=== PATIENT | male | born 1955 | race Caucasian/White ===

== ENCOUNTER 2016-03-24 04:33 | Inpatient (IN) | payer OTHER ==
[~2016-03-24] VITALS: Ht 154.9 cm; Wt 104.5 kg
[2016-03-24] VITALS (18 sets, daily range): BP systolic 94–131; BP diastolic 60–94
[~2016-03-24 04:33] MED LIST: AMLO5TAB2 PO; ASP81CT PO; ASPI-587 PO; ASPI-983 PO; CHLO25TA22 PO; CIPR-226 PO; DXZS4T PO; GLUC1000 PO; GLUC100016 PO; GLUC500T10 PO; HYDR12.56 PO; LISI-552 PO; LISI20TA PO; LSNP20T PO; LVF500T PO; MULT-963 PO; OXYC-109 PO; PHEN200T27 PO; PROSTATE MED; SULF1TAB35 PO; SULF1TAB38 PO; TAMS0.4C9 PO; TRAM50TA2 PO
[2016-03-24] MEDS ORDERED: LACTATED RINGERS 1,000 ML IV ONE (04:50)
[2016-03-24] MEDS ORDERED: ONDANSETRON 4 MG/2 ML (SDV) Z0FRAN IVP ONE (05:00)
[2016-03-24 05:03] LABS: BILIRUBIN,URINE NEGATIVE (NEGATIVE); KETONES,URINE NEGATIVE (NEGATIVE); LEUKOCYTE ESTERASE ,URINE NEGATIVE (NEGATIVE); NITRITE,URINE NEGATIVE (NEGATIVE); PH,URINE 6 (5-9); PROTEIN,URINE NEGATIVE (NEGATIVE); UROBILINOGEN,URINE NORMAL (NORMAL)
[2016-03-24 05:03] LABS: BASOPHILS # (AUTO) 0.1 10^3/uL (0.0-0.1); BASOPHILS % (AUTO) 1 % (0-10); EOSINOPHILS # (AUTO) 0.1 10^3/uL (0.0-0.3); EOSINOPHILS % (AUTO) 1 % (0-10); LYMPHOCYTES # (AUTO) 1.9 X 10^3 (1.0-4.0); LYMPHOCYTES % (AUTO) 18 % (12-44); MEAN CORPUSCULAR HEMOGLOBIN 31 PG (25-34); MEAN CORPUSCULAR HGB CONC 34 G/DL (32-36); MEAN CORPUSCULAR VOLUME 91 FL (80-99); MEAN PLATELET VOLUME 10.8 FL (7.4-10.4); MONOCYTES # (AUTO) 1.2 X 10^3 (0.0-1.0); MONOCYTES % (AUTO) 11 % (0-12); NEUTROPHILS # (AUTO) 7.4 X 10^3 (1.8-7.8); NEUTROPHILS % (AUTO) 69 % (42-75); PLATELET COUNT 289 10^3/uL (130-400); RED BLOOD COUNT 5.08 10^6/uL (4.35-5.85); RED CELL DISTRIBUTION WIDTH 13.9 % (10.0-14.5); WHITE BLOOD COUNT 10.7 10^3/uL (4.3-11.0)
--- NOTE | 2016-03-24 05:04 | ED Abdominal Pain ---
General Chief Complaint: Abdominal/GI Problems Stated Complaint: AB PAIN VOMITING FEVER Nursing Triage Note: abdominal pain, nausea/vomitting. recently dx with abdominal hernia/diverticulitis. Sepsis Screen: No Definite Risk Source of Information: Patient, Old Records History of Present Illness Time Seen By Provider: 04:41 Initial Comments C/O MID ABDOMINAL PAIN FOR COUPLE OF WEEKS STATES PAIN IS WORSE TONIGHT AND HE HAS HAD NAUSEA AND VOMITING ALL NIGHT AND IT KEPT HIM UP ALL NIGHT. HAS VOMITED X 4, NOW DRY HEAVES PT WAS SEEN IN ER 03/20/16 FOR THIS PROBLEM, CT WAS DONE SHOWING RAMIRO-UMBILICAL HERNIAS AND DIVERTICULAR DISEASE WITHOUT ANY ACUTE PROCESS PT HAS BEEN SEEN BY DR. KIMBALL WELL PT HAS AN APPOINTMENT WITH DR. PHAM TODAY FOR THIS PROBLEM AND IS TO HAVE SURGERY THIS Thursday03/27/16 NO FEVER NO DIARRHEA OR CONSTIPATION--HAD NORMAL BM YESTERDAY NO URINARY SYMPTOMS STATES IT IS CAUSING HIM TO HAVE TROUBLE BREATHING AND HE KEEPS HAVING PANIC ATTACKS SINCE SYMPTOMS BEGAN NO CHEST PAIN LAST ATE AT 1800 LAST EVENING Allergies and Home Medications Allergies Coded Allergies: lidocaine (Unverified Allergy, Mild, BREAKS OUT IN WELTS, 03/20/16) orange juice (Verified Allergy, Unknown, 04/09/13) Home Medications Amlodipine Besylate 5 Mg Tablet 5 MG PO DAILY (Reported) Aspirin 81 Mg Tablet.dr 81 MG PO DAILY (Reported) Glucosamine Sulfate 2Kcl 1,000 Mg Tablet 1,000 MG PO DAILY (Reported) Lisinopril 20 Mg Tablet 20 MG PO DAILY (Reported) Tramadol HCl 50 Mg Tablet #20 50-100 MG PO Q6H PRN PRN abdominal pain Prescribed by: GUY RYAN on 03/20/16 1324 Review of Systems Constitutional: no symptoms reported Respiratory: See HPI Shortness of Air Cardiovascular: No Symptoms ReportedDenies Chest Pain, Denies Edema, Denies Irregular Heart Rate, Denies Lightheadedness, Denies Palpitations, Denies Syncope Gastrointestinal: See HPI Abdominal PainDenies Constipated, Denies Diarrhea, Nausea Poor Appetite Poor Fluid IntakeDenies Rectal Bleeding, Vomiting Genitourinary: No Symptoms Reported Musculoskeletal: no symptoms reported Skin: no symptoms reported Psychiatric/Neurological: See HPI Anxiety Endocrine: No Symptoms Reported Hematologic/Lymphatic: No Symptoms Reported Past Hoaohyx-Aotiun-Xpougk Hx Patient Social History Alcohol Use: Rarely Uses (HISTORY OF ABUSE) Recreational Drug Use: No Smoking Status: Former Smoker (1 PPD, QUIT 10/2015) Type Used: Smokeless Tobacco Recent Foreign Travel: No Contact w/Someone Who Travel: No Recent Infectious Disease Expo: No Recent Hopitalizations: No Physical Abuse Screen: No Sexual Abuse: No Immunizations Up To Date Tetanus Booster (TDap): Less than 5yrs PED Vaccines UTD: Yes Seasonal Allergies Seasonal Allergies: No Surgeries HX Surgeries: Yes (BACK SURGERY WITH BONE GRAFT FROM PELVIS; PERIUMBILICAL HERNIA REPAIR; RIGHT KNEE SCOPE; BILATERAL ROTATOR CUFF REPAIR; KIDNEY STONE BASKET REMOVAL) Surgeries: Abdominal, Appendectomy, Orthopedic, Renal Respiratory Hx Respiratory Disorders: No Cardiovascular Hx Cardiac Disorders: Yes Cardiac Disorders: High Cholesterol, Hypertension Neurological Hx Neurological Disorders: No Reproductive System Hx Reproductive Disorders: No Genitourinary Hx Genitourinary Disorders: Yes Genitourinary Disorders: Benign Prostatic Hyperpl, Kidney Stones Gastrointestinal Hx Gastrointestinal Disorders: Yes Gastrointestinal Disorders: Abdominal Hernia, Gastroesophageal Reflux, Diverticulosis Musculoskeletal Hx Musculoskeletal Disorders: Yes (CHRONIC NECK PAIN; BILATERAL ROTATOR CUFF REPAIR; RIGHT KNEE SCOPE; BACK SURGERY) Musculoskeletal Disorders: Degenerate Disk Disease, Arthritis, Back Injury, Chronic Back Pain Endocrine Hx Endocrine Disorders: No HEENT HX ENT Disorders: Yes (WEARS GLASSES) Loss of Vision: Denies Hearing Impairment: Denies Cancer Hx Cancer: No Psychosocial Hx Psychiatric Problems: No Integumentary HX Skin/Integumentary Disorder: No Blood Transfusions Hx Blood Disorders: No Adverse Reaction to a Blood Tr: No Family Medical History Family Medial History: Alzheimer's disease paternal grandmother Diabetes mellitus 19 MOTHER Gastroenteritis Hypertension G8 SISTER Neoplasm maternal grandmother (pancreatic cancer) Physical Exam Vital Signs VS - Last 72 Hours, by Label 03/24/16 03/24/16 03/24/16 03/24/16 04:46 05:00 05:15 05:23 Temp 98.0 98.0 Pulse 76 96 95 76 Resp 18 B/P 118/83 115/82 13/92 Pulse Ox 99 97 97 99 O2 Delivery Room Air Nasal Cannula Nasal Cannula O2 Flow Rate 2 2 03/24/16 03/24/16 03/24/16 03/24/16 05:23 05:45 06:15 06:30 Temp 98.0 Pulse 76 85 66 127 Resp 16 B/P 117/82 127/93 131/84 Pulse Ox 99 94 97 96 O2 Delivery Nasal Cannula Nasal Cannula Nasal Cannula O2 Flow Rate 2 2 2 Capillary Refill : Less Than 3 Seconds General Appearance: WD/WN no apparent distress other (ANXIOUS) Neck: non-tender full range of motion supple normal inspection Respiratory: normal breath sounds no respiratory distress no accessory muscle use Cardiovascular: no edema no murmur tachycardia (AT TIMES) irregularly irregular (AT TIMES) other (HEART RATE HIGHLY VARIABLE--FROM 70'S TO 140'S) Gastrointestinal: no organomegaly no pulsatile mass abnormal bowel sounds ( RARE) distended guarding rebound tenderness (DIFFUSE, SEVERE TENDERNESS) hernia (MILD REDUCIBLE UMBILICAL HERNIA)No mass Extremities: normal range of motion non-tender normal inspection no pedal edema no calf tenderness normal capillary refill Back: no CVA tenderness 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 as tested no motor/sensory deficits alert oriented x 3 other (ANXIOUS) Skin: normal color warm/dry Progress/Results/Core Measures Results/Orders Lab Results Laboratory Tests Test 03/24/16 04:50 03/24/16 04:54 Range/Units Activated Partial Thromboplast Time 37 H 24-35 SEC Alanine Aminotransferase (ALT/SGPT) 15 0-55 U/L Albumin 4.2 3.2-4.5 G/DL Alkaline Phosphatase 87 40-136 U/L Amylase Level 53 25-125 U/L Anion Gap 10 5-14 MMOL/L Aspartate Amino Transf (AST/SGOT) 15 5-34 U/L B-Type Natriuretic Peptide 116.9 H <100.0 PG/ML BUN/Creatinine Ratio 16 Basophils # (Auto) 0.1 0.0-0.1 10^3/uL Basophils (%) (Auto) 1 0-10 % Blood Urea Nitrogen 24 H 7-18 MG/DL Calcium Level 9.8 8.5-10.1 MG/DL Carbon Dioxide Level 21 21-32 MMOL/L Chloride Level 109 H 98-107 MMOL/L Creatinine 1.48 H 0.60-1.30 MG/DL Eosinophils # (Auto) 0.1 0.0-0.3 10^3/uL Eosinophils (%) (Auto) 1 0-10 % Estimat Glomerular Filtration Rate 49 Glucose Level 107 H 70-105 MG/DL Hematocrit 46 40-54 % Hemoglobin 15.6 13.3-17.7 G/DL INR Comment 1.0 0.8-1.4 Lipase 23 8-78 U/L Lymphocytes # (Auto) 1.9 1.0-4.0 X 10^3 Lymphocytes (%) (Auto) 18 12-44 % Magnesium Level 2.3 1.8-2.4 MG/DL Mean Corpuscular Hemoglobin 31 25-34 PG Mean Corpuscular Hemoglobin Concent 34 32-36 G/DL Mean Corpuscular Volume 91 80-99 FL Mean Platelet Volume 10.8 H 7.4-10.4 FL Monocytes # (Auto) 1.2 H 0.0-1.0 X 10^3 Monocytes (%) (Auto) 11 0-12 % Neutrophils # (Auto) 7.4 1.8-7.8 X 10^3 Neutrophils (%) (Auto) 69 42-75 % Platelet Count 289 130-400 10^3/uL Potassium Level 4.1 3.6-5.0 MMOL/L Prothrombin Time 12.4 12.2-14.7 SEC Red Blood Count 5.08 4.35-5.85 10^6/uL Red Cell Distribution Width 13.9 10.0-14.5 % Sodium Level 140 135-145 MMOL/L TSH [place] Testing 1.88 0.35-4.94 UIU/ML Total Bilirubin 0.5 0.1-1.0 MG/DL Total Protein 6.9 6.4-8.2 G/DL Troponin I < 0.30 <0.30 NG/ML White Blood Count 10.7 4.3-11.0 10^3/uL Urine Bacteria NEGATIVE /HPF Urine Bilirubin NEGATIVE NEGATIVE Urine Casts NONE /LPF Urine Clarity CLEAR Urine Color YELLOW Urine Crystals NONE /LPF Urine Culture Indicated NO Urine Glucose (UA) NEGATIVE NEGATIVE Urine Ketones NEGATIVE NEGATIVE Urine Leukocyte Esterase NEGATIVE NEGATIVE Urine Mucus SMALL H /LPF Urine Nitrite NEGATIVE NEGATIVE Urine Protein NEGATIVE NEGATIVE Urine RBC NONE /HPF Urine RBC (Auto) 1+ H NEGATIVE Urine Specific [place] 1.020 1.016-1.022 Urine Squamous Epithelial Cells RARE /HPF Urine Urobilinogen NORMAL NORMAL MG/DL Urine WBC NONE /HPF Urine pH 6 5-9 My Orders Orders-ADALBERTO BOSWELL DO Saline Lock/Iv-Start (03/24/16 04:50) Monitor-Rhythm Ecg Trace Only (03/24/16 04:50) Amylase (03/24/16 04:50) Cbc With Automated Diff (03/24/16 04:50) Comprehensive Metabolic Panel (03/24/16 04:50) Lipase (03/24/16 04:50) Protime With Inr (03/24/16 04:50) Partial Thromboplastin Time (03/24/16 04:50) Ua Culture If Indicated (03/24/16 04:50) Acute Abd Series (03/24/16 04:50) Saline Lock/Iv-Start (03/24/16 04:50) Lactated Ringers (Lr 1000 Ml Iv Solution (03/24/16 04:50) Ondansetron Injection (Zofran Injectio (03/24/16 05:00) Ekg Tracing (03/24/16 05:05) BNP (03/24/16 05:05) Magnesium (03/24/16 05:05) Thyroid Analyzer (03/24/16 05:05) Troponin I (03/24/16 05:05) Ct Lexy Chest/Noang Abd-Pelv W (03/24/16 05:15) Sodium Chloride (Ad... W/Diltiazem Drip (03/24/16 05:15) Sodium Chloride (Add-[place]) (Ns (Add-V (03/24/16 05:11) Diltiazem Drip (Cardizem Drip) (03/24/16 05:11) Ekg Tracing (03/24/16 06:24) Ekg Tracing (03/24/16 06:24) Morphine Injection (Morphine Injection (03/24/16 06:32) Enoxaparin Injection (Lovenox Injection) (03/24/16 07:30) Medications Given in ED Current Medications Medications Dose Ordered Sig/Elisha Route Start Time Stop Time Status Last Admin Dose Admin Diltiazem HCl 100 mg STK-MED ONCE IV 03/24/16 05:11 03/24/16 05:19 DC 03/24/16 05:23 100 MG Enoxaparin Sodium 100 mg ONCE ONCE SC 03/24/16 07:30 03/24/16 07:31 03/24/16 07:25 100 MG Lactated Ringer's 1,000 ml @ 0 mls/hr Q0M ONCE IV 03/24/16 04:50 03/24/16 04:52 DC 03/24/16 04:56 0 MLS/HR Ondansetron HCl 8 mg 8 mg ONCE ONCE IVP 03/24/16 05:00 03/24/16 05:01 DC 03/24/16 04:56 8 MG Sodium Chloride 100 ml STK-MED ONCE IV 03/24/16 05:11 03/24/16 05:19 DC 03/24/16 05:23 Vital Signs/I&O Vital Sign - Last 12Hours 03/24/16 03/24/16 03/24/16 03/24/16 04:46 05:00 05:15 05:23 Temp 98.0 98.0 Pulse 76 96 95 76 Resp 18 18 17 18 B/P 118/83 115/82 13/ Pulse Ox 99 97 97 99 O2 Delivery Room Air Nasal Cannula Nasal Cannula O2 Flow Rate 2 2 03/24/16 03/24/16 03/24/16 03/24/16 05:23 05:45 06:15 06:30 Temp 98.0 Pulse 76 85 66 127 Resp 18 16 16 22 B/P 117/82 127/93 131/84 Pulse Ox 99 94 97 96 O2 Delivery Nasal Cannula Nasal Cannula Nasal Cannula O2 Flow Rate 2 2 2 Blood Pressure Mean: 66 Progress Note : Progress Note HEART RATE HIGHLY VARIABLE AND PT GOING IN AND OUT OF A FIB WITH RVR, EVERY COUPLE OF MINUTES, WITH RATE FROM 70 - 140'S STARTED ON CARDIZEM DRIP, WITH SOME DECREASE IN FREQUENCY OF EPISODES OF A FIB, BUT STILL OCCURRING. ABDOMINAL PAIN EASED WITH MORPHINE NAUSEA RESOLVED WITH ZOFRAN ECG Initial ECG Impression Time: 05:09 Initial ECG Rate: 69 Initial ECG Rhythm: Normal Sinus (WITH PAC'S ) Initial ECG Comparisson: Unchanged EKG : EKG Time: 05:09 Rate: 94 Rhythm: Normal Sinus (WITH PAC'S/PVC'S AND CHANGE TO A FIB ) ECG Comparisson: Changed Comment EKG#3 AT 0510--RATE 152 WITH A FIB/FLUTTER Diagnostic Imaging Comments ACUTE ABDOMEN XRAYS--NO ACUTE PROCESS, PENDING RADIOLOGIST REVIEW CT ABDOMEN/PELVIS--NO ACUTE PROCESS, PER [facility] VIA FAX @ [id number] Reviewed: Reviewed [place] Study, Reviewed by Me Departure Communication Progress Notes 0715--SPOKE WITH DR. CORDERO, ACCEPTS PT FOR ADMIT. WILL GET CARDIOLOGY CONSULT THIS AM, WELL CONSULT DR. PHAM Impression Impression: Primary Impression: NEW ONSET OF INTERMITTENT A FIB WITH RVR Additional Impressions: Abdominal pain HTN (hypertension) Mild renal insufficiency Disposition: ADMITTED INPATIENT Condition: Improved Decision to Admit Reason: Admit from ER (General) Decision to Admit/Date: Mar 24, 2016 Time/Decision to Admit Time: 07:15 Departure-Patient Inst. Referrals: MOHAN KIMBALL MD (PCP/Family) Primary Care Physician ADALBERTO BOSWELL DO Mar 24, 2016 05:04
[2016-03-24] MEDS ORDERED: DILTIAZEM 100 MG/VIAL (CARDIZEM) ADD-VANTAGE IV ONE (05:11)
[2016-03-24] MEDS ORDERED: SODIUM CHLORIDE (ADD-VANTAGE) 100 ML IV ONE (05:11)
[2016-03-24 05:13] LABS: PROTHROMBIN TIME PATIENT 12.4 SEC (12.2-14.7)
[2016-03-24] MEDS ORDERED: DILTIAZEM DRIP 100 MG in SODIUM CHLORIDE (ADD-VANTAGE) 100 ML IV SCH (05:15)
[2016-03-24 05:21] LABS: ALBUMIN 4.2 G/DL (3.2-4.5); BILIRUBIN,TOTAL 0.5 MG/DL (0.1-1.0); CALCIUM 9.8 MG/DL (8.5-10.1); CREATININE SERUM 1.48 MG/DL (0.60-1.30); POTASSIUM 4.1 MMOL/L (3.6-5.0); TOTAL PROTEIN 6.9 G/DL (6.4-8.2)
[2016-03-24 05:26] LABS: SQUAMOUS EPITHELIAL CELL,UR RARE /HPF
[2016-03-24 05:30] LABS: MAGNESIUM 2.3 MG/DL (1.8-2.4)
[2016-03-24 05:57] LABS: TROPONIN I < 0.30 NG/ML (<0.30)
[2016-03-24] MEDS ORDERED: morphine INJ 10 MG/ML 1ML (SYR OR VIAL) IVP STA (06:32)
[2016-03-24] MEDS ORDERED: ENOXAPARIN 100 MG/1 ML (LOVENOX) SYR SC ONE (07:30)
--- NOTE | 2016-03-24 08:22 | Diagnostic Imaging Report ---
INDICATION: Severe abdominal pain with nausea, vomiting, and fever. Comparison study: Abdomen from September 26, 2014. FINDINGS: Upright view of the chest demonstrates lungs to be clear. The heart and vascularity are normal. Supine and upright views of the abdomen demonstrate residual contrast in the renal collecting system from the patient's recent CT scan. Postoperative changes are present in the spine. There is normal bowel gas pattern. No free air or air-fluid levels are present. There are no abnormal calcifications. IMPRESSION: There are no acute findings. Dictated by: Dictated on workstation # [id number]
[2016-03-24] MEDS ORDERED: D5 1/2 NS 1000 ML IV SOLUTION 1,000 ML IV ONE (08:26)
--- NOTE | 2016-03-24 08:55 | Diagnostic Imaging Report ---
EXAMINATION: CT angiogram of the chest and CT of the abdomen and pelvis with routine protocol using intravenous contrast. TECHNIQUE: Axial images were obtained in the chest, abdomen, and pelvis. Multiple reconstructions were performed including MIP technique reconstructions in the chest. CONTRAST: 125 mL of Omnipaque 350 was administered intravenously. INDICATION: Fever and severe abdominal pain. CTA CHEST: The pulmonary arteries demonstrate mild contrast opacification with no filling defects to suggest pulmonary embolism seen within the central branches. The segmental and subsegmental pulmonary arteries are not well evaluated. The thoracic aorta demonstrates no dissection or aneurysm. There is no mediastinal mass. There are no significantly enlarged lymph nodes in the mediastinum, lanre, or axilla seen. The heart size is normal. There is no pericardial effusion. No pleural effusion. The lungs demonstrate pulmonary nodules measuring up to 6 mm in the right upper lobe just above the minor fissure and in the left lung up to 5 mm in the left lung apex. No significant consolidation or mass. The osseous structures demonstrate degenerative changes and scoliosis. CT ABDOMEN AND PELVIS: There is a simple cyst in the left hepatic lobe with a thin septation measuring 4.2 cm. There is otherwise no significant abnormality in the liver. The spleen is not enlarged. The pancreas and adrenals appear unremarkable. A small duodenal diverticulum is seen adjacent to the pancreatic head. There are supraumbilical fat-containing small ventral hernias with multiple defects in the abdominal wall. An umbilical fat-containing hernia is also seen. In the pelvis, there is mild enlargement of the prostate noted measuring 5.2 cm in transverse dimension. There is mild diverticulosis. No diverticulitis. The kidneys have symmetric enhancement and contrast excretion. There is no hydronephrosis. In the left kidney, there is a 5.7 cm simple cyst. No solid mass. The abdominal aorta is normal in caliber. No periaortic significantly enlarged lymph node is seen. No significant free fluid or fluid collection in the abdomen or pelvis is seen. Posterior fusion hardware is noted at the L4-5 level with associated laminectomy. The osseous structures otherwise demonstrate mild degenerative changes in the upper lumbar spine and SI joints. IMPRESSION: CTA CHEST: 1. There is mild opacification of the pulmonary arteries with no central PE. The distal branches, particularly at the subsegmental level, are not well evaluated. 2. There are indeterminate pulmonary nodules up to 6 mm in the right upper lobe and up to 5 mm in the left lung apex. A followup study in 4-6 months with an unenhanced low dose CT chest would be recommended. CT ABDOMEN AND PELVIS: There are multiple fat-containing small umbilical and supraumbilical ventral hernias. Dictated by: Dictated on workstation # [id number]
--- NOTE | 2016-03-24 09:09 | Consultation-Cardiology ---
HPI-Cardiology Cardiology Consultation: Date of Consultation 03/24/16 Date of Admission 03-23-16 Attending Physician Dakotah Stewart MD Admitting Physician Dakotah Stewart MD Consulting Physician Declan Durham MD HPI: Chief Complaint: New onset a-fib with RVR Mr. Hopson is a 60 year old male admitted to ICU 11 from the ED. He reports Thursday night he had a sudden onset of abdominal pain with n/v. He reports he was seen in the ED on Thursday and discharged home. The abdominal discomfort continued to progress along with the n/v. He states he then came back to the ED and was told he was in a-fib. He does not report any chest pain, palpitations, dyspnea, syncope or near syncope. He is reporting heartburn, which is chronic, but worse this morning. He is reporting jaw discomfort which just started this morning. He describes it as an ache. He does not report any chest pain. He does c/o abdominal discomfort. He states he just quit smoking in December and alcohol use. He states he has abdominal hernias for which he is awaiting surgical consult with Dr. Diaz for possible repair. He reports intermittent LE edema for which he takes HCTZ daily. Spouse is at the bedside. Review of Systems-Cardiology Review of Systems Constitutional: As described under HPI Eyes: No blurred vision, No drainage, No pain, No vision change Ears/Nose/Throat: No ear discharge, No ear pain, No nasal drainage, No ulcerations Respiratory: As described under HPI Cardiovascular: As described under HPI Gastrointestinal: abdominal painNo constipation, No diarrhea, nausea vomitingNo stool coloration changes Genitourinary: No dysuria, No discharge, No frequency, No hematuria, No urgency Skin: No rash, No skin related problems, No ulcerations Psychiatric/Neurological: No anxiety, No depression, No focal weakness, No seizure, No syncope Hematologic: No bleeding abnormalities QIU-Ngyoey-Kstvhl Hx Patient Social History Alcohol Use: Rarely Uses (HISTORY OF ABUSE) Recreational Drug Use: No Smoking Status: Former Smoker (1 PPD, QUIT 10/2015) Type Used: Smokeless Tobacco Recent Foreign Travel: No Recent Infectious Disease Expo: No Hospitalization with Isolation: Denies Physical Abuse Screen: No Sexual Abuse: No Immunizations Up To Date Tetanus Booster (TDap): Less than 5yrs Past Medical History PMH As described under Assessment. Family Medical History Family Medical History: No known family h/o CAD. Family History: Alzheimer's disease paternal grandmother Diabetes mellitus 19 MOTHER Gastroenteritis Hypertension G8 SISTER Neoplasm maternal grandmother (pancreatic cancer) Allergies and Home Medications Allergies Coded Allergies: lidocaine (Unverified Allergy, Mild, BREAKS OUT IN WELTS, 03/20/16) orange juice (Verified Allergy, Unknown, 04/09/13) Home Medications Amlodipine Besylate 5 Mg Tablet 5 MG PO DAILY (Reported) LAST FILLED 03/03/16 #15 Aspirin 81 Mg Tablet.dr 81 MG PO DAILY (Reported) Chlorthalidone 25 Mg Tablet 12.5 MG PO DAILY (Reported) TAKES 1/2 OF A (25 MG) TABLET Gluc HCl/Csa/Terrence Hy/Hyalur AC 1 Each Capsule 1 CAP PO DAILY (Reported) Hydrocodone/Acetaminophen 1 Each Tablet 1 TAB PO Q8H PRN PRN SEVERE PAIN ( Reported) Lisinopril 20 Mg Tablet 20 MG PO DAILY (Reported) Sulfamethoxazole/Trimethoprim 1 Each Tablet 1 TAB PO BID (Reported) FILLED 03/20/16 #20 FOR A 10 DAY THERAPY Tramadol HCl 50 Mg Tablet 50-100 MG PO Q6H PRN PRN MODERATE PAIN (Reported) TAKES 1-2 OF A (50 MG) TABLET Physical Exam-Cardiology Physical Exam Vital Signs/I&O Vital Sign - Last 12Hours 03/24/16 03/24/16 03/24/16 03/24/16 06:30 08:10 08:15 08:25 Temp 97.0 Pulse 127 74 63 Resp 22 18 B/P 131/84 Pulse Ox 96 99 O2 Delivery Nasal Cannula O2 Flow Rate 2 03/24/16 03/24/16 03/24/16 03/24/16 09:00 09:30 10:00 11:00 Temp 96.7 Pulse 67 58 61 62 Resp 34 11 12 B/P 101/66 106/67 106/67 94/70 Pulse Ox 95 94 91 O2 Delivery Room Air Room Air Room Air 03/24/16 03/24/16 03/24/16 03/24/16 12:00 12:00 13:44 16:00 Temp 96.7 97.8 Pulse 68 67 Resp 19 B/P 101/72 98/60 Pulse Ox 90 93 O2 Delivery Room Air Capillary Refill : Less Than 3 Seconds Constitutional: appears stated ageNo apparent distress, well-developed well- nourished HEENT: PERRLNo discharge, hearing is well preserved oral hygience is goodNo ulceration, No xanthelasmas are seen Neck: No carotid bruit, carotid pulses are 2 + bilaterally Respiratory: No accessory muscle use, No respiratory distress, chest expansion is symmetric chest is bilaterally symmetric lungs clear to percussion lungs clear to auscultation Cardiovascular: irregularly irregular (Altermating between a-fib and SR)No JVD , S1 and S2 systolic murmur Gastrointestinal: distended tendernessNo spleenomegaly Extremities: No clubbing, No cyanosis, No significant edema 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: alert oriented x 3 power is 5/5 both on sides Skin: No rash, No ulcerations Data Review Labs Laboratory Tests 03/24/16 04:50: Activated Partial Thromboplast Time 37H, Alanine Aminotransferase (ALT/SGPT) 15 , Albumin 4.2, Alkaline Phosphatase 87, Amylase Level 53, Anion Gap 10, Aspartate Amino Transf (AST/SGOT) 15, B-Type Natriuretic Peptide 116.9H, BUN/ Creatinine Ratio 16, Basophils # (Auto) 0.1, Basophils (%) (Auto) 1, Blood Urea Nitrogen 24H, Calcium Level 9.8, Carbon Dioxide Level 21, Chloride Level 109H, Creatinine 1.48H, Eosinophils # (Auto) 0.1, Eosinophils (%) (Auto) 1, Estimat Glomerular Filtration Rate 49, Glucose Level 107H, Hematocrit 46, Hemoglobin 15.6, INR Comment 1.0, Lipase 23, Lymphocytes # (Auto) 1.9, Lymphocytes (%) ( Auto) 18, Magnesium Level 2.3, Mean Corpuscular Hemoglobin 31, Mean Corpuscular Hemoglobin Concent 34, Mean Corpuscular Volume 91, Mean Platelet Volume 10.8H, Monocytes # (Auto) 1.2H, Monocytes (%) (Auto) 11, Neutrophils # (Auto) 7.4, Neutrophils (%) (Auto) 69, Platelet Count 289, Potassium Level 4.1, Prothrombin Time 12.4, Red Blood Count 5.08, Red Cell Distribution Width 13.9, Sodium Level 140, TSH [facility] Testing 1.88, Total Bilirubin 0.5, Total Protein 6.9, Troponin I < 0.30, White Blood Count 10.7 03/24/16 04:54: Urine Bacteria NEGATIVE, Urine Bilirubin NEGATIVE, Urine Casts NONE, Urine Clarity CLEAR, Urine Color YELLOW, Urine Crystals NONE, Urine Culture Indicated NO, Urine Glucose (UA) NEGATIVE, Urine Ketones NEGATIVE, Urine Leukocyte Esterase NEGATIVE, Urine Mucus SMALLH, Urine Nitrite NEGATIVE, Urine Protein NEGATIVE, Urine RBC NONE, Urine RBC (Auto) 1+H, Urine Specific [place] 1.020, Urine Squamous Epithelial Cells RARE, Urine Urobilinogen NORMAL, Urine WBC NONE , Urine pH 6 Radiology NAME: GUY HOPSON [facility] REC#: [id number] PT STATUS: ADM IN : 1955 PHYSICIAN: ADALBERTO BOSWELL DO ADMIT DATE: 03/24/16/ICU Draft Date of Exam:03/24/16 ACUTE ABD SERIES INDICATION: Severe abdominal pain with nausea, vomiting, and fever. Comparison study: Abdomen from September 26, 2014. FINDINGS: Upright view of the chest demonstrates lungs to be clear. The heart and vascularity are normal. Supine and upright views of the abdomen demonstrate residual contrast in the renal collecting system from the patient's recent CT scan. Postoperative changes are present in the spine. There is normal bowel gas pattern. No free air or air-fluid levels are present. There are no abnormal calcifications. IMPRESSION: There are no acute findings. Dictated on workstation # [id number] Dict: 03/24/16817 Trans: 03/24/16821 [id number] Interpreted by: JOSE ANTONIO LEONARD MD Electronically signed by: ECG Impression ECG Initial ECG Impression: Atrial Fibrillation w/RVR A/P-Cardiology Assessment/Admission Diagnosis New onset a-fib with RVR - rate currently controlled Palpitations of undetermined etiology which have been present for several years Reported h/o TIA 3-4 years ago with reported transient loss of speech HTN Intermittent LE edema for which he is on chronic diuretics managed by his PCP N/V/D Severe lower abdominal wall pain d/t abdominal herniations - medical and surgical services managing H/O kidney stones Abdominal hernias for which he is awaiting surgical consult H/O diverticulitis H/O tobaccoism - stopped in December 2015 H/O ETOH use - stopped in December 2015 Acute on chronic renal insufficiency Discussion and Recomendations New onset a-fib with RVR. Rate controlled with IV Diltiazem. Will change to BB for rate and BP control. We will stop Lisinopril d/t renal insufficiency. We will stop diuretics as well. We will stop Norvasc in order to allow BP room for BB. Echocardiogram to evaluate LVEF and valvular status. D/t non-specific c/o chest and jaw discomfort, new onset of a-fib and other risk factors as listed above we advise further cardiac work up. We advise MPI. He does not feel he will be able to ambulate on a treadmill d/t abdominal pain. We will do pharmacological MPI. Further recommendations will be based on his hospital course. We would like to thank Dr. Stewart for this consult. This consult is being scribed by Cathy Gregg APRN after discussion with Dr. Durham Physician Assessment Physician Assessment Lungs: good bilat air entry, but diminished at the bases Cor: reg A&R * As documented in our note above * I had a detailed discussion with him and answered questions JANELLE GREGG PHOTO INTERN Mar 24, 2016 09:09 DECLAN DURHAM MD [facility] Mar 24, 2016 18:29
[2016-03-24] MEDS ORDERED: CATHETER FLUSH 10 ML SYR IV PRN (09:30)
[2016-03-24] MEDS: DILTIAZEM DRIP 100 MG/NS 100 ML IV SCH ×2 (09:30)
[2016-03-24] MEDS ORDERED: PANTOPRAZOLE 40 MG/10 ML (PROTONIX) VIAL IV NR (10:00)
[2016-03-24] MEDS ORDERED: ANTACID SUSP 30 ML UDC (MYLANTA) PO ONE (10:00)
[2016-03-24] MEDS: meTOproloL SUCCINATE 50 MG (TOPROL XL) TAB PO NR ×3 (10:00→15:49)
[2016-03-24] MEDS ORDERED: GLUC1CAP14 PO (10:37)
[2016-03-24] MEDS ORDERED: TRAM50TA2 PO (10:37)
[2016-03-24] MEDS ORDERED: HYDR-3820 PO (10:37)
[2016-03-24] MEDS ORDERED: SULF1TAB35 PO (10:37)
[2016-03-24] MEDS ORDERED: CHLO25TA22 PO (10:37)
[2016-03-24] MEDS: morphine INJ 10 MG/ML 1ML (SYR OR VIAL) IV PRN ×4 (10:47→20:52)
[2016-03-24] MEDS: D5 1/2 NS 1000 ML IV SOLUTION 1,000 ML IV SCH ×3 (10:48→20:53)
[2016-03-24] MEDS: ONDANSETRON 4 MG/2 ML (SDV) Z0FRAN IVP PRN ×4 (10:48→19:06)
--- NOTE | 2016-03-24 12:11 | History & Physical-Hospitalist ---
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 He was seen here in the emergency room on 03/20 with complaints of abdominal pain ultimate workup showed a by CT scan that there was a periumbilical hernia or hernias. He in fact was to have an appointment with Dr. Andrews today for planning of the hernia repair later this week. CT scan done early this morning showed no evidence of bowel obstruction. The other finding was that he had atrial fibrillation with a rapid ventricular response which was a new finding. He was admitted to the ICU for a Cardizem drip and the cardiac consultation. He has had many surgeries including a previous periumbilical hernia repair a stated (kidney stone procedure which she states was the cause of the horizontally aligned left lower quadrant sub-umbilical scar. Date Seen 03/24/16 Attending Physician Dakotah Stewart MD PCP Dakotah Stewart MD Referring Physician Date of Admission Mar 24, 2016 at 07:29 Home Medications & Allergies Home Medications Reviewed patient Home Medication Reconciliation Form Allergies Coded Allergies: lidocaine (Unverified Allergy, Mild, BREAKS OUT IN WELTS, 03/20/16) orange juice (Verified Allergy, Unknown, 04/09/13) Past Kkqfqzs-Xkbpoe-Xxejtt Hx Patient Social History Alcohol Use: Rarely Uses Recreational Drug Use: No Smoking Status: Former Smoker Type Used: Smokeless Tobacco Physical Abuse Screen: No Sexual Abuse: No Recent Foreign Travel: No Contact w/other who traveled: No Recent Hopitalizations: No Recent Infectious Disease Expo: No Immunizations Up To Date Tetanus Booster (TDap): Less than 5yrs Seasonal Allergies Seasonal Allergies: No Surgeries HX Surgeries: Yes Surgeries: Abdominal, Appendectomy, Orthopedic, Renal Respiratory Hx Respiratory Disorders: No Cardiovascular Hx Cardiovascular Disorders: Yes Cardiac Disorders: High Cholesterol, Hypertension Neurological Hx Neurological Disorders: No Reproductive System Hx Reproductive Disorders: No Sexually Transmitted Disease: No HIV/AIDS: No Genitourinary Hx Genitourinary Disorders: Yes Genitourinary Disorders: Benign Prostatic Hyperpl, Kidney Stones Gastrointestinal Hx Gastrointestinal Disorders: Yes Gastrointestinal Disorders: Abdominal Hernia, Gastroesophageal Reflux, Diverticulosis Musculoskeletal Hx Musculoskeletal Disorders: Yes Musculoskeletal Disorders: Degenerate Disk Disease, Arthritis, Back Injury, Chronic Back Pain Endocrine Hx Endocrine Disorders: No HEENT HX ENT Disorders: Yes (WEARS GLASSES) Loss of Vision: Denies Hearing Impairment: Denies Cancer Hx Cancer: No Psychosocial Hx Psychiatric Problems: No Integumentary HX Skin/Integumentary Disorder: No Blood Transfusions Hx Blood Disorders: No Adverse Reaction to a Blood Tr: No Family Medical History Family Hx: Alzheimer's disease paternal grandmother Diabetes mellitus 19 MOTHER Gastroenteritis Hypertension G8 SISTER Neoplasm maternal grandmother (pancreatic cancer) Review of Systems Constitutional: see HPI EENTM: no symptoms reported Respiratory: no symptoms reported Cardiovascular: see HPI palpitations Gastrointestinal: abdominal pain nausea vomiting Genitourinary: no symptoms reported Musculoskeletal: no symptoms reported Skin: no symptoms reported Psychiatric/Neurological: No Symptoms Reported Physical Exam Physical Exam Vital Signs Vital Sign - Last 12Hours 03/24/16 03/24/16 04:46 05:00 Temp 98.0 Pulse 76 Resp 18 B/P 13/92 Pulse Ox 99 O2 Delivery Room Air O2 Flow Rate 2 Capillary Refill : Less Than 3 Seconds General Appearance: No Apparent Distress WD/WN Eyes: Bilateral Eye Normal Inspection HEENT: Normal ENT Inspection Neck: Normal Inspection Respiratory: Chest Non Tender Lungs Clear Normal Breath Sounds No Accessory Muscle Use No Respiratory Distress Cardiovascular: Other (now in sinus rhythm albeit with frequent PACs) Gastrointestinal: Distended Guarding Rebound Tenderness Extremity: Normal Capillary Refill Normal Inspection Normal Range of Motion Non Tender No Calf Tenderness No Pedal Edema 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: Alert Oriented x3 No Motor/Sensory Deficits Normal Mood/Affect Skin: Normal Color Warm/Dry Lymphatic: No Adenopathy Results Results/Procedures Lab Laboratory Tests 03/24/16 04:50 Assessment/Plan Admission Diagnosis 1.new onset atrial fibrillation with rapid ventricular response. 2.abdominal pain probably multifactorial. 3.hypertension by history Assessment and Plan 1.cardiology consult and recommendations. 2.consult Dr. Diaz from general surgery. 3.ICU/telemetry monitoring for the present. Clinical Quality Measures DVT/VTE Risk/Contraindication: Risk Factor Score Per Nursin RFS Level Per Nursing on Admit: 1=Low/No VTE PPX JASPAL CORDERO MD Mar 24, 2016 12:11
[2016-03-24] MEDS ORDERED: FLU TRIvalent (5 YOA+) 2016-17 (AFLURIA) 0.5 ML IM ONE (13:00)
[2016-03-24] MEDS ORDERED: REGADENOSON 0.4 MG/5 ML SYR (LEXISCAN) IV ONE (13:34)
[2016-03-24] MEDS ORDERED: ONDANSETRON 4 MG/2 ML (SDV) Z0FRAN ONE (13:45)
[2016-03-24] MEDS: ANTACID SUSP 30 ML UDC (MYLANTA) PO SCH ×3 (15:15→20:20)
[2016-03-24] MEDS ORDERED: meTOproloL SUCCINATE 50 MG (TOPROL XL) TAB PO ONE (15:37)
[2016-03-24] MEDS: ENOXAPARIN 100 MG/1 ML (LOVENOX) SYR SC SCH (19:30)
[2016-03-24] MEDS ORDERED: METOCLOPRAMIDE INJ 10 MG/2 ML (REGLAN) ONE (20:39)
[2016-03-25] VITALS (16 sets, daily range): BP systolic 99–133; BP diastolic 69–89
[2016-03-25] MEDS: morphine INJ 10 MG/ML 1ML (SYR OR VIAL) IV PRN ×5 (02:07→23:37)
[2016-03-25] MEDS: METOCLOPRAMIDE INJ 10 MG/2 ML (REGLAN) IV PRN ×4 (02:08→20:56)
[2016-03-25] MEDS: D5 1/2 NS 1000 ML IV SOLUTION 1,000 ML IV SCH ×3 (03:32→17:59)
[2016-03-25 04:28] LABS: BASOPHILS % (AUTO) 0 % (0-10); EOSINOPHILS # (AUTO) 0.1 10^3/uL (0.0-0.3); EOSINOPHILS % (AUTO) 2 % (0-10); LYMPHOCYTES # (AUTO) 1.6 X 10^3 (1.0-4.0); LYMPHOCYTES % (AUTO) 18 % (12-44); MEAN CORPUSCULAR HEMOGLOBIN 31 PG (25-34); MEAN CORPUSCULAR HGB CONC 33 G/DL (32-36); MEAN CORPUSCULAR VOLUME 93 FL (80-99); MEAN PLATELET VOLUME 10.6 FL (7.4-10.4); MONOCYTES # (AUTO) 0.9 X 10^3 (0.0-1.0); MONOCYTES % (AUTO) 10 % (0-12); NEUTROPHILS # (AUTO) 6.2 X 10^3 (1.8-7.8); NEUTROPHILS % (AUTO) 70 % (42-75); PLATELET COUNT 260 10^3/uL (130-400); RED BLOOD COUNT 4.29 10^6/uL (4.35-5.85); RED CELL DISTRIBUTION WIDTH 13.8 % (10.0-14.5); WHITE BLOOD COUNT 8.8 10^3/uL (4.3-11.0)
[2016-03-25 04:59] LABS: CALCIUM 8.5 MG/DL (8.5-10.1); CREATININE SERUM 1.39 MG/DL (0.60-1.30); MAGNESIUM 2.2 MG/DL (1.8-2.4); PHOSPHORUS 3.5 MG/DL (2.3-4.7); POTASSIUM 4.2 MMOL/L (3.6-5.0)
[2016-03-25] MEDS: DILTIAZEM DRIP 100 MG/NS 100 ML IV SCH ×2 (05:30)
[2016-03-25] MEDS ORDERED: KCL 20 MEQ TAB (K-DUR) PO SCH (06:00)
[2016-03-25] MEDS ORDERED: MAGNESIUM 1 GM/100 ML IVPB 100 ML IV SCH (06:00)
[2016-03-25] MEDS ORDERED: POTASSIUM CL 10MEQ/50ML IVPB 50 ML IV SCH (06:00)
--- NOTE | 2016-03-25 07:30 | Diagnostic Imaging Report ---
INDICATION: Dyspnea. DISCUSSION: Single portable upright view of the chest was obtained, comparison 03/24/2016. Low lung volumes. Normal heart size. No focal consolidation, pleural fluid, pneumothorax. No acute osseous abnormality. IMPRESSION: 1. Low lung volumes. Dictated by: Dictated on workstation # [id number]
--- NOTE | 2016-03-25 07:45 | STRESS TEST ---
PROCEDURE PHYSICIAN: GWENDOLYN DURHAM DATE OF PROCEDURE: 03/24/2016 RESTING AND POST REGADENOSON TECHNETIUM 99M TETROFOSMIN SPECT CT IMAGING: ORDERING PHYSICIAN: Shawna Gregg APRN PRIMARY PHYSICIAN: Dr. Stewart OTHER PHYSICIAN: Dr. Durham. CLINICAL DIAGNOSIS: Chest pain. Baseline images were carried out after injection of 10.31 mCi of technetium 99m tetrofosmin. This was followed by 0.4 mg of regadenoson and 29.2 mCi of technetium 99m tetrofosmin for stress imaging. The electrocardiogram showed sinus rhythm with frequent premature atrial contractions. Paroxysmal atrial fibrillation with a rapid ventricular response was seen on this study. He noted shortness of breath and nausea following regadenoson infusion, which resolved in a few minutes. Review of images at rest and following stress is compromised with considerable location motion during image acquisition both at rest and following regadenoson infusion. There does not appear to be any distinct perfusion defects consistent with significant myocardial ischemia or infarction. Gated images show normal global left ventricular systolic function with normal regional wall motion. Left ventricular ejection fraction is calculated to be 77%. Left ventricular end-diastolic volume is 41 mL. CONCLUSIONS: 1. Technically difficult study due to considerable patient motion during image acquisition. 2. No evidence of any significant myocardial ischemia or infarction on this study. 3. Normal regional wall motion. 4. Normal global left ventricular systolic function with an ejection fraction of 77%. 5. Paroxysmal atrial fibrillation is seen on this study. Job ID: [id number] Dictated Date: 03/24/2016 18:55:00 Society Editor Date: 03/25/2016 07:40:25 / kael
--- NOTE | 2016-03-25 07:49 | ECHOCARDIOGRAPHY REPORT ---
PROCEDURE PHYSICIAN: GWENDOLYN DURHAM DATE OF PROCEDURE: 03/24/2016 TWO DIMENSIONAL ECHOCARDIOGRAM REPORT PRIMARY PHYSICIAN: Dr. Stewart OTHER PHYSICIAN: Dr. Durham REFERRING PHYSICIAN: ORDERING PHYSICIAN: Shawna Gregg APRN INDICATION FOR THE PROCEDURE: 1. Chest pain. 2. Abdominal pain. MEASUREMENTS DERIVED VALUES LV DIAMETER (LAX) NORMALS NORMALS Diastolic 3.4 (3.6-5.2) Eject. Fract. (60%+/-6%) Systolic (2.3-3.9) Diastolic Vol. % Shortening (0.22-0.42) Systolic Vol. Aortic Root 2.9 IVS THICKNESS Diastolic 0.9 (0.6-1.1) LVPW THICKNESS Diastolic 1.1 (0.6-1.1) LA DIAMETER Systolic 3.5 (2.1-3.7) DESCRIPTION: Two-dimensional echocardiography shows normal global left ventricular systolic function with normal regional wall motion. Aortic, mitral and tricuspid valve leaflets show good leaflet excursion. There is no significant pericardial effusion. Doppler imaging shows mild mitral and tricuspid regurgitation. There is no Doppler evidence of significant valvular stenosis. Pulmonary artery systolic pressure is estimated to be approximately 35 mmHg. Mitral inflow is consistent with grade 1 diastolic dysfunction of the left ventricle. CONCLUSION: 1. Normal global left ventricular systolic function with an ejection fraction of approximately 65%. 2. Mild mitral and tricuspid regurgitation. 3. Pulmonary artery systolic pressure is estimated to be approximately 35 mmHg. 4. Mild diastolic dysfunction of the left ventricle is suggested on this study. Job ID: [id number] Dictated Date: 03/24/2016 19:04:01 Web Application Developer Date: 03/25/2016 07:44:58 / kael
[2016-03-25] MEDS: PANTOPRAZOLE 40 MG/10 ML (PROTONIX) VIAL IV SCH (08:10)
[2016-03-25] MEDS: ENOXAPARIN 100 MG/1 ML (LOVENOX) SYR SC SCH ×2 (08:10→18:27)
[2016-03-25] MEDS: ASPIRIN E.C. 81 MG (ECOTRIN) TAB PO SCH (08:17)
[2016-03-25] MEDS: meTOproloL SUCCINATE 50 MG (TOPROL XL) TAB PO SCH (08:18)
[2016-03-25] MEDS: ANTACID SUSP 30 ML UDC (MYLANTA) PO SCH ×4 (08:18→20:55)
--- NOTE | 2016-03-25 08:47 | Progress Note-Cardiology ---
Cardiology SOAP Progress Note Subjective: Continues to c/o diffuse abdominal pain, but feels it is better today. No c/o CP, palpitations, syncope, near syncope or dyspnea. Objective: I&O/Vital Signs Vital Sign - Last 12Hours 03/25/16 03/25/16 03/25/16 03/25/16 01:00 01:00 02:00 03:00 Pulse 57 59 62 61 Resp 11 13 9 B/P 109/86 106/73 106/79 Pulse Ox 92 92 92 O2 Delivery Room Air Room Air Room Air 03/25/16 03/25/16 03/25/16 03/25/16 04:00 04:00 05:00 06:00 Temp 98.7 Pulse 54 80 66 Resp 17 24 12 B/P 108/69 119/88 103/72 Pulse Ox 94 95 94 91 O2 Delivery Room Air Room Air Room Air Room Air 03/25/16 03/25/16 03/25/16 03/25/16 07:00 07:00 08:00 08:10 Pulse 55 59 63 Resp 6 10 B/P 103/70 113/83 Pulse Ox 90 94 94 O2 Delivery Room Air Room Air Room Air 03/25/16 03/25/16 03/25/16 09:00 10:00 11:00 Pulse 53 56 52 Resp 13 18 13 B/P 115/76 115/86 106/78 Pulse Ox 94 93 96 O2 Delivery Room Air Room Air Room Air Intake and Output 03/25/16 00:00 Intake Total 1000 ml Output Total 375 ml Balance 625 ml Weight (Pounds): 211 Weight (Ounces): 2.0 Weight (Calculated Kilograms): 95.295409 Constitutional: appears stated ageNo apparent distress, well-developed well- nourished Respiratory: No accessory muscle use, No respiratory distress, chest expansion is symmetric chest is bilaterally symmetric lungs clear to percussion lungs clear to auscultation Cardiovascular: irregularly irregular (Altermating between a-fib and SR)No JVD , S1 and S2 systolic murmur Gastrointestional: soft tendernessNo spleenomegaly Extremities: No clubbing, No cyanosis, No significant edema 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: alert oriented x 3 power is 5/5 both on sides Skin: No rash, No ulcerations Results/Procedures: Labs Laboratory Tests 03/25/16 04:05: Anion Gap 6, BUN/Creatinine Ratio 15, Basophils # (Auto) 0.0, Basophils (%) ( Auto) 0, Blood Urea Nitrogen 21H, Calcium Level 8.5, Carbon Dioxide Level 24, Chloride Level 105, Creatinine 1.39H, Eosinophils # (Auto) 0.1, Eosinophils (%) (Auto) 2, Estimat Glomerular Filtration Rate 52, Glucose Level 109H, Hematocrit 40, Hemoglobin 13.2L, Lymphocytes # (Auto) 1.6, Lymphocytes (%) (Auto) 18, Magnesium Level 2.2, Mean Corpuscular Hemoglobin 31, Mean Corpuscular Hemoglobin Concent 33, Mean Corpuscular Volume 93, Mean Platelet Volume 10.6H, Monocytes # (Auto) 0.9, Monocytes (%) (Auto) 10, Neutrophils # (Auto) 6.2, Neutrophils (%) (Auto) 70, Phosphorus Level 3.5, Platelet Count 260, Potassium Level 4.2, Red Blood Count 4.29L, Red Cell Distribution Width 13.8, Sodium Level 135, White Blood Count 8.8 Laboratory Tests 03/24/16 04:50 03/25/16 04:05 A/P: Assessment: PAF Echo of 03-24-16: Normal global left ventricular systolic function with an ejection fraction of approximately 65%, mild mitral and tricuspid regurgitation , pulmonary artery systolic pressure is estimated to be approximately 35 mmHg, mild diastolic dysfunction of the left ventricle MPI of 03-24-16: Technically difficult study due to considerable patient motion during image acquisition, no evidence of any significant myocardial ischemia or infarction on this study, normal regional wall motion, normal global left ventricular systolic function with an ejection fraction of 77%, paroxysmal atrial fibrillation was seen Reported h/o TIA 3-4 years ago with reported transient loss of speech HTN - improved Intermittent LE edema for which he is on chronic diuretics managed by his PCP N/V/D Severe lower abdominal wall pain d/t abdominal herniations - medical and surgical services managing H/O kidney stones Abdominal hernias for which he is awaiting surgical consult H/o diverticulitis H/o tobaccoism - stopped in December 2015 H/o ETOH use - stopped in December 2015 Acute on chronic renal insufficiency Plan: Continue BB Continue enoxaparin while awaiting surgery. Recommend oral apixaban after surgery is done or if surgery is not being considered Cardiac risk for noncardiac surgery is estimated to be low to intermediate. He understands his risk and wishes to proceed with any necessary surgery Physician Assessment Physician Assessment Lungs: good bilat air entry Cor: reg A&R * As documented in our note above to which I made updates at the time of this writing * I discussed his cardiac w/u results and his CV risk for surgery with him and his in detail and answered questions. He understands and wishes to proceed * I discussed his case in detail with Dr Mancini * Change enoxaparin to oral anticoag post surgery * Outpatient f/u advise * Dr Prabhakar covering our service beginning 03/26/16 JANELLE ABRAHAM PUBLIC SPEAKING COACH Mar 25, 2016 08:47 GWENDOLYN BELL MD FACP [facility] CCDS Mar 25, 2016 12:23
[2016-03-25] MEDS ORDERED: amLODIPine 5 MG (NORVASC) TAB PO SCH (09:00)
[2016-03-25] MEDS ORDERED: PANTOPRAZOLE 40 MG/10 ML (PROTONIX) VIAL IV SCH (09:00)
[2016-03-25] MEDS ORDERED: lisINopril 20 MG (ZESTRIL) TAB PO SCH (09:00)
[2016-03-25] MEDS ORDERED: CHLORTHALIDONE 25 MG (HYGROTON) TABLET PO SCH (09:00)
--- NOTE | 2016-03-25 12:29 | Progress Note-Hospitalist ---
Standard Progress Note Progress Notes/Assess & Plan Date Seen 03/25/16 Diagnosis 1.new onset atrial fibrillation with rapid ventricular response. 2.abdominal pain probably multifactorial. 3.hypertension by history Assess & Plan/Chief Complaint The patient continues to complain rather bitterly of abdominal pain. He states that this is mostly continuous. He had an episode yesterday afternoon with increased abdominal pain and reported vomiting of rather considerable bilious liquid. He states that there is been no gas rectally or bowel movement since admission. He remains in sinus rhythm at this point. I discussed the case with Dr. Diaz and he will be up here in the early afternoon to complete his consult. Physical exam: The patient appears comfortable. There is an occasional hiccup. Lungs are clear to auscultation. CV is regular and the monitor reveals sinus with occasional PAC. The abdomen appears to be slightly distended. It is diffusely tender to palpation without guarding or rebound. The area of greatest tenderness is in the left and lateral at a level just below the umbilicus. Impression: Intermittent atrial fibrillation with rapid ventricular response now controlled. Hypertension. Abdominal pain etiology unclear. Plan: Add beta vicente for hypertension and rate control. After Dr. Diaz has completed consultation and depending on whether there is any surgery to be done , oral anticoagulants will be admitted. Labs Laboratory Tests 03/24/16 04:50 03/25/16 04:05 JASPAL CORDERO MD Mar 25, 2016 12:29
--- NOTE | 2016-03-25 14:24 | Consultation ---
History of Present Illness History of Present Illness Patient Consulted On(tavon/time) 03/25/16 14:16 Date of Admission History of Present Illness Pt is a 60 yo male, surgery asked to consult regarding abdominal pain. Pt states he has had persistent pain for the past 3 weeks, but it was severe on Thursday night; woke him from sleep and he went to ER immediately. Pain at that time was 10 out of 10. He does not associate the pain with any certain food; does admit to heartburn "with spicy foods". But this is not same pain. He also had pain back in December and was treated for a suspected Diverticulitis, but states he couldn't take ABX because he "threw them up". He has had increased burping and even nausea and vomiting before this most recent severe episode. He states he has had no problems going to the bathroom; "BM's have been normal". Denied hematochezia, melena or diarrhea. States he had colonscopy (can't remember when) and was told he had " a polyp". He has urinary problems; "lots of stones and sometimes it is hard for me to pee". He was actually scheduled to see me as an outpt for incarcerated ventral hernias seen on CT; fat only no bowel. He had abdominal xray which did not show any dilated loops of small bowel and neither did CT. He is hungry now. He was initially admitted for Afib with RVR. Allergies and Home Medications Allergies Coded Allergies: lidocaine (Unverified Allergy, Mild, BREAKS OUT IN WELTS, 03/20/16) orange juice (Verified Allergy, Unknown, 04/09/13) Home Medications Amlodipine Besylate 5 Mg Tablet 5 MG PO DAILY (Reported) LAST FILLED 03/03/16 #15 Aspirin 81 Mg Tablet.dr 81 MG PO DAILY (Reported) Chlorthalidone 25 Mg Tablet 12.5 MG PO DAILY (Reported) TAKES 1/2 OF A (25 MG) TABLET Gluc HCl/Csa/Terrence Hy/Hyalur AC 1 Each Capsule 1 CAP PO DAILY (Reported) Hydrocodone/Acetaminophen 1 Each Tablet 1 TAB PO Q8H PRN PRN SEVERE PAIN ( Reported) Lisinopril 20 Mg Tablet 20 MG PO DAILY (Reported) Sulfamethoxazole/Trimethoprim 1 Each Tablet 1 TAB PO BID (Reported) FILLED 03/20/16 #20 FOR A 10 DAY THERAPY Tramadol HCl 50 Mg Tablet 50-100 MG PO Q6H PRN PRN MODERATE PAIN (Reported) TAKES 1-2 OF A (50 MG) TABLET Past Aqifxpc-Jjnzzj-Palepr Hx Patient Social History Alcohol Use: Rarely Uses Recreational Drug Use: No Smoking Status: Former Smoker Type Used: Smokeless Tobacco Recent Foreign Travel: No Contact w/Someone Who Travel: No Recent Infectious Disease Expo: No Recent Hopitalizations: No Physical Abuse Screen: No Sexual Abuse: No Immunizations Up To Date Tetanus Booster (TDap): Less than 5yrs PED Vaccines UTD: No Seasonal Allergies Seasonal Allergies: No Surgeries HX Surgeries: Yes Surgeries: Abdominal, Appendectomy, Orthopedic, Renal Respiratory Hx Respiratory Disorders: No Cardiovascular Hx Cardiac Disorders: Yes Cardiac Disorders: High Cholesterol, Hypertension Neurological Hx Neurological Disorders: Yes Neurological Disorders: Dementia, TIA (went to ER and was told he had had a "minor" stroke) Reproductive System Hx Reproductive Disorders: No Sexually Transmitted Disease: No HIV/AIDS: No Genitourinary Hx Genitourinary Disorders: Yes Genitourinary Disorders: Benign Prostatic Hyperpl, Kidney Stones Gastrointestinal Hx Gastrointestinal Disorders: Yes Gastrointestinal Disorders: Abdominal Hernia, Gastroesophageal Reflux, Diverticulosis Musculoskeletal Hx Musculoskeletal Disorders: Yes Musculoskeletal Disorders: Degenerate Disk Disease, Arthritis, Back Injury, Chronic Back Pain Endocrine Hx Endocrine Disorders: No HEENT HX ENT Disorders: Yes (WEARS GLASSES) Loss of Vision: Denies Hearing Impairment: Denies Cancer Hx Cancer: No Psychosocial Hx Psychiatric Problems: No Integumentary HX Skin/Integumentary Disorder: No Blood Transfusions Hx Blood Disorders: No Adverse Reaction to a Blood Tr: No Family Medical History Significant Family History: Diabetes Family Medial History: Alzheimer's disease paternal grandmother Diabetes mellitus 19 MOTHER Gastroenteritis Hypertension G8 SISTER Neoplasm maternal grandmother (pancreatic cancer) Review of Systems-General Constitutional: chillsNo dizziness, malaise EENTM: No blurred vision, No ear discharge, No ear pain, No epistaxis, No throat swelling Respiratory: No cough, No dyspnea on exertion, No hemoptysis Cardiovascular: chest pain palpitations Gastrointestinal: see HPI Genitourinary: hesitancy nocturia Musculoskeletal: back pain joint pain joint swelling muscle stiffness Skin: No change in color, No change in hair/nails Psychiatric/Neurological: Denies Anxiety, Denies Depressed Other denies any chronic illnesses, no bleeding problems and no swollen lymph nodes. Physical Exam-General Problems Physical Exam Vital Signs Vital Sign - Last 12Hours 03/24/16 03/24/16 04:46 05:00 Temp 98.0 Pulse 76 Resp 18 B/P 13/92 Pulse Ox 99 O2 Delivery Room Air O2 Flow Rate 2 Capillary Refill : Less Than 3 Seconds General Appearance: WD/WN mild distress (secondary to pain) obese Eyes: Bilateral Eye EOMI, Bilateral Eye PERRL HEENT: pharynx normalNo scleral icterus (R), No scleral icterus (L), No pale conjunctivae (R), No pale conjunctivae (L) Neck: non-tender supple normal inspection Respiratory: lungs clear normal breath sounds no respiratory distress no accessory muscle use Cardiovascular: regular rate, rhythm no edema no JVD no murmur Gastrointestinal: soft no organomegaly no pulsatile mass tenderness (diffusely , but mostly midline at area of scar and hernias) hernia Rectal: deferred Back: no CVA tenderness no vertebral tenderness Extremities: normal range of motion no pedal edema no calf tenderness normal capillary refill 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: 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 nml as tested no motor/sensory deficits alert normal mood/affect oriented x 3 Skin: normal color warm/dry Lymphatic: no adenopathy (neck, axilla or groin) Data Review Labs Laboratory Tests 03/25/16 04:05: Anion Gap 6, BUN/Creatinine Ratio 15, Basophils # (Auto) 0.0, Basophils (%) ( Auto) 0, Blood Urea Nitrogen 21H, Calcium Level 8.5, Carbon Dioxide Level 24, Chloride Level 105, Creatinine 1.39H, Eosinophils # (Auto) 0.1, Eosinophils (%) (Auto) 2, Estimat Glomerular Filtration Rate 52, Glucose Level 109H, Hematocrit 40, Hemoglobin 13.2L, Lymphocytes # (Auto) 1.6, Lymphocytes (%) (Auto) 18, Magnesium Level 2.2, Mean Corpuscular Hemoglobin 31, Mean Corpuscular Hemoglobin Concent 33, Mean Corpuscular Volume 93, Mean Platelet Volume 10.6H, Monocytes # (Auto) 0.9, Monocytes (%) (Auto) 10, Neutrophils # (Auto) 6.2, Neutrophils (%) (Auto) 70, Phosphorus Level 3.5, Platelet Count 260, Potassium Level 4.2, Red Blood Count 4.29L, Red Cell Distribution Width 13.8, Sodium Level 135, White Blood Count 8.8 Assessment/Plan Assessment/Plan Assessment/Plan Diffuse abdominal Pain Incarcerated Ventral Hernia - most likely incisional/ventral Afib -resolved at this time Renal Insufficiency Gastritis Plan: Clear liquids now and then NPO after midnight for surgery tomorrow. Sat down for long discussion with pt and his girlfriend. I do not think the fat containing hernias are strangulated; no erythema on abdomen. However he is very tender. I cannot guarantee that his abdominal pain and symptoms will get better with hernia repair. It is possible it is a combination of factors; afib, poor kidney function and even meds. Radiology did not see any signs of bowel obstruction or diverticulitis; he does have diverticula. Planned surgery is EGD and Ventral herniarraphy open with Laparoscopic assistance and mesh placement. Discussed the risks and complications; not limited to pain, bleeding , infection, damage to bowel, possible need for mesh removal and need for further procedure. He will be at risk for failure of the surgery because of his comorbidities and previous attempts at hernia closure. He understood all of this and all questions answered to his satisfaction. He wants to at least try fixing hernias to stop the pain, vomiting, belching he is experiencing. He understands none of this may change. Clinical Quality Measures DVT/VTE Risk/Contraindication: Risk Factor Score Per Nursin RFS Level Per Nursing on Admit: 1=Low/No VTE PPX JULIANA PHAM DO Mar 25, 2016 14:24
[2016-03-25] MEDS: ONDANSETRON 4 MG/2 ML (SDV) Z0FRAN IVP PRN ×2 (15:38→20:56)
[2016-03-25] MEDS: fentaNYL INJECTION 100 MCG/2 ML AMP IVP PRN (20:59)
[2016-03-25] MEDS ORDERED: PROMETHAZINE INJ 25 MG/ML (PHENERGAN) AMP ONE (21:29)
[2016-03-25] MEDS ORDERED: PROMETHAZINE INJ 25 MG/ML (PHENERGAN) AMP IVP ONE (21:45)
[2016-03-26] VITALS: BP 129/83
[2016-03-26] MEDS: D5 1/2 NS 1000 ML IV SOLUTION 1,000 ML IV SCH ×4 (00:33→18:10)
[2016-03-26] MEDS: ONDANSETRON 4 MG/2 ML (SDV) Z0FRAN IVP PRN ×2 (00:34→20:21)
[2016-03-26] MEDS: fentaNYL INJECTION 100 MCG/2 ML AMP IVP PRN ×2 (00:34→03:56)
[2016-03-26] MEDS: morphine INJ 10 MG/ML 1ML (SYR OR VIAL) IV PRN ×5 (01:29→14:12)
[2016-03-26] MEDS: METOCLOPRAMIDE INJ 10 MG/2 ML (REGLAN) IV PRN (02:33)
[2016-03-26 04:00] VITALS: BP 136/91
[2016-03-26 06:39] LABS: BASOPHILS % (AUTO) 0 % (0-10); EOSINOPHILS # (AUTO) 0.2 10^3/uL (0.0-0.3); EOSINOPHILS % (AUTO) 2 % (0-10); LYMPHOCYTES # (AUTO) 2.6 X 10^3 (1.0-4.0); LYMPHOCYTES % (AUTO) 30 % (12-44); MEAN CORPUSCULAR HEMOGLOBIN 30 PG (25-34); MEAN CORPUSCULAR HGB CONC 32 G/DL (32-36); MEAN CORPUSCULAR VOLUME 93 FL (80-99); MEAN PLATELET VOLUME 10.6 FL (7.4-10.4); MONOCYTES # (AUTO) 0.9 X 10^3 (0.0-1.0); MONOCYTES % (AUTO) 11 % (0-12); NEUTROPHILS % (AUTO) 57 % (42-75); PLATELET COUNT 265 10^3/uL (130-400); RED BLOOD COUNT 4.54 10^6/uL (4.35-5.85); RED CELL DISTRIBUTION WIDTH 13.7 % (10.0-14.5); WHITE BLOOD COUNT 8.7 10^3/uL (4.3-11.0)
[2016-03-26 07:01] LABS: CALCIUM 8.9 MG/DL (8.5-10.1); CREATININE SERUM 1.38 MG/DL (0.60-1.30); MAGNESIUM 2.3 MG/DL (1.8-2.4); PHOSPHORUS 2.6 MG/DL (2.3-4.7); POTASSIUM 4.1 MMOL/L (3.6-5.0)
[2016-03-26] MEDS: ENOXAPARIN 100 MG/1 ML (LOVENOX) SYR SC SCH ×2 (07:30→18:59)
--- NOTE | 2016-03-26 07:56 | Diagnostic Imaging Report ---
INDICATION: Dyspnea. COMPARISON: 03/25/2016. FINDINGS: There is slight improvement in aeration on today's exam. There are no infiltrates present. Heart is not enlarged. No evidence of pulmonary edema. No pneumothorax or pleural effusion. IMPRESSION: Normal portable chest with significant improvement in aeration since previous exam. Dictated by: Dictated on workstation # [id number]
[2016-03-26 08:00] VITALS: BP 130/86
[2016-03-26] MEDS ORDERED: LACTATED RINGERS 1,000 ML IV PRN ×2 (08:13→11:52)
[2016-03-26] MEDS ORDERED: FAMOTIDINE 20MG/2ML IV (PEPCID) IV NR (08:23)
[2016-03-26] MEDS: ASPIRIN E.C. 81 MG (ECOTRIN) TAB PO SCH (08:29)
[2016-03-26] MEDS: ANTACID SUSP 30 ML UDC (MYLANTA) PO SCH ×4 (08:29→20:21)
[2016-03-26] MEDS: meTOproloL SUCCINATE 50 MG (TOPROL XL) TAB PO SCH (08:38)
[2016-03-26] MEDS: PANTOPRAZOLE 40 MG/10 ML (PROTONIX) VIAL IV SCH (08:39)
--- NOTE | 2016-03-26 11:05 | Progress Note-Hospitalist ---
Progress Note HPI/CC on Admission The patient is a 60-year-old white male who presented to the emergency room today in the food specialist hours with a chief complaint of abdominal pain nausea and vomiting. He was seen here in the emergency room on 03/20 with complaints of abdominal pain ultimate workup showed a by CT scan that there was a periumbilical hernia or hernias. He in fact was to have an appointment with Dr. Andrews today for planning of the hernia repair later this week. CT scan done early this morning showed no evidence of bowel obstruction. The other finding was that he had atrial fibrillation with a rapid ventricular response which was a new finding. He was admitted to the ICU for a Cardizem drip and the cardiac consultation. He has had many surgeries including a previous periumbilical hernia repair a stated (kidney stone procedure which she states was the cause of the horizontally aligned left lower quadrant sub-umbilical scar. Progress Notes/Assess & Plan Date Seen 03/26/16 Diagonsis/Assessment & Plan Patient Interview: Pt states that he goes by [place] Pt confirms that he will undergo hernia repair surgery with Dr. Diaz. Pt states that he has developed a kidney stone. Pt has previously seen Urology for similar issues. Pt sees Dr. West for Urology. Physical exam reveals wheezing. Pt denies using O2 at home. Pt confirms that Dr. Stewart is PCP. Pt denies having BM, but states that he has not eaten much since Thursday. Pt states that he saw Dr. Durham. AFVSS, Pleasant, O x 3, Improved RRR, coarse all prather + BS but decreased No edema Assessment: s/p new onset AF now converted Hernias in need of repair surgically per Dr Diaz due to severe pain and N/V Coarse breath sounds on exam today ordered Nebs Constipation Plan: Albuterol TID IS Lactulose Scribed by Colton Renee under the direct supervision of Dr. Roper. ROGER ROPER DO Mar 26, 2016 11:05
[2016-03-26] MEDS: RT-ALBUTEROL SULF 2.5 MG/3 ML PRE-MIX VIAL INH SCH ×3 (11:30→19:13)
[2016-03-26] MEDS ORDERED: ceFAZolin 2 GM IV (SDC ONLY) 50 ML IV PRN (11:30)
[2016-03-26] MEDS ORDERED: ROCURONIUM 50 MG/5 ML (ZEMURON) VIAL IV ONE (11:32)
[2016-03-26] MEDS ORDERED: MIDAZOLAM 2 MG/2 ML (VERSED) VIAL ONE (11:32)
[2016-03-26] MEDS ORDERED: fentaNYL INJECTION 250 MCG/5 ML AMP ONE (11:32)
[2016-03-26] MEDS ORDERED: proPOfol 200 MG/20 ML (DIPRIVAN) VIAL IV ONE (11:32)
--- NOTE | 2016-03-26 11:32 | Cardiology Progress Note ---
Cardiology SOAP Progress Note Subjective: no complaints Objective: I&O/Vital Signs Vital Sign - Last 12Hours 03/26/16 03/26/16 03/26/16 03/26/16 11:30 14:40 14:56 16:00 Temp 98.9 97.4 Pulse 56 56 Resp 18 16 B/P 126/84 118/79 Pulse Ox 96 92 93 95 O2 Delivery Room Air Nasal Cannula Nasal Cannula Nasal Cannula O2 Flow Rate 3.00 4.00 3.00 03/26/16 19:13 Pulse Ox 95 O2 Delivery Nasal Cannula O2 Flow Rate 2.00 Intake and Output 03/26/16 00:00 Intake Total 1560 ml Output Total 1050 ml Balance 510 ml Weight (Pounds): 217 Weight (Ounces): 2.0 Weight (Calculated Kilograms): 98.250016 Constitutional: appears stated ageNo apparent distress, well-developed well- nourished Respiratory: No accessory muscle use, No respiratory distress, chest expansion is symmetric chest is bilaterally symmetric lungs clear to percussion lungs clear to auscultation Cardiovascular: irregularly irregular (Altermating between a-fib and SR)No JVD , S1 and S2 systolic murmur Gastrointestional: soft tendernessNo spleenomegaly Extremities: No clubbing, No cyanosis, No significant edema 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: alert oriented x 3 power is 5/5 both on sides Skin: No rash, No ulcerations Results/Procedures: Labs Laboratory Tests 03/26/16 06:25: Anion Gap 6, BUN/Creatinine Ratio 11, Basophils # (Auto) 0.0, Basophils (%) ( Auto) 0, Blood Urea Nitrogen 15, Calcium Level 8.9, Carbon Dioxide Level 28, Chloride Level 106, Creatinine 1.38H, Eosinophils # (Auto) 0.2, Eosinophils (%) (Auto) 2, Estimat Glomerular Filtration Rate 53, Glucose Level 91, Hematocrit 42 , Hemoglobin 13.6, Lymphocytes # (Auto) 2.6, Lymphocytes (%) (Auto) 30, Magnesium Level 2.3, Mean Corpuscular Hemoglobin 30, Mean Corpuscular Hemoglobin Concent 32, Mean Corpuscular Volume 93, Mean Platelet Volume 10.6H, Monocytes # (Auto) 0.9, Monocytes (%) (Auto) 11, Neutrophils # (Auto) 5.0, Neutrophils (%) (Auto) 57, Phosphorus Level 2.6, Platelet Count 265, Potassium Level 4.1, Red Blood Count 4.54, Red Cell Distribution Width 13.7, Sodium Level 140, White Blood Count 8.7 A/P: Assessment: Abdominal surgery today, PAF, TIA Plan: Eliquis after surgery when ok with surgery. Elevated CHADSVASC score. PAF Echo of 03-24-16: Normal global left ventricular systolic function with an ejection fraction of approximately 65%, mild mitral and tricuspid regurgitation , pulmonary artery systolic pressure is estimated to be approximately 35 mmHg, mild diastolic dysfunction of the left ventricle MPI of 03-24-16: Technically difficult study due to considerable patient motion during image acquisition, no evidence of any significant myocardial ischemia or infarction on this study, normal regional wall motion, normal global left ventricular systolic function with an ejection fraction of 77%, paroxysmal atrial fibrillation was seen Reported h/o TIA 3-4 years ago with reported transient loss of speech HTN - improved Intermittent LE edema for which he is on chronic diuretics managed by his PCP N/V/D Severe lower abdominal wall pain d/t abdominal herniations - medical and surgical services managing H/O kidney stones H/o diverticulitis H/o tobaccoism - stopped in December 2015 H/o ETOH use - stopped in December 2015 Acute on chronic renal insufficiency Brigid VENTURA MD Mar 26, 2016 11:32
[2016-03-26] MEDS ORDERED: BUPIVACAINE 0.25% 30 ML (SENSORCAINE) VIAL INJ ONE (12:51)
[2016-03-26] MEDS ORDERED: GLYCOPYRROLATE 0.2 MG/ML (ROBINUL) 2 ML VIAL ONE (13:29)
[2016-03-26] MEDS ORDERED: NEOSTIGMINE (BLOXIVERZ ) 1 MG/1ML 10 ML VIAL ONE (13:29)
[2016-03-26] MEDS ORDERED: ONDANSETRON 4 MG/2 ML (SDV) Z0FRAN ONE (13:29)
[2016-03-26] MEDS ORDERED: LACTATED RINGERS 2,000 ML IV ONE (13:29)
[2016-03-26] MEDS ORDERED: KETOROLAC 30 MG/ML VIAL ONE (13:29)
[2016-03-26] MEDS ORDERED: SEVOFLURANE (ULTANE) 15 ML INHAL SOLN ONE (13:30)
--- NOTE | 2016-03-26 13:41 | Progress Note-Post Operative ---
Post-Operative Progess Note Assistant Cash Pre-Operative Diagnosis 1) Incarcerated Ventral Hernia 2) Gastritis Post-Operative Diagnosis 1) Recurrent Ventral/Incision incarcerated hernia 2)Esophagitis, pending path Post-Op Procedure Note Date of Procedure: Mar 26, 2016 Name of Procedure: 1) Open Ventral Herniarraphy with mesh placement, Lap assisted 2) EGD with bx Anesthesia Type GET Estimated blood loss (mL): less than 10cc Specimen(s) collected 1) Hernia sac and contents 2) Antral bx, Esophageal bx at GE jxn and proximal JULIANA PHAM DO Mar 26, 2016 13:41
[2016-03-26] MEDS ORDERED: ONDANSETRON 4 MG/2 ML (SDV) Z0FRAN IV PRN (14:00)
[2016-03-26] MEDS ORDERED: morphine INJ 10 MG/ML 1ML (SYR OR VIAL) IV ONE (14:05)
[2016-03-26 14:40] VITALS: BP 126/84
[2016-03-26 16:00] VITALS: BP 118/79
[2016-03-26] MEDS: morphine INJ 4 MG/ML 1 ML (VIAL/SYRINGE) IVP PRN ×4 (16:06→23:12)
[2016-03-26 20:03] VITALS: BP 100/64
[2016-03-26] MEDS: LACTULOSE SYRUP 10GM/15ML (ENULOSE) 30ML UDC PO SCH (20:23)
[2016-03-26] MEDS: HYDROcodone/APAP 10 MG/325 MG (LORTAB) TAB PO PRN (23:55)
[2016-03-27] VITALS (8 sets, daily range): BP systolic 113–142; BP diastolic 76–102
[2016-03-27] MEDS: D5 1/2 NS 1000 ML IV SOLUTION 1,000 ML IV SCH ×2 (00:56→07:48)
[2016-03-27] MEDS: morphine INJ 4 MG/ML 1 ML (VIAL/SYRINGE) IVP PRN ×4 (00:56→17:43)
[2016-03-27 05:18] LABS: BASOPHILS % (AUTO) 0 % (0-10); EOSINOPHILS # (AUTO) 0.1 10^3/uL (0.0-0.3); EOSINOPHILS % (AUTO) 1 % (0-10); LYMPHOCYTES # (AUTO) 1.5 X 10^3 (1.0-4.0); LYMPHOCYTES % (AUTO) 13 % (12-44); MEAN CORPUSCULAR HEMOGLOBIN 31 PG (25-34); MEAN CORPUSCULAR HGB CONC 33 G/DL (32-36); MEAN CORPUSCULAR VOLUME 94 FL (80-99); MEAN PLATELET VOLUME 10.4 FL (7.4-10.4); MONOCYTES # (AUTO) 1.2 X 10^3 (0.0-1.0); MONOCYTES % (AUTO) 10 % (0-12); NEUTROPHILS # (AUTO) 8.8 X 10^3 (1.8-7.8); NEUTROPHILS % (AUTO) 76 % (42-75); PLATELET COUNT 231 10^3/uL (130-400); RED BLOOD COUNT 4.05 10^6/uL (4.35-5.85); RED CELL DISTRIBUTION WIDTH 13.6 % (10.0-14.5); WHITE BLOOD COUNT 11.5 10^3/uL (4.3-11.0)
[2016-03-27 05:37] LABS: CALCIUM 8.5 MG/DL (8.5-10.1); CREATININE SERUM 1.49 MG/DL (0.60-1.30); MAGNESIUM 2.2 MG/DL (1.8-2.4); PHOSPHORUS 2.4 MG/DL (2.3-4.7); POTASSIUM 4.3 MMOL/L (3.6-5.0)
[2016-03-27] MEDS: HYDROcodone/APAP 10 MG/325 MG (LORTAB) TAB PO PRN ×3 (07:09→20:12)
[2016-03-27] MEDS: ENOXAPARIN 100 MG/1 ML (LOVENOX) SYR SC SCH ×2 (07:09→19:49)
[2016-03-27] MEDS: RT-ALBUTEROL SULF 2.5 MG/3 ML PRE-MIX VIAL INH SCH ×3 (07:31→18:48)
--- NOTE | 2016-03-27 07:34 | Diagnostic Imaging Report ---
INDICATION: Shortness of breath. EXAMINATION: Portable chest at 4:42 AM. Heart size and pulmonary vascularity are normal. Lungs are clear. There are no effusions or pneumothoraces. IMPRESSION: Negative chest. Dictated by: Dictated on workstation # [id number]
[2016-03-27] MEDS: ONDANSETRON 4 MG/2 ML (SDV) Z0FRAN IVP PRN (07:49)
[2016-03-27] MEDS: meTOproloL SUCCINATE 50 MG (TOPROL XL) TAB PO SCH (07:49)
[2016-03-27] MEDS: PANTOPRAZOLE 40 MG/10 ML (PROTONIX) VIAL IV SCH (07:49)
[2016-03-27] MEDS: LACTULOSE SYRUP 10GM/15ML (ENULOSE) 30ML UDC PO SCH ×2 (07:49→20:08)
[2016-03-27] MEDS: ASPIRIN E.C. 81 MG (ECOTRIN) TAB PO SCH (07:49)
[2016-03-27] MEDS: ANTACID SUSP 30 ML UDC (MYLANTA) PO SCH ×4 (07:49→20:08)
[2016-03-27] MEDS ORDERED: BETHANECHOL 25 MG (URECHOLINE) TAB PO NR (09:00)
[2016-03-27] MEDS ORDERED: PHENAZOPYRIDINE 100 MG (PYRIDIUM) TABLET PO NR (09:00)
[2016-03-27 09:04] LABS: BILIRUBIN,URINE NEGATIVE (NEGATIVE); KETONES,URINE NEGATIVE (NEGATIVE); LEUKOCYTE ESTERASE ,URINE 1+ (NEGATIVE); NITRITE,URINE NEGATIVE (NEGATIVE); PH,URINE 5 (5-9); PROTEIN,URINE 1+ (NEGATIVE); UROBILINOGEN,URINE NORMAL (NORMAL)
[2016-03-27 09:20] LABS: WBC,URINE 0-2 /HPF
[2016-03-27] MEDS: guaiFENesin (MUCINEX) 600 MG TAB PO SCH ×2 (09:21→20:12)
[2016-03-27] MEDS ORDERED: FUROSEMIDE 40 MG/4 ML INJ (LASIX) IVP NR (09:30)
--- NOTE | 2016-03-27 10:35 | Progress Note-Hospitalist ---
Progress Note HPI/CC on Admission The patient is a 60-year-old white male who presented to the emergency room today in the radiology physician assistant hours with a chief complaint of abdominal pain nausea and vomiting. He was seen here in the emergency room on 03/20 with complaints of abdominal pain ultimate workup showed a by CT scan that there was a periumbilical hernia or hernias. He in fact was to have an appointment with Dr. Andrews today for planning of the hernia repair later this week. CT scan done early this morning showed no evidence of bowel obstruction. The other finding was that he had atrial fibrillation with a rapid ventricular response which was a new finding. He was admitted to the ICU for a Cardizem drip and the cardiac consultation. He has had many surgeries including a previous periumbilical hernia repair a stated (kidney stone procedure which she states was the cause of the horizontally aligned left lower quadrant sub-umbilical scar. Progress Notes/Assess & Plan Date Seen 03/27/16 Diagonsis/Assessment & Plan Chart Review: WBC: 11.5 Hgb: 12.5 Creat: Remained 1.49 Had urinary retention last night requiring Eaton cath removing 400 ccs. DCd the cath just now, sent off Ua and initiated bladder meds in preparation for DC. 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 Dr. Roper discusses DC plans with RN, and possibility of nursing care facility. RN will DC fluids and Eaton Patient Interview: Pt states that he ambulated last night. Dr. Roper discusses possibility of pt DC with catheter, as pt was concerned about DC of catheter. Dr. Roper informs pt that he will be starting bladder meds. Pt would like to DC catheter, take bladder meds and wait for DC until he is sure that his bladder is manageable. In the case that it is not, pt has agreed to DC with self-catheter supplies. Physical exam was stable. Dr. Roper discusses CXR with pt. Pt states that stomach is very sore. Dr. Roper discusses possibility of home health with pt. Pt states that he plans to return to return to work next week. Dr. Roper encourages pt to have a follow-up appointment with Dr. Stewart. 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 Roper. ROGER ROPER DO Mar 27, 2016 10:35
[2016-03-27] MEDS ORDERED: BISACODYL 10 MG SUPP (DULCOLAX) PR NR (11:15)
--- NOTE | 2016-03-27 11:35 | Progress Note ---
Subjective Subjective/Events-last exam Pt seen and examined. Throughout the night he had trouble urinating and had to be straight cathed twice and finally placed alvarado (400 ml out each time). However, pt complained alvarado was bothering him so it was taken out. Pain is mostly controlled with Lortab and Tramadol. Pt is tolerating clears and had some flatus, no BM. He states it hurts his stomach when he walks; denies nausea or vomiting. He wants to go home today and wants to work on Thursday. Review of Systems General: No Chills, No Night Sweats HEENT: No Visual Changes, No Eye Pain Pulmonary: No Cough Cardiovascular: No: Chest Pain, Palpitations Gastrointestinal: : Abdominal PainNo: Nausea, Vomiting Genitourinary: Retention Objective Exam Vital Signs Date Time Temp Pulse Resp B/P Pulse Ox O2 Delivery O2 Flow Rate FiO2 03/27/16 11:19 131 18 142/102 91 Room Air 03/27/16 09:33 93 2.00 03/27/16 08:00 98.9 85 20 128/86 94 Nasal Cannula 2.00 03/27/16 08:00 Nasal Cannula 2.00 03/27/16 07:33 92 Nasal Cannula 1.00 03/27/16 07:00 85 03/27/16 04:00 98.0 75 19 118/76 91 Room Air 03/27/16 01:00 62 03/27/16 00:00 98.3 70 16 121/77 95 Room Air 03/26/16 20:03 97.1 69 16 100/64 94 Nasal Cannula 3.00 03/26/16 20:00 Room Air 03/26/16 19:13 95 Nasal Cannula 2.00 03/26/16 19:00 76 03/26/16 16:00 97.4 56 16 118/79 95 Nasal Cannula 3.00 03/26/16 14:56 93 Nasal Cannula 4.00 03/26/16 14:40 98.9 56 18 126/84 92 Nasal Cannula 3.00 03/26/16 11:30 96 Room Air I & O 03/27/16 07:00 Intake Total 2000 ml Output Total 1300 ml Balance 700 ml Capillary Refill : Less Than 3 Seconds General Appearance: WD/WN Mild Distress (secondary to pain) Respiratory: Lungs Clear Normal Breath Sounds No Accessory Muscle Use No Respiratory Distress Cardiovascular: Other (now in sinus rhythm albeit with frequent PACs) Gastrointestinal: soft distended tenderness (diffusely) hernia other (pt has large ecchymosis across abdomen from port sites and midline incision, probably because of blood thinners. There is no erythema.) Extremity: No Calf Tenderness No Pedal Edema 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: Alert Oriented x3 No Motor/Sensory Deficits Normal Mood/Affect Lymphatic: No Adenopathy (neck or supraclavicular) Results Lab Laboratory Tests 03/27/16 04:57: Anion Gap 6, B-Type Natriuretic Peptide 323.1H, BUN/Creatinine Ratio 12, Basophils # (Auto) 0.0, Basophils (%) (Auto) 0, Blood Urea Nitrogen 18, Calcium Level 8.5, Carbon Dioxide Level 26, Chloride Level 106, Creatinine 1.49H, Eosinophils # (Auto) 0.1, Eosinophils (%) (Auto) 1, Estimat Glomerular Filtration Rate 48, Glucose Level 89, Hematocrit 38L, Hemoglobin 12.5L, Lymphocytes # (Auto) 1.5, Lymphocytes (%) (Auto) 13, Magnesium Level 2.2, Mean Corpuscular Hemoglobin 31, Mean Corpuscular Hemoglobin Concent 33, Mean Corpuscular Volume 94, Mean Platelet Volume 10.4, Monocytes # (Auto) 1.2H, Monocytes (%) (Auto) 10, Neutrophils # (Auto) 8.8H, Neutrophils (%) (Auto) 76H, Phosphorus Level 2.4, Platelet Count 231, Potassium Level 4.3, Red Blood Count 4.05L, Red Cell Distribution Width 13.6, Sodium Level 138, White Blood Count 11.5H 03/27/16 08:55: Urine Bacteria NEGATIVE, Urine Bilirubin NEGATIVE, Urine Casts NONE, Urine Clarity CLEAR, Urine Color YELLOW, Urine Crystals NONE, Urine Culture Indicated NO, Urine Glucose (UA) NEGATIVE, Urine Ketones NEGATIVE, Urine Leukocyte Esterase 1+H, Urine Mucus NEGATIVE, Urine Nitrite NEGATIVE, Urine Protein 1+H, Urine RBC 2-5H, Urine RBC (Auto) 4+H, Urine Specific [place] 1.010L, Urine Squamous Epithelial Cells NONE, Urine Urobilinogen NORMAL, Urine WBC 0-2, Urine pH 5 Assessment/Plan Assessment/Plan Assessment/Plan S/P Open with Lap assist ventral herniarraphy with mesh placement. Pt can go home today if tolerating diet and pain controlled with oral meds. If he feels up to it, it is fine to go to work on Thursday with lifting restrictions and he can not drive while taking narcotics. He needs to call my office ([phone] ) for an appointment in 7-10 days. He can call anytime if he has questions or concerns. Bruising on abdomen should fade away, if it starts looking red or getting hot he should call or go to ER. He was told he has to start walking more and use IS 10 times every hour while awake. All questions answered to his satisfaction. Esophagitis seen on EGD - bx done, path pending Afib -resolved at this time Renal Insufficiency Gastritis Clinical Quality Measures DVT/VTE Risk/Contraindication: Risk Factor Score Per Nursin RFS Level Per Nursing on Admit: 1=Low/No VTE PPX JULIANA PHAM DO Mar 27, 2016 11:35
[2016-03-27] MEDS: POLYETHYLENE GLYCOL 17 GM (MIRALAX) PACK PO SCH ×2 (11:57→20:10)
--- NOTE | 2016-03-27 12:51 | Anesthesia-General Post-Op ---
General Patient Condition Mental Status/LOC: Same as Preop Cardiovascular: Satisfactory Nausea/Vomiting: Absent Respiratory: Satisfactory Pain: Controlled Complications: Absent Post Op Complications Complications None Follow Up Care/Instructions Patient Instructions None needed. Anesthesia/Patient Condition Patient Condition Patient is doing well, no complaints, stable vital signs, no apparent adverse anesthesia problems. No complications reported per nursing. MICHELLE DUMONT CRNA Mar 27, 2016 12:51
[2016-03-27] MEDS: PHENAZOPYRIDINE 100 MG (PYRIDIUM) TABLET PO SCH ×2 (14:07→17:27)
--- NOTE | 2016-03-27 16:57 | Cardiology Progress Note ---
Cardiology SOAP Progress Note Subjective: no cardiac complaints. c/o belly pain Objective: I&O/Vital Signs Vital Sign - Last 12Hours 03/27/16 03/27/16 03/27/16 03/27/16 09:33 11:19 12:00 13:00 Temp 96.6 Pulse 131 90 97 Resp 18 20 B/P 142/102 129/90 Pulse Ox 93 91 94 O2 Delivery Room Air Room Air O2 Flow Rate 2.00 03/27/16 03/27/16 03/27/16 03/27/16 14:41 16:00 18:48 19:00 Temp 97.0 Pulse 95 62 Resp 20 B/P 140/84 Pulse Ox 92 93 88 O2 Delivery Room Air Room Air Room Air 03/27/16 19:06 Temp 97.5 Pulse 94 Resp 16 B/P 119/86 Pulse Ox 91 O2 Delivery Room Air Intake and Output 03/27/16 00:00 Intake Total 800 ml Output Total 900 ml Balance -100 ml Weight (Pounds): 216 Weight (Ounces): 6.4 Weight (Calculated Kilograms): 98.997683 Constitutional: appears stated ageNo apparent distress, well-developed well- nourished Respiratory: No accessory muscle use, No respiratory distress, chest expansion is symmetric chest is bilaterally symmetric lungs clear to percussion lungs clear to auscultation Cardiovascular: irregularly irregular (Altermating between a-fib and SR)No JVD , S1 and S2 systolic murmur Gastrointestional: soft tendernessNo spleenomegaly Extremities: No clubbing, No cyanosis, No significant edema 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: alert oriented x 3 power is 5/5 both on sides Skin: No rash, No ulcerations Results/Procedures: Labs Laboratory Tests 03/27/16 04:57: Anion Gap 6, B-Type Natriuretic Peptide 323.1H, BUN/Creatinine Ratio 12, Basophils # (Auto) 0.0, Basophils (%) (Auto) 0, Blood Urea Nitrogen 18, Calcium Level 8.5, Carbon Dioxide Level 26, Chloride Level 106, Creatinine 1.49H, Eosinophils # (Auto) 0.1, Eosinophils (%) (Auto) 1, Estimat Glomerular Filtration Rate 48, Glucose Level 89, Hematocrit 38L, Hemoglobin 12.5L, Lymphocytes # (Auto) 1.5, Lymphocytes (%) (Auto) 13, Magnesium Level 2.2, Mean Corpuscular Hemoglobin 31, Mean Corpuscular Hemoglobin Concent 33, Mean Corpuscular Volume 94, Mean Platelet Volume 10.4, Monocytes # (Auto) 1.2H, Monocytes (%) (Auto) 10, Neutrophils # (Auto) 8.8H, Neutrophils (%) (Auto) 76H, Phosphorus Level 2.4, Platelet Count 231, Potassium Level 4.3, Red Blood Count 4.05L, Red Cell Distribution Width 13.6, Sodium Level 138, White Blood Count 11.5H 03/27/16 08:55: Urine Bacteria NEGATIVE, Urine Bilirubin NEGATIVE, Urine Casts NONE, Urine Clarity CLEAR, Urine Color YELLOW, Urine Crystals NONE, Urine Culture Indicated NO, Urine Glucose (UA) NEGATIVE, Urine Ketones NEGATIVE, Urine Leukocyte Esterase 1+H, Urine Mucus NEGATIVE, Urine Nitrite NEGATIVE, Urine Protein 1+H, Urine RBC 2-5H, Urine RBC (Auto) 4+H, Urine Specific [place] 1.010L, Urine Squamous Epithelial Cells NONE, Urine Urobilinogen NORMAL, Urine WBC 0-2, Urine pH 5 Microbiology 03/26/16 MRSA Screen - Final, Complete MRSA not isolated A/P: Assessment: PAF, Abdominal surgery Plan: Eliquis after surgery when ok with surgery. Elevated CHADSVASC score. PAF - beta blockers Echo of 03-24-16: Normal global left ventricular systolic function with an ejection fraction of approximately 65%, mild mitral and tricuspid regurgitation , pulmonary artery systolic pressure is estimated to be approximately 35 mmHg, mild diastolic dysfunction of the left ventricle MPI of 03-24-16: Technically difficult study due to considerable patient motion during image acquisition, no evidence of any significant myocardial ischemia or infarction on this study, normal regional wall motion, normal global left ventricular systolic function with an ejection fraction of 77%, paroxysmal atrial fibrillation was seen Reported h/o TIA 3-4 years ago with reported transient loss of speech HTN - improved Intermittent LE edema for which he is on chronic diuretics managed by his PCP N/V/D Severe lower abdominal wall pain d/t abdominal herniations - medical and surgical services managing H/O kidney stones H/o diverticulitis H/o tobaccoism - stopped in December 2015 H/o ETOH use - stopped in December 2015 Acute on chronic renal insufficiency Brigid VENTURA MD Mar 27, 2016 4:57 pm
[2016-03-27] MEDS: BETHANECHOL 25 MG (URECHOLINE) TAB PO SCH ×2 (17:24→20:11)
[2016-03-27] MEDS: ALFUZOSIN HCL 10 MG TAB (UROXATRAL) PO SCH (17:24)
[2016-03-27] MEDS ORDERED: MAGNESIUM CITRATE 300 ML BTL PO NR (17:30)
[2016-03-27] MEDS: METOCLOPRAMIDE INJ 10 MG/2 ML (REGLAN) IV PRN (17:32)
[2016-03-27] MEDS ORDERED: ALFUZOSIN HCL 10 MG TAB (UROXATRAL) PO SCH (18:00)
[2016-03-27] MEDS ORDERED: meTOprolol 5 MG/5 ML (LOPRESSOR) VIAL ONE (20:31)
[2016-03-27] MEDS ORDERED: meTOprolol 5 MG/5 ML (LOPRESSOR) VIAL IV ONE (21:00)
[2016-03-27] MEDS: meTOprolol 5 MG/5 ML (LOPRESSOR) VIAL IV SCH (23:01)
[2016-03-28] VITALS (22 sets, daily range): BP systolic 81–125; BP diastolic 58–84
[2016-03-28 00:58] LABS: BASOPHILS % (AUTO) 0 % (0-10); EOSINOPHILS % (AUTO) 0 % (0-10); LYMPHOCYTES # (AUTO) 1.1 X 10^3 (1.0-4.0); LYMPHOCYTES % (AUTO) 6 % (12-44); MEAN CORPUSCULAR HEMOGLOBIN 31 PG (25-34); MEAN CORPUSCULAR HGB CONC 34 G/DL (32-36); MEAN CORPUSCULAR VOLUME 91 FL (80-99); MEAN PLATELET VOLUME 10.5 FL (7.4-10.4); MONOCYTES # (AUTO) 1.7 X 10^3 (0.0-1.0); MONOCYTES % (AUTO) 9 % (0-12); NEUTROPHILS # (AUTO) 16.1 X 10^3 (1.8-7.8); NEUTROPHILS % (AUTO) 85 % (42-75); PLATELET COUNT 285 10^3/uL (130-400); RED BLOOD COUNT 4.33 10^6/uL (4.35-5.85); RED CELL DISTRIBUTION WIDTH 13.6 % (10.0-14.5); WHITE BLOOD COUNT 18.9 10^3/uL (4.3-11.0)
[2016-03-28] MEDS ORDERED: LACTATED RINGERS 1,000 ML IV ONE (00:59)
[2016-03-28] MEDS ORDERED: LIDOCAINE UROJET 2% GEL 10 ML PKG ONE (01:02)
[2016-03-28 01:18] LABS: ALBUMIN 4.1 G/DL (3.2-4.5); BILIRUBIN,TOTAL 1.2 MG/DL (0.1-1.0); CALCIUM 9.4 MG/DL (8.5-10.1); CREATININE SERUM 2.59 MG/DL (0.60-1.30); POTASSIUM 4.2 MMOL/L (3.6-5.0)
[2016-03-28 01:26] LABS: BAND NEUTROPHILS 1 %; EOSINOPHILS % (MANUAL) 0 %; LYMPHOCYTES % (MANUAL) 5 %; NEUTROPHILS % (MANUAL) 83 %
[2016-03-28 01:27] LABS: ANISOCYTOSIS SLIGHT; BASOPHILS % (MANUAL) 0 %; REACTIVE LYMPHOCYTES 3 %
[2016-03-28] MEDS: morphine INJ 4 MG/ML 1 ML (VIAL/SYRINGE) IVP PRN ×4 (01:30→18:37)
[2016-03-28] MEDS ORDERED: [UNRECOGNIZED DRUG - OTHER] ONE (01:44)
[2016-03-28] MEDS ORDERED: D5W IV ONE (01:45)
[2016-03-28] MEDS ORDERED: NS IV 1000 ML 1,000 ML ONE ×2 (01:46→04:42)
[2016-03-28] MEDS ORDERED: fentaNYL INJECTION 100 MCG/2 ML AMP ONE (01:46)
[2016-03-28] MEDS ORDERED: AMIODARONE IV ONE (01:47)
[2016-03-28] MEDS ORDERED: AMIODARONE 150 MG/3 ML (CORDARONE) AMP IV ONE (01:49)
[2016-03-28] MEDS ORDERED: NS (IVPB) 50 ML ONE (01:54)
[2016-03-28] MEDS: fentaNYL INJECTION 100 MCG/2 ML AMP IVP PRN ×7 (02:58→22:10)
[2016-03-28] MEDS: NS IV 1000 ML 1,000 ML IV SCH ×6 (05:30→22:51)
[2016-03-28] MEDS: PHENYLEPHRINE INJECTION 10 MG in D5W 250 ML (IVPB) 249 ML IV SCH ×6 (06:00→22:40)
[2016-03-28] MEDS: KCL 20 MEQ TAB (K-DUR) PO SCH (06:00)
[2016-03-28] MEDS ORDERED: POTASSIUM CL 10MEQ/50ML IVPB 50 ML IV SCH (06:00)
[2016-03-28] MEDS: POTASSIUM CL 10MEQ/50ML IVPB 50 ML IV SCH (06:00)
[2016-03-28] MEDS ORDERED: MAGNESIUM 1 GM/100 ML IVPB 100 ML IV SCH (06:00)
[2016-03-28] MEDS: MAGNESIUM 1 GM/100 ML IVPB 100 ML IV SCH (06:00)
[2016-03-28] MEDS ORDERED: KCL 20 MEQ TAB (K-DUR) PO SCH (06:00)
[2016-03-28] MEDS: meTOprolol 5 MG/5 ML (LOPRESSOR) VIAL IV SCH ×3 (06:00→18:38)
[2016-03-28] MEDS: BETHANECHOL 25 MG (URECHOLINE) TAB PO SCH ×4 (06:00→20:46)
--- NOTE | 2016-03-28 06:38 | Pulmonary Consultation ---
History of Present Illness History of Present Illness Date of Consultation 03/28/16 06:32 Date of Admission History of Present Illness 60yo WM who presented to ED secondary to abddominal pain and vomiting. CT scan show periumbilical hernia. Pt is now 2 days S/P surgery. He was transferred from 4th floor to ICU secondary to Afib RVR. Pt has had increasing abdominal distention. His renal function is worsening. He has been hypotensive however no pressors have been needed with IVF boluses. . Allergies and Home Medications Allergies Coded Allergies: lidocaine (Unverified Allergy, Mild, BREAKS OUT IN WELTS, 03/20/16) orange juice (Verified Allergy, Unknown, 04/09/13) Home Medications Amlodipine Besylate 5 Mg Tablet 5 MG PO DAILY (Reported) LAST FILLED 03/03/16 #15 Aspirin 81 Mg Tablet.dr 81 MG PO DAILY (Reported) Chlorthalidone 25 Mg Tablet 12.5 MG PO DAILY (Reported) TAKES 1/2 OF A (25 MG) TABLET Gluc HCl/Csa/Terrence Hy/Hyalur AC 1 Each Capsule 1 CAP PO DAILY (Reported) Hydrocodone/Acetaminophen 1 Each Tablet 1 TAB PO Q8H PRN PRN SEVERE PAIN ( Reported) Lisinopril 20 Mg Tablet 20 MG PO DAILY (Reported) Sulfamethoxazole/Trimethoprim 1 Each Tablet 1 TAB PO BID (Reported) FILLED 03/20/16 #20 FOR A 10 DAY THERAPY Tramadol HCl 50 Mg Tablet 50-100 MG PO Q6H PRN PRN MODERATE PAIN (Reported) TAKES 1-2 OF A (50 MG) TABLET Past Sfxbxqo-Tmmivq-Ajxwwp Hx Patient Social History Alcohol Use: Rarely Uses Recreational Drug Use: No Smoking Status: Former Smoker Type Used: Smokeless Tobacco Recent Foreign Travel: No Contact w/Someone Who Travel: No Recent Infectious Disease Expo: No Recent Hopitalizations: No Physical Abuse Screen: No Sexual Abuse: No Immunizations Up To Date Tetanus Booster (TDap): Less than 5yrs PED Vaccines UTD: No Seasonal Allergies Seasonal Allergies: No Surgeries HX Surgeries: Yes Surgeries: Abdominal, Appendectomy, Orthopedic, Renal Respiratory Hx Respiratory Disorders: No Cardiovascular Hx Cardiac Disorders: Yes Cardiac Disorders: High Cholesterol, Hypertension Neurological Hx Neurological Disorders: Yes Neurological Disorders: Dementia, TIA (went to ER and was told he had had a "minor" stroke) Reproductive System Hx Reproductive Disorders: No Sexually Transmitted Disease: No HIV/AIDS: No Genitourinary Hx Genitourinary Disorders: Yes Genitourinary Disorders: Benign Prostatic Hyperpl, Kidney Stones Gastrointestinal Hx Gastrointestinal Disorders: Yes Gastrointestinal Disorders: Abdominal Hernia, Gastroesophageal Reflux, Diverticulosis Musculoskeletal Hx Musculoskeletal Disorders: Yes Musculoskeletal Disorders: Degenerate Disk Disease, Arthritis, Back Injury, Chronic Back Pain Endocrine Hx Endocrine Disorders: No HEENT HX ENT Disorders: Yes (WEARS GLASSES) Loss of Vision: Denies Hearing Impairment: Denies Cancer Hx Cancer: No Psychosocial Hx Psychiatric Problems: No Integumentary HX Skin/Integumentary Disorder: No Blood Transfusions Hx Blood Disorders: No Adverse Reaction to a Blood Tr: No Family Medical History Significant Family History: Diabetes Family Medial History: Alzheimer's disease paternal grandmother Diabetes mellitus 19 MOTHER Gastroenteritis Hypertension G8 SISTER Neoplasm maternal grandmother (pancreatic cancer) Review of Systems Constitutional: : Malaise: Sweats: WeaknessNo: Chills, Fever, Other Eyes: No: Conjunctivae inflammation, Eyelid inflammation, Other, Pain, Redness , Vision change ENT: No: Ear discharge, Ear pain, Mouth pain, Mouth swelling, Nose congestion, Nose discharge, Nose pain, Other, Throat pain, Throat swelling Respiratory: : SOB with excertion: Shortness of breathNo: Cough Cardiovascular: : Paroxysmal Noc. DyspneaNo: Chest Pain, Edema, Lt Headedness, Orthopnea, Other, Palpitations Gastrointestinal: : Abdominal Pain: Constipation: NauseaNo: Diarrhea Genitourinary: No Dysuria, No Frequency, No Incontinence, No Hematuria, No Retention, No Other Musculoskeletal: No: arm pain, back pain, foot pain, hand pain, leg pain, neck pain, other, shoulder pain Skin: No: Bruising, Jaundice, Lesions, Other, Rash Neurological: : Weakness Exam Exam Vital Signs Date Time Temp Pulse Resp B/P Pulse Ox O2 Delivery O2 Flow Rate FiO2 03/28/16 06:00 73 21 84/64 95 Nasal Cannula 2.00 03/28/16 05:00 98 11 90/64 Nasal Cannula 2.00 03/28/16 04:00 Nasal Cannula 2.00 03/28/16 04:00 96.5 03/28/16 04:00 67 14 82/58 93 Nasal Cannula 2.00 03/28/16 03:00 73 10 95/72 95 Nasal Cannula 2.00 03/28/16 02:00 133 13 90/72 100 Nasal Cannula 2.00 03/28/16 01:15 96.0 158 22 81/64 94 Nasal Cannula 2.00 03/28/16 01:00 160 03/28/16 00:56 163 03/28/16 00:00 95.5 155 24 100/60 94 Nasal Cannula 1.00 03/27/16 21:00 97.8 185 24 113/76 96 Nasal Cannula 1.00 03/27/16 20:00 Nasal Cannula 1.00 03/27/16 19:06 97.5 94 16 119/86 91 Room Air 03/27/16 19:00 62 03/27/16 18:48 88 Room Air 03/27/16 16:00 97.0 95 20 140/84 93 Room Air 03/27/16 14:41 92 Room Air 03/27/16 13:00 97 03/27/16 12:00 96.6 90 20 129/90 94 Room Air 03/27/16 11:19 131 18 142/102 91 Room Air 03/27/16 09:33 93 2.00 03/27/16 08:00 98.9 85 20 128/86 94 Nasal Cannula 2.00 03/27/16 08:00 Nasal Cannula 2.00 03/27/16 07:33 92 Nasal Cannula 1.00 03/27/16 07:00 85 I & O 03/28/16 07:00 Intake Total 3305 ml Output Total 1550 ml Balance 1755 ml General Appearance: WD/WN Mild Distress HEENT: PERRL/EOMI Respiratory: Lungs Clear Normal Breath Sounds No Accessory Muscle Use No Respiratory Distress Decreased Breath Sounds Cardiovascular: Irregularly Irregular Tachycardia Capillary Refill: Less Than 3 Seconds Gastrointestinal: soft distended tenderness (no peritoneal sounds ) hernia other Extremity: No Calf Tenderness No Pedal Edema 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: Alert Oriented x3 No Motor/Sensory Deficits Normal Mood/Affect Lymphatic: No Adenopathy Results Lab Laboratory Tests 03/27/16 04:57 03/28/16 00:51 Assessment/Plan Assessment/Plan Abdominal distension r/o post op ileus vs obstruction -Place NG tube -make pt NPO SOB and atelectasis secondary to abdominal distension r/o PNA Sepsis Leukocytosis -KOCH culture -Continue aggressive IVF -start vanco zosyn -Check LA ARF secondary to intravascular depletion vs abdominal compartment syndrome -IVF -Continue to monitor Afib -cardiology is following After NG tube placed 1500 cc of dark fluid was suctioned out. Will do gastric occult. Clinical Quality Measures DVT/VTE Risk/Contraindication: Risk Factor Score Per Nursin RFS Level Per Nursing on Admit: 1=Low/No VTE PPX JANICE LUGO DO Mar 28, 2016 06:38
[2016-03-28] MEDS ORDERED: PIPERACILLIN SODIUM/TAZOBACTAM 4.5 GM in NS (BAXTER MINI) 100 ML IV NR (06:50)
[2016-03-28] MEDS ORDERED: NS IV 1000 ML 1,000 ML IV PRN (06:51)
[2016-03-28] MEDS: RT-ALBUTEROL SULF 2.5 MG/3 ML PRE-MIX VIAL INH SCH ×3 (06:58→20:58)
[2016-03-28] MEDS ORDERED: CHLORASEPTIC SPRAY 177 ML LIQUID MC PRN (07:00)
[2016-03-28] MEDS ORDERED: PHARMACY TO DOSE IV SCH ×2 (07:00→07:30)
[2016-03-28] MEDS ORDERED: NS IV 1000 ML 3,000 ML IV PRN (07:00)
[2016-03-28 07:21] LABS: OCCULT BLOOD NEGATIVE QC NEGATIVE (NEGATIVE); OCCULT BLOOD POSITIVE QC POSITIVE (POSITIVE); OCCULT BLOOD,GASTRIC FLUID POSITIVE (NEGATIVE)
[2016-03-28] MEDS ORDERED: PIPERACILLIN/TAZO 4.5 GM VIAL (ZOSYN) IV ONE ×3 (07:28→21:50)
[2016-03-28] MEDS ORDERED: NORMAL SALINE (BAXTER MINI) 100 ML IV ONE ×3 (07:28→21:50)
--- NOTE | 2016-03-28 07:52 | Diagnostic Imaging Report ---
INDICATION: Abdominal distention KUB obtained at 7:26 a.m. There is moderate distention of the colon with gas without significant small bowel distention. The findings may represent ileus. There are postsurgical changes in the lumbar spine. There is a catheter overlying the mid pelvis. There is heterotopic bone in the left upper thigh. IMPRESSION: Findings most likely secondary to ileus. No definite obstruction. Consider followup as clinically warranted. Dictated by: Dictated on workstation # [id number]
[2016-03-28] MEDS: PHENAZOPYRIDINE 100 MG (PYRIDIUM) TABLET PO SCH ×3 (08:00→18:00)
[2016-03-28] MEDS ORDERED: VANCOMYCIN 1,750 MG/NS 500 ML IVPB IV NR ×2 (08:00)
--- NOTE | 2016-03-28 08:27 | Diagnostic Imaging Report ---
INDICATION: Dyspnea. Frontal chest obtained at 6:38 a.m. FINDINGS: There is very poor inspiration with very low lung volumes bilaterally. There is some mild bibasilar atelectasis. There is no consolidation or pneumothorax or pleural fluid. IMPRESSION: Very poor inspiration with very low lung volumes bilaterally. No pneumothorax or pleural fluid. Dictated by: Dictated on workstation # [id number]
--- NOTE | 2016-03-28 08:47 | CONSULTATION REPORT ---
DATE OF CONSULTATION: REFERRING PHYSICIAN: SUMMARY: After reviewing the patient's record in the hospital and at the office, this is a 60-year-old year-old white man who back in September, I did a ureteroscopy and lithotripsy on a ureteral stone. At the time, the cystoscopy revealed no obstruction from the prostate. The patient did not have any voiding symptoms prior to this admission. He recently underwent a ventral hernia repair by Dr. Diaz, has had some postoperative retention. Catheter was inserted then removed and the patient started voiding on his own. He was started on urecholine and Flomax and he started voiding better with less dysuria. IMPRESSION: Postoperative urinary retention, most probably neurogenic related to surgery. PLAN: If he voids okay, no problem dismissing the patient today. No need for medications and no need for follow-up. We will see him on a p.r.n. basis. Job ID: [id number] Dictated Date: 03/27/2016 12:58:35 Groover And Striper Operator Date: 03/28/2016 08:43:26/kael
[2016-03-28] MEDS: guaiFENesin (MUCINEX) 600 MG TAB PO SCH ×2 (09:00→20:46)
[2016-03-28] MEDS: ASPIRIN E.C. 81 MG (ECOTRIN) TAB PO SCH (09:00)
[2016-03-28] MEDS: POLYETHYLENE GLYCOL 17 GM (MIRALAX) PACK PO SCH ×2 (09:00→20:45)
[2016-03-28] MEDS: meTOproloL SUCCINATE 50 MG (TOPROL XL) TAB PO SCH (09:00)
[2016-03-28] MEDS: ANTACID SUSP 30 ML UDC (MYLANTA) PO SCH ×4 (09:00→20:46)
[2016-03-28] MEDS: LACTULOSE SYRUP 10GM/15ML (ENULOSE) 30ML UDC PO SCH ×2 (09:00→20:45)
--- NOTE | 2016-03-28 09:05 | Progress Note ---
Subjective Subjective/Events-last exam Pt seen and examined, events of last night noted. Pt had tachycardia secondary to Atrial Fibrillation. His main complaint is 10 out of 10 abdominal pain and distention. Denies vomiting, had alvarado placed (slight red tinge). Pt denies flatus or BM. He also has not been walking and refusing to use IS. He appears comfortable right now. Review of Systems General: Chills Fatigue HEENT: No Eye Pain, No Sinus Congestion Pulmonary: Cough Pleuritic Chest Pain Cardiovascular: : Palpitations Gastrointestinal: : Abdominal PainNo: Vomiting Neurological: No: Change in speech, Numbness, Weakness Objective Exam Vital Signs Date Time Temp Pulse Resp B/P Pulse Ox O2 Delivery O2 Flow Rate FiO2 03/28/16 07:45 88 03/28/16 07:00 141 03/28/16 06:00 73 21 84/64 95 Nasal Cannula 2.00 03/28/16 05:00 98 11 90/64 Nasal Cannula 2.00 03/28/16 04:00 Nasal Cannula 2.00 03/28/16 04:00 96.5 03/28/16 04:00 67 14 82/58 93 Nasal Cannula 2.00 03/28/16 03:00 73 10 95/72 95 Nasal Cannula 2.00 03/28/16 02:00 133 13 90/72 100 Nasal Cannula 2.00 03/28/16 01:15 96.0 158 22 81/64 94 Nasal Cannula 2.00 03/28/16 01:00 160 03/28/16 00:56 163 03/28/16 00:00 95.5 155 24 100/60 94 Nasal Cannula 1.00 03/27/16 21:00 97.8 185 24 113/76 96 Nasal Cannula 1.00 03/27/16 20:00 Nasal Cannula 1.00 03/27/16 19:06 97.5 94 16 119/86 91 Room Air 03/27/16 19:00 62 03/27/16 18:48 88 Room Air 03/27/16 16:00 97.0 95 20 140/84 93 Room Air 03/27/16 14:41 92 Room Air 03/27/16 13:00 97 03/27/16 12:00 96.6 90 20 129/90 94 Room Air 03/27/16 11:19 131 18 142/102 91 Room Air 03/27/16 09:33 93 2.00 I & O 03/28/16 07:00 Intake Total 3305 ml Output Total 1550 ml Balance 1755 ml Capillary Refill : Less Than 3 Seconds General Appearance: WD/WN Moderate Distress HEENT: PERRL/EOMI Respiratory: No Accessory Muscle Use No Respiratory Distress Decreased Breath Sounds (with crackles at bases) Cardiovascular: Irregularly Irregular Tachycardia Gastrointestinal: soft distended tenderness (no peritoneal sounds ) other ( large ecchymosis over lower portion of abdomen, minimal blood coming from midline incision) Extremity: No Calf Tenderness No Pedal Edema 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: Alert Oriented x3 No Motor/Sensory Deficits Normal Mood/Affect Lymphatic: No Adenopathy Results Lab Laboratory Tests 03/28/16 00:51: Alanine Aminotransferase (ALT/SGPT) 13, Albumin 4.1, Alkaline Phosphatase 75, Anion Gap 13, Anisocytosis SLIGHT, Aspartate Amino Transf (AST/SGOT) 22, BUN/ Creatinine Ratio 9, Band Neutrophils 1, Basophils # (Auto) 0.0, Basophils % ( Manual) 0, Basophils (%) (Auto) 0, Blood Urea Nitrogen 24H, Calcium Level 9.4, Carbon Dioxide Level 24, Chloride Level 97L, Creatinine 2.59H, Eosinophils # ( Auto) 0.0, Eosinophils % (Manual) 0, Eosinophils (%) (Auto) 0, Estimat Glomerular Filtration Rate 26, Glucose Level 178H, Hematocrit 40, Hemoglobin 13.4, Lymphocytes # (Auto) 1.1, Lymphocytes % (Manual) 5, Lymphocytes (%) (Auto ) 6L, Mean Corpuscular Hemoglobin 31, Mean Corpuscular Hemoglobin Concent 34, Mean Corpuscular Volume 91, Mean Platelet Volume 10.5H, Monocytes # (Auto) 1.7H , Monocytes % (Manual) 8, Monocytes (%) (Auto) 9, Neutrophils # (Auto) 16.1H, Neutrophils % (Manual) 83, Neutrophils (%) (Auto) 85H, Platelet Count 285, Potassium Level 4.2, Reactive Lymphocytes 3, Red Blood Count 4.33L, Red Cell Distribution Width 13.6, Sodium Level 134L, Total Bilirubin 1.2H, Total Protein 7.0, Toxic Granulation 1+, White Blood Count 18.9H 03/28/16 07:00: Gastric Fluid Occult Blood POSITIVE 03/28/16 07:37: Lactic Acid Level 1.5 Microbiology 03/26/16 MRSA Screen - Final, Complete MRSA not isolated Assessment/Plan Assessment/Plan Assessment/Plan S/P Open with Lap assist ventral herniarraphy with mesh placement. - Now with ileus, does not look like [place]. Also had gastroparesis and 1500cc was taken out by NGT. He was told he has to start walking more and use IS 10 times every hour while awake. All questions answered to his satisfaction. Esophagitis seen on EGD - bx done, path pending Afib -reoccurred treatment per Cardiology. Would try and hold off on blood thinners. Renal Insufficiency Gastritis Dr. Cash will manage pt for me through 04/02, if pt still in hospital I can see 04/03. Clinical Quality Measures DVT/VTE Risk/Contraindication: Risk Factor Score Per Nursin RFS Level Per Nursing on Admit: 1=Low/No VTE PPX JULIANA PHAM DO Mar 28, 2016 09:05
--- NOTE | 2016-03-28 09:35 | Progress Note-Hospitalist ---
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 He was seen here in the emergency room on 03/20 with complaints of abdominal pain ultimate workup showed a by CT scan that there was a periumbilical hernia or hernias. He in fact was to have an appointment with Dr. Andrews today for planning of the hernia repair later this week. CT scan done early this morning showed no evidence of bowel obstruction. The other finding was that he had atrial fibrillation with a rapid ventricular response which was a new finding. He was admitted to the ICU for a Cardizem drip and the cardiac consultation. He has had many surgeries including a previous periumbilical hernia repair a stated (kidney stone procedure which she states was the cause of the horizontally aligned left lower quadrant sub-umbilical scar. Progress Notes/Assess & Plan Date Seen 03/28/16 Diagonsis/Assessment & Plan Dr. Cash Review: Pt has been complicated for a long time. Esophagus looked like pt had issues. Waiting for pathology to come back on esophagus biopsy. Appears to be thrush. Started on Diflucan empirically. Dr. Diaz Review: Pt issues was not caused by surgery. Surgery was performed with Dr. Cash and pt was uncomplicated. Pt wanted to go back to work on Thursday. Pt had ileus and surgery sent pt over the edge. Dr. Prabhakar Review: Pt A-Fib needs to be surgically fixed not by meds like Lopressor. Pharmacy Review: Pt was fully distended and got 1500cc out. channel lip stiffener insoles: Pt is doing okay. Touch base with Dr. West. Pt may have had ileus and surgery tipped pt over. Patient Interview: Pt states he feels better in his stomach region. Pt states he quit smoking 3 months ago. Pt states his pain is a 6-8 currently. Physical exam was stable. Pt states he has a cath in currently. RN showed cath which revealed blood in it. Pt would like to be DC by the morning of 03/30. Scribed by Eren Hall under the direct supervision of Dr. Helms. AFVSS, Pleasant, O x 3, NAD, chronically ill no changes RRR, distant breath sounds and coarseness noted Distended abdomen, no rigidity just distended NGT in place No edema Laboratory Tests 03/28/16 00:51 Assessment: s/p recurrent new onset AF with hypotension ow rate controlled on Amio per Dr Prabhakar Acute and severe ileus s/p NGT placement removing 1500cc gastric hemoccult + Acute volume overload received Lasix yesterday ARF on DOROTEO of baseline 1.5 creat 2.59 today will monitor closely Acute urinary retention requiring alvarado cath placement Hematuria due to cath trauma Hernias s/p repair surgically per Dr Diaz POD # 2 Coarse breath sounds on exam yesterday ordered Nebs now covered with abx in case infiltrates appear Constipation unresolved after multiple meds and SSE x 4 Previous smoker stopped 3 months ago h/o renal lithiasis Yeast Esophagitis likely started Diflucan empirically Plan: Abx empirically Monitor CXR and labs especially creatinine due to ARF Maintain Alvarado cath Maintain bladder meds once NPO DC emergency medical services coordinator consult Home O2 eval once stable and ready for DC Consult Cardiology is much appreciated along with Wired Music Operator ROGER Short DO Mar 28, 2016 09:35
[2016-03-28] MEDS ORDERED: AMIODARONE IV SOLUTION 200 ML IV ONE (09:36)
[2016-03-28] MEDS: AMIODARONE IV SOLUTION 200 ML IV SCH ×2 (09:51→15:54)
--- NOTE | 2016-03-28 10:42 | OPERATIVE REPORT ---
PROCEDURE PHYSICIAN: JULIANA DIAZ DATE OF PROCEDURE: 03/26/2016 PREOPERATIVE DIAGNOSIS: Abdominal pain, incarcerated ventral incisional hernia. POSTOPERATIVE DIAGNOSIS: 1. Incarcerated ventral incisional hernia. 2. Esophagitis. 3. History of atrial fibrillation. 4. Hypertension. PROCEDURE: 1. Laparoscopic ventral herniorrhaphy with mesh placement; with primary closure of fascial defect 2. EGD with biopsy. SURGEON: Dr. Diaz QUILLER TENDER: Dr. Cash. ANESTHESIA: General endotracheal tube. SPECIMEN: 1. Biopsies from esophagus and antrum, distal end proximal esophagus biopsies. 2. Hernia and hernia sac. BLOOD LOSS: Less than 10 mL. FLUIDS: Per anesthesia. POSTOPERATIVE: Stable. INDICATIONS FOR THE PROCEDURE: The patient is a 60-year-old male has been having chronic abdominal pain but getting progressively worse. Worried about a possibly strangulated ventral hernia. Did feel better about the fact that it is only fat in the hernia sac. Patient wanted to get this fixed. We did a discussion that his pain might not change after the repair. FINDINGS: The patient had erythema and whitish plaques in the esophagus. The stomach looked okay and the first portion of the duodenum looked fine. He did have an incarcerated ventral hernia with only fat stuck in there; this was repaired. PROCEDURE NOTE: After informed consent was obtained patient brought to the operating room. He was placed on table in supine position, intubated and then an EGD was performed. Had to use a pediatric colonoscope, went down through the oropharynx into the esophagus and down into the stomach. On the way down noted whitish plaques and erythema in the esophagus. The stomach looked okay maybe some very minimal gastritis. Pushed through the antrum through the pylorus into the first portion of the duodenum; took pictures, this looked fine. Elected to do an antral biopsy and then retroflexed. Did not see any hiatal hernia. No other obvious pathology in the stomach and then withdrew into the first portion just up above the GE junction. Again saw erythema and whitish plaques; did a biopsy here and then went a little more proximal and did another biopsy to be sent for candidal studies as well. The patient was then sterilely prepped and draped in the normal fashion. Local lidocaine used to infiltrate the skin in the left upper quadrant, made an incision with a number 11 blade, carried down through skin and subcutaneous tissue, deepened down to the subcutaneous tissue with Bovie electrocautery down to the fascia. The fascia was incised with Bovie electrocautery and bluntly the muscle in the posterior fascia and then bluntly entered the abdomen. Placed an 11 mm trocar port and then created a pneumoperitoneum; placed 2 more ports in the normal fashion using local lidocaine, an 11 blade for stab incision and the Versa step system all done under direct visualization. One placed in the left lower quadrant and one in the right mid abdomen just lateral almost to the midaxillary line but right even with the umbilicus. Could see some omentum and some preperitoneal fat stuck in this incarcerated hernia and could see the previous suture. Carefully started taking this fat out of the fascial defect. Once this was completely out, then elected to open the fascial defect, which was a little bit too big. He also had an umbilical hernia. I excise the old scar, went down and then freed up the fascia grasping to superior and inferior edge with Kochars and then closing the fascia with a 0 PDS double-stranded suture running from the inferior portion to the superior portion and tying to itself. Then dropped in a mesh with a balloon and able to place a needle grasper through the fascia and then pull this up through the fascia and then blow the balloon up to hold the mesh in place. There was no escape of a pneumoperitoneum from the midline that we had closed. Then started tacking this mesh in place which was approximately 15 x 20 cm mesh. Started at the 6- o'clock tacked to 6 o'clock and then at the 9 o'clock and then 12 o'clock and then started tacking between those areas about 1/2 to 1 cm spacing with a SecureStrap. Then removed the balloon that was holding the mesh out and then continued tracking along the left lateral portion at the 3 o'clock and then between 12 and 6 at 1/2 to 1 cm spacing and then tacked a couple SecureStraps in the middle; it laid out very nicely. No other obvious pathology seen but did not move any omentum. At this point then removed all ports under direct visualization allowed the pneumoperitoneum to escape and took another picture, it still was flat as almost all of the pneumoperitoneum had come out and then elected to close the posterior portion of the left upper quadrant incision closing with 3-0 Vicryl. Then closed the fascia with 0 Vicryl [id number] suture. Copiously irrigated all incisions with normal saline and then closed all the incisions with mary; the left upper quadrant. Incision got about 4 mary. The two small 5 mm incisions got two mary and then the middle incision also stapled closed. The area was clean and dried dressings placed. The patient then transferred to recover room in stable condition. Sponge, instruments, needle count correct at the end of the case. Job ID: [id number] Dictated Date: 03/27/2016 11:42:36 Cooker Pie Filling Date: 03/28/2016 10:16:08 / porsha TYLER
[2016-03-28] MEDS: FLUCONAZOLE 100 MG/50 ML 50 ML IV SCH (11:07)
[2016-03-28] MEDS: PANTOPRAZOLE 40 MG/10 ML (PROTONIX) VIAL IV SCH (11:07)
--- NOTE | 2016-03-28 13:20 | Progress Note-Urology ---
Progress Note-Urology Progress Notes/Assess & Plan Progress/Assessment & Plan Patient was transferred to ICU for atrial fibrillation. Has adynamic ileus, NG and Eaton in. We will see after episode over Final Diagnosis Urine retention JEF NULL MD Mar 28, 2016 1:20 pm
[2016-03-28] MEDS: PIPERACILLIN SODIUM/TAZOBACTAM 4.5 GM in NORMAL SALINE (BAXTER MINI) 100 ML IV SCH ×2 (15:56→22:10)
[2016-03-28] MEDS: ONDANSETRON 4 MG/2 ML (SDV) Z0FRAN IVP PRN (15:57)
--- NOTE | 2016-03-28 16:55 | Cardiology Progress Note ---
Cardiology SOAP Progress Note Subjective: Events of overnight noted. Abdominal pain and tachycardia Objective: I&O/Vital Signs Vital Sign - Last 12Hours 03/28/16 03/28/16 03/28/16 03/28/16 05:00 06:00 07:00 07:00 Pulse 98 73 141 137 Resp 11 21 25 B/P 90/64 84/64 84/64 Pulse Ox 95 91 O2 Delivery Nasal Cannula Nasal Cannula Nasal Cannula O2 Flow Rate 2.00 2.00 2.00 03/28/16 03/28/16 03/28/16 03/28/16 07:45 08:00 08:00 09:00 Temp 97.7 Pulse 88 146 141 Resp 16 18 B/P 93/79 90/72 Pulse Ox 91 94 O2 Delivery Nasal Cannula Nasal Cannula O2 Flow Rate 2.00 2.00 03/28/16 03/28/16 03/28/16 03/28/16 10:00 11:00 12:00 12:00 Temp 97.6 Pulse 92 131 77 Resp 16 16 16 B/P 93/63 101/71 91/71 Pulse Ox 93 94 94 O2 Delivery Nasal Cannula Nasal Cannula Nasal Cannula O2 Flow Rate 2.00 2.00 2.00 03/28/16 03/28/16 03/28/16 13:00 13:09 14:28 Pulse 126 76 Resp 16 B/P 90/66 Pulse Ox 95 95 O2 Delivery Nasal Cannula Nasal Cannula O2 Flow Rate 2.00 3.00 Intake and Output 03/27/16 23:59 Intake Total 2055 ml Output Total 1200 ml Balance 855 ml Weight (Pounds): 233 Weight (Ounces): 6.4 Weight (Calculated Kilograms): [id number] Constitutional: appears stated ageNo apparent distress, well-developed well- nourished Respiratory: No accessory muscle use, No respiratory distress, chest expansion is symmetric chest is bilaterally symmetric lungs clear to percussion lungs clear to auscultation Cardiovascular: irregularly irregular (Altermating between a-fib and SR)No JVD , S1 and S2 systolic murmur Gastrointestional: distended tendernessNo spleenomegaly Extremities: non-tender normal inspectionNo clubbing, No cyanosis, no lower extremity edema bilateralNo significant edema 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: alert oriented x 3 power is 5/5 both on sides Skin: normal color warm/dryNo rash, No ulcerations Results/Procedures: Labs Laboratory Tests 03/28/16 00:51: Alanine Aminotransferase (ALT/SGPT) 13, Albumin 4.1, Alkaline Phosphatase 75, Anion Gap 13, Anisocytosis SLIGHT, Aspartate Amino Transf (AST/SGOT) 22, BUN/ Creatinine Ratio 9, Band Neutrophils 1, Basophils # (Auto) 0.0, Basophils % ( Manual) 0, Basophils (%) (Auto) 0, Blood Urea Nitrogen 24H, Calcium Level 9.4, Carbon Dioxide Level 24, Chloride Level 97L, Creatinine 2.59H, Eosinophils # ( Auto) 0.0, Eosinophils % (Manual) 0, Eosinophils (%) (Auto) 0, Estimat Glomerular Filtration Rate 26, Glucose Level 178H, Hematocrit 40, Hemoglobin 13.4, Lymphocytes # (Auto) 1.1, Lymphocytes % (Manual) 5, Lymphocytes (%) (Auto ) 6L, Mean Corpuscular Hemoglobin 31, Mean Corpuscular Hemoglobin Concent 34, Mean Corpuscular Volume 91, Mean Platelet Volume 10.5H, Monocytes # (Auto) 1.7H , Monocytes % (Manual) 8, Monocytes (%) (Auto) 9, Neutrophils # (Auto) 16.1H, Neutrophils % (Manual) 83, Neutrophils (%) (Auto) 85H, Platelet Count 285, Potassium Level 4.2, Reactive Lymphocytes 3, Red Blood Count 4.33L, Red Cell Distribution Width 13.6, Sodium Level 134L, Total Bilirubin 1.2H, Total Protein 7.0, Toxic Granulation 1+, White Blood Count 18.9H 03/28/16 07:00: Gastric Fluid Occult Blood POSITIVE 03/28/16 07:37: Lactic Acid Level 1.5 Microbiology 03/26/16 MRSA Screen - Final, Complete MRSA not isolated A/P: Assessment: PAF, s/p abdominal surgery, significant abdominal pain Plan: Episodes of AF with RVR last night. Most likely secondary to abdominal pain. Lopressor iv given. Started amiodarone iv infusion. currently in sinus rhythm at [address] Diaz, there is increased of bleeding, therefore we will be holding eliquis till ok to start per Dr Diaz. Elevated CHADSVASC score. PAF - beta blockers Echo of 03-24-16: Normal global left ventricular systolic function with an ejection fraction of approximately 65%, mild mitral and tricuspid regurgitation , pulmonary artery systolic pressure is estimated to be approximately 35 mmHg, mild diastolic dysfunction of the left ventricle MPI of -19-16: Technically difficult study due to considerable patient motion during image acquisition, no evidence of any significant myocardial ischemia or infarction on this study, normal regional wall motion, normal global left ventricular systolic function with an ejection fraction of 77%, paroxysmal atrial fibrillation was seen Reported h/o TIA 3-4 years ago with reported transient loss of speech HTN - improved Intermittent LE edema for which he is on chronic diuretics managed by his PCP N/V/D H/O kidney stones H/o diverticulitis H/o tobaccoism - stopped in December 2015 H/o ETOH use - stopped in December 2015 Acute on chronic renal insufficiency Brigid VENTURA MD Mar 28, 2016 4:55 pm
[2016-03-28] MEDS: ALFUZOSIN HCL 10 MG TAB (UROXATRAL) PO SCH (18:00)
[2016-03-28] MEDS ORDERED: ENOXAPARIN 100 MG/1 ML (LOVENOX) SYR SC SCH (19:30)
[2016-03-28 20:19] LABS: KETONES,URINE 1+ (NEGATIVE); LEUKOCYTE ESTERASE ,URINE 2+ (NEGATIVE); NITRITE,URINE POSITIVE (NEGATIVE); PH,URINE 6.5 (5-9); PROTEIN,URINE 3+ (NEGATIVE); UROBILINOGEN,URINE 8 MG/DL (NORMAL)
[2016-03-28 21:04] LABS: BILIRUBIN,URINE 2+ (NEGATIVE)
[2016-03-29] VITALS (12 sets, daily range): BP systolic 93–126; BP diastolic 61–86
[2016-03-29] MEDS: fentaNYL INJECTION 100 MCG/2 ML AMP IVP PRN ×9 (00:36→21:05)
[2016-03-29] MEDS: morphine INJ 4 MG/ML 1 ML (VIAL/SYRINGE) IVP PRN ×3 (00:56→20:44)
[2016-03-29] MEDS: AMIODARONE IV SOLUTION 200 ML IV SCH (02:48)
[2016-03-29] MEDS ORDERED: PIPERACILLIN/TAZO 4.5 GM VIAL (ZOSYN) IV ONE ×3 (05:58→21:18)
[2016-03-29] MEDS ORDERED: NORMAL SALINE (BAXTER MINI) 100 ML IV ONE ×3 (05:58→21:18)
[2016-03-29] MEDS: meTOprolol 5 MG/5 ML (LOPRESSOR) VIAL IV SCH ×3 (06:00→11:08)
[2016-03-29] MEDS: MAGNESIUM 1 GM/100 ML IVPB 100 ML IV SCH (06:00)
[2016-03-29] MEDS: BETHANECHOL 25 MG (URECHOLINE) TAB PO SCH ×4 (06:00→20:41)
[2016-03-29] MEDS: KCL 20 MEQ TAB (K-DUR) PO SCH (06:00)
[2016-03-29] MEDS: POTASSIUM CL 10MEQ/50ML IVPB 50 ML IV SCH (06:00)
[2016-03-29] MEDS: PIPERACILLIN SODIUM/TAZOBACTAM 4.5 GM in NORMAL SALINE (BAXTER MINI) 100 ML IV SCH ×3 (06:18→21:34)
[2016-03-29] MEDS: NS IV 1000 ML 1,000 ML IV SCH ×9 (06:29→22:33)
[2016-03-29] MEDS: PHENYLEPHRINE INJECTION 10 MG in D5W 250 ML (IVPB) 249 ML IV SCH ×7 (06:29→21:16)
[2016-03-29] MEDS ORDERED: TROUGH ORDER-PHARMACY XX NR (07:00)
[2016-03-29 07:10] LABS: BASOPHILS % (AUTO) 0 % (0-10); EOSINOPHILS # (AUTO) 0.1 10^3/uL (0.0-0.3); EOSINOPHILS % (AUTO) 1 % (0-10); LYMPHOCYTES # (AUTO) 0.9 X 10^3 (1.0-4.0); LYMPHOCYTES % (AUTO) 7 % (12-44); MEAN CORPUSCULAR HEMOGLOBIN 31 PG (25-34); MEAN CORPUSCULAR HGB CONC 32 G/DL (32-36); MEAN CORPUSCULAR VOLUME 95 FL (80-99); MEAN PLATELET VOLUME 11.1 FL (7.4-10.4); MONOCYTES # (AUTO) 1.1 X 10^3 (0.0-1.0); MONOCYTES % (AUTO) 8 % (0-12); NEUTROPHILS # (AUTO) 11.1 X 10^3 (1.8-7.8); NEUTROPHILS % (AUTO) 84 % (42-75); PLATELET COUNT 203 10^3/uL (130-400); RED CELL DISTRIBUTION WIDTH 13.8 % (10.0-14.5); WHITE BLOOD COUNT 13.2 10^3/uL (4.3-11.0)
[2016-03-29 07:25] LABS: CREATININE SERUM 1.48 MG/DL (0.60-1.30); MAGNESIUM 2.8 MG/DL (1.8-2.4); PHOSPHORUS 2.3 MG/DL (2.3-4.7); POTASSIUM 3.8 MMOL/L (3.6-5.0)
[2016-03-29] MEDS: RT-ALBUTEROL SULF 2.5 MG/3 ML PRE-MIX VIAL INH SCH ×3 (07:38→19:01)
[2016-03-29] MEDS: PHENAZOPYRIDINE 100 MG (PYRIDIUM) TABLET PO SCH ×3 (08:00→18:42)
[2016-03-29] MEDS ORDERED: VANCOMYCIN 1500 MG/NS 500 ML IVPB IV SCH ×2 (08:00)
[2016-03-29] MEDS: FLUCONAZOLE 100 MG/50 ML 50 ML IV SCH (08:00)
[2016-03-29] MEDS: PANTOPRAZOLE 40 MG/10 ML (PROTONIX) VIAL IV SCH (08:00)
[2016-03-29] MEDS: POLYETHYLENE GLYCOL 17 GM (MIRALAX) PACK PO SCH ×2 (08:01→20:53)
[2016-03-29] MEDS: ANTACID SUSP 30 ML UDC (MYLANTA) PO SCH ×4 (08:01→20:53)
[2016-03-29] MEDS: LACTULOSE SYRUP 10GM/15ML (ENULOSE) 30ML UDC PO SCH ×2 (08:01→20:53)
[2016-03-29] MEDS: meTOproloL SUCCINATE 50 MG (TOPROL XL) TAB PO SCH (08:01)
[2016-03-29] MEDS: ASPIRIN E.C. 81 MG (ECOTRIN) TAB PO SCH (08:01)
[2016-03-29] MEDS: guaiFENesin (MUCINEX) 600 MG TAB PO SCH ×2 (08:01→20:53)
--- NOTE | 2016-03-29 08:03 | Progress Note-Hospitalist ---
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 He was seen here in the emergency room on 03/20 with complaints of abdominal pain ultimate workup showed a by CT scan that there was a periumbilical hernia or hernias. He in fact was to have an appointment with Dr. Andrews today for planning of the hernia repair later this week. CT scan done early this morning showed no evidence of bowel obstruction. The other finding was that he had atrial fibrillation with a rapid ventricular response which was a new finding. He was admitted to the ICU for a Cardizem drip and the cardiac consultation. He has had many surgeries including a previous periumbilical hernia repair a stated (kidney stone procedure which she states was the cause of the horizontally aligned left lower quadrant sub-umbilical scar. Date Seen 03/29/16 Subjective/Events-last exam Patient complaining of intermittent obstructive hematuria of Alvarado catheter causing increased pain. He is passing flatus now. chest pain or shortness of breath. Requesting ice chips. Review of Systems Gastrointestinal: : Abdominal Pain Genitourinary: Hematuria Objective Exam Vital Signs Vital Sign - Last 12Hours 03/24/16 03/24/16 04:46 05:00 Temp 98.0 Pulse 76 Resp 18 B/P 13/92 Pulse Ox 99 O2 Delivery Room Air O2 Flow Rate 2 Capillary Refill : Less Than 3 Seconds General Appearance: Mild Distress HEENT: Normal ENT Inspection (NG in place) Neck: Supple Respiratory: Lungs Clear Decreased Breath Sounds Cardiovascular: No Murmur Normal Peripheral Pulses Irregularly Irregular Gastrointestinal: Abnormal Bowel Sounds Distended Tenderness (Left lower quadrant) Extremity: Non Tender No Calf Tenderness 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: Alert Oriented x3 No Motor/Sensory Deficits Skin: Normal Color Warm/Dry Results/Procedures Lab Laboratory Tests 03/29/16 06:50 Assessment/Plan Assessment and Plan Assess & Plan/Chief Complaint Assessment: s/p recurrent new onset AF with hypotension ow rate controlled on Amio per Dr Prabhakar-blood pressure improved; is intermittently in sinus rhythm Acute and severe ileus s/p NGT -now passing flatus x-ray still shows distention Acute volume overload resolved ARF on DOROTEO of baseline 1.5 creat back down today today will monitor closely Acute urinary retention requiring alvarado cath placement-with intermittent obstruction secondary to hematuria Hematuria due to cath trauma Hernias s/p repair surgically per Dr Diaz POD # 3 Coarse breath sounds on exam yesterday ordered Nebs now covered with abx in case infiltrates appear Constipation unresolved after multiple meds and SSE x 4 Previous smoker stopped 3 months ago h/o renal lithiasis Yeast Esophagitis likely started Diflucan empirically Plan: Continue Abx empirically-white count is down Monitor CXR and labs Maintain Alvarado cath Maintain bladder meds once NPO DC office services specialist consult Home O2 eval once stable and ready for DC Consult Cardiology is much appreciated along with Import/Export Freight Forwarder Diflucan Changed to by mouth amiodarone when able to take by mouth-increase activity ANGELA MILLER MD Mar 29, 2016 08:03
--- NOTE | 2016-03-29 08:57 | Diagnostic Imaging Report ---
CLINICAL INDICATION: Followup dyspnea. EXAM: Portable chest x-ray upright view. COMPARISON: Portable chest x-ray upright view dated 03/28/2016. FINDINGS: There is slight improved aeration of the right lung base. There is continued elevation of the left hemidiaphragm and left lung base atelectasis or scarring. There is mild right basilar atelectasis. There is stable low lung volumes seen bilaterally. There is no definite pleural effusion or pneumothorax. Pulmonary vasculature and cardiac silhouettes unremarkable for portable projection. Feeding tube is seen with distal portion looped overlying the region of the fundus of the stomach. The remainder of this exam shows no significant interval change compared to the prior study of comparison. IMPRESSION: 1: Slight improved aeration of the right lung field. 2: Otherwise, stable low lung volumes with bibasilar atelectasis and elevation of the left hemidiaphragm. 3: The remainder of this exam shows no significant interval change compared to the prior study of comparison. Dictated by: Dictated on workstation # [id number]
[2016-03-29] MEDS ORDERED: VANCOMYCIN 500 MG/NS 100 ML IVPB IV ONE ×2 (09:30)
--- NOTE | 2016-03-29 09:41 | Progress Note ---
Subjective Subjective/Events-last exam Passing flatus. Feeling a little better. Pain controlled. Using incentive spirometer more. Not ambulating but sitting in chair. Ng tube. No nausea, vomiting fever sweats chills shortness of breath or chest pain. Objective Exam Vital Signs Date Time Temp Pulse Resp B/P Pulse Ox O2 Delivery O2 Flow Rate FiO2 03/29/16 08:00 Nasal Cannula 2.00 03/29/16 08:00 97.8 03/29/16 07:38 95 Nasal Cannula 3.00 03/29/16 07:00 124 03/29/16 06:00 83 11 115/77 93 Nasal Cannula 2.00 03/29/16 05:00 82 13 126/83 81 Nasal Cannula 2.00 03/29/16 04:00 Nasal Cannula 2.00 03/29/16 04:00 85 10 123/86 93 Nasal Cannula 2.00 03/29/16 04:00 97.6 03/29/16 03:00 84 10 114/80 94 Nasal Cannula 2.00 03/29/16 02:00 73 10 110/69 95 Nasal Cannula 2.00 03/29/16 01:00 80 03/29/16 01:00 77 9 100/76 92 Nasal Cannula 2.00 03/29/16 00:00 Nasal Cannula 2.00 03/29/16 00:00 85 12 115/83 95 Nasal Cannula 2.00 03/29/16 00:00 98.0 03/28/16 23:00 86 18 115/83 96 Nasal Cannula 2.00 03/28/16 22:00 80 11 115/83 95 Nasal Cannula 2.00 03/28/16 21:00 79 14 111/83 95 Nasal Cannula 2.00 03/28/16 20:00 Nasal Cannula 2.00 03/28/16 20:00 97.6 03/28/16 20:00 79 18 114/78 90 Nasal Cannula 2.00 03/28/16 19:00 75 14 115/76 85 Nasal Cannula 2.00 03/28/16 19:00 77 03/28/16 18:00 80 14 125/84 96 Nasal Cannula 2.00 03/28/16 17:00 86 16 93 Nasal Cannula 2.00 03/28/16 16:00 97.5 03/28/16 16:00 77 10 95 Nasal Cannula 2.00 03/28/16 15:00 99 10 90/66 95 Nasal Cannula 2.00 03/28/16 14:28 95 Nasal Cannula 3.00 03/28/16 14:00 102 12 90/66 95 Nasal Cannula 2.00 03/28/16 13:09 76 03/28/16 13:00 126 16 90/66 95 Nasal Cannula 2.00 03/28/16 12:00 77 16 91/71 94 Nasal Cannula 2.00 03/28/16 12:00 97.6 03/28/16 11:00 131 16 101/71 94 Nasal Cannula 2.00 03/28/16 10:00 92 16 93/63 93 Nasal Cannula 2.00 I & O 03/29/16 07:00 Intake Total 2300 ml Output Total 4425 ml Balance -2125 ml Capillary Refill : Less Than 3 Seconds General Appearance: No Apparent Distress (sitting in chair) Neck: Supple Respiratory: Decreased Breath Sounds Cardiovascular: Irregularly Irregular Gastrointestinal: soft distended tenderness (less) other (large ecchymosis over lower portion of abdomen, minimal blood coming from midline incision) Extremity: Non Tender No Calf Tenderness 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: Alert Oriented x3 No Motor/Sensory Deficits Skin: Normal Color Warm/Dry Lymphatic: No Adenopathy Results Lab Laboratory Tests 03/28/16 19:40: Urine Amorphous Sediment MOD WANDA URATESH, Urine Bacteria TRACE, Urine Bilirubin 2+H, Urine Casts NONE, Urine Clarity VERY CLOUDYH, Urine Color AMBERH , Urine Crystals PRESENTH, Urine Culture Indicated YES, Urine Glucose (UA) NEGATIVE, Urine Ketones 1+H, Urine Leukocyte Esterase 2+H, Urine Mucus NEGATIVE , Urine Nitrite POSITIVEH, Urine Protein 3+H, Urine RBC TNTCH, Urine RBC (Auto) 5+H, Urine Specific [place] 1.015L, Urine Urobilinogen 8H, Urine WBC 10-25H, Urine pH 6.5 03/29/16 06:50: Anion Gap 12, BUN/Creatinine Ratio 19, Basophils # (Auto) 0.0, Basophils (%) ( Auto) 0, Blood Urea Nitrogen 28H, Calcium Level 8.0L, Carbon Dioxide Level 24, Chloride Level 101, Creatinine 1.48H, Eosinophils # (Auto) 0.1, Eosinophils (%) (Auto) 1, Estimat Glomerular Filtration Rate 49, Glucose Level 106H, Hematocrit 33L, Hemoglobin 10.8L, Lymphocytes # (Auto) 0.9L, Lymphocytes (%) (Auto) 7L, Magnesium Level 2.8H, Mean Corpuscular Hemoglobin 31, Mean Corpuscular Hemoglobin Concent 32, Mean Corpuscular Volume 95, Mean Platelet Volume 11.1H, Monocytes # (Auto) 1.1H, Monocytes (%) (Auto) 8, Neutrophils # (Auto) 11.1H, Neutrophils (%) (Auto) 84H, Phosphorus Level 2.3, Platelet Count 203, Potassium Level 3.8, Red Blood Count 3.50L, Red Cell Distribution Width 13.8, Sodium Level 137, Vancomycin Level Trough 7.4L, White Blood Count 13.2H Microbiology 03/26/16 MRSA Screen - Final, Complete MRSA not isolated Assessment/Plan Assessment/Plan Assessment/Plan S/P Open with Lap assist ventral herniarraphy with mesh placement. - passing flatus and sitting in chair instructed to increase activity and continue to use IS Esophagitis seen on EGD - bx done, path pending Afib -reoccurred treatment per Cardiology. Would try and hold off on blood thinners. Renal Insufficiency Gastritis Hgb dropped continue to follow Clinical Quality Measures DVT/VTE Risk/Contraindication: Risk Factor Score Per Nursin RFS Level Per Nursing on Admit: 1=Low/No VTE PPX OTONIEL SHEPARD DO Mar 29, 2016 09:41
[2016-03-29] MEDS: ENOXAPARIN 100 MG/1 ML (LOVENOX) SYR SC SCH ×2 (10:00→21:17)
--- NOTE | 2016-03-29 10:23 | Progress Note-Urology ---
Progress Note-Urology Progress Notes/Assess & Plan Progress/Assessment & Plan passing flatus, feeling and looking better. Recommend 1. DC Eaton once not needed, and call me with any voiding issues 2. Resume Flomax 3. Hold Urecholine Final Diagnosis Urine retention JEF NULL MD Mar 29, 2016 10:23 am
--- NOTE | 2016-03-29 14:54 | Cardiology Progress Note ---
Cardiology SOAP Progress Note Subjective: no cardiac complaints Objective: I&O/Vital Signs Vital Sign - Last 12Hours 03/29/16 03/29/16 03/29/16 03/29/16 03:00 04:00 04:00 04:00 Temp 97.6 Pulse 84 85 Resp 10 10 B/P 114/80 123/86 Pulse Ox 94 93 O2 Delivery Nasal Cannula Nasal Cannula Nasal Cannula O2 Flow Rate 2.00 2.00 2.00 03/29/16 03/29/16 03/29/16 03/29/16 05:00 06:00 07:00 07:38 Pulse 82 83 124 Resp 13 11 B/P 126/83 115/77 Pulse Ox 81 93 95 O2 Delivery Nasal Cannula Nasal Cannula Nasal Cannula O2 Flow Rate 2.00 2.00 3.00 03/29/16 03/29/16 03/29/16 03/29/16 08:00 08:00 12:11 12:11 Temp 97.8 98.1 O2 Delivery Nasal Cannula Nasal Cannula O2 Flow Rate 2.00 2.00 03/29/16 14:19 Pulse Ox 96 O2 Delivery Nasal Cannula O2 Flow Rate 2.00 Intake and Output 03/29/16 00:00 Intake Total 1200 ml Output Total 3575 ml Balance -2375 ml Weight (Pounds): 231 Weight (Ounces): 6.4 Weight (Calculated Kilograms): 104.545780 Constitutional: appears stated ageNo apparent distress, well-developed well- nourished Respiratory: No accessory muscle use, No respiratory distress, chest expansion is symmetric chest is bilaterally symmetric lungs clear to percussion lungs clear to auscultation Cardiovascular: regular rate-rhythmNo JVD, S1 and S2 systolic murmur Gastrointestional: distended tendernessNo spleenomegaly Extremities: non-tender normal inspectionNo clubbing, No cyanosis, no lower extremity edema bilateralNo significant edema 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: alert oriented x 3 power is 5/5 both on sides Skin: normal color warm/dryNo rash, No ulcerations Results/Procedures: Labs Laboratory Tests 03/28/16 19:40: Urine Amorphous Sediment MOD WANDA URATESH, Urine Bacteria TRACE, Urine Bilirubin 2+H, Urine Casts NONE, Urine Clarity VERY CLOUDYH, Urine Color AMBERH , Urine Crystals PRESENTH, Urine Culture Indicated YES, Urine Glucose (UA) NEGATIVE, Urine Ketones 1+H, Urine Leukocyte Esterase 2+H, Urine Mucus NEGATIVE , Urine Nitrite POSITIVEH, Urine Protein 3+H, Urine RBC TNTCH, Urine RBC (Auto) 5+H, Urine Specific [place] 1.015L, Urine Urobilinogen 8H, Urine WBC 10-25H, Urine pH 6.5 03/29/16 06:50: Anion Gap 12, BUN/Creatinine Ratio 19, Basophils # (Auto) 0.0, Basophils (%) ( Auto) 0, Blood Urea Nitrogen 28H, Calcium Level 8.0L, Carbon Dioxide Level 24, Chloride Level 101, Creatinine 1.48H, Eosinophils # (Auto) 0.1, Eosinophils (%) (Auto) 1, Estimat Glomerular Filtration Rate 49, Glucose Level 106H, Hematocrit 33L, Hemoglobin 10.8L, Lymphocytes # (Auto) 0.9L, Lymphocytes (%) (Auto) 7L, Magnesium Level 2.8H, Mean Corpuscular Hemoglobin 31, Mean Corpuscular Hemoglobin Concent 32, Mean Corpuscular Volume 95, Mean Platelet Volume 11.1H, Monocytes # (Auto) 1.1H, Monocytes (%) (Auto) 8, Neutrophils # (Auto) 11.1H, Neutrophils (%) (Auto) 84H, Phosphorus Level 2.3, Platelet Count 203, Potassium Level 3.8, Red Blood Count 3.50L, Red Cell Distribution Width 13.8, Sodium Level 137, Vancomycin Level Trough 7.4L, White Blood Count 13.2H Microbiology 03/28/16 Blood Culture - Preliminary, Resulted No growth 03/28/16 Gram Stain - Final, Resulted 03/28/16 Sputum Culture - Preliminary, Resulted 03/28/16 Urine Culture - Preliminary, Resulted NO GROWTH A/P: Assessment: 1. Post abdominal surgery. 2. Atrial fibrillation Plan: atrial fibrillation controlled on IV amiodarone. Currently in sinus rhythm. We will discontinue amiodarone infusion and start low-dose beta vicente. No anticoagulation because of high risk of bleeding as per general surgery. Elevated CHADSVASC score. Echo of 03-24-16: Normal global left ventricular systolic function with an ejection fraction of approximately 65%, mild mitral and tricuspid regurgitation , pulmonary artery systolic pressure is estimated to be approximately 35 mmHg, mild diastolic dysfunction of the left ventricle MPI of 03-24-16: Technically difficult study due to considerable patient motion during image acquisition, no evidence of any significant myocardial ischemia or infarction on this study, normal regional wall motion, normal global left ventricular systolic function with an ejection fraction of 77%, paroxysmal atrial fibrillation was seen Reported h/o TIA 3-4 years ago with reported transient loss of speech HTN - improved Intermittent LE edema for which he is on chronic diuretics managed by his PCP N/V/D H/O kidney stones H/o diverticulitis H/o tobaccoism - stopped in December 2015 H/o ETOH use - stopped in December 2015 Acute on chronic renal insufficiency Brigid VENTURA MD Mar 29, 2016 2:54 pm
[2016-03-29] MEDS: ALFUZOSIN HCL 10 MG TAB (UROXATRAL) PO SCH (18:42)
[2016-03-29] MEDS: meTOprolol TARTRATE 25 MG (LOPRESSOR) TABLET PO SCH (20:41)
[2016-03-29] MEDS ORDERED: meTOprolol 5 MG/5 ML (LOPRESSOR) VIAL ONE (20:42)
[2016-03-29] MEDS: METOCLOPRAMIDE INJ 10 MG/2 ML (REGLAN) IV PRN (20:51)
[2016-03-29] MEDS ORDERED: meTOprolol 5 MG/5 ML (LOPRESSOR) VIAL IV ONE (21:00)
[2016-03-30] VITALS (27 sets, daily range): BP systolic 81–141; BP diastolic 42–101
[2016-03-30] MEDS: fentaNYL INJECTION 100 MCG/2 ML AMP IVP PRN ×6 (00:03→20:49)
[2016-03-30] MEDS ORDERED: LORazepam INJ 2 MG/ML (ATIVAN) VIAL IV ONE (00:30)
[2016-03-30] MEDS: PHENYLEPHRINE INJECTION 10 MG in D5W 250 ML (IVPB) 249 ML IV SCH ×7 (01:20→21:20)
[2016-03-30] MEDS: NS IV 1000 ML 1,000 ML IV SCH ×8 (01:53→22:51)
[2016-03-30 04:30] LABS: BASOPHILS % (AUTO) 0 % (0-10); EOSINOPHILS # (AUTO) 0.1 10^3/uL (0.0-0.3); EOSINOPHILS % (AUTO) 1 % (0-10); LYMPHOCYTES # (AUTO) 1.1 X 10^3 (1.0-4.0); LYMPHOCYTES % (AUTO) 11 % (12-44); MEAN CORPUSCULAR HEMOGLOBIN 30 PG (25-34); MEAN CORPUSCULAR HGB CONC 32 G/DL (32-36); MEAN CORPUSCULAR VOLUME 96 FL (80-99); MEAN PLATELET VOLUME 11.3 FL (7.4-10.4); MONOCYTES # (AUTO) 0.8 X 10^3 (0.0-1.0); MONOCYTES % (AUTO) 8 % (0-12); NEUTROPHILS # (AUTO) 8.2 X 10^3 (1.8-7.8); NEUTROPHILS % (AUTO) 80 % (42-75); PLATELET COUNT 225 10^3/uL (130-400); RED BLOOD COUNT 3.23 10^6/uL (4.35-5.85); RED CELL DISTRIBUTION WIDTH 13.8 % (10.0-14.5); WHITE BLOOD COUNT 10.3 10^3/uL (4.3-11.0)
[2016-03-30 04:54] LABS: ANION GAP 8 MMOL/L (5-14); BLOOD UREA NITROGEN 22 MG/DL (7-18); BUN/CREATININE RATIO 19; CALCIUM 8.2 MG/DL (8.5-10.1); CARBON DIOXIDE 24 MMOL/L (21-32); CHLORIDE 108 MMOL/L (98-107); CREATININE SERUM 1.18 MG/DL (0.60-1.30); GFR ESTIMATED > 60; GLUCOSE 97 MG/DL (70-105); MAGNESIUM 2.5 MG/DL (1.8-2.4); PHOSPHORUS 1.5 MG/DL (2.3-4.7); POTASSIUM 4.1 MMOL/L (3.6-5.0); SODIUM 140 MMOL/L (135-145)
[2016-03-30] MEDS ORDERED: PIPERACILLIN/TAZO 4.5 GM VIAL (ZOSYN) IV ONE ×3 (04:59→22:04)
[2016-03-30] MEDS ORDERED: NORMAL SALINE (BAXTER MINI) 100 ML IV ONE ×3 (04:59→22:04)
[2016-03-30] MEDS: KCL 20 MEQ TAB (K-DUR) PO SCH (05:00)
[2016-03-30] MEDS: MAGNESIUM 1 GM/100 ML IVPB 100 ML IV SCH (05:00)
[2016-03-30] MEDS: POTASSIUM CL 10MEQ/50ML IVPB 50 ML IV SCH (05:00)
[2016-03-30] MEDS: PIPERACILLIN SODIUM/TAZOBACTAM 4.5 GM in NORMAL SALINE (BAXTER MINI) 100 ML IV SCH ×3 (05:17→22:22)
[2016-03-30 05:21] LABS: ALANINE AMINOTRANSFERASE 12 U/L (0-55); ALBUMIN 3.1 G/DL (3.2-4.5); ANION GAP 8 MMOL/L (5-14); ASPARTATE AMINO TRANSFERASE 16 U/L (5-34); BILIRUBIN,TOTAL 0.7 MG/DL (0.1-1.0); BLOOD UREA NITROGEN 22 MG/DL (7-18); BUN/CREATININE RATIO 19; CARBON DIOXIDE 24 MMOL/L (21-32); CHLORIDE 108 MMOL/L (98-107); CREATININE SERUM 1.17 MG/DL (0.60-1.30); GFR ESTIMATED > 60; GLUCOSE 97 MG/DL (70-105); POTASSIUM 4.1 MMOL/L (3.6-5.0); SODIUM 140 MMOL/L (135-145); TOTAL PROTEIN 5.5 G/DL (6.4-8.2)
[2016-03-30] MEDS: RT-ALBUTEROL SULF 2.5 MG/3 ML PRE-MIX VIAL INH SCH ×3 (06:13→18:12)
--- NOTE | 2016-03-30 08:25 | Diagnostic Imaging Report ---
Indication: Dyspnea Comparison: 03/29/2016 Findings: Upright portable view of the chest is obtained. Enteric tube is again demonstrated. Heart size is enlarged but unchanged. There is no pulmonary vascular congestion. There is no pneumothorax demonstrated. Elevation of the left hemidiaphragm is unchanged as is some mild left basilar airspace disease and probable small left pleural effusion. Overall no significant interval change from the prior study. The right lung appears relatively clear. Impression: Overall stable appearance of the chest when compared to the prior study. Airspace disease and probable pleural fluid at the left lung base with mild elevation left hemidiaphragm appear stable. Dictated by: Dictated on workstation # [id number]
[2016-03-30] MEDS: VANCOMYCIN INJECTION 1,750 MG in NS IV 500 ML 500 ML IV SCH (08:33)
[2016-03-30] MEDS: PANTOPRAZOLE 40 MG/10 ML (PROTONIX) VIAL IV SCH (08:58)
[2016-03-30] MEDS: FLUCONAZOLE 100 MG/50 ML 50 ML IV SCH (08:58)
[2016-03-30] MEDS ORDERED: MAGNESIUM 1 GM/100 ML IVPB 100 ML IV SCH (09:30)
--- NOTE | 2016-03-30 09:31 | Progress Note-Hospitalist ---
Subjective HPI/CC On Admission The patient is a 60-year-old white male who presented to the emergency room today in the naturopathic oncology provider hours with a chief complaint of abdominal pain nausea and vomiting. He was seen here in the emergency room on 03/20 with complaints of abdominal pain ultimate workup showed a by CT scan that there was a periumbilical hernia or hernias. He in fact was to have an appointment with Dr. Andrews today for planning of the hernia repair later this week. CT scan done early this morning showed no evidence of bowel obstruction. The other finding was that he had atrial fibrillation with a rapid ventricular response which was a new finding. He was admitted to the ICU for a Cardizem drip and the cardiac consultation. He has had many surgeries including a previous periumbilical hernia repair a stated (kidney stone procedure which she states was the cause of the horizontally aligned left lower quadrant sub-umbilical scar. Date Seen 03/30/16 Subjective/Events-last exam Patient complains primarily of a sore throat.. He ambulated 3 or 4 times yesterday and is passing flatus.. His NG tube has been clamped overnight, and reattached he only had 50 mL out,. Review of Systems Pulmonary: Dyspnea Objective Exam Vital Signs Vital Sign - Last 12Hours 03/24/16 03/24/16 04:46 05:00 Temp 98.0 Pulse 76 Resp 18 B/P 13/92 Pulse Ox 99 O2 Delivery Room Air O2 Flow Rate 2 Capillary Refill : Less Than 3 Seconds General Appearance: No Apparent Distress HEENT: Normal ENT Inspection Neck: Supple Respiratory: Decreased Breath Sounds Cardiovascular: Irregularly Irregular Tachycardia Gastrointestinal: Abnormal Bowel Sounds Distended Rectal: Deferred Results/Procedures Lab Laboratory Tests 03/29/16 17:45 03/30/16 03:26 Assessment/Plan Assessment and Plan Assess & Plan/Chief Complaint Assessment: s/p recurrent new onset AF with hypotension without rate controll on Amio per Dr Prabhakar-blood pressure improved; is intermittently in sinus rhythm Acute and severe ileus s/p NGT -now passing flatus x-ray still shows distention -because the patient is passing flatus we'll go ahead and DC the NG tube Acute volume overload resolved ARF on DOROTEO of baseline 1.5 creat back down today today will monitor closely Acute urinary retention requiring alvarado cath placement-with intermittent obstruction secondary to hematuria-Alvarado catheter is out patient is adamantly will never go back and Hematuria due to cath trauma Hernias s/p repair surgically per Dr Diaz POD # 4 Coarse breath sounds on exam yesterday ordered Nebs now covered with abx in case infiltrates appear Constipation unresolved after multiple meds and SSE x 4 Previous smoker stopped 3 months ago h/o renal lithiasis Yeast Esophagitis likely started Diflucan empirically Hypomagnesemia-we'll replace Plan: Continue Abx empirically-white count is down Monitor CXR and labs DC Alvarado cath Maintain bladder meds once NPO DC creative services director consult Home O2 eval once stable and ready for DC Consult Cardiology is much appreciated along with Wedding Photographer Diflucan Changed to by mouth amiodarone when able to take by mouth-increase activity DC ANGELA ISAAC MD Mar 30, 2016 9:31 am
[2016-03-30] MEDS: ANTACID SUSP 30 ML UDC (MYLANTA) PO SCH ×4 (09:58→20:06)
[2016-03-30] MEDS: meTOprolol TARTRATE 25 MG (LOPRESSOR) TABLET PO SCH ×4 (09:58→20:04)
[2016-03-30] MEDS: BETHANECHOL 25 MG (URECHOLINE) TAB PO SCH ×4 (09:58→20:04)
[2016-03-30] MEDS: PHENAZOPYRIDINE 100 MG (PYRIDIUM) TABLET PO SCH ×3 (09:58→17:30)
[2016-03-30] MEDS: LACTULOSE SYRUP 10GM/15ML (ENULOSE) 30ML UDC PO SCH ×2 (09:58→20:10)
[2016-03-30] MEDS: ASPIRIN E.C. 81 MG (ECOTRIN) TAB PO SCH (09:59)
[2016-03-30] MEDS: HYDROcodone/APAP 10 MG/325 MG (LORTAB) TAB PO PRN ×3 (09:59→22:22)
[2016-03-30] MEDS: POLYETHYLENE GLYCOL 17 GM (MIRALAX) PACK PO SCH ×2 (09:59→20:05)
[2016-03-30] MEDS: meTOproloL SUCCINATE 50 MG (TOPROL XL) TAB PO SCH (09:59)
[2016-03-30] MEDS: guaiFENesin (MUCINEX) 600 MG TAB PO SCH ×2 (10:01→20:03)
[2016-03-30] MEDS: ENOXAPARIN 100 MG/1 ML (LOVENOX) SYR SC SCH ×2 (11:08→22:22)
--- NOTE | 2016-03-30 11:24 | Progress Note ---
Subjective Subjective/Events-last exam Patient passing some flatus. Sore throat. NG tube removed. Has taken very minimal liquids. Sitting in chair. Has walked a little. Abdomen still with some distention. Hgb from 10 to 9.8 Objective Exam Vital Signs Date Time Temp Pulse Resp B/P Pulse Ox O2 Delivery O2 Flow Rate FiO2 03/30/16 10:00 151 23 99/85 96 Nasal Cannula 2.00 03/30/16 09:00 142 20 102/90 96 Nasal Cannula 2.00 03/30/16 08:36 97 Nasal Cannula 2.00 03/30/16 08:34 98.6 133 18 107/84 96 Nasal Cannula 2.00 03/30/16 08:00 144 13 108/89 95 Nasal Cannula 2.00 03/30/16 07:50 152 03/30/16 07:00 163 22 96/74 94 Nasal Cannula 2.00 03/30/16 06:14 96 Nasal Cannula 2.00 03/30/16 06:00 84 20 136/62 98 Nasal Cannula 2.00 03/30/16 05:00 74 23 118/42 100 Nasal Cannula 2.00 03/30/16 04:00 135 7 96/82 95 Nasal Cannula 2.00 03/30/16 04:00 94 Nasal Cannula 2.00 03/30/16 03:51 98.4 03/30/16 03:00 121 15 98/85 95 Nasal Cannula 2.00 03/30/16 02:00 57 19 97/80 95 Nasal Cannula 2.00 03/30/16 01:00 75 19 93/70 96 Nasal Cannula 2.00 03/30/16 01:00 68 03/30/16 00:00 140 27 97/63 96 Nasal Cannula 2.00 03/30/16 00:00 98.4 03/30/16 00:00 94 Nasal Cannula 2.00 03/29/16 23:00 99 13 100/72 91 Nasal Cannula 2.00 03/29/16 22:00 97 12 101/66 97 Nasal Cannula 2.00 03/29/16 21:00 75 26 93/61 93 Nasal Cannula 2.00 03/29/16 20:00 94 Nasal Cannula 2.00 03/29/16 20:00 97.8 03/29/16 20:00 87 26 106/79 94 Nasal Cannula 2.00 03/29/16 19:03 92 Nasal Cannula 2.00 03/29/16 19:00 93 03/29/16 19:00 88 12 113/75 94 Nasal Cannula 2.00 03/29/16 16:00 Nasal Cannula 2.00 03/29/16 16:00 98.4 03/29/16 14:19 96 Nasal Cannula 2.00 03/29/16 13:00 76 03/29/16 12:11 98.1 03/29/16 12:11 Nasal Cannula 2.00 I & O 03/30/16 07:00 Intake Total 1475 ml Output Total 1220 ml Balance 255 ml Capillary Refill : Less Than 3 Seconds General Appearance: No Apparent Distress HEENT: Normal ENT Inspection Neck: Supple Respiratory: Decreased Breath Sounds Cardiovascular: Irregularly Irregular Tachycardia Gastrointestinal: soft distended tenderness (less) other (large ecchymosis over lower portion of abdomen incision mary minimal drainage) Extremity: Non Tender No Calf Tenderness 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: Alert Oriented x3 No Motor/Sensory Deficits Skin: Normal Color Warm/Dry Lymphatic: No Adenopathy Results Lab Laboratory Tests 03/29/16 17:45: Hematocrit 31L, Hemoglobin 10.0L 03/30/16 03:26: Hematocrit 31L, Hemoglobin 9.8L, Alanine Aminotransferase (ALT/SGPT) 12, Albumin 3.1L, Alkaline Phosphatase 57, Anion Gap 8, Aspartate Amino Transf (AST/ SGOT) 16, B-Type Natriuretic Peptide 340.2H, BUN/Creatinine Ratio 19, Basophils # (Auto) 0.0, Basophils (%) (Auto) 0, Blood Urea Nitrogen 22H, Calcium Level 8.2L, Carbon Dioxide Level 24, Chloride Level 108H, Creatinine 1.18, Eosinophils # (Auto) 0.1, Eosinophils (%) (Auto) 1, Estimat Glomerular Filtration Rate > 60, Glucose Level 97, Lymphocytes # (Auto) 1.1, Lymphocytes (% ) (Auto) 11L, Magnesium Level 2.5H, Mean Corpuscular Hemoglobin 30, Mean Corpuscular Hemoglobin Concent 32, Mean Corpuscular Volume 96, Mean Platelet Volume 11.3H, Monocytes # (Auto) 0.8, Monocytes (%) (Auto) 8, Neutrophils # ( Auto) 8.2H, Neutrophils (%) (Auto) 80H, Phosphorus Level 1.5L, Platelet Count 225, Potassium Level 4.1, Red Blood Count 3.23L, Red Cell Distribution Width 13.8, Sodium Level 140, Total Bilirubin 0.7, Total Protein 5.5L, White Blood Count 10.3 Microbiology 03/28/16 Blood Culture - Preliminary, Resulted No growth 03/28/16 Gram Stain - Final, Complete 03/28/16 Sputum Culture - Final, Complete Usual/normal linda isolated. 03/28/16 Urine Culture - Final, Complete NO GROWTH Assessment/Plan Assessment/Plan Assessment/Plan S/P Open with Lap assist ventral herniarraphy with mesh placement. - passing flatus and sitting in chair instructed to increase activity and continue to use IS Esophagitis seen on EGD Afib -reoccurred treatment per Cardiology. Renal Insufficiency Gastritis Hgb 9.8 from 10 Continue to increase activity passing flatus ng tube removed- clears Clinical Quality Measures DVT/VTE Risk/Contraindication: Risk Factor Score Per Nursin RFS Level Per Nursing on Admit: 1=Low/No VTE PPX OTONIEL SHEPARD DO Mar 30, 2016 11:24
--- NOTE | 2016-03-30 12:52 | Cardiology Progress Note ---
Cardiology SOAP Progress Note Subjective: Still complains of abdominal pain, however, it is much better than previously. Events of overnight noted, patient went back into atrial fibrillation with rapid ventricular rate. Objective: I&O/Vital Signs Vital Sign - Last 12Hours 03/30/16 03/30/16 03/30/16 03/30/16 01:00 01:00 02:00 03:00 Pulse 68 75 57 121 Resp 19 19 15 B/P 93/70 97/80 98/85 Pulse Ox 96 95 95 O2 Delivery Nasal Cannula Nasal Cannula Nasal Cannula O2 Flow Rate 2.00 2.00 2.00 03/30/16 03/30/16 03/30/16 03/30/16 03:51 04:00 04:00 05:00 Temp 98.4 Pulse 135 74 Resp 7 23 B/P 96/82 118/42 Pulse Ox 94 95 100 O2 Delivery Nasal Cannula Nasal Cannula Nasal Cannula O2 Flow Rate 2.00 2.00 2.00 03/30/16 03/30/16 03/30/16 03/30/16 06:00 06:14 07:00 07:50 Pulse 84 163 152 Resp 20 22 B/P 136/62 96/74 Pulse Ox 98 96 94 O2 Delivery Nasal Cannula Nasal Cannula Nasal Cannula O2 Flow Rate 2.00 2.00 2.00 03/30/16 03/30/16 03/30/16 03/30/16 08:00 08:34 08:36 09:00 Temp 98.6 Pulse 144 133 142 Resp 13 18 20 B/P 108/89 107/84 102/90 Pulse Ox 95 96 97 96 O2 Delivery Nasal Cannula Nasal Cannula Nasal Cannula Nasal Cannula O2 Flow Rate 2.00 2.00 2.00 2.00 03/30/16 03/30/16 03/30/16 10:00 12:00 12:00 Temp 98.5 Pulse 151 Resp 23 B/P 99/85 Pulse Ox 96 97 O2 Delivery Nasal Cannula Nasal Cannula O2 Flow Rate 2.00 2.00 Intake and Output 03/30/16 00:00 Intake Total 1200 ml Output Total 770 ml Balance 430 ml Weight (Pounds): 239 Weight (Ounces): 0.0 Weight (Calculated Kilograms): 108.162313 Constitutional: appears stated ageNo apparent distress, well-developed well- nourished Respiratory: No accessory muscle use, No respiratory distress, chest expansion is symmetric chest is bilaterally symmetric lungs clear to percussion lungs clear to auscultation Cardiovascular: irregularly irregularNo JVD, S1 and S2 systolic murmur Gastrointestional: distended tendernessNo spleenomegaly Extremities: non-tender normal inspectionNo clubbing, No cyanosis, no lower extremity edema bilateralNo significant edema 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: alert oriented x 3 power is 5/5 both on sides Skin: normal color warm/dryNo rash, No ulcerations Results/Procedures: Labs Laboratory Tests 03/29/16 17:45: Hematocrit 31L, Hemoglobin 10.0L 03/30/16 03:26: Hematocrit 31L, Hemoglobin 9.8L, Alanine Aminotransferase (ALT/SGPT) 12, Albumin 3.1L, Alkaline Phosphatase 57, Anion Gap 8, Aspartate Amino Transf (AST/ SGOT) 16, B-Type Natriuretic Peptide 340.2H, BUN/Creatinine Ratio 19, Basophils # (Auto) 0.0, Basophils (%) (Auto) 0, Blood Urea Nitrogen 22H, Calcium Level 8.2L, Carbon Dioxide Level 24, Chloride Level 108H, Creatinine 1.18, Eosinophils # (Auto) 0.1, Eosinophils (%) (Auto) 1, Estimat Glomerular Filtration Rate > 60, Glucose Level 97, Lymphocytes # (Auto) 1.1, Lymphocytes (% ) (Auto) 11L, Magnesium Level 2.5H, Mean Corpuscular Hemoglobin 30, Mean Corpuscular Hemoglobin Concent 32, Mean Corpuscular Volume 96, Mean Platelet Volume 11.3H, Monocytes # (Auto) 0.8, Monocytes (%) (Auto) 8, Neutrophils # ( Auto) 8.2H, Neutrophils (%) (Auto) 80H, Phosphorus Level 1.5L, Platelet Count 225, Potassium Level 4.1, Red Blood Count 3.23L, Red Cell Distribution Width 13.8, Sodium Level 140, Total Bilirubin 0.7, Total Protein 5.5L, White Blood Count 10.3 Microbiology 03/28/16 Blood Culture - Preliminary, Resulted No growth 03/28/16 Gram Stain - Final, Complete 03/28/16 Sputum Culture - Final, Complete Usual/normal linda isolated. 03/28/16 Urine Culture - Final, Complete NO GROWTH A/P: Assessment: Atrial fibrillation, status post abdominal surgery Plan: atrial fibrillation with rapid ventricular rate. Still continues to have abdominal pain which is most likely the inciting factor. Will increase the dose of beta vicente. Dr. Cash has started Lovenox which should cover anticoagulation for atrial fibrillation, however, Eliquis 5 mg twice a day may be a better choice for both DVT prophylaxis and A. fib. Elevated CHADSVASC score. Echo of 03-24-16: Normal global left ventricular systolic function with an ejection fraction of approximately 65%, mild mitral and tricuspid regurgitation , pulmonary artery systolic pressure is estimated to be approximately 35 mmHg, mild diastolic dysfunction of the left ventricle MPI of 03-24-16: Technically difficult study due to considerable patient motion during image acquisition, no evidence of any significant myocardial ischemia or infarction on this study, normal regional wall motion, normal global left ventricular systolic function with an ejection fraction of 77%, paroxysmal atrial fibrillation was seen Reported h/o TIA 3-4 years ago with reported transient loss of speech HTN - improved Intermittent LE edema for which he is on chronic diuretics managed by his PCP N/V/D H/O kidney stones H/o diverticulitis H/o tobaccoism - stopped in December 2015 H/o ETOH use - stopped in December 2015 Acute on chronic renal insufficiency Diagnosis/Problems Diagnosis/Problems (1) Atrial fibrillation with rapid ventricular response Status: Acute Brigid VENTURA MD Mar 30, 2016 12:51 pm
[2016-03-30] MEDS: ALFUZOSIN HCL 10 MG TAB (UROXATRAL) PO SCH (17:30)
[2016-03-31] VITALS (18 sets, daily range): BP systolic 106–156; BP diastolic 79–134
[2016-03-31] MEDS: PHENYLEPHRINE INJECTION 10 MG in D5W 250 ML (IVPB) 249 ML IV SCH ×8 (00:40→23:17)
[2016-03-31] MEDS: NS IV 1000 ML 1,000 ML IV SCH ×9 (01:56→23:00)
[2016-03-31] MEDS: fentaNYL INJECTION 100 MCG/2 ML AMP IVP PRN (02:38)
[2016-03-31 04:29] LABS: BASOPHILS % (AUTO) 0 % (0-10); EOSINOPHILS # (AUTO) 0.1 10^3/uL (0.0-0.3); EOSINOPHILS % (AUTO) 1 % (0-10); LYMPHOCYTES # (AUTO) 1.3 X 10^3 (1.0-4.0); LYMPHOCYTES % (AUTO) 13 % (12-44); MEAN CORPUSCULAR HEMOGLOBIN 30 PG (25-34); MEAN CORPUSCULAR HGB CONC 32 G/DL (32-36); MEAN CORPUSCULAR VOLUME 96 FL (80-99); MEAN PLATELET VOLUME 10.7 FL (7.4-10.4); MONOCYTES % (AUTO) 10 % (0-12); NEUTROPHILS # (AUTO) 7.6 X 10^3 (1.8-7.8); NEUTROPHILS % (AUTO) 76 % (42-75); PLATELET COUNT 239 10^3/uL (130-400); RED BLOOD COUNT 3.15 10^6/uL (4.35-5.85); RED CELL DISTRIBUTION WIDTH 13.7 % (10.0-14.5); WHITE BLOOD COUNT 9.9 10^3/uL (4.3-11.0)
[2016-03-31 04:46] LABS: ANION GAP 10 MMOL/L (5-14); BLOOD UREA NITROGEN 18 MG/DL (7-18); BUN/CREATININE RATIO 18; CALCIUM 7.9 MG/DL (8.5-10.1); CARBON DIOXIDE 19 MMOL/L (21-32); CHLORIDE 111 MMOL/L (98-107); CREATININE SERUM 1.01 MG/DL (0.60-1.30); GFR ESTIMATED > 60; GLUCOSE 93 MG/DL (70-105); MAGNESIUM 2.1 MG/DL (1.8-2.4); PHOSPHORUS 1.8 MG/DL (2.3-4.7); POTASSIUM 3.6 MMOL/L (3.6-5.0); SODIUM 140 MMOL/L (135-145)
[2016-03-31] MEDS: MAGNESIUM 1 GM/100 ML IVPB 100 ML IV SCH (05:56)
[2016-03-31] MEDS: KCL 20 MEQ TAB (K-DUR) PO SCH (05:56)
[2016-03-31] MEDS: POTASSIUM CL 10MEQ/50ML IVPB 50 ML IV SCH ×3 (05:57→07:23)
[2016-03-31] MEDS ORDERED: NORMAL SALINE (BAXTER MINI) 100 ML IV ONE ×3 (06:01→22:53)
[2016-03-31] MEDS ORDERED: PIPERACILLIN/TAZO 4.5 GM VIAL (ZOSYN) IV ONE ×3 (06:01→22:53)
[2016-03-31] MEDS: PIPERACILLIN SODIUM/TAZOBACTAM 4.5 GM in NORMAL SALINE (BAXTER MINI) 100 ML IV SCH ×3 (06:11→23:00)
[2016-03-31] MEDS: BETHANECHOL 25 MG (URECHOLINE) TAB PO SCH ×4 (06:14→21:48)
[2016-03-31] MEDS: HYDROcodone/APAP 10 MG/325 MG (LORTAB) TAB PO PRN (06:14)
[2016-03-31] MEDS: RT-ALBUTEROL SULF 2.5 MG/3 ML PRE-MIX VIAL INH SCH ×3 (07:16→19:35)
--- NOTE | 2016-03-31 07:51 | Pulmonary Consultation ---
History of Present Illness History of Present Illness Date of Consultation 03/31/16 07:46 Date of Admission History of Present Illness 60yo presented to ED secondary to abdominal pain and vomiting. CT scan showed periumbilical hernia pt is now s/p surgery. He was transferred from 4th floor secondary to ICU secondary to Afib RVR. Pt has had increasing abdominal distention and worsening renal function. Pt was hypotensive however responded to IVF. I am consulted for ICU management. . Allergies and Home Medications Allergies Coded Allergies: lidocaine (Unverified Allergy, Mild, BREAKS OUT IN WELTS, 03/20/16) orange juice (Verified Allergy, Unknown, 04/09/13) Home Medications Amlodipine Besylate 5 Mg Tablet 5 MG PO DAILY (Reported) LAST FILLED 03/03/16 #15 Aspirin 81 Mg Tablet.dr 81 MG PO DAILY (Reported) Chlorthalidone 25 Mg Tablet 12.5 MG PO DAILY (Reported) TAKES 1/2 OF A (25 MG) TABLET Gluc HCl/Csa/Terrence Hy/Hyalur AC 1 Each Capsule 1 CAP PO DAILY (Reported) Hydrocodone/Acetaminophen 1 Each Tablet 1 TAB PO Q8H PRN PRN SEVERE PAIN ( Reported) Lisinopril 20 Mg Tablet 20 MG PO DAILY (Reported) Sulfamethoxazole/Trimethoprim 1 Each Tablet 1 TAB PO BID (Reported) FILLED 03/20/16 #20 FOR A 10 DAY THERAPY Tramadol HCl 50 Mg Tablet 50-100 MG PO Q6H PRN PRN MODERATE PAIN (Reported) TAKES 1-2 OF A (50 MG) TABLET Past Uwzmgmu-Mzqoku-Amdqut Hx Patient Social History Alcohol Use: Rarely Uses Recreational Drug Use: No Smoking Status: Former Smoker Type Used: Smokeless Tobacco Recent Foreign Travel: No Contact w/Someone Who Travel: No Recent Infectious Disease Expo: No Recent Hopitalizations: No Physical Abuse Screen: No Sexual Abuse: No Immunizations Up To Date Tetanus Booster (TDap): Less than 5yrs PED Vaccines UTD: No Seasonal Allergies Seasonal Allergies: No Surgeries HX Surgeries: Yes Surgeries: Abdominal, Appendectomy, Orthopedic, Renal Respiratory Hx Respiratory Disorders: No Cardiovascular Hx Cardiac Disorders: Yes Cardiac Disorders: High Cholesterol, Hypertension Neurological Hx Neurological Disorders: Yes Neurological Disorders: Dementia, TIA (went to ER and was told he had had a "minor" stroke) Reproductive System Hx Reproductive Disorders: No Sexually Transmitted Disease: No HIV/AIDS: No Genitourinary Hx Genitourinary Disorders: Yes Genitourinary Disorders: Benign Prostatic Hyperpl, Kidney Stones Gastrointestinal Hx Gastrointestinal Disorders: Yes Gastrointestinal Disorders: Abdominal Hernia, Gastroesophageal Reflux, Diverticulosis Musculoskeletal Hx Musculoskeletal Disorders: Yes Musculoskeletal Disorders: Degenerate Disk Disease, Arthritis, Back Injury, Chronic Back Pain Endocrine Hx Endocrine Disorders: No HEENT HX ENT Disorders: Yes (WEARS GLASSES) Loss of Vision: Denies Hearing Impairment: Denies Cancer Hx Cancer: No Psychosocial Hx Psychiatric Problems: No Integumentary HX Skin/Integumentary Disorder: No Blood Transfusions Hx Blood Disorders: No Adverse Reaction to a Blood Tr: No Family Medical History Significant Family History: Diabetes Family Medial History: Alzheimer's disease paternal grandmother Diabetes mellitus 19 MOTHER Gastroenteritis Hypertension G8 SISTER Neoplasm maternal grandmother (pancreatic cancer) Exam Exam Vital Signs Date Time Temp Pulse Resp B/P Pulse Ox O2 Delivery O2 Flow Rate FiO2 03/31/16 07:19 96 Room Air 03/31/16 06:00 73 13 133/112 94 Room Air 03/31/16 05:00 67 11 93 Room Air 03/31/16 04:00 94 Room Air 03/31/16 04:00 97.8 73 14 94 Room Air 03/31/16 03:00 77 14 125/84 95 Room Air 03/31/16 02:00 80 15 137/93 94 Room Air 03/31/16 01:00 81 03/31/16 01:00 80 15 153/112 94 Room Air 03/31/16 00:00 96.4 81 15 125/104 93 Room Air 03/31/16 00:00 94 Room Air 03/30/16 23:00 82 19 126/96 93 Room Air 03/30/16 22:00 87 14 140/89 93 Room Air 03/30/16 21:00 81 15 141/101 92 Room Air 03/30/16 20:00 82 17 123/93 83 Room Air 03/30/16 20:00 99.7 03/30/16 20:00 94 Room Air 03/30/16 19:00 68 03/30/16 19:00 82 13 120/86 86 Room Air 03/30/16 18:12 94 03/30/16 18:00 88 17 105/84 94 Room Air 03/30/16 17:00 140 21 104/79 96 Room Air 12/25/16 16:15 130 18 112/81 95 Nasal Cannula 2.00 03/30/16 16:00 122 24 81/65 91 Nasal Cannula 2.00 03/30/16 15:49 94 Room Air 03/30/16 15:48 98.5 03/30/16 15:00 135 13 103/82 89 Nasal Cannula 2.00 03/30/16 14:11 98 Nasal Cannula 2.00 03/30/16 14:00 129 21 111/81 97 Nasal Cannula 2.00 03/30/16 13:00 126 17 109/98 90 Nasal Cannula 2.00 03/30/16 12:17 130 03/30/16 12:00 97 Nasal Cannula 2.00 03/30/16 12:00 98.5 03/30/16 12:00 144 15 109/86 95 Nasal Cannula 2.00 03/30/16 11:00 137 9 82/75 96 Nasal Cannula 2.00 03/30/16 10:00 151 23 99/85 96 Nasal Cannula 2.00 03/30/16 09:00 142 20 102/90 96 Nasal Cannula 2.00 03/30/16 08:36 97 Nasal Cannula 2.00 03/30/16 08:34 98.6 133 18 107/84 96 Nasal Cannula 2.00 03/30/16 08:00 144 13 108/89 95 Nasal Cannula 2.00 03/30/16 07:50 152 I & O 03/31/16 07:00 Intake Total 4447.5 ml Output Total 1350 ml Balance 3097.5 ml General Appearance: No Apparent Distress HEENT: Normal ENT Inspection Neck: Supple Respiratory: Decreased Breath Sounds Cardiovascular: Irregularly Irregular Tachycardia Capillary Refill: Less Than 3 Seconds Gastrointestinal: soft distended tenderness (less) other (large ecchymosis over lower portion of abdomen incision mary minimal drainage) Extremity: Non Tender No Calf Tenderness 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: Alert Oriented x3 No Motor/Sensory Deficits Skin: Normal Color Warm/Dry Lymphatic: No Adenopathy Results Lab Laboratory Tests 03/29/16 17:45 03/30/16 03:26 03/31/16 04:10 Assessment/Plan Assessment/Plan Hernia s/p repair S/P new onset AF with s/p RVR -amio -cardiology following Ileus NG acute on chronic renal failure Baseline Cr 1.5 -monitor hx of tobacco use stopped 3 mo ago candidiasis esophagitis -diflucan Diagnosis/Problems Problems/Diagonsis (1) Atrial fibrillation with rapid ventricular response Status: Acute Clinical Quality Measures DVT/VTE Risk/Contraindication: Risk Factor Score Per Nursin RFS Level Per Nursing on Admit: 1=Low/No VTE BRITTNYX JANICE LUGO DO Mar 31, 2016 07:51 Constipation unresolved after multiple meds and SSE x 4 Previous smoker stopped 3 months ago h/o renal lithiasis Yeast Esophagitis likely started Diflucan empirically Hypomagnesemia-we'll replace Plan: Continue Abx empirically-white count is down Monitor CXR and labs DC [place] cath Maintain bladder meds once NPO DC foreign exchange services manager consult Home O2 eval once stable and ready for DC Consult Cardiology is much appreciated along with Station Engineer Diflucan Changed to by mouth amiodarone when able to take by mouth-increase activity DC NG Diagnosis/Problems Problems/Diagonsis (1) Atrial fibrillation with rapid ventricular response Status: Acute Clinical Quality Measures DVT/VTE Risk/Contraindication: Risk Factor Score Per Nursin RFS Level Per Nursing on Admit: 1=Low/No VTE PPX JANICE LUGO DO Mar 31, 2016 07:51
--- NOTE | 2016-03-31 08:34 | Diagnostic Imaging Report ---
EXAM: CHEST 1 VIEW, AP/PA ONLY INDICATION: Dyspnea. COMPARISON: Chest radiograph 03/30/2016. FINDINGS: Shallow inspiration accentuates heart size and pulmonary vascularity. Stable elevation of the left hemidiaphragm and atelectasis in the left lung base. No new focal pulmonary opacity, pleural effusion or pneumothorax. IMPRESSION: No significant change. Stable elevation of the left hemidiaphragm and atelectasis in the left lung base. Dictated by: Dictated on workstation # [id number]
--- NOTE | 2016-03-31 08:53 | Progress Note-Hospitalist ---
Subjective HPI/CC On Admission The patient is a 60-year-old white male who presented to the emergency room today in the enhanced environmental operator hours with a chief complaint of abdominal pain nausea and vomiting. He was seen here in the emergency room on 03/20 with complaints of abdominal pain ultimate workup showed a by CT scan that there was a periumbilical hernia or hernias. He in fact was to have an appointment with Dr. Andrews today for planning of the hernia repair later this week. CT scan done early this morning showed no evidence of bowel obstruction. The other finding was that he had atrial fibrillation with a rapid ventricular response which was a new finding. He was admitted to the ICU for a Cardizem drip and the cardiac consultation. He has had many surgeries including a previous periumbilical hernia repair a stated (kidney stone procedure which she states was the cause of the horizontally aligned left lower quadrant sub-umbilical scar. Date Seen 03/31/16 Subjective/Events-last exam patient is very discouraged about the lack of progress. [place] of increased abdominal distention and pain. He started vomiting again. Absolutely refuses to have the NG tube placed again. Discussed that a PEG tube could be placed to suction out over this would require another surgical procedure. He laments the fact that the morphine really helped with this pain understands that also delays recovery of his bowel function. Heart rates down into sinus rhythm in the 80s. Patient discussed the feasibility of being transferred to a higher care facility. Review of Systems Gastrointestinal: : Abdominal Pain: Vomiting Objective Exam Vital Signs Vital Sign - Last 12Hours 03/25/16 03/25/16 03/26/16 00:00 04:00 14:40 Temp 98.7 Pulse 55 Resp 10 B/P 105/81 Pulse Ox 94 O2 Delivery Room Air O2 Flow Rate 3.00 Capillary Refill : Less Than 3 Seconds General Appearance: Anxious Neck: Supple Respiratory: Lungs Clear No Accessory Muscle Use Cardiovascular: Regular Rate, Rhythm No Gallop Gastrointestinal: Abnormal Bowel Sounds Distended Results/Procedures Lab Laboratory Tests 03/31/16 04:10 Assessment/Plan Assessment and Plan Assess & Plan/Chief Complaint Assessment: s/p recurrent new onset AF with hypotension without rate control on amiodarone per Dr Prabhakar-blood pressure improved; is intermittently in sinus rhythm Acute and severe ileus s/p NGT -now passing flatus x-ray still shows distention -because the patient is passing flatus we'll go ahead and DC the NG tube-he had a good bowel movement yesterday however now the ileus is recurred get a KUB and upright and do a rectal exam and add scheduled Reglan Acute volume overload resolved ARF on DOROTEO of baseline 1.5 creat back down today today will monitor closely Acute urinary retention requiring alvarado cath placement-with intermittent obstruction secondary to hematuria-Alvarado catheter is out patient is adamantly will never go back in- we'll check post void residual Hematuria due to cath trauma Hernias s/p repair surgically per Dr Diaz POD # 5 Coarse breath sounds on exam yesterday ordered Nebs now covered with abx in case infiltrates appear Constipation unresolved after multiple meds and SSE x 4 Previous smoker stopped 3 months ago h/o renal lithiasis Yeast Esophagitis likely started Diflucan empirically Hypomagnesemia-we'll replace Plan: Continue Abx empirically-white count is down Monitor CXR and labs DC Alvarado cath Maintain bladder meds once NPO DC patient financial services specialist consult Home O2 eval once stable and ready for DC Consult Cardiology is much appreciated along with [place] Diflucan Changed to by mouth amiodarone when able to take by mouth-increase activity DC NG Diagnosis/Problems Diagnosis/Problems (1) Atrial fibrillation with rapid ventricular response Status: Acute ANGELA MILLER MD Mar 31, 2016 08:53
--- NOTE | 2016-03-31 09:32 | Progress Note ---
Subjective Subjective/Events-last exam Pt is resting in chair. Even respirations. No distress. Distended abdomen. Reports that he just had a large bowel movement. Wanted to be transferred to a different hospital but has decided to change his mind for now. Hgb continues to slightly trend down. WBC is normal. KUB ordered Objective Exam Vital Signs Date Time Temp Pulse Resp B/P Pulse Ox O2 Delivery O2 Flow Rate FiO2 03/31/16 07:19 96 Room Air 03/31/16 07:00 72 03/31/16 06:00 73 13 133/112 94 Room Air 03/31/16 05:00 67 11 93 Room Air 03/31/16 04:00 94 Room Air 03/31/16 04:00 97.8 73 14 94 Room Air 03/31/16 03:00 77 14 125/84 95 Room Air 03/31/16 02:00 80 15 137/93 94 Room Air 03/31/16 01:00 81 03/31/16 01:00 80 15 153/112 94 Room Air 03/31/16 00:00 96.4 81 15 125/104 93 Room Air 03/31/16 00:00 94 Room Air 03/30/16 23:00 82 19 126/96 93 Room Air 03/30/16 22:00 87 14 140/89 93 Room Air 03/30/16 21:00 81 15 141/101 92 Room Air 03/30/16 20:00 82 17 123/93 83 Room Air 03/30/16 20:00 99.7 03/30/16 20:00 94 Room Air 03/30/16 19:00 68 03/30/16 19:00 82 13 120/86 86 Room Air 03/30/16 18:12 94 03/30/16 18:00 88 17 105/84 94 Room Air 03/30/16 17:00 140 21 104/79 96 Room Air 03/30/16 16:15 130 18 112/81 95 Nasal Cannula 2.00 03/30/16 16:00 122 24 81/65 91 Nasal Cannula 2.00 03/30/16 15:49 94 Room Air 03/30/16 15:48 98.5 03/30/16 15:00 135 13 103/82 89 Nasal Cannula 2.00 03/30/16 14:11 98 Nasal Cannula 2.00 12/25/16 14:00 129 21 111/81 97 Nasal Cannula 2.00 03/30/16 13:00 126 17 109/98 90 Nasal Cannula 2.00 03/30/16 12:17 130 03/30/16 12:00 97 Nasal Cannula 2.00 03/30/16 12:00 98.5 03/30/16 12:00 144 15 109/86 95 Nasal Cannula 2.00 03/30/16 11:00 137 9 82/75 96 Nasal Cannula 2.00 03/30/16 10:00 151 23 99/85 96 Nasal Cannula 2.00 I & O 03/31/16 07:00 Intake Total 4447.5 ml Output Total 1350 ml Balance 3097.5 ml Capillary Refill : Less Than 3 Seconds General Appearance: No Apparent Distress HEENT: Normal ENT Inspection Neck: Non Tender Supple Respiratory: No Accessory Muscle Use No Respiratory Distress Cardiovascular: Regular Rate, Rhythm Gastrointestinal: abnormal bowel sounds (Hypoactive ) distended other (large ecchymosis over lower portion of abdomen incision mary minimal drainage) Extremity: Non Tender No Calf Tenderness No Pedal Edema 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: Alert Oriented x3 No Motor/Sensory Deficits Skin: Normal Color Warm/Dry Lymphatic: No Adenopathy Results Lab Laboratory Tests 03/31/16 04:10: Anion Gap 10, BUN/Creatinine Ratio 18, Basophils # (Auto) 0.0, Basophils (%) ( Auto) 0, Blood Urea Nitrogen 18, Calcium Level 7.9L, Carbon Dioxide Level 19L, Chloride Level 111H, Creatinine 1.01, Eosinophils # (Auto) 0.1, Eosinophils (%) (Auto) 1, Estimat Glomerular Filtration Rate > 60, Glucose Level 93, Hematocrit 30L, Hemoglobin 9.5L, Lymphocytes # (Auto) 1.3, Lymphocytes (%) (Auto) 13, Magnesium Level 2.1, Mean Corpuscular Hemoglobin 30, Mean Corpuscular Hemoglobin Concent 32, Mean Corpuscular Volume 96, Mean Platelet Volume 10.7H, Monocytes # (Auto) 1.0, Monocytes (%) (Auto) 10, Neutrophils # (Auto) 7.6, Neutrophils (%) (Auto) 76H, Phosphorus Level 1.8L, Platelet Count 239, Potassium Level 3.6, Red Blood Count 3.15L, Red Cell Distribution Width 13.7, Sodium Level 140, White Blood Count 9.9 03/31/16 07:11: Vancomycin Level Trough 8.7L Microbiology 03/28/16 Blood Culture - Preliminary, Resulted No growth 03/28/16 Gram Stain - Final, Complete 03/28/16 Sputum Culture - Final, Complete Usual/normal linda isolated. 03/28/16 Urine Culture - Final, Complete NO GROWTH Assessment/Plan Assessment/Plan Assessment/Plan S/P Open with Lap assist ventral herniarraphy with mesh placement. - had a Large BM today Esophagitis seen on EGD Afib -reoccurred treatment per Cardiology. Renal Insufficiency Gastritis Hgb 9.5 from 9.8 Continue to increase activity KUB ordered for this morning. Still pending. Shailesh- Patient reported was spitting up a little last night. No vomiting. Had large bowel movement this morning and passing flatus. Hgb 9.5. Abdomen distended. Patient with KUB demonstrating dilated loops of small bowel. Patient reports was having more abdominal pain but after bowel movement resolved exam patient sitting in chair head ncat eyes nonicteric nares patent mouth moist heart reg lungs nonlabored ext nontender abdomen distended with ecchymosis across lower abdomen slight tenderness assessment as above. abdomen distended and kub concerning for sbo discusses at length with patient and agrees to NG tube he does not wish to be transferred at this time we will get Gastrografin small bowel follow through in am after decompression with ng tube lovenox is held Diagnosis/Problems Diagnosis/Problems (1) Atrial fibrillation with rapid ventricular response Status: Acute Clinical Quality Measures DVT/VTE Risk/Contraindication: Risk Factor Score Per Nursin RFS Level Per Nursing on Admit: 1=Low/No VTE PPX ALLY HE APRN Mar 31, 2016 9:32 am OTONIEL SHEPARD DO Mar 31, 2016 11:48 am
--- NOTE | 2016-03-31 10:05 | Diagnostic Imaging Report ---
Indication: Abdominal pain. Discussion: Three views of the abdomen were obtained, comparison 03/28/2016. There are multiple dilated gas and fluid-filled small bowel loops present with multiple air-fluid levels, new from prior. The colon is essentially gasless. Findings are concerning for high-grade small bowel obstruction. Postoperative changes are stable. No evidence of pneumatosis or pneumoperitoneum. Impression: 1. Worsening abnormal small bowel gas pattern is concerning for high-grade small bowel obstruction. No free air identified. Dictated by: Dictated on workstation # [id number]
--- NOTE | 2016-03-31 10:32 | Progress Note-Hospitalist ---
Subjective HPI/CC On Admission The patient is a 60-year-old white male who presented to the emergency room today in the director of early childhood hours with a chief complaint of abdominal pain nausea and vomiting. He was seen here in the emergency room on 03/20 with complaints of abdominal pain ultimate workup showed a by CT scan that there was a periumbilical hernia or hernias. He in fact was to have an appointment with Dr. Andrews today for planning of the hernia repair later this week. CT scan done early this morning showed no evidence of bowel obstruction. The other finding was that he had atrial fibrillation with a rapid ventricular response which was a new finding. He was admitted to the ICU for a Cardizem drip and the cardiac consultation. He has had many surgeries including a previous periumbilical hernia repair a stated (kidney stone procedure which she states was the cause of the horizontally aligned left lower quadrant sub-umbilical scar. Date Seen 03/31/16 Subjective/Events-last exam KUB noted- discussed with surgeon and nurse- will d/c napoleon, d/c salima incase of surgical procedure Objective Exam Vital Signs Vital Sign - Last 12Hours 03/25/16 03/25/16 03/26/16 00:00 04:00 14:40 Temp 98.7 Pulse 55 Resp 10 B/P 105/81 Pulse Ox 94 O2 Delivery Room Air O2 Flow Rate 3.00 Capillary Refill : Less Than 3 Seconds General Appearance: Mild Distress Results/Procedures Lab Laboratory Tests 03/31/16 04:10 Assessment/Plan Assessment and Plan Assess & Plan/Chief Complaint Assessment: s/p recurrent new onset AF with hypotension without rate control on amiodarone per Dr Prabhakar-blood pressure improved; is intermittently in sinus rhythm Acute and severe ileus s/p NGT -now passing flatus x-ray still shows distention -because the patient is passing flatus we'll go ahead and DC the NG tube-he had a good bowel movement yesterday however now the ileus is recurred get a KUB and upright and do a rectal exam and add scheduled Reglan Acute volume overload resolved ARF on DOROTEO of baseline 1.5 creat back down today today will monitor closely Acute urinary retention requiring alvarado cath placement-with intermittent obstruction secondary to hematuria-Alvarado catheter is out patient is adamantly will never go back in- we'll check post void residual Hematuria due to cath trauma Hernias s/p repair surgically per Dr Diaz POD # 5 Coarse breath sounds on exam yesterday ordered Nebs now covered with abx in case infiltrates appear Constipation unresolved after multiple meds and SSE x 4 Previous smoker stopped 3 months ago h/o renal lithiasis Yeast Esophagitis likely started Diflucan empirically Hypomagnesemia-we'll replace Plan: Continue Abx empirically-white count is down Monitor CXR and labs DC Alvarado cath Maintain bladder meds once NPO DC agricultural services director consult Home O2 eval once stable and ready for DC Consult Cardiology is much appreciated along with Instructor Technical Training Diflucan Changed to by mouth amiodarone when able to take by mouth-increase activity DC NG Diagnosis/Problems Diagnosis/Problems (1) Atrial fibrillation with rapid ventricular response Status: Acute ANGELA MILLER MD Mar 31, 2016 10:32 am
[2016-03-31] MEDS: morphine INJ 4 MG/ML 1 ML (VIAL/SYRINGE) IVP PRN ×4 (11:59→21:33)
[2016-03-31] MEDS: LACTULOSE SYRUP 10GM/15ML (ENULOSE) 30ML UDC PO SCH ×2 (11:59→21:48)
[2016-03-31] MEDS: PHENAZOPYRIDINE 100 MG (PYRIDIUM) TABLET PO SCH ×3 (12:00→19:15)
[2016-03-31] MEDS: ASPIRIN E.C. 81 MG (ECOTRIN) TAB PO SCH (12:00)
[2016-03-31] MEDS ORDERED: METOCLOPRAMIDE INJ 10 MG/2 ML (REGLAN) IVP SCH (12:00)
[2016-03-31] MEDS: meTOproloL SUCCINATE 50 MG (TOPROL XL) TAB PO SCH ×2 (12:00→13:36)
[2016-03-31] MEDS: PANTOPRAZOLE 40 MG/10 ML (PROTONIX) VIAL IV SCH (12:01)
[2016-03-31] MEDS: meTOprolol TARTRATE 25 MG (LOPRESSOR) TABLET PO SCH ×2 (12:01→13:00)
[2016-03-31] MEDS: POLYETHYLENE GLYCOL 17 GM (MIRALAX) PACK PO SCH ×2 (12:01→21:48)
[2016-03-31] MEDS: guaiFENesin (MUCINEX) 600 MG TAB PO SCH ×2 (12:02→21:48)
[2016-03-31] MEDS: ANTACID SUSP 30 ML UDC (MYLANTA) PO SCH ×4 (12:03→21:48)
[2016-03-31] MEDS: FLUCONAZOLE 100 MG/50 ML 50 ML IV SCH (12:03)
[2016-03-31] MEDS: VANCOMYCIN INJECTION 1,750 MG in NS IV 500 ML 500 ML IV SCH (13:49)
--- NOTE | 2016-03-31 16:56 | Cardiology Progress Note ---
Cardiology SOAP Progress Note Subjective: Still complaining of abdominal pain. Sinus rhythm on telemetry. Objective: I&O/Vital Signs Vital Sign - Last 12Hours 03/31/16 03/31/16 03/31/16 03/31/16 05:00 06:00 07:00 07:19 Pulse 67 73 72 Resp 11 13 B/P 133/112 Pulse Ox 93 94 96 O2 Delivery Room Air Room Air Room Air 03/31/16 13:00 Pulse 74 Intake and Output 03/31/16 00:00 Intake Total 1535 ml Output Total 900 ml Balance 635 ml Weight (Pounds): 201 Weight (Ounces): 6.0 Weight (Calculated Kilograms): [id number] Constitutional: appears stated age well-developed well-nourished Respiratory: chest expansion is symmetric chest is bilaterally symmetric lungs clear to percussion lungs clear to auscultation Cardiovascular: irregularly irregular S1 and S2 systolic murmur Gastrointestional: distended tenderness Extremities: non-tender normal inspection no lower extremity edema bilateral 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: alert oriented x 3 power is 5/5 both on sides Skin: normal color warm/dry Results/Procedures: Labs Laboratory Tests 03/31/16 04:10: Anion Gap 10, BUN/Creatinine Ratio 18, Basophils # (Auto) 0.0, Basophils (%) ( Auto) 0, Blood Urea Nitrogen 18, Calcium Level 7.9L, Carbon Dioxide Level 19L, Chloride Level 111H, Creatinine 1.01, Eosinophils # (Auto) 0.1, Eosinophils (%) (Auto) 1, Estimat Glomerular Filtration Rate > 60, Glucose Level 93, Hematocrit 30L, Hemoglobin 9.5L, Lymphocytes # (Auto) 1.3, Lymphocytes (%) (Auto) 13, Magnesium Level 2.1, Mean Corpuscular Hemoglobin 30, Mean Corpuscular Hemoglobin Concent 32, Mean Corpuscular Volume 96, Mean Platelet Volume 10.7H, Monocytes # (Auto) 1.0, Monocytes (%) (Auto) 10, Neutrophils # (Auto) 7.6, Neutrophils (%) (Auto) 76H, Phosphorus Level 1.8L, Platelet Count 239, Potassium Level 3.6, Red Blood Count 3.15L, Red Cell Distribution Width 13.7, Sodium Level 140, White Blood Count 9.9 03/31/16 07:11: Vancomycin Level Trough 8.7L Microbiology 03/28/16 Blood Culture - Preliminary, Resulted No growth 03/28/16 Gram Stain - Final, Complete 03/28/16 Sputum Culture - Final, Complete Usual/normal linda isolated. 03/28/16 Urine Culture - Final, Complete NO GROWTH A/P: Assessment: 1. Abdominal pain. 2. Atrial fibrillation. Plan: atrial fibrillation with rapid ventricular rate currently in sinus rhythm. Still continues to have abdominal pain which is most likely the inciting factor. Will increase the dose of beta vicente. Dr. Cash has started Lovenox which should cover anticoagulation for atrial fibrillation, however, Eliquis 5 mg twice a day may be a better choice for both DVT prophylaxis and A. fib. Elevated CHADSVASC score. Echo of 03-24-16: Normal global left ventricular systolic function with an ejection fraction of approximately 65%, mild mitral and tricuspid regurgitation , pulmonary artery systolic pressure is estimated to be approximately 35 mmHg, mild diastolic dysfunction of the left ventricle MPI of 03-24-16: Technically difficult study due to considerable patient motion during image acquisition, no evidence of any significant myocardial ischemia or infarction on this study, normal regional wall motion, normal global left ventricular systolic function with an ejection fraction of 77%, paroxysmal atrial fibrillation was seen Reported h/o TIA 3-4 years ago with reported transient loss of speech HTN - improved Intermittent LE edema for which he is on chronic diuretics managed by his PCP N/V/D H/O kidney stones H/o diverticulitis H/o tobaccoism - stopped in December 2015 H/o ETOH use - stopped in December 2015 Acute on chronic renal insufficiency Diagnosis/Problems Diagnosis/Problems (1) Atrial fibrillation with rapid ventricular response Status: Acute Brigid VENTURA MD Mar 31, 2016 4:56 pm
[2016-03-31] MEDS: ALFUZOSIN HCL 10 MG TAB (UROXATRAL) PO SCH (19:15)
[2016-03-31] MEDS ORDERED: VANCOMYCIN 1 GM ADD-VANTAGE VIAL IV ONE (21:18)
[2016-03-31] MEDS ORDERED: SODIUM CHLORIDE (ADD-VANTAGE) 250 ML ONE (21:18)
[2016-03-31] MEDS: VANCOMYCIN 1 GM/NS 250 ML IVPB IV SCH ×2 (21:28)
[2016-03-31] MEDS ORDERED: meTOprolol 5 MG/5 ML (LOPRESSOR) VIAL ONE (21:37)
[2016-03-31] MEDS ORDERED: meTOprolol 5 MG/5 ML (LOPRESSOR) VIAL IV ONE ×2 (22:00→22:45)
[2016-04-01] VITALS (22 sets, daily range): BP systolic 97–163; BP diastolic 74–118
[2016-04-01] MEDS: morphine INJ 4 MG/ML 1 ML (VIAL/SYRINGE) IVP PRN ×3 (02:11→21:53)
[2016-04-01] MEDS: NS IV 1000 ML 1,000 ML IV SCH ×9 (02:51→22:40)
[2016-04-01] MEDS: PHENYLEPHRINE INJECTION 10 MG in D5W 250 ML (IVPB) 249 ML IV SCH ×7 (02:58→22:40)
[2016-04-01] MEDS ORDERED: HYDROmorphone (DILAUDID) 2 MG/ML VIAL ONE (03:02)
[2016-04-01] MEDS ORDERED: HYDROmorphone (DILAUDID) 2 MG/ML VIAL IV ONE (03:15)
[2016-04-01 04:35] LABS: BASOPHILS % (AUTO) 0 % (0-10); EOSINOPHILS # (AUTO) 0.2 10^3/uL (0.0-0.3); EOSINOPHILS % (AUTO) 2 % (0-10); LYMPHOCYTES % (AUTO) 10 % (12-44); MEAN CORPUSCULAR HEMOGLOBIN 30 PG (25-34); MEAN CORPUSCULAR HGB CONC 32 G/DL (32-36); MEAN CORPUSCULAR VOLUME 96 FL (80-99); MEAN PLATELET VOLUME 10.9 FL (7.4-10.4); MONOCYTES # (AUTO) 0.9 X 10^3 (0.0-1.0); MONOCYTES % (AUTO) 9 % (0-12); NEUTROPHILS # (AUTO) 7.7 X 10^3 (1.8-7.8); NEUTROPHILS % (AUTO) 79 % (42-75); PLATELET COUNT 233 10^3/uL (130-400); RED BLOOD COUNT 3.16 10^6/uL (4.35-5.85); RED CELL DISTRIBUTION WIDTH 13.7 % (10.0-14.5); WHITE BLOOD COUNT 9.8 10^3/uL (4.3-11.0)
[2016-04-01 04:58] LABS: ANION GAP 12 MMOL/L (5-14); BLOOD UREA NITROGEN 15 MG/DL (7-18); BUN/CREATININE RATIO 16; CARBON DIOXIDE 17 MMOL/L (21-32); CHLORIDE 113 MMOL/L (98-107); CREATININE SERUM 0.92 MG/DL (0.60-1.30); GFR ESTIMATED > 60; GLUCOSE 79 MG/DL (70-105); PHOSPHORUS 2.1 MG/DL (2.3-4.7); POTASSIUM 3.5 MMOL/L (3.6-5.0); SODIUM 142 MMOL/L (135-145)
[2016-04-01] MEDS ORDERED: PIPERACILLIN/TAZO 4.5 GM VIAL (ZOSYN) IV ONE ×3 (05:01→22:24)
[2016-04-01] MEDS ORDERED: NORMAL SALINE (BAXTER MINI) 100 ML IV ONE ×3 (05:01→22:24)
[2016-04-01] MEDS: PIPERACILLIN SODIUM/TAZOBACTAM 4.5 GM in NORMAL SALINE (BAXTER MINI) 100 ML IV SCH ×3 (05:13→22:35)
[2016-04-01] MEDS: MAGNESIUM 1 GM/100 ML IVPB 100 ML IV SCH (05:31)
[2016-04-01] MEDS: KCL 20 MEQ TAB (K-DUR) PO SCH (05:31)
[2016-04-01] MEDS: POTASSIUM CL 10MEQ/50ML IVPB 50 ML IV SCH ×3 (05:36→06:33)
[2016-04-01] MEDS: RT-ALBUTEROL SULF 2.5 MG/3 ML PRE-MIX VIAL INH SCH ×3 (06:32→21:35)
--- NOTE | 2016-04-01 07:02 | Pulmonary Progress Note ---
Subjective Subjective/Events-last exam Pt still c/o abdominal discomfort and distention Exam Exam Vital Signs Date Time Temp Pulse Resp B/P Pulse Ox O2 Delivery O2 Flow Rate FiO2 04/01/16 06:32 96 Room Air 04/01/16 06:00 81 13 118/84 95 Room Air 04/01/16 05:00 75 12 125/74 95 Room Air 04/01/16 04:00 94 Room Air 04/01/16 04:00 82 13 123/80 95 Room Air 04/01/16 03:30 97.2 04/01/16 03:00 77 14 129/84 95 Room Air 04/01/16 02:00 110 23 142/118 94 Room Air 04/01/16 01:00 84 15 125/80 94 Room Air 04/01/16 01:00 86 04/01/16 00:00 94 Room Air 04/01/16 00:00 151 18 97/87 94 Room Air 03/31/16 23:56 97.6 03/31/16 23:00 144 21 106/79 98 Room Air 03/31/16 22:00 126 21 116/101 97 Room Air 03/31/16 21:00 163 19 112/88 95 Room Air 03/31/16 20:00 97.5 03/31/16 20:00 90 17 143/100 96 Room Air 03/31/16 20:00 94 Room Air 03/31/16 19:35 96 Room Air 03/31/16 19:00 75 14 135/87 93 Room Air 03/31/16 19:00 80 03/31/16 18:00 76 17 148/95 97 Room Air 03/31/16 17:00 77 20 142/84 96 Room Air 03/31/16 16:00 94 Room Air 03/31/16 16:00 97.8 75 13 130/89 95 03/31/16 15:00 76 14 156/134 95 Room Air 03/31/16 13:00 74 03/31/16 12:00 96.8 73 18 156/134 03/31/16 12:00 94 Room Air 03/31/16 09:00 97 15 143/93 96 Room Air 03/31/16 08:00 94 Room Air 03/31/16 08:00 97.4 85 22 145/93 03/31/16 07:19 96 Room Air 03/31/16 07:00 72 03/31/16 07:00 72 14 132/101 94 Room Air I & O 04/01/16 07:00 Intake Total 1750 ml Output Total 2850 ml Balance -1100 ml General Appearance: No Apparent Distress HEENT: Normal ENT Inspection Neck: Supple Respiratory: Decreased Breath Sounds Cardiovascular: Irregularly Irregular Tachycardia Capillary Refill: Less Than 3 Seconds Gastrointestinal: soft distended tenderness other (large ecchymosis over lower portion of abdomen incision mary minimal drainage) Extremity: Non Tender No Calf Tenderness 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: Alert Oriented x3 No Motor/Sensory Deficits Skin: Normal Color Warm/Dry Lymphatic: No Adenopathy Results Lab Laboratory Tests 03/31/16 04:10 04/01/16 03:55 Assessment/Plan Assessment/Plan Hernia s/p repair S/P new onset AF with s/p RVR -amio -cardiology following Ileus NG acute on chronic renal failure Baseline Cr 1.5 -monitor hx of tobacco use stopped 3 mo ago candidiasis esophagitis -diflucan transfer to floor if OK with surgery Clinical Quality Measures DVT/VTE Risk/Contraindication: Risk Factor Score Per Nursin RFS Level Per Nursing on Admit: 1=Low/No VTE PPX JANICE LUGO DO Apr 01, 2016 07:02 Coarse breath sounds on exam yesterday ordered Nebs now covered with abx in case infiltrates appear Constipation unresolved after multiple meds and SSE x 4 Previous smoker stopped 3 months ago h/o renal lithiasis Yeast Esophagitis likely started Diflucan empirically Hypomagnesemia-we'll replace Plan: Continue Abx empirically-white count is down Monitor CXR and labs DC [place] cath Maintain bladder meds once NPO DC office services representative consult Home O2 eval once stable and ready for DC Consult Cardiology is much appreciated along with Presser Machine Diflucan Changed to by mouth amiodarone when able to take by mouth-increase activity DC NG Clinical Quality Measures DVT/VTE Risk/Contraindication: Risk Factor Score Per Nursin RFS Level Per Nursing on Admit: 1=Low/No VTE PPX JANICE LUGO DO Apr 01, 2016 07:02
--- NOTE | 2016-04-01 07:30 | Progress Note-Urology ---
Progress Note-Urology Progress Notes/Assess & Plan Progress/Assessment & Plan has ?small bowel obstruction, xrays today voiding on own, we will check PVR scan Final Diagnosis urine retention JEF NULL MD Apr 01, 2016 7:30 am
[2016-04-01] MEDS ORDERED: VANCOMYCIN 1 GM ADD-VANTAGE VIAL IV ONE (08:29)
[2016-04-01] MEDS ORDERED: SODIUM CHLORIDE (ADD-VANTAGE) 250 ML ONE (08:30)
[2016-04-01] MEDS: VANCOMYCIN 1 GM/NS 250 ML IVPB IV SCH ×2 (08:38)
[2016-04-01] MEDS: FLUCONAZOLE 100 MG/50 ML 50 ML IV SCH (08:38)
[2016-04-01] MEDS: fentaNYL INJECTION 100 MCG/2 ML AMP IVP PRN ×4 (08:41→14:04)
[2016-04-01] MEDS: PANTOPRAZOLE 40 MG/10 ML (PROTONIX) VIAL IV SCH (08:41)
--- NOTE | 2016-04-01 09:00 | Diagnostic Imaging Report ---
INDICATION: Dyspnea. Frontal chest obtained at 3:21 a.m. and compared to yesterday. FINDINGS: New NG tube is seen with tip overlying the gastric fundus. There is some linear atelectatic change in the left base. There is poor inspiration. There is no nolberto consolidation or pneumothorax or significant pleural fluid. There is mild elevation of left hemidiaphragm again noted. IMPRESSION: Left basilar atelectatic changes. Poor inspiration. Unchanged elevation left hemidiaphragm. No new consolidation or pleural fluid. Dictated by: Dictated on workstation # [id number]
[2016-04-01] MEDS: BETHANECHOL 25 MG (URECHOLINE) TAB PO SCH ×4 (11:00→21:00)
--- NOTE | 2016-04-01 11:09 | Progress Note-Hospitalist ---
Subjective HPI/CC On Admission The patient is a 60-year-old white male who presented to the emergency room today in the tube tester hours with a chief complaint of abdominal pain nausea and vomiting. He was seen here in the emergency room on 03/20 with complaints of abdominal pain ultimate workup showed a by CT scan that there was a periumbilical hernia or hernias. He in fact was to have an appointment with Dr. Ordaz today for planning of the hernia repair later this week. CT scan done early this morning showed no evidence of bowel obstruction. The other finding was that he had atrial fibrillation with a rapid ventricular response which was a new finding. He was admitted to the ICU for a Cardizem drip and the cardiac consultation. He has had many surgeries including a previous periumbilical hernia repair a stated (kidney stone procedure which she states was the cause of the horizontally aligned left lower quadrant sub-umbilical scar. 04/01/16 progress note: Patient reports minimal flatus this morning and no further bowel movements since yesterday. He reports his abdominal pain is not improved over the past 24 hours. He voices significant feelings of anxiety concerned about the fact his abdominal distention is not going down. He has been scheduled for an upper GI with small bowel follow-through. He denies chest pain or shortness of breath and is had no palpitations. Tannish sputum and what looks like water is noted in the sputum cup. He denies hemoptysis. Date Seen 04/01/16 Objective Exam Vital Signs Vital Sign - Last 12Hours 03/26/16 03/26/16 00:00 14:40 Temp 97.0 Pulse 52 Resp 20 B/P 129/83 Pulse Ox 95 O2 Delivery Room Air O2 Flow Rate 3.00 Capillary Refill : Less Than 3 Seconds General Appearance: Anxious Chronically ill Mild Distress Respiratory: Chest Non Tender No Accessory Muscle Use No Respiratory Distress Decreased Breath Sounds (in bases only chest is otherwise clear) Cardiovascular: Regular Rate, Rhythm No Edema No Gallop No JVD No Murmur Gastrointestinal: Distended Tenderness (mild generalized) Other (no bowel sounds are noted to auscultation midline incision is intact no evidence to suggest underlying cellulitis purpura without evidence for hematoma formation is noted bilaterally in the lower abdominal quadrants and mid abdominal quadrants.) Extremity: Normal Range of Motion No Calf Tenderness Pedal Edema (trace pretibial edema no erythema is noted) Comments Laboratory Tests 03/31/16 04:10 04/01/16 03:55 Results/Procedures Lab Laboratory Tests 04/01/16 03:55 Assessment/Plan Assessment and Plan Assess & Plan/Chief Complaint 1. Postop day 8 status post repair of incarcerated ventral hernia. While the patient has had 2 bowel movements this followed the initiation of bethanechol and my concern is that there is still underlying small bowel obstruction considering current clinical examination and the report of yesterday's KUB. Had a long discussion with the patient about ileus versus obstruction and that hopefully his upper GI with small bowel follow-through would help to answer this question. We also discussed the fact that if it is compatible with obstruction exploratory laparotomy would likely follow with further discussion with his surgeon. We also discussed the fact that his atrial fibrillation has converted and renal function has returned to normal with white counts trending lower and hemoglobin stabilizing all encouraging signs. 2. Apparent acute onset A. fib with RVR status post conversion post-amiodarone drip patient is being transferred to the fourth floor later today. 2 telemetry monitoring and repeat CBC and CMP in the morning. Diagnosis/Problems Diagnosis/Problems (1) Atrial fibrillation with rapid ventricular response Status: Acute FRANKIE HUMPHREY MD Apr 01, 2016 11:09
[2016-04-01] MEDS ORDERED: DIATRIZOATE MEGLUM/SODIUM 37% 120 ML (GASTROGRAFIN) NG ONE ×2 (11:15→15:00)
[2016-04-01] MEDS: ASPIRIN E.C. 81 MG (ECOTRIN) TAB PO SCH (11:51)
[2016-04-01] MEDS: LACTULOSE SYRUP 10GM/15ML (ENULOSE) 30ML UDC PO SCH ×2 (11:51→21:00)
[2016-04-01] MEDS: PHENAZOPYRIDINE 100 MG (PYRIDIUM) TABLET PO SCH ×3 (11:51→18:00)
[2016-04-01] MEDS: meTOprolol TARTRATE 25 MG (LOPRESSOR) TABLET PO SCH ×2 (11:52→21:00)
[2016-04-01] MEDS: POLYETHYLENE GLYCOL 17 GM (MIRALAX) PACK PO SCH ×2 (11:52→21:00)
[2016-04-01] MEDS: ANTACID SUSP 30 ML UDC (MYLANTA) PO SCH ×4 (11:52→21:00)
[2016-04-01] MEDS: guaiFENesin (MUCINEX) 600 MG TAB PO SCH ×2 (11:52→21:00)
--- NOTE | 2016-04-01 13:21 | Progress Note ---
Subjective Subjective/Events-last exam Patient with ng in place. His abdomen slightly less distended. Some discomfort. Passing some flatus today. No bm since yesterday. No fever. Hgb stable Objective Exam Vital Signs Date Time Temp Pulse Resp B/P Pulse Ox O2 Delivery O2 Flow Rate FiO2 04/01/16 11:58 98.3 04/01/16 11:57 94 Room Air 04/01/16 08:20 94 Room Air 04/01/16 08:10 96.9 04/01/16 07:00 85 04/01/16 06:32 96 Room Air 04/01/16 06:00 81 13 118/84 95 Room Air 04/01/16 05:00 75 12 125/74 95 Room Air 04/01/16 04:00 94 Room Air 04/01/16 04:00 82 13 123/80 95 Room Air 04/01/16 03:30 97.2 04/01/16 03:00 77 14 129/84 95 Room Air 04/01/16 02:00 110 23 142/118 94 Room Air 04/01/16 01:00 84 15 125/80 94 Room Air 04/01/16 01:00 86 04/01/16 00:00 94 Room Air 04/01/16 00:00 151 18 97/87 94 Room Air 03/31/16 23:56 97.6 03/31/16 23:00 144 21 106/79 98 Room Air 03/31/16 22:00 126 21 116/101 97 Room Air 03/31/16 21:00 163 19 112/88 95 Room Air 03/31/16 20:00 97.5 03/31/16 20:00 90 17 143/100 96 Room Air 03/31/16 20:00 94 Room Air 03/31/16 19:35 96 Room Air 03/31/16 19:00 75 14 135/87 93 Room Air 03/31/16 19:00 80 03/31/16 18:00 76 17 148/95 97 Room Air 03/31/16 17:00 77 20 142/84 96 Room Air 03/31/16 16:00 94 Room Air 03/31/16 16:00 97.8 75 13 130/89 95 03/31/16 15:00 76 14 156/134 95 Room Air I & O 04/01/16 06:59 Intake Total 1750 ml Output Total 3100 ml Balance -1350 ml Capillary Refill : Less Than 3 Seconds General Appearance: No Apparent Distress Anxious Chronically ill HEENT: Normal ENT Inspection Neck: Supple Respiratory: No Accessory Muscle Use No Respiratory Distress Decreased Breath Sounds Cardiovascular: Regular Rate, Rhythm Gastrointestinal: soft distended tenderness other (large ecchymosis over lower portion of abdomen incision ) Extremity: Normal Range of Motion No Calf Tenderness Pedal Edema 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: Alert Oriented x3 No Motor/Sensory Deficits Skin: Normal Color Warm/Dry Lymphatic: No Adenopathy Results Lab Laboratory Tests 04/01/16 03:55: Anion Gap 12, BUN/Creatinine Ratio 16, Basophils # (Auto) 0.0, Basophils (%) ( Auto) 0, Blood Urea Nitrogen 15, Calcium Level 8.0L, Carbon Dioxide Level 17L, Chloride Level 113H, Creatinine 0.92, Eosinophils # (Auto) 0.2, Eosinophils (%) (Auto) 2, Estimat Glomerular Filtration Rate > 60, Glucose Level 79, Hematocrit 30L, Hemoglobin 9.6L, Lymphocytes # (Auto) 1.0, Lymphocytes (%) (Auto) 10L, Magnesium Level 2.0, Mean Corpuscular Hemoglobin 30, Mean Corpuscular Hemoglobin Concent 32, Mean Corpuscular Volume 96, Mean Platelet Volume 10.9H, Monocytes # (Auto) 0.9, Monocytes (%) (Auto) 9, Neutrophils # (Auto) 7.7, Neutrophils (%) (Auto) 79H, Phosphorus Level 2.1L, Platelet Count 233, Potassium Level 3.5L, Red Blood Count 3.16L, Red Cell Distribution Width 13.7, Sodium Level 142, White Blood Count 9.8 Microbiology 03/28/16 Blood Culture - Preliminary, Resulted No growth 03/28/16 Gram Stain - Final, Complete 03/28/16 Sputum Culture - Final, Complete Usual/normal linda isolated. 03/28/16 Urine Culture - Final, Complete NO GROWTH Assessment/Plan Assessment/Plan Assessment/Plan S/P Open with Lap assist ventral herniarraphy with mesh placement. Ileus vs small bowel obstruction Esophagitis seen on EGD Afib -reoccurred treatment per Cardiology. Renal Insufficiency Gastritis Hgb stable Continue to increase activity Small bowel follow through today may be partial bowel obstruction and due to patient still passing flatus continue with ng tube at this time once study completed will await results continue to ambulate we did discuss possible outcomes and possible need for surgical intervention Diagnosis/Problems Diagnosis/Problems (1) Atrial fibrillation with rapid ventricular response Status: Acute Clinical Quality Measures DVT/VTE Risk/Contraindication: Risk Factor Score Per Nursin RFS Level Per Nursing on Admit: 1=Low/No VTE PPX OTONIEL SHEPARD DO Apr 01, 2016 1:20 pm
[2016-04-01] MEDS ORDERED: meTOprolol 5 MG/5 ML (LOPRESSOR) VIAL ONE (13:55)
[2016-04-01] MEDS: meTOprolol 5 MG/5 ML (LOPRESSOR) VIAL IV PRN (14:06)
--- NOTE | 2016-04-01 17:18 | Diagnostic Imaging Report ---
Small bowel follow-through. INDICATION: Bowel obstruction. Total of 120 cc of Gastrografin was administered via NG tube and after the initial garnetter image, multiple serial images of the abdomen were obtained. FINDINGS: The garnetter image demonstrates changes of lower lumbar spine fusion and skin mary. There is an NG tube in the upper left abdomen. There are multiple dilated small bowel loops seen with slow progression into nondilated small bowel loops in the right lower quadrant seen at 6 hours after initial administration of contrast. There is suggestion of early opacification of the cecum. IMPRESSION: Dilated proximal and mid small bowel loops with late opacification of the relatively decompressed distal small bowel loops and slight filling in the cecum seen at 6 hours. Postoperative ileus is probably a contributing factor with superimposed distal partial small bowel obstruction. Followup KUB in a.m. is recommended for further assessment. Dictated by: Dictated on workstation # [id number]
[2016-04-01] MEDS: ALFUZOSIN HCL 10 MG TAB (UROXATRAL) PO SCH (18:00)
--- NOTE | 2016-04-01 22:02 | Cardiology Progress Note ---
Cardiology SOAP Progress Note Subjective: no cardiac complaints. Objective: I&O/Vital Signs Vital Sign - Last 12Hours 04/01/16 04/01/16 04/01/16 04/01/16 10:00 11:57 11:58 13:00 Temp 98.3 Pulse 84 78 Resp 27 B/P 159/91 Pulse Ox 97 94 O2 Delivery Room Air Room Air 04/01/16 04/01/16 04/01/16 04/01/16 13:00 14:04 14:30 15:00 Pulse 85 151 90 Resp 15 21 18 B/P 149/107 127/103 140/100 Pulse Ox 94 95 95 95 O2 Delivery Room Air Room Air Room Air Room Air 04/01/16 04/01/16 04/01/16 04/01/16 16:00 16:00 16:00 17:00 Temp 98.2 B/P 139/99 134/111 Pulse Ox 94 O2 Delivery Room Air 04/01/16 04/01/16 04/01/16 18:00 19:00 21:35 Pulse 98 96 Resp 23 B/P 150/94 Pulse Ox 96 98 O2 Delivery Room Air Room Air Intake and Output 04/01/16 00:00 Intake Total 550 ml Output Total 1600 ml Balance -1050 ml Weight (Pounds): 244 Weight (Ounces): 8.0 Weight (Calculated Kilograms): [id number] Constitutional: appears stated age well-developed well-nourished Respiratory: chest expansion is symmetric chest is bilaterally symmetric lungs clear to percussion lungs clear to auscultation Cardiovascular: irregularly irregular S1 and S2 systolic murmur Gastrointestional: distended tenderness Extremities: non-tender normal inspection no lower extremity edema bilateral 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: alert oriented x 3 power is 5/5 both on sides Skin: normal color warm/dry Results/Procedures: Labs Laboratory Tests 04/01/16 03:55: Anion Gap 12, BUN/Creatinine Ratio 16, Basophils # (Auto) 0.0, Basophils (%) ( Auto) 0, Blood Urea Nitrogen 15, Calcium Level 8.0L, Carbon Dioxide Level 17L, Chloride Level 113H, Creatinine 0.92, Eosinophils # (Auto) 0.2, Eosinophils (%) (Auto) 2, Estimat Glomerular Filtration Rate > 60, Glucose Level 79, Hematocrit 30L, Hemoglobin 9.6L, Lymphocytes # (Auto) 1.0, Lymphocytes (%) (Auto) 10L, Magnesium Level 2.0, Mean Corpuscular Hemoglobin 30, Mean Corpuscular Hemoglobin Concent 32, Mean Corpuscular Volume 96, Mean Platelet Volume 10.9H, Monocytes # (Auto) 0.9, Monocytes (%) (Auto) 9, Neutrophils # (Auto) 7.7, Neutrophils (%) (Auto) 79H, Phosphorus Level 2.1L, Platelet Count 233, Potassium Level 3.5L, Red Blood Count 3.16L, Red Cell Distribution Width 13.7, Sodium Level 142, White Blood Count 9.8 Microbiology 03/28/16 Blood Culture - Preliminary, Resulted No growth 03/28/16 Gram Stain - Final, Complete 03/28/16 Sputum Culture - Final, Complete Usual/normal linda isolated. 03/28/16 Urine Culture - Final, Complete NO GROWTH A/P: Assessment: afib, abdominal surgery Plan: atrial fibrillation with rapid ventricular rate currently in sinus rhythm. Still continues to have abdominal pain which is most likely the inciting factor. Will increase the dose of beta vicente. Eliquis 5 mg twice a day. Elevated CHADSVASC score. Echo of 03-24-16: Normal global left ventricular systolic function with an ejection fraction of approximately 65%, mild mitral and tricuspid regurgitation , pulmonary artery systolic pressure is estimated to be approximately 35 mmHg, mild diastolic dysfunction of the left ventricle MPI of 03-24-16: Technically difficult study due to considerable patient motion during image acquisition, no evidence of any significant myocardial ischemia or infarction on this study, normal regional wall motion, normal global left ventricular systolic function with an ejection fraction of 77%, paroxysmal atrial fibrillation was seen Reported h/o TIA 3-4 years ago with reported transient loss of speech HTN - improved Intermittent LE edema for which he is on chronic diuretics managed by his PCP N/V/D H/O kidney stones H/o diverticulitis H/o tobaccoism - stopped in December 2015 H/o ETOH use - stopped in December 2015 Acute on chronic renal insufficiency Diagnosis/Problems Diagnosis/Problems (1) Atrial fibrillation with rapid ventricular response Status: Acute Brigid VENTURA MD Apr 01, 2016 10:02 pm
[2016-04-01] MEDS ORDERED: morphine INJ 4 MG/ML 1 ML (VIAL/SYRINGE) IVP PRN (22:03)
[2016-04-02] VITALS (15 sets, daily range): BP systolic 137–170; BP diastolic 90–119
[2016-04-02] MEDS: meTOprolol 5 MG/5 ML (LOPRESSOR) VIAL IV PRN (01:50)
[2016-04-02] MEDS: PHENYLEPHRINE INJECTION 10 MG in D5W 250 ML (IVPB) 249 ML IV SCH ×2 (02:40→05:49)
[2016-04-02] MEDS: NS IV 1000 ML 1,000 ML IV SCH ×4 (02:51→13:18)
[2016-04-02] MEDS ORDERED: PIPERACILLIN/TAZO 4.5 GM VIAL (ZOSYN) IV ONE ×3 (05:26→20:03)
[2016-04-02] MEDS ORDERED: NORMAL SALINE (BAXTER MINI) 100 ML IV ONE ×3 (05:26→20:03)
[2016-04-02 05:31] LABS: ANION GAP 13 MMOL/L (5-14); BLOOD UREA NITROGEN 14 MG/DL (7-18); BUN/CREATININE RATIO 15; CALCIUM 8.3 MG/DL (8.5-10.1); CARBON DIOXIDE 17 MMOL/L (21-32); CHLORIDE 115 MMOL/L (98-107); CREATININE SERUM 0.94 MG/DL (0.60-1.30); GFR ESTIMATED > 60; GLUCOSE 95 MG/DL (70-105); MAGNESIUM 1.9 MG/DL (1.8-2.4); PHOSPHORUS 2.8 MG/DL (2.3-4.7); POTASSIUM 3.4 MMOL/L (3.6-5.0); SODIUM 145 MMOL/L (135-145)
[2016-04-02 05:35] LABS: BASOPHILS % (AUTO) 0 % (0-10); EOSINOPHILS # (AUTO) 0.2 10^3/uL (0.0-0.3); LYMPHOCYTES # (AUTO) 0.7 X 10^3 (1.0-4.0); MEAN CORPUSCULAR HEMOGLOBIN 31 PG (25-34); MEAN CORPUSCULAR HGB CONC 32 G/DL (32-36); MEAN CORPUSCULAR VOLUME 96 FL (80-99); MEAN PLATELET VOLUME 10.7 FL (7.4-10.4); MONOCYTES % (AUTO) 10 % (0-12); NEUTROPHILS # (AUTO) 8.5 X 10^3 (1.8-7.8); PLATELET COUNT 309 10^3/uL (130-400); RED BLOOD COUNT 3.24 10^6/uL (4.35-5.85); RED CELL DISTRIBUTION WIDTH 13.9 % (10.0-14.5); WHITE BLOOD COUNT 10.5 10^3/uL (4.3-11.0)
[2016-04-02] MEDS: PIPERACILLIN SODIUM/TAZOBACTAM 4.5 GM in NORMAL SALINE (BAXTER MINI) 100 ML IV SCH ×3 (05:35→21:08)
[2016-04-02 05:41] LABS: EOSINOPHILS % (AUTO) 1 % (0-10); LYMPHOCYTES % (AUTO) 9 % (12-44); NEUTROPHILS % (AUTO) 80 % (42-75)
[2016-04-02] MEDS: MAGNESIUM 1 GM/100 ML IVPB 100 ML IV SCH (05:48)
[2016-04-02] MEDS: KCL 20 MEQ TAB (K-DUR) PO SCH (05:49)
[2016-04-02] MEDS: BETHANECHOL 25 MG (URECHOLINE) TAB PO SCH (06:00)
[2016-04-02] MEDS: POTASSIUM CL 10MEQ/50ML IVPB 50 ML IV SCH ×3 (06:00→07:19)
--- NOTE | 2016-04-02 07:30 | Pulmonary Progress Note ---
Subjective Subjective/Events-last exam pt still c/o abdominal distention. No pain Exam Exam Vital Signs Date Time Temp Pulse Resp B/P Pulse Ox O2 Delivery O2 Flow Rate FiO2 04/02/16 06:00 84 18 161/119 98 Room Air 04/02/16 05:00 86 18 137/99 96 Room Air 04/02/16 04:00 94 Room Air 04/02/16 04:00 87 20 158/102 99 Room Air 04/02/16 03:00 86 20 152/101 96 Room Air 04/02/16 02:00 81 28 144/110 99 Room Air 04/02/16 01:00 100 04/02/16 01:00 96 17 146/100 97 Room Air 04/02/16 00:00 94 Room Air 04/02/16 00:00 101 16 142/103 96 Room Air 04/01/16 23:00 111 18 141/103 95 Room Air 04/01/16 22:00 113 21 129/108 96 Room Air 04/01/16 21:35 98 Room Air 04/01/16 21:00 97 29 163/100 98 Room Air 04/01/16 20:00 94 Room Air 04/01/16 20:00 99.0 104 28 159/107 97 Room Air 04/01/16 19:00 96 17 154/104 93 Room Air 04/01/16 19:00 96 04/01/16 18:00 98 23 150/94 96 Room Air 04/01/16 17:00 134/111 04/01/16 16:00 98.2 04/01/16 16:00 139/99 04/01/16 16:00 94 Room Air 04/01/16 15:00 90 18 140/100 95 Room Air 04/01/16 14:30 151 21 127/103 95 Room Air 04/01/16 14:04 95 Room Air 04/01/16 13:00 85 15 149/107 94 Room Air 04/01/16 13:00 78 04/01/16 11:58 98.3 04/01/16 11:57 94 Room Air 04/01/16 10:00 84 27 159/91 97 Room Air 04/01/16 09:00 82 15 136/87 94 Room Air 04/01/16 08:20 94 Room Air 04/01/16 08:10 96.9 04/01/16 08:00 85 17 136/87 96 Room Air I & O 04/02/16 07:00 Intake Total 2645 ml Output Total 1640 ml Balance 1005 ml General Appearance: No Apparent Distress Anxious Chronically ill HEENT: Normal ENT Inspection Neck: Supple Respiratory: No Accessory Muscle Use No Respiratory Distress Decreased Breath Sounds Cardiovascular: Regular Rate, Rhythm Capillary Refill: Less Than 3 Seconds Gastrointestinal: soft distended tenderness other (large ecchymosis over lower portion of abdomen incision ) Extremity: Normal Range of Motion No Calf Tenderness Pedal Edema 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: Alert Oriented x3 No Motor/Sensory Deficits Skin: Normal Color Warm/Dry Lymphatic: No Adenopathy Results Lab Laboratory Tests 04/01/16 03:55 04/02/16 04:15 Assessment/Plan Assessment/Plan Hernia s/p repair S/P new onset AF with s/p RVR -amio -cardiology following Ileus vs SBO -surgery following NG acute on chronic renal failure Baseline Cr 1.5 -monitor hx of tobacco use stopped 3 mo ago candidiasis esophagitis -diflucan TO floor with telemetry if ok with surgery. Clinical Quality Measures DVT/VTE Risk/Contraindication: Risk Factor Score Per Nursin RFS Level Per Nursing on Admit: 1=Low/No VTE PPX JANICE LUGO DO Apr 02, 2016 07:30
[2016-04-02] MEDS: RT-ALBUTEROL SULF 2.5 MG/3 ML PRE-MIX VIAL INH SCH ×3 (07:53→19:52)
--- NOTE | 2016-04-02 08:32 | Progress Note-Urology ---
Progress Note-Urology Progress Notes/Assess & Plan Progress/Assessment & Plan PVR yesterday 96cc, we will see PRN Final Diagnosis Urine retention JEF NULL MD Apr 02, 2016 8:32 am
--- NOTE | 2016-04-02 08:33 | Progress Note ---
Subjective Subjective/Events-last exam patient is awake and alert. Oriented 3. No signs of distress noted. Even respirations. Abdomen is soft tender to palpation today. Additionally was mild pain with palpation. Pain is generalized. Denies any chest pain. no signs of fever or chills noted. Patient is continuing to wish for the NG tube to be taken out. Patient to have a KUB this morning. Objective Exam Vital Signs Date Time Temp Pulse Resp B/P Pulse Ox O2 Delivery O2 Flow Rate FiO2 04/02/16 07:53 98 Room Air 04/02/16 06:00 84 18 161/119 98 Room Air 04/02/16 05:00 86 18 137/99 96 Room Air 04/02/16 04:00 94 Room Air 04/02/16 04:00 87 20 158/102 99 Room Air 04/02/16 03:00 86 20 152/101 96 Room Air 04/02/16 02:00 81 28 144/110 99 Room Air 04/02/16 01:00 100 04/02/16 01:00 96 17 146/100 97 Room Air 04/02/16 00:00 94 Room Air 04/02/16 00:00 101 16 142/103 96 Room Air 04/01/16 23:00 111 18 141/103 95 Room Air 04/01/16 22:00 113 21 129/108 96 Room Air 04/01/16 21:35 98 Room Air 04/01/16 21:00 97 29 163/100 98 Room Air 04/01/16 20:00 94 Room Air 04/01/16 20:00 99.0 104 28 159/107 97 Room Air 04/01/16 19:00 96 17 154/104 93 Room Air 04/01/16 19:00 96 04/01/16 18:00 98 23 150/94 96 Room Air 04/01/16 17:00 134/111 04/01/16 16:00 98.2 04/01/16 16:00 139/99 04/01/16 16:00 94 Room Air 04/01/16 15:00 90 18 140/100 95 Room Air 04/01/16 14:30 151 21 127/103 95 Room Air 04/01/16 14:04 95 Room Air 04/01/16 13:00 85 15 149/107 94 Room Air 04/01/16 13:00 78 04/01/16 11:58 98.3 04/01/16 11:57 94 Room Air 04/01/16 10:00 84 27 159/91 97 Room Air 04/01/16 09:00 82 15 136/87 94 Room Air I & O 04/02/16 07:00 Intake Total 2645 ml Output Total 1640 ml Balance 1005 ml Capillary Refill : Less Than 3 Seconds General Appearance: No Apparent Distress Anxious HEENT: Normal ENT Inspection Other (patient is complaining of sore throat due to NG tube) Neck: Supple Respiratory: No Accessory Muscle Use No Respiratory Distress Cardiovascular: Regular Rate, Rhythm Gastrointestinal: soft distended tenderness other (large ecchymosis over lower portion of abdomen incision ) Extremity: Normal Range of Motion No Calf Tenderness Pedal Edema 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: Alert Oriented x3 No Motor/Sensory Deficits Skin: Normal Color Warm/Dry Lymphatic: No Adenopathy Results Lab Laboratory Tests Test 04/01/16 03:55 04/02/16 04:15 Range/Units Anion Gap 12 13 5-14 MMOL/L BUN/Creatinine Ratio 16 15 Basophils # (Auto) 0.0 0.0 0.0-0.1 10^3/uL Basophils (%) (Auto) 0 0 0-10 % Blood Urea Nitrogen 15 14 7-18 MG/DL Calcium Level 8.0 L 8.3 L 8.5-10.1 MG/DL Carbon Dioxide Level 17 L 17 L 21-32 MMOL/L Chloride Level 113 H 115 H 98-107 MMOL/L Creatinine 0.92 0.94 0.60-1.30 MG/DL Eosinophils # (Auto) 0.2 0.2 0.0-0.3 10^3/uL Eosinophils (%) (Auto) 2 1 0-10 % Estimat Glomerular Filtration Rate > 60 > 60 Glucose Level 79 95 70-105 MG/DL Hematocrit 30 L 31 L 40-54 % Hemoglobin 9.6 L 9.9 L 13.3-17.7 G/DL Lymphocytes # (Auto) 1.0 0.7 L 1.0-4.0 X 10^3 Lymphocytes (%) (Auto) 10 L 9 L 12-44 % Magnesium Level 2.0 1.9 1.8-2.4 MG/DL Mean Corpuscular Hemoglobin 30 31 25-34 PG Mean Corpuscular Hemoglobin Concent 32 32 32-36 G/DL Mean Corpuscular Volume 96 96 80-99 FL Mean Platelet Volume 10.9 H 10.7 H 7.4-10.4 FL Monocytes # (Auto) 0.9 1.0 0.0-1.0 X 10^3 Monocytes (%) (Auto) 9 10 0-12 % Neutrophils # (Auto) 7.7 8.5 H 1.8-7.8 X 10^3 Neutrophils (%) (Auto) 79 H 80 H 42-75 % Phosphorus Level 2.1 L 2.8 2.3-4.7 MG/DL Platelet Count 233 309 130-400 10^3/uL Potassium Level 3.5 L 3.4 L 3.6-5.0 MMOL/L Red Blood Count 3.16 L 3.24 L 4.35-5.85 10^6/uL Red Cell Distribution Width 13.7 13.9 10.0-14.5 % Sodium Level 142 145 135-145 MMOL/L White Blood Count 9.8 10.5 4.3-11.0 10^3/uL Laboratory Tests 04/02/16 04:15: Anion Gap 13, BUN/Creatinine Ratio 15, Basophils # (Auto) 0.0, Basophils (%) ( Auto) 0, Blood Urea Nitrogen 14, Calcium Level 8.3L, Carbon Dioxide Level 17L, Chloride Level 115H, Creatinine 0.94, Eosinophils # (Auto) 0.2, Eosinophils (%) (Auto) 1, Estimat Glomerular Filtration Rate > 60, Glucose Level 95, Hematocrit 31L, Hemoglobin 9.9L, Lymphocytes # (Auto) 0.7L, Lymphocytes (%) (Auto) 9L, Magnesium Level 1.9, Mean Corpuscular Hemoglobin 31, Mean Corpuscular Hemoglobin Concent 32, Mean Corpuscular Volume 96, Mean Platelet Volume 10.7H, Monocytes # (Auto) 1.0, Monocytes (%) (Auto) 10, Neutrophils # (Auto) 8.5H, Neutrophils (%) (Auto) 80H, Phosphorus Level 2.8, Platelet Count 309, Potassium Level 3.4L, Red Blood Count 3.24L, Red Cell Distribution Width 13.9, Sodium Level 145, White Blood Count 10.5 Microbiology 03/28/16 Blood Culture - Preliminary, Resulted No growth 03/28/16 Gram Stain - Final, Complete 03/28/16 Sputum Culture - Final, Complete Usual/normal linda isolated. 03/28/16 Urine Culture - Final, Complete NO GROWTH Procedures NAME: GUY MELENDEZ [facility] REC#: [id number] PT STATUS: ADM IN : 1955 PHYSICIAN: ALLY HE APRN ADMIT DATE: 03/24/16/ICU Signed Date of Exam: 04/01/16 SMALL BOWEL FOLLOW THROUGH Small bowel follow-through. INDICATION: Bowel obstruction. 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 FINDINGS: The brick and tile making machine operator image demonstrates changes of lower lumbar spine fusion and skin mary. There is an NG tube in the upper left abdomen. There are multiple dilated small bowel loops seen with slow progression into nondilated small bowel loops in the right lower quadrant seen at 6 hours after initial administration of contrast. There is suggestion of early opacification of the cecum. IMPRESSION: Dilated proximal and mid small bowel loops with late opacification of the relatively decompressed distal small bowel loops and slight filling in the cecum seen at 6 hours. Postoperative ileus is probably a contributing factor with superimposed distal partial small bowel obstruction. Followup KUB in a.m. is recommended for further assessment. Dictated by: Dictated on workstation # [id number] Dict: 04/01/16 1706 Trans: 04/02/16 0819 [id number] Assessment/Plan Assessment/Plan Assessment/Plan S/P Open with Lap assist ventral herniarraphy with mesh placement. postoperative Ileus vs small bowel obstruction. small bowel follow-through IMPRESSION: Dilated proximal and mid small bowel loops with late opacification of the relatively decompressed distal small bowel loops and slight filling in the cecum seen at 6 hours.Postoperative ileus is probably a contributing factor with superimposed distal partial small bowel obstruction. Followup KUB in a.m. is recommended for further assessment. KUB to be done this morning. Shepard- patient is passing flatus and having bowel movements. His abdomen is significantly less distended. Patient's feeling better as well. Patient is wanting the NG tube out. Patient not having any nausea with NG tube clamped and no vomiting. Patient pain is significant better as well he states. He denies any fever sweats chills shortness of breath or chest pain. He states he is using incentive spirometer and ambulating some. Gen. patient's in no acute distress sitting in chair Heart regular Lungs nonlabored breathing Abdomen less distended incisions are clean dry and intact there is still ecchymosis on the lower portion of his abdomen Extremities slight edema bilateral Normal mood and affect Alert and oriented Assessment as above Plan patient with KUB demonstrating resolving partial small bowel obstruction. I feel this is more a component of an ileus. Patient hemoglobin is stable. Since patient is continuing to pass flatus and having bowel movements will DC the NG tube and start him on clears. He is okay to restart the Lovenox. We will repeat a KUB in the morning. Dr. Diaz will resume care tomorrow. Afib -reoccurred treatment per Cardiology. Renal Insufficiency Gastritis-Esophagitis seen on EGD Hgb stable-9.9 Continue to increase activity patient continues to have bowel movements. continue with ng tube at this time pending the results of KUB will await results continue to ambulate we did discuss possible outcomes and possible need for surgical intervention Diagnosis/Problems Diagnosis/Problems (1) Atrial fibrillation with rapid ventricular response Status: Acute Clinical Quality Measures DVT/VTE Risk/Contraindication: Risk Factor Score Per Nursin RFS Level Per Nursing on Admit: 1=Low/No VTE PPX ALLY HE APRN Apr 02, 2016 08:33 OTONIEL SHEPARD DO Apr 02, 2016 17:37
--- NOTE | 2016-04-02 09:46 | Diagnostic Imaging Report ---
EXAMINATION: Upright and supine views of the abdomen. INDICATION: Abdominal distention. FINDINGS: Compared to 04/01/16. There is improved dilatation of small bowel loops with passage of Gastrografin into the colon. There are still mildly dilated small bowel loops with air-fluid levels. The lower lumbar spine fusion hardware seen. IMPRESSION: Improving partial small bowel obstruction. Dictated by: Dictated on workstation # [id number]
[2016-04-02] MEDS: PHENAZOPYRIDINE 100 MG (PYRIDIUM) TABLET PO SCH ×3 (09:55→17:25)
[2016-04-02] MEDS: ASPIRIN E.C. 81 MG (ECOTRIN) TAB PO SCH (09:55)
[2016-04-02] MEDS: meTOprolol TARTRATE 25 MG (LOPRESSOR) TABLET PO SCH ×2 (09:55→21:08)
[2016-04-02] MEDS: PANTOPRAZOLE 40 MG/10 ML (PROTONIX) VIAL IV SCH (09:55)
--- NOTE | 2016-04-02 10:10 | Diagnostic Imaging Report ---
Portable AP chest at 850 hours. INDICATION: Respiratory distress and dyspnea. FINDINGS: The appearance of the chest has improved slightly since 04/01/16 as the band of increased density in the left lung base seen on the prior exam is less conspicuous on this study. The left hemidiaphragm remains elevated. The thin band of atelectasis in the right mid lung noted previously is again evident and no different. The lungs are otherwise clear. Heart is stable in size. The mediastinum is not widened. The osseous structures are intact. The NG line noted on the prior study is unchanged in position. IMPRESSION: The left lung base does seem slightly better aerated than on the prior exam. Overall, there has been no significant change. A followup study would be recommended for continued evaluation. Dictated by: Dictated on workstation # [id number]
--- NOTE | 2016-04-02 15:43 | Progress Note-Hospitalist ---
Subjective HPI/CC On Admission The patient is a 60-year-old white male who presented to the emergency room today in the rn forensic hours with a chief complaint of abdominal pain nausea and vomiting. He was seen here in the emergency room on 03/20 with complaints of abdominal pain ultimate workup showed a by CT scan that there was a periumbilical hernia or hernias. He in fact was to have an appointment with Dr. Ordaz today for planning of the hernia repair later this week. CT scan done early this morning showed no evidence of bowel obstruction. The other finding was that he had atrial fibrillation with a rapid ventricular response which was a new finding. He was admitted to the ICU for a Cardizem drip and the cardiac consultation. He has had many surgeries including a previous periumbilical hernia repair a stated (kidney stone procedure which she states was the cause of the horizontally aligned left lower quadrant sub-umbilical scar. 04/01/16 progress note: Patient reports minimal flatus this morning and no further bowel movements since yesterday. He reports his abdominal pain is not improved over the past 24 hours. He voices significant feelings of anxiety concerned about the fact his abdominal distention is not going down. He has been scheduled for an upper GI with small bowel follow-through. He denies chest pain or shortness of breath and is had no palpitations. Tannish sputum and what looks like water is noted in the sputum cup. He denies hemoptysis. 04/02/16 progress note: Patient reports multiple loose to liquid stools without incontinence or evidence for blood over the past 24 hours. He denies abdominal pain this noticed some decrease in distention. He denies chills or fever. He reports that he is had minimal flatus however with his bowel movements. He does report feeling mild hunger. He denies chest pain or shortness of breath at rest with decreased sputum production. Date Seen 04/02/16 Objective Exam Vital Signs Vital Sign - Last 12Hours 03/27/16 03/27/16 00:00 07:33 Temp 98.3 Pulse 70 Resp 16 B/P 121/77 Pulse Ox 95 O2 Delivery Room Air O2 Flow Rate 1.00 Capillary Refill : Less Than 3 Seconds General Appearance: Anxious Chronically ill Respiratory: Chest Non Tender No Accessory Muscle Use No Respiratory Distress Other (breath sounds in both bases the chest is clear otherwise) Cardiovascular: Regular Rate, Rhythm No Gallop No JVD No Murmur Other (race lower and upper extremity edema which is symmetrical) Gastrointestinal: No Organomegaly Other (abdomen is less distended and soft or this morning. Occasional bowel sounds are noted decreased abdominal discomfort to palpation is noted.) Results/Procedures Lab Laboratory Tests 04/02/16 04:15 Assessment/Plan Assessment and Plan Assess & Plan/Chief Complaint 1. Postop day status post repair of incarcerated ventral hernia dictated by suspected partial small bowel obstruction versus ileus. Upper GI with small bowel follow-through did reveal a small amount of contrast getting into the colon on yesterday's study. The patient is scheduled for a KUB this morning. The patient wanted assurances that this would not recur in the future. He was told that unfortunately there was always the possibility of recurrence but would continue conservative approach as long as he was improving. We pointed out that to undergo another abdominal surgery especially as extensive mashes presence would increase risk for future scarring so we can avoid further surgery risk for future complications would likely be reduced. He was told however unfortunately that if he developed obstruction that was not resolving with conservative management in the future would necessitate repeat surgery and that there were no guarantees. Likewise going in for surgery again would not guarantee a future with no risk for intestinal obstruction. 2. Apparent acute onset A. fib with RVR status post conversion post-amiodarone drip patient is being transferred to the fourth floor later today. 2 telemetry monitoring and repeat CBC and CMP in the morning. Diagnosis/Problems Diagnosis/Problems (1) Atrial fibrillation with rapid ventricular response Status: Acute FRANKIE HUMPHREY MD Apr 02, 2016 15:43
[2016-04-02] MEDS: ALFUZOSIN HCL 10 MG TAB (UROXATRAL) PO SCH (17:25)
[2016-04-02] MEDS ORDERED: ENOXAPARIN 100 MG/1 ML (LOVENOX) SYR SC SCH (21:00)
[2016-04-03] VITALS: BP 137/91
[2016-04-03] MEDS: fentaNYL INJECTION 100 MCG/2 ML AMP IVP PRN ×4 (00:49→18:00)
[2016-04-03] MEDS: NS IV 1000 ML 1,000 ML IV SCH ×4 (00:52→23:13)
[2016-04-03 04:00] VITALS: BP 151/97
[2016-04-03] MEDS ORDERED: NORMAL SALINE (BAXTER MINI) 100 ML IV ONE ×3 (04:53→22:17)
[2016-04-03] MEDS ORDERED: PIPERACILLIN/TAZO 4.5 GM VIAL (ZOSYN) IV ONE ×3 (04:53→22:17)
[2016-04-03 05:41] LABS: BASOPHILS % (AUTO) 0 % (0-10); EOSINOPHILS # (AUTO) 0.3 10^3/uL (0.0-0.3); EOSINOPHILS % (AUTO) 3 % (0-10); LYMPHOCYTES % (AUTO) 12 % (12-44); MEAN CORPUSCULAR HEMOGLOBIN 30 PG (25-34); MEAN CORPUSCULAR HGB CONC 32 G/DL (32-36); MEAN CORPUSCULAR VOLUME 96 FL (80-99); MONOCYTES # (AUTO) 0.8 X 10^3 (0.0-1.0); MONOCYTES % (AUTO) 10 % (0-12); NEUTROPHILS # (AUTO) 6.5 X 10^3 (1.8-7.8); NEUTROPHILS % (AUTO) 75 % (42-75); PLATELET COUNT 340 10^3/uL (130-400); RED BLOOD COUNT 2.96 10^6/uL (4.35-5.85); RED CELL DISTRIBUTION WIDTH 13.8 % (10.0-14.5); WHITE BLOOD COUNT 8.7 10^3/uL (4.3-11.0)
[2016-04-03 06:13] LABS: ANION GAP 8 MMOL/L (5-14); BLOOD UREA NITROGEN 13 MG/DL (7-18); BUN/CREATININE RATIO 14; CALCIUM 8.3 MG/DL (8.5-10.1); CARBON DIOXIDE 18 MMOL/L (21-32); CHLORIDE 117 MMOL/L (98-107); CREATININE SERUM 0.91 MG/DL (0.60-1.30); GFR ESTIMATED > 60; GLUCOSE 104 MG/DL (70-105); POTASSIUM 3.1 MMOL/L (3.6-5.0); SODIUM 143 MMOL/L (135-145)
[2016-04-03] MEDS: PIPERACILLIN SODIUM/TAZOBACTAM 4.5 GM in NORMAL SALINE (BAXTER MINI) 100 ML IV SCH ×3 (06:25→22:29)
[2016-04-03 08:00] VITALS: BP 160/80
[2016-04-03] MEDS ORDERED: KCL 8 MEQ (MICRO K) TABLET PO NR (08:00)
[2016-04-03] MEDS: PHENAZOPYRIDINE 100 MG (PYRIDIUM) TABLET PO SCH ×3 (08:15→17:44)
[2016-04-03] MEDS: meTOprolol TARTRATE 25 MG (LOPRESSOR) TABLET PO SCH (08:15)
[2016-04-03] MEDS: ASPIRIN E.C. 81 MG (ECOTRIN) TAB PO SCH (08:15)
[2016-04-03] MEDS: PANTOPRAZOLE 40 MG/10 ML (PROTONIX) VIAL IV SCH (08:16)
[2016-04-03] MEDS: RT-ALBUTEROL SULF 2.5 MG/3 ML PRE-MIX VIAL INH SCH ×4 (08:29→21:32)
--- NOTE | 2016-04-03 09:41 | Pulmonary Progress Note ---
Subjective Subjective/Events-last exam Pt feels improved. Exam Exam Vital Signs Date Time Temp Pulse Resp B/P Pulse Ox O2 Delivery O2 Flow Rate FiO2 04/03/16 08:30 95 Room Air 04/03/16 07:00 85 04/03/16 04:00 97.6 91 18 151/97 96 Room Air 04/03/16 01:00 81 04/03/16 00:00 98.7 83 18 137/91 94 Room Air 04/02/16 20:05 98 Room Air 04/02/16 20:00 98.2 85 22 154/90 94 Room Air 04/02/16 19:54 96 Room Air 04/02/16 19:00 88 04/02/16 16:00 98.2 86 20 143/91 98 Room Air 04/02/16 14:18 95 Room Air 04/02/16 13:00 72 04/02/16 12:00 98.6 80 18 154/111 98 Room Air 04/02/16 10:30 97.3 85 20 170/99 100 Room Air 04/02/16 10:00 93 153/95 98 Room Air I & O 04/03/16 07:00 Intake Total 3400 ml Output Total 350 ml Balance 3050 ml General Appearance: No Apparent Distress Anxious HEENT: Normal ENT Inspection Other (patient is complaining of sore throat due to NG tube) Neck: Supple Respiratory: No Accessory Muscle Use No Respiratory Distress Cardiovascular: Regular Rate, Rhythm Capillary Refill: Less Than 3 Seconds Gastrointestinal: soft distended tenderness other (large ecchymosis over lower portion of abdomen incision ) Extremity: Normal Range of Motion No Calf Tenderness Pedal Edema 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: Alert Oriented x3 No Motor/Sensory Deficits Skin: Normal Color Warm/Dry Lymphatic: No Adenopathy Results Lab Laboratory Tests 04/02/16 04:15 04/03/16 05:25 Assessment/Plan Assessment/Plan Hernia s/p repair S/P new onset AF with s/p RVR -amio -cardiology following Ileus vs SBO -surgery following NG acute on chronic renal failure Baseline Cr 1.5 -monitor hx of tobacco use stopped 3 mo ago Clinical Quality Measures DVT/VTE Risk/Contraindication: Risk Factor Score Per Nursin RFS Level Per Nursing on Admit: 1=Low/No VTE PPX JANICE LUGO DO Apr 03, 2016 09:41
[2016-04-03 12:00] VITALS: BP 161/93
--- NOTE | 2016-04-03 12:09 | Diagnostic Imaging Report ---
Upright and supine radiographs of the abdomen. INDICATION: Postoperative ileus. FINDINGS: There are multiple dilated small bowel loops with associated air-fluid levels. These appear slightly improved compared to 04/03/2016. There is minimal remaining contrast in the distal colon from earlier small bowel follow-through. No pneumoperitoneum. There is mild dilatation of the stomach with air-fluid level. The colon does not appear to be dilated. Lower lumbar spine fusion hardware is seen. IMPRESSION: There is slight improvement in small bowel dilatation suggestive of partial small obstruction. Correlate clinically and with CT evaluation if needed. Dictated by: Dictated on workstation # [id number]
--- NOTE | 2016-04-03 12:11 | Progress Note ---
Subjective Subjective/Events-last exam Pt seen and examined. Main complaint is of "dull ache all over belly". Denies nausea or vomiting. States he is passing flatus and having liquid BM's. Pt states he is walking, but nurse states he has moved except to chair since 7am; also not using IS. Pt states he is not really hungry, but could eat some vanilla ice cream..."nothing else sounds good to me". He is asking if he can go home tomorrow. Review of Systems General: No Chills, No Night Sweats, Malaise HEENT: No Head Aches, No Eye Pain Pulmonary: No Dyspnea, No Cough Cardiovascular: No: Chest Pain Gastrointestinal: : Abdominal Pain: DiarrheaNo: Hematochezia, Nausea, Vomiting Neurological: No: Numbness, Weakness Objective Exam Vital Signs Date Time Temp Pulse Resp B/P Pulse Ox O2 Delivery O2 Flow Rate FiO2 04/03/16 08:30 95 Room Air 04/03/16 08:16 97 Room Air 04/03/16 08:00 97.6 87 20 160/80 97 Room Air 04/03/16 07:00 85 04/03/16 04:00 97.6 91 18 151/97 96 Room Air 04/03/16 01:00 81 04/03/16 00:00 98.7 83 18 137/91 94 Room Air 04/02/16 20:05 98 Room Air 04/02/16 20:00 98.2 85 22 154/90 94 Room Air 04/02/16 19:54 96 Room Air 04/02/16 19:00 88 04/02/16 16:00 98.2 86 20 143/91 98 Room Air 04/02/16 14:18 95 Room Air 04/02/16 13:00 72 I & O 04/03/16 07:00 Intake Total 3400 ml Output Total 350 ml Balance 3050 ml Capillary Refill : Less Than 3 Seconds General Appearance: No Apparent Distress Anxious HEENT: PERRL/EOMI Pharynx Normal Other (patient is complaining of sore throat due to NG tube) Neck: Supple Respiratory: No Accessory Muscle Use No Respiratory Distress Decreased Breath Sounds (at bases, ? crackles) Cardiovascular: Regular Rate, Rhythm No Murmur Gastrointestinal: soft distended tenderness (mild) other (large ecchymosis from incision down to pubis ) Extremity: Normal Range of Motion No Calf Tenderness Pedal Edema 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: Alert Oriented x3 No Motor/Sensory Deficits Skin: Normal Color Warm/Dry Lymphatic: No Adenopathy Results Lab Laboratory Tests 04/03/16 05:25: Anion Gap 8, BUN/Creatinine Ratio 14, Basophils # (Auto) 0.0, Basophils (%) ( Auto) 0, Blood Urea Nitrogen 13, Calcium Level 8.3L, Carbon Dioxide Level 18L, Chloride Level 117H, Creatinine 0.91, Eosinophils # (Auto) 0.3, Eosinophils (%) (Auto) 3, Estimat Glomerular Filtration Rate > 60, Glucose Level 104, Hematocrit 29L, Hemoglobin 9.0L, Lymphocytes # (Auto) 1.0, Lymphocytes (%) (Auto ) 12, Mean Corpuscular Hemoglobin 30, Mean Corpuscular Hemoglobin Concent 32, Mean Corpuscular Volume 96, Mean Platelet Volume 10.0, Monocytes # (Auto) 0.8, Monocytes (%) (Auto) 10, Neutrophils # (Auto) 6.5, Neutrophils (%) (Auto) 75, Platelet Count 340, Potassium Level 3.1L, Red Blood Count 2.96L, Red Cell Distribution Width 13.8, Sodium Level 143, White Blood Count 8.7 Microbiology 03/28/16 Blood Culture - Final, Complete No growth 03/28/16 Gram Stain - Final, Complete 03/28/16 Sputum Culture - Final, Complete Usual/normal linda isolated. 03/28/16 Urine Culture - Final, Complete NO GROWTH Assessment/Plan Assessment/Plan Assessment/Plan POD #6 S/P Open with Lap assist ventral herniarraphy with mesh placement. Probable postoperative Ileus - small bowel follow-through showed contrast in colon, but very slow AXR not read by radiologist - appears to still have air-fluid levels with minimal air in colon (await final reading) Hypokalemia - will replace Pt told he has to walk 4-5 times a day, can start chewing gum (these 2 things may help with small bowel motility) and must use IS. He cannot go home until his bowels are moving better because he is at risk for nausea/vomiting/aspiration if the ileus gets worse again. Afib -reoccurred treatment per Cardiology. Renal Insufficiency - improved to normal Gastritis-Esophagitis seen on EGD Hgb stable- around 9 Diagnosis/Problems Diagnosis/Problems (1) Atrial fibrillation with rapid ventricular response Status: Acute Clinical Quality Measures DVT/VTE Risk/Contraindication: Risk Factor Score Per Nursin RFS Level Per Nursing on Admit: 1=Low/No VTE PPX JULIANA PHAM DO Apr 03, 2016 12:11
[2016-04-03] MEDS: ONDANSETRON 4 MG/2 ML (SDV) Z0FRAN IVP PRN (14:01)
[2016-04-03 15:48] VITALS: BP 141/81
[2016-04-03] MEDS: lisINopril 20 MG (ZESTRIL) TAB PO SCH (16:17)
[2016-04-03] MEDS: KCL 8 MEQ (MICRO K) TABLET PO SCH (16:24)
[2016-04-03] MEDS ORDERED: KCL 8 MEQ (MICRO K) TABLET PO SCH (17:00)
--- NOTE | 2016-04-03 17:02 | Progress Note-Hospitalist ---
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 He was seen here in the emergency room on 03/20 with complaints of abdominal pain ultimate workup showed a by CT scan that there was a periumbilical hernia or hernias. He in fact was to have an appointment with Dr. Ordaz today for planning of the hernia repair later this week. CT scan done early this morning showed no evidence of bowel obstruction. The other finding was that he had atrial fibrillation with a rapid ventricular response which was a new finding. He was admitted to the ICU for a Cardizem drip and the cardiac consultation. He has had many surgeries including a previous periumbilical hernia repair a stated (kidney stone procedure which she states was the cause of the horizontally aligned left lower quadrant sub-umbilical scar. 04/01/16 progress note: Patient reports minimal flatus this morning and no further bowel movements since yesterday. He reports his abdominal pain is not improved over the past 24 hours. He voices significant feelings of anxiety concerned about the fact his abdominal distention is not going down. He has been scheduled for an upper GI with small bowel follow-through. He denies chest pain or shortness of breath and is had no palpitations. Tannish sputum and what looks like water is noted in the sputum cup. He denies hemoptysis. 04/02/16 progress note: Patient reports multiple loose to liquid stools without incontinence or evidence for blood over the past 24 hours. He denies abdominal pain this noticed some decrease in distention. He denies chills or fever. He reports that he is had minimal flatus however with his bowel movements. He does report feeling mild hunger. He denies chest pain or shortness of breath at rest with decreased sputum production. 04/03patient had an episode of nausea and vomiting was bilious without evidence for blood after walking. It was rather abrupt following this he had some bilious drainage reportedly from the base of his incision. This was evaluated for surgery. He's had no further symptoms reportedly feeling better. He had been keeping with liquids down up until that point. He's had no chills or fever and denies shortness of breath. He is ambulated and also twice. He reports usual things appetite-lamb do not appeal to him he would like to try some sherbet. Date Seen 04/03/16 Objective Exam Vital Signs Vital Sign - Last 12Hours 03/28/16 00:00 Temp 95.5 Pulse 155 Resp 24 B/P 100/60 Pulse Ox 94 O2 Delivery Nasal Cannula O2 Flow Rate 1.00 Capillary Refill : Less Than 3 Seconds General Appearance: No Apparent Distress Chronically ill Respiratory: Chest Non Tender Lungs Clear Normal Breath Sounds No Accessory Muscle Use No Respiratory Distress Cardiovascular: Regular Rate, Rhythm No Edema No Gallop No JVD No Murmur Normal Peripheral Pulses Gastrointestinal: Other (Sascha abdominal distention L sounds present but hypoactive minimal tenderness to palpation lower abdominal ecchymosis resolving small likely tape-related excoriation left lower quadrant nontender) Results/Procedures Lab Laboratory Tests 04/03/16 05:25 Assessment/Plan Assessment and Plan Assess & Plan/Chief Complaint 1. Postop day status post repair of incarcerated ventral hernia located by suspected partial small bowel obstruction versus ileus. Upper GI with small bowel follow-through did reveal a small amount of contrast getting into the colon on yesterday's study. days KUB reveals slight improvement in small bowel dilatation.. 2. Apparent acute onset A. fib with RVR status post conversion post-amiodarone drip patient is being transferred to the fourth floor later today. 2 telemetry monitoring and repeat CBC and CMP in the morning. 3. Mild hypokalemia replacing orally. Repeat BMP in the morning. Diagnosis/Problems Diagnosis/Problems (1) Atrial fibrillation with rapid ventricular response Status: Acute FRANKIE HUMPHREY MD Apr 03, 2016 17:02
[2016-04-03] MEDS: ALFUZOSIN HCL 10 MG TAB (UROXATRAL) PO SCH (17:44)
--- NOTE | 2016-04-03 17:50 | Cardiology Progress Note ---
Cardiology SOAP Progress Note Subjective: no cardiac complaints Objective: I&O/Vital Signs Vital Sign - Last 12Hours 04/03/16 04/03/16 04/03/16 04/03/16 07:00 08:00 08:16 08:30 Temp 97.6 Pulse 85 87 Resp 20 B/P 160/80 Pulse Ox 97 97 95 O2 Delivery Room Air Room Air Room Air 04/03/16 04/03/16 04/03/16 12:00 15:48 15:51 Temp 97.3 97.2 Pulse 77 80 Resp 20 18 B/P 161/93 141/81 Pulse Ox 98 96 96 O2 Delivery Room Air Room Air Room Air Intake and Output 04/03/16 00:00 Intake Total 1580 ml Balance 1580 ml Weight (Pounds): 240 Weight (Ounces): 3.0 Weight (Calculated Kilograms): 108.668658 Constitutional: appears stated age well-developed well-nourished Respiratory: chest expansion is symmetric chest is bilaterally symmetric lungs clear to percussion lungs clear to auscultation Cardiovascular: irregularly irregular S1 and S2 systolic murmur Gastrointestional: distended tenderness Extremities: non-tender normal inspection no lower extremity edema bilateral 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: alert oriented x 3 power is 5/5 both on sides Skin: normal color warm/dry Results/Procedures: Labs Laboratory Tests 04/03/16 05:25: Anion Gap 8, BUN/Creatinine Ratio 14, Basophils # (Auto) 0.0, Basophils (%) ( Auto) 0, Blood Urea Nitrogen 13, Calcium Level 8.3L, Carbon Dioxide Level 18L, Chloride Level 117H, Creatinine 0.91, Eosinophils # (Auto) 0.3, Eosinophils (%) (Auto) 3, Estimat Glomerular Filtration Rate > 60, Glucose Level 104, Hematocrit 29L, Hemoglobin 9.0L, Lymphocytes # (Auto) 1.0, Lymphocytes (%) (Auto ) 12, Mean Corpuscular Hemoglobin 30, Mean Corpuscular Hemoglobin Concent 32, Mean Corpuscular Volume 96, Mean Platelet Volume 10.0, Monocytes # (Auto) 0.8, Monocytes (%) (Auto) 10, Neutrophils # (Auto) 6.5, Neutrophils (%) (Auto) 75, Platelet Count 340, Potassium Level 3.1L, Red Blood Count 2.96L, Red Cell Distribution Width 13.8, Sodium Level 143, White Blood Count 8.7 Microbiology 03/28/16 Blood Culture - Final, Complete No growth 03/28/16 Gram Stain - Final, Complete 03/28/16 Sputum Culture - Final, Complete Usual/normal linda isolated. 03/28/16 Urine Culture - Final, Complete NO GROWTH A/P: Assessment/Dx: atrial fibrillation, hypertension Plan: patient seems to be better today with improved spirits. atrial fibrillation with rapid ventricular rate during this hospitalization currently in sinus rhythm. Still continues to have abdominal pain which is most likely the inciting factor. on beta blockers. We'll start lisinopril for hypertension. Eliquis 5 mg twice a day. Elevated CHADSVASC score. Echo of 03-24-16: Normal global left ventricular systolic function with an ejection fraction of approximately 65%, mild mitral and tricuspid regurgitation , pulmonary artery systolic pressure is estimated to be approximately 35 mmHg, mild diastolic dysfunction of the left ventricle MPI of 03-24-16: Technically difficult study due to considerable patient motion during image acquisition, no evidence of any significant myocardial ischemia or infarction on this study, normal regional wall motion, normal global left ventricular systolic function with an ejection fraction of 77%, paroxysmal atrial fibrillation was seen Reported h/o TIA 3-4 years ago with reported transient loss of speech HTN - improved Intermittent LE edema for which he is on chronic diuretics managed by his PCP N/V/D H/O kidney stones H/o diverticulitis 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 Please call me if you have any questions. Violette Prabhakar MD, FACP, FACC, FSCAI, FHRS, CCDS Interventional Cardiology Cardiac Electrophysiology Vascular Medicine and Endovascular Interventions Diagnosis/Problems Diagnosis/Problems (1) Atrial fibrillation with rapid ventricular response Status: Acute Brigid PRABHAKAR MD Apr 03, 2016 5:50 pm
[2016-04-03] MEDS: meTOprolol 5 MG/5 ML (LOPRESSOR) VIAL IV PRN (20:18)
[2016-04-03 20:59] VITALS: BP 110/77
[2016-04-03] MEDS: meTOprolol TARTRATE 50 MG (LOPRESSOR) TAB PO SCH (22:00)
[2016-04-03] MEDS: APIXABAN 5 MG (ELIQUIS) TABLET PO SCH (22:00)
[2016-04-04] VITALS (30 sets, daily range): BP systolic 74–131; BP diastolic 54–83
[2016-04-04] MEDS ORDERED: DILTIAZEM 100 MG/VIAL (CARDIZEM) ADD-VANTAGE IV ONE (01:48)
[2016-04-04] MEDS ORDERED: SODIUM CHLORIDE (ADD-VANTAGE) 100 ML IV ONE (01:49)
[2016-04-04] MEDS: DILTIAZEM DRIP 100 MG in SODIUM CHLORIDE (ADD-VANTAGE) 100 ML IV SCH ×2 (02:15→15:02)
[2016-04-04] MEDS ORDERED: NS IV 1000 ML 1,000 ML IV SCH (02:45)
[2016-04-04] MEDS: KCL 8 MEQ (MICRO K) TABLET PO SCH ×3 (06:06→18:18)
[2016-04-04] MEDS: PANTOPRAZOLE 40 MG (PROTONIX) TAB PO SCH (06:06)
[2016-04-04 06:38] LABS: ANION GAP 6 MMOL/L (5-14); BLOOD UREA NITROGEN 9 MG/DL (7-18); BUN/CREATININE RATIO 11; CALCIUM 7.8 MG/DL (8.5-10.1); CARBON DIOXIDE 17 MMOL/L (21-32); CHLORIDE 120 MMOL/L (98-107); CREATININE SERUM 0.83 MG/DL (0.60-1.30); GFR ESTIMATED > 60; GLUCOSE 101 MG/DL (70-105); POTASSIUM 3.4 MMOL/L (3.6-5.0); SODIUM 143 MMOL/L (135-145)
--- NOTE | 2016-04-04 07:22 | Pulmonary Progress Note ---
Subjective Subjective/Events-last exam PT transferred to ICU secondary to Afib RVR now on cardizem gtt Exam Exam Vital Signs Date Time Temp Pulse Resp B/P Pulse Ox O2 Delivery O2 Flow Rate FiO2 04/04/16 05:00 101 14 91/65 91 Room Air 04/04/16 04:45 142 13 84/63 92 Room Air 04/04/16 04:44 99.2 04/04/16 04:30 110 14 94/54 92 Room Air 04/04/16 04:15 123 13 77/59 90 Room Air 04/04/16 04:00 70 14 83/70 92 Room Air 04/04/16 03:45 68 14 92/64 95 Room Air 04/04/16 03:30 142 15 87/72 92 Room Air 04/04/16 03:15 91 13 105/71 93 Room Air 04/04/16 03:00 138 16 104/56 93 Room Air 04/04/16 02:45 88 14 87/66 95 Room Air 04/04/16 02:30 140 16 96/74 97 Room Air 04/04/16 02:20 99.0 138 16 101/72 96 Room Air 04/04/16 02:15 99.0 141 16 101/72 96 04/04/16 02:10 99.0 04/04/16 02:00 72 17 78/67 92 Room Air 04/04/16 01:45 134 18 85/71 95 Room Air 04/04/16 01:30 128 16 74/56 94 Room Air 04/04/16 01:00 146 04/04/16 00:00 98.4 135 17 99/62 95 Room Air 04/03/16 20:59 97.6 111 18 110/77 94 Room Air 04/03/16 19:00 102 04/03/16 15:51 96 Room Air 04/03/16 15:48 97.2 80 18 141/81 96 Room Air 04/03/16 13:05 79 04/03/16 12:00 97.3 77 20 161/93 98 Room Air 04/03/16 08:30 95 Room Air 04/03/16 08:16 97 Room Air 04/03/16 08:00 97.6 87 20 160/80 97 Room Air I & O 04/04/16 07:00 Intake Total 3612 ml Output Total 150 ml Balance 3462 ml General Appearance: No Apparent Distress Anxious HEENT: Normal ENT Inspection Other (patient is complaining of sore throat due to NG tube) Neck: Supple Respiratory: No Accessory Muscle Use No Respiratory Distress Cardiovascular: Regular Rate, Rhythm Capillary Refill: Less Than 3 Seconds Gastrointestinal: soft distended tenderness other (large ecchymosis over lower portion of abdomen incision ) Extremity: Normal Range of Motion No Calf Tenderness Pedal Edema 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: Alert Oriented x3 No Motor/Sensory Deficits Skin: Normal Color Warm/Dry Lymphatic: No Adenopathy Results Lab Laboratory Tests 04/03/16 05:25 04/04/16 06:10 Assessment/Plan Assessment/Plan Hernia s/p repair S/P new onset AF with s/p RVR -pt transferred back to ICU secondary to Afib RVR hes now on cardizem gtt -cardiology following Ileus vs SBO -surgery following NG acute on chronic renal failure Baseline Cr 1.5 -monitor hx of tobacco use stopped 3 mo ago Clinical Quality Measures DVT/VTE Risk/Contraindication: Risk Factor Score Per Nursin RFS Level Per Nursing on Admit: 1=Low/No VTE PPX JANICE LUGO DO Apr 04, 2016 07:22
[2016-04-04] MEDS: ASPIRIN E.C. 81 MG (ECOTRIN) TAB PO SCH (08:07)
[2016-04-04] MEDS: meTOprolol TARTRATE 50 MG (LOPRESSOR) TAB PO SCH ×2 (08:07→20:06)
[2016-04-04] MEDS: lisINopril 20 MG (ZESTRIL) TAB PO SCH (08:07)
[2016-04-04] MEDS: APIXABAN 5 MG (ELIQUIS) TABLET PO SCH ×2 (08:07→20:06)
[2016-04-04] MEDS: PHENAZOPYRIDINE 100 MG (PYRIDIUM) TABLET PO SCH ×3 (08:07→18:18)
[2016-04-04] MEDS: RT-ALBUTEROL SULF 2.5 MG/3 ML PRE-MIX VIAL INH SCH ×3 (08:44→20:12)
--- NOTE | 2016-04-04 09:03 | Cardiology Progress Note ---
Cardiology SOAP Progress Note Subjective: went into atrial fibrillation last evening. Was started on Cardizem infusion and transferred to the ICU. Currently in sinus rhythm. Objective: I&O/Vital Signs Vital Sign - Last 12Hours 04/04/16 04/04/16 04/04/16 04/04/16 06:00 07:00 07:00 08:00 Pulse 108 138 142 135 Resp 13 18 17 B/P 108/78 106/75 100/69 Pulse Ox 92 93 95 O2 Delivery Room Air Room Air Room Air 04/04/16 04/04/16 04/04/16 04/04/16 08:45 09:00 10:00 11:00 Pulse 85 84 73 Resp 21 12 22 B/P 99/68 99/69 87/71 Pulse Ox 94 91 94 95 O2 Delivery Room Air Room Air Room Air Room Air 04/04/16 04/04/16 04/04/16 04/04/16 12:00 13:00 13:00 14:00 Pulse 66 61 65 61 Resp 16 15 14 B/P 88/64 84/65 97/67 Pulse Ox 94 93 94 O2 Delivery Room Air Room Air Room Air 04/04/16 04/04/16 04/04/16 04/04/16 14:15 15:00 15:02 16:00 Temp 97.9 Pulse 79 71 Resp 12 21 B/P 99/77 97/67 102/72 Pulse Ox 95 97 O2 Delivery Room Air Room Air Room Air Intake and Output 04/04/16 00:00 Intake Total 1390 ml Output Total 150 ml Balance 1240 ml Weight (Pounds): 238 Weight (Ounces): 8.0 Weight (Calculated Kilograms): 108.425652 Constitutional: appears stated age well-developed well-nourished Respiratory: chest expansion is symmetric chest is bilaterally symmetric lungs clear to percussion lungs clear to auscultation Cardiovascular: regular rate-rhythm S1 and S2 systolic murmur Gastrointestional: distended tenderness Extremities: non-tender normal inspection no lower extremity edema bilateral 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: alert oriented x 3 power is 5/5 both on sides Skin: normal color warm/dry Results/Procedures: Labs Laboratory Tests 04/04/16 06:10: Anion Gap 6, BUN/Creatinine Ratio 11, Blood Urea Nitrogen 9, Calcium Level 7.8L , Carbon Dioxide Level 17L, Chloride Level 120H, Creatinine 0.83, Estimat Glomerular Filtration Rate > 60, Glucose Level 101, Potassium Level 3.4L, Sodium Level 143 Microbiology 03/28/16 Blood Culture - Final, Complete No growth 03/28/16 Gram Stain - Final, Complete 03/28/16 Sputum Culture - Final, Complete Usual/normal linda isolated. 03/28/16 Urine Culture - Final, Complete NO GROWTH A/P: Assessment/Dx: atrial fibrillation, hypertension Plan: patient seems to be better today with improved spirits. atrial fibrillation with rapid ventricular rate during this hospitalization currently in sinus rhythm. on beta blockers. syncopal for hypertension. Eliquis 5 mg twice a day. we'll discontinue Cardizem infusion and start by mouth Cardizem. Patient can be transferred to the floor. Elevated CHADSVASC score. Echo of 03-24-16: Normal global left ventricular systolic function with an ejection fraction of approximately 65%, mild mitral and tricuspid regurgitation , pulmonary artery systolic pressure is estimated to be approximately 35 mmHg, mild diastolic dysfunction of the left ventricle MPI of 03-24-16: Technically difficult study due to considerable patient motion during image acquisition, no evidence of any significant myocardial ischemia or infarction on this study, normal regional wall motion, normal global left ventricular systolic function with an ejection fraction of 77%, paroxysmal atrial fibrillation was seen Reported h/o TIA 3-4 years ago with reported transient loss of speech HTN - improved Intermittent LE edema for which he is on chronic diuretics managed by his PCP N/V/D H/O kidney stones H/o diverticulitis 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 Please call me if you have any questions. 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 Please call me if you have any questions. Violette Prabhakar MD, FACP, FACC, FSCAI, FHRS, CCDS Interventional Cardiology Cardiac Electrophysiology Vascular Medicine and Endovascular Interventions Diagnosis/Problems Diagnosis/Problems (1) Atrial fibrillation with rapid ventricular response Status: Acute Brigid PRABHAKAR MD Apr 04, 2016 9:02 am
--- NOTE | 2016-04-04 09:51 | Progress Note-Hospitalist ---
Subjective HPI/CC On Admission Mr. Hopson had been doing relatively well up until apparently the middle of the night when he went back into atrial fibrillation with rapid ventricular response. As far as I can tell his heart rate appeared to be in the 140s. He could tell that something was off but was minimally symptomatic denying chest pain. He was transferred back to the unit and placed on a Cardizem drip and upon my evaluation this morning left or 9 o'clock he was back in sinus rhythm voicing no complaints. He continues to deny abdominal pain is having some small volume loose stools but reports minimal flatus. He is starting to feel hungry which is new. Date Seen 04/04/16 Objective Exam Vital Signs Vital Sign - Last 12Hours Capillary Refill : Less Than 3 Seconds General Appearance: No Apparent Distress Respiratory: Chest Non Tender Lungs Clear Normal Breath Sounds No Accessory Muscle Use No Respiratory Distress Cardiovascular: Regular Rate, Rhythm No Edema No Gallop No JVD No Murmur Normal Peripheral Pulses Gastrointestinal: Other (hypoactive bowel sounds are noted which are not high- pitched. No abdominal pain is noted. There is some peritoneal appearing drainage on the lower portion of his bandage no evidence for blood to gross inspection is noted. Abdominal distention is unchanged from yesterday with minimal tenderness) Comments Laboratory Tests 04/04/16 06:10: Anion Gap 6, BUN/Creatinine Ratio 11, Blood Urea Nitrogen 9, Calcium Level 7.8L , Carbon Dioxide Level 17L, Chloride Level 120H, Creatinine 0.83, Estimat Glomerular Filtration Rate > 60, Glucose Level 101, Potassium Level 3.4L, Sodium Level 143 Microbiology 03/28/16 Blood Culture - Final, Complete No growth 03/28/16 Gram Stain - Final, Complete 03/28/16 Sputum Culture - Final, Complete Usual/normal linda isolated. 03/28/16 Urine Culture - Final, Complete NO GROWTH Results/Procedures Lab Laboratory Tests 04/04/16 06:10 Assessment/Plan Assessment and Plan Assess & Plan/Chief Complaint 1. Postop day10 status post repair of incarcerated ventral hernia complicated by suspected partial small bowel obstruction versus ileus. the patient does report hunger and is tolerating liquids. We'll again give him some sherbet which he apparently tolerated yesterday. Discussed concerns about the fact that his abdominal distention is not going down while he is having some bowel movement he is passing minimal gas and bowel sounds remained hypoactive. As long as there is improvement but slow with continued conservative management. He was warned however that if he didn't tolerate further advancement of his diet likely be looking at exploratory laparotomy.. 2. recurrent A. fib with RVR aggravated by number 1 he is back in sinus rhythm on Cardizem drip. We'll defer to Dr. Prabhakar for when to DC drip and convert to oral therapy over an above his current dose of beta vicente therapy . 3. Mild hypokalemia replacing orally improving level up from 3.1 to3.4. Repeat BMP in the morning. 4. Mild hyperchloremic metabolic alkalosis the patient is mobilizing fluid is off of normal saline tolerating liquids will continue to monitor and repeat basic metabolic panel in the morning. Diagnosis/Problems Diagnosis/Problems (1) Atrial fibrillation with rapid ventricular response Status: Acute FRANKIE HUMPHREY MD Apr 04, 2016 09:51
--- NOTE | 2016-04-04 15:37 | Progress Note ---
Subjective Subjective/Events-last exam Pt seen and examined, events of last night noted. I was not informed but pt transferred to ICU because of Afib with RVR and need for Cardizem drip. Pt only complaint today is he is hungry and wants to go home because he can't afford the hospital bill. He admits to one BM, more solid today and small flatus. Abdominal pain is about the same. Review of Systems General: No Chills, No Night Sweats, Fatigue HEENT: No Visual Changes, No Dysphasia Pulmonary: No Dyspnea, No Cough Cardiovascular: No: Chest Pain Gastrointestinal: : Abdominal PainNo: Nausea, Vomiting Musculoskeletal: No: neck pain Objective Exam Vital Signs Date Time Temp Pulse Resp B/P Pulse Ox O2 Delivery O2 Flow Rate FiO2 04/04/16 15:02 97.9 79 12 97/67 04/04/16 14:15 95 Room Air 04/04/16 13:00 61 04/04/16 09:00 85 21 99/68 91 Room Air 04/04/16 08:45 94 Room Air 04/04/16 08:00 135 17 100/69 95 Room Air 04/04/16 07:00 142 18 106/75 93 Room Air 04/04/16 07:00 138 04/04/16 06:00 108 13 108/78 92 Room Air 04/04/16 05:00 101 14 91/65 91 Room Air 04/04/16 04:45 142 13 84/63 92 Room Air 04/04/16 04:44 99.2 04/04/16 04:30 110 14 94/54 92 Room Air 04/04/16 04:15 123 13 77/59 90 Room Air 04/04/16 04:00 70 14 83/70 92 Room Air 04/04/16 03:45 68 14 92/64 95 Room Air 04/04/16 03:30 142 15 87/72 92 Room Air 04/04/16 03:15 91 13 105/71 93 Room Air 04/04/16 03:00 138 16 104/56 93 Room Air 04/04/16 02:45 88 14 87/66 95 Room Air 04/04/16 02:30 140 16 96/74 97 Room Air 04/04/16 02:20 99.0 138 16 101/72 96 Room Air 04/04/16 02:15 99.0 141 16 101/72 96 12/30/16 02:10 99.0 04/04/16 02:00 72 17 78/67 92 Room Air 04/04/16 01:45 134 18 85/71 95 Room Air 04/04/16 01:30 128 16 74/56 94 Room Air 04/04/16 01:00 146 04/04/16 00:00 98.4 135 17 99/62 95 Room Air 04/03/16 20:59 97.6 111 18 110/77 94 Room Air 04/03/16 19:00 102 04/03/16 15:51 96 Room Air 04/03/16 15:48 97.2 80 18 141/81 96 Room Air I & O 04/04/16 07:00 Intake Total 3612 ml Output Total 150 ml Balance 3462 ml Capillary Refill : Less Than 3 Seconds General Appearance: No Apparent Distress HEENT: Normal ENT Inspection Other (patient is complaining of sore throat due to NG tube) Neck: Supple Respiratory: Chest Non Tender Lungs Clear Normal Breath Sounds No Accessory Muscle Use No Respiratory Distress Cardiovascular: Regular Rate, Rhythm No Edema No Gallop No JVD No Murmur Normal Peripheral Pulses Gastrointestinal: soft distended (about same as yesterday) tenderness other ( large ecchymosis over lower portion of abdomen incision ) Extremity: Normal Range of Motion No Calf Tenderness Pedal Edema 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: Alert Oriented x3 No Motor/Sensory Deficits Skin: Normal Color Warm/Dry Lymphatic: No Adenopathy Results Lab Laboratory Tests 04/04/16 06:10: Anion Gap 6, BUN/Creatinine Ratio 11, Blood Urea Nitrogen 9, Calcium Level 7.8L , Carbon Dioxide Level 17L, Chloride Level 120H, Creatinine 0.83, Estimat Glomerular Filtration Rate > 60, Glucose Level 101, Potassium Level 3.4L, Sodium Level 143 Microbiology 03/28/16 Blood Culture - Final, Complete No growth 03/28/16 Gram Stain - Final, Complete 03/28/16 Sputum Culture - Final, Complete Usual/normal linda isolated. 03/28/16 Urine Culture - Final, Complete NO GROWTH Assessment/Plan Assessment/Plan Assessment/Plan POD #7 S/P Open with Lap assist ventral herniarraphy with mesh placement. Probable postoperative Ileus - small bowel follow-through showed contrast in colon, but very slow. Unfortunately pt is still not having good bowel function. He has only walked one time today. I again told him he must!!!! walk at least 4-5 times a day (I'd rather it was 10), he is chewing gum (these 2 things may help with small bowel motility) and must use IS. I again reiterated he cannot go home until his bowels are moving better because he is at risk for nausea/vomiting/aspiration if the ileus gets worse again. Will order AXR for am, pt states Miralax didn't work for him last time. Serous fluid from midline, nothing palpated underneath; he has large mesh in place. Hypokalemia - continue K+ replacement Afib -reoccurred last night and now conrtrolled with Cardizem drip; treatment per Cardiology. He can leave ICU when ok with Cardiology Renal Insufficiency - improved to normal Gastritis-Esophagitis seen on EGD Anemia Hg around 9; probable just chronic blood loss from oozing and blood draws. Diagnosis/Problems Diagnosis/Problems (1) Atrial fibrillation with rapid ventricular response Status: Acute Clinical Quality Measures DVT/VTE Risk/Contraindication: Risk Factor Score Per Nursin RFS Level Per Nursing on Admit: 1=Low/No VTE PPX JULIANA PHAM DO Apr 04, 2016 15:37
[2016-04-04] MEDS ORDERED: DILTIAZEM 180 MG (CARDIZEM CD) CAP PO ONE (18:00)
[2016-04-04] MEDS: ALFUZOSIN HCL 10 MG TAB (UROXATRAL) PO SCH (18:17)
[2016-04-05] VITALS (7 sets, daily range): BP systolic 108–122; BP diastolic 71–84
[2016-04-05] MEDS: PANTOPRAZOLE 40 MG (PROTONIX) TAB PO SCH (06:14)
[2016-04-05] MEDS: KCL 8 MEQ (MICRO K) TABLET PO SCH ×3 (06:15→17:31)
[2016-04-05] MEDS: RT-ALBUTEROL SULF 2.5 MG/3 ML PRE-MIX VIAL INH SCH ×3 (07:44→20:53)
[2016-04-05 08:08] LABS: ANION GAP 9 MMOL/L (5-14); BLOOD UREA NITROGEN 9 MG/DL (7-18); BUN/CREATININE RATIO 10; CALCIUM 8.1 MG/DL (8.5-10.1); CARBON DIOXIDE 18 MMOL/L (21-32); CHLORIDE 116 MMOL/L (98-107); CREATININE SERUM 0.86 MG/DL (0.60-1.30); GFR ESTIMATED > 60; GLUCOSE 96 MG/DL (70-105); POTASSIUM 3.4 MMOL/L (3.6-5.0); SODIUM 143 MMOL/L (135-145)
--- NOTE | 2016-04-05 09:19 | Diagnostic Imaging Report ---
EXAMINATION: Abdominal radiographs, 2 views, upright and supine. 4 images. DATE: April 05, 2016. CLINICAL INDICATION: 60-year-old male, history of hernia repair. Bloating and constipation. COMPARISON: April 03, 2016. COMMENTS: There are redemonstrated abnormally gas-distended segments of small bowel with air-fluid levels present. Small bowel diameter measures up to approximately 6 cm. The overall degree of small bowel distention is increased since comparison exam. There is lumbar spinal fusion hardware noted. There are skin mary projecting over the left abdomen. There is elevation of the left hemidiaphragm. There is no identified free intraperitoneal air, pneumatosis, or portal venous gas. There is heterotopic bone formation adjacent to the medial aspect of the left hip. IMPRESSION: Abnormally gas-distended segments of small bowel with increased small bowel distention and overall amount of small bowel gas compared to prior exam. This is concerning for distal small bowel obstruction. Dictated by: Dictated on workstation # [id number]
[2016-04-05] MEDS: DILTIAZEM 180 MG (CARDIZEM CD) CAP PO SCH (09:34)
[2016-04-05] MEDS: PHENAZOPYRIDINE 100 MG (PYRIDIUM) TABLET PO SCH ×3 (09:34→17:31)
[2016-04-05] MEDS: lisINopril 20 MG (ZESTRIL) TAB PO SCH (09:34)
[2016-04-05] MEDS: meTOprolol TARTRATE 50 MG (LOPRESSOR) TAB PO SCH ×2 (09:34→20:27)
[2016-04-05] MEDS: APIXABAN 5 MG (ELIQUIS) TABLET PO SCH ×2 (09:34→20:27)
[2016-04-05] MEDS: ASPIRIN E.C. 81 MG (ECOTRIN) TAB PO SCH (09:34)
--- NOTE | 2016-04-05 11:58 | Progress Note-Standard ---
Standard Progress Note Progress Notes/Assess & Plan Progress/Assessment & Plan 04/05/16:to use to be distended. Passing flatus and liquid stools. Serous drainage from the midline wound. Blister over the left lower quadrant possibly due to tape allergy. Hypokalemia, will be addressed. If ileus continues, we' ll require CT scan and possibly TPN. Final Diagnosis ventral hernia repair. Postoperative ileus. Atrial fibrillation. EDGARDO YANEZ MD Apr 05, 2016 11:58
[2016-04-05] MEDS ORDERED: POTASSIUM CL 10MEQ/50ML IVPB 50 ML IV SCH (12:00)
--- NOTE | 2016-04-05 12:18 | Progress Note-Hospitalist ---
Progress Note HPI/CC on Admission Mr. Hopson had been doing relatively well up until apparently the middle of the night when he went back into atrial fibrillation with rapid ventricular response. As far as I can tell his heart rate appeared to be in the 140s. He could tell that something was off but was minimally symptomatic denying chest pain. He was transferred back to the unit and placed on a Cardizem drip and upon my evaluation this morning left or 9 o'clock he was back in sinus rhythm voicing no complaints. He continues to deny abdominal pain is having some small volume loose stools but reports minimal flatus. He is starting to feel hungry which is new. Progress Notes/Assess & Plan Date Seen 04/05/16 Diagonsis/Assessment & Plan Patient feels much better and is able to ambulate and took a shower today Abdomen is more soft and his concurs No vomiting and did have passage of flatus early this morning No atrial fibrillation noted today Overall feels much better I did confer with Dr. Matthews and will closely follow AFVSS, Pleasant, O x 3, NAD, chronically ill no changes, much improved sitting in chair RRR, distant breath sounds no rales noted Distended abdomen but much improved and soft and bowel sounds are noted No edema Laboratory Tests 04/05/16 07:33 Assessment: s/p recurrent new onset AF with hypotension requiring 2 transfers ICU for Cardizem drip Acute and severe ileus s/p NGT placement Acute volume overload ARF on DOROTEO of baseline 1.5 creat Acute urinary retention requiring alvarado cath placement Hematuria due to cath trauma Hernias s/p repair surgically per Dr Diaz POD # 8 Previous smoker stopped 3 months ago h/o renal lithiasis Yeast Esophagitis likely started Diflucan empirically Plan: Continue aggressive ambulation and incentive spirometer since things appeared to be much improved today Monitor labs Replace potassium Overall improving will monitor closely ROGER ROPER DO Apr 05, 2016 12:18 Acute and severe ileus s/p NGT placement removing 1500cc gastric hemoccult + Acute volume overload received Lasix yesterday ARF on DOROTEO of baseline 1.5 creat 2.59 today will monitor closely Acute urinary retention requiring alvarado cath placement Hematuria due to cath trauma Hernias s/p repair surgically per Dr Diaz POD # 2 Coarse breath sounds on exam yesterday ordered Nebs now covered with abx in case infiltrates appear Constipation unresolved after multiple meds and SSE x 4 Previous smoker stopped 3 months ago h/o renal lithiasis Yeast Esophagitis likely started Diflucan empirically Plan: Abx empirically Monitor CXR and labs especially creatinine due to ARF Maintain Alvarado cath Maintain bladder meds once NPO 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
[2016-04-05] MEDS: NS IV 500 ML 500 ML IV ONE ×2 (13:11→13:27)
[2016-04-05] MEDS ORDERED: NS IV 500 ML 500 ML ONE (13:11)
[2016-04-05] MEDS ORDERED: KCL 10 MEQ TAB (MICRO K) PO ONE ×2 (13:29→13:45)
--- NOTE | 2016-04-05 16:06 | Cardiology Progress Note ---
Cardiology SOAP Progress Note Subjective: stable Objective: I&O/Vital Signs Vital Sign - Last 12Hours 04/05/16 04/05/16 04/05/16 04/05/16 07:44 08:00 12:00 14:34 Temp 98.7 97.7 Pulse 75 67 Resp 20 22 B/P 120/79 108/72 Pulse Ox 94 96 97 94 O2 Delivery Room Air Room Air Room Air Room Air Intake and Output 04/05/16 00:00 Intake Total 590 ml Output Total 300 ml Balance 290 ml Weight (Pounds): 242 Weight (Ounces): 4.0 Weight (Calculated Kilograms): 109.199777 Constitutional: appears stated age well-developed well-nourished Respiratory: chest expansion is symmetric chest is bilaterally symmetric lungs clear to percussion lungs clear to auscultation Cardiovascular: regular rate-rhythm S1 and S2 systolic murmur Gastrointestional: No tender, No soft, No round, No distended, No pulsatile mass, No organomegaly, No guarding, No rebound, No tenderness, No hernia, No mass, No audible bowel sounds, No abnormal bowel sounds, No abdominal bruits, No spleenomegaly, No other Extremities: non-tender normal inspection no lower extremity edema bilateral 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: alert oriented x 3 power is 5/5 both on sides Skin: normal color warm/dry Results/Procedures: Labs Laboratory Tests 04/05/16 07:33: Anion Gap 9, BUN/Creatinine Ratio 10, Blood Urea Nitrogen 9, Calcium Level 8.1L , Carbon Dioxide Level 18L, Chloride Level 116H, Creatinine 0.86, Estimat Glomerular Filtration Rate > 60, Glucose Level 96, Potassium Level 3.4L, Sodium Level 143 Microbiology 03/28/16 Blood Culture - Final, Complete No growth 03/28/16 Gram Stain - Final, Complete 03/28/16 Sputum Culture - Final, Complete Usual/normal linda isolated. 03/28/16 Urine Culture - Final, Complete NO GROWTH A/P: Assessment/Dx: atrial fibrillation, hypertension Plan: atrial fibrillation: Cardizem, Lopressor, Eliquis. Hypertension: Continue current medical therapy. Diagnosis/Problems Diagnosis/Problems (1) Atrial fibrillation with rapid ventricular response Status: Acute Brigid VENTURA MD Apr 05, 2016 4:06 pm
[2016-04-05] MEDS: ALFUZOSIN HCL 10 MG TAB (UROXATRAL) PO SCH (17:31)
[2016-04-06 03:25] VITALS: BP 113/80
[2016-04-06 05:32] LABS: BASOPHILS % (AUTO) 0 % (0-10); EOSINOPHILS # (AUTO) 0.2 10^3/uL (0.0-0.3); EOSINOPHILS % (AUTO) 3 % (0-10); LYMPHOCYTES # (AUTO) 1.1 X 10^3 (1.0-4.0); LYMPHOCYTES % (AUTO) 20 % (12-44); MEAN CORPUSCULAR HEMOGLOBIN 30 PG (25-34); MEAN CORPUSCULAR HGB CONC 32 G/DL (32-36); MEAN CORPUSCULAR VOLUME 95 FL (80-99); MEAN PLATELET VOLUME 10.1 FL (7.4-10.4); MONOCYTES # (AUTO) 0.6 X 10^3 (0.0-1.0); MONOCYTES % (AUTO) 11 % (0-12); NEUTROPHILS # (AUTO) 3.6 X 10^3 (1.8-7.8); NEUTROPHILS % (AUTO) 66 % (42-75); PLATELET COUNT 381 10^3/uL (130-400); RED BLOOD COUNT 2.85 10^6/uL (4.35-5.85); RED CELL DISTRIBUTION WIDTH 13.7 % (10.0-14.5); WHITE BLOOD COUNT 5.5 10^3/uL (4.3-11.0)
[2016-04-06 05:44] LABS: ALANINE AMINOTRANSFERASE 17 U/L (0-55); ALBUMIN 2.5 G/DL (3.2-4.5); ANION GAP 9 MMOL/L (5-14); ASPARTATE AMINO TRANSFERASE 17 U/L (5-34); BILIRUBIN,TOTAL 0.8 MG/DL (0.1-1.0); BLOOD UREA NITROGEN 9 MG/DL (7-18); BUN/CREATININE RATIO 10; CALCIUM 7.8 MG/DL (8.5-10.1); CARBON DIOXIDE 18 MMOL/L (21-32); CHLORIDE 116 MMOL/L (98-107); CREATININE SERUM 0.88 MG/DL (0.60-1.30); GFR ESTIMATED > 60; GLUCOSE 95 MG/DL (70-105); POTASSIUM 3.7 MMOL/L (3.6-5.0); SODIUM 143 MMOL/L (135-145); TOTAL PROTEIN 4.5 G/DL (6.4-8.2)
[2016-04-06] MEDS: PANTOPRAZOLE 40 MG (PROTONIX) TAB PO SCH (06:14)
[2016-04-06] MEDS: KCL 8 MEQ (MICRO K) TABLET PO SCH ×3 (06:14→16:44)
[2016-04-06] MEDS: RT-ALBUTEROL SULF 2.5 MG/3 ML PRE-MIX VIAL INH SCH ×2 (07:48→15:28)
[2016-04-06 08:00] VITALS: BP 128/86
[2016-04-06] MEDS: meTOprolol TARTRATE 50 MG (LOPRESSOR) TAB PO SCH ×2 (08:54→20:06)
[2016-04-06] MEDS: APIXABAN 5 MG (ELIQUIS) TABLET PO SCH ×2 (08:54→20:06)
[2016-04-06] MEDS: DILTIAZEM 180 MG (CARDIZEM CD) CAP PO SCH (08:54)
[2016-04-06] MEDS: lisINopril 20 MG (ZESTRIL) TAB PO SCH (08:54)
[2016-04-06] MEDS: PHENAZOPYRIDINE 100 MG (PYRIDIUM) TABLET PO SCH ×3 (08:56→16:43)
--- NOTE | 2016-04-06 11:22 | Progress Note-Standard ---
Standard Progress Note Progress Notes/Assess & Plan Progress/Assessment & Plan 04/05/16:to use to be distended. Passing flatus and liquid stools. Serous drainage from the midline wound. Blister over the left lower quadrant possibly due to tape allergy. Hypokalemia, will be addressed. If ileus continues, we' ll require CT scan and possibly TPN. 04/06/16:drainage from the wound resolved. Less distended. Passing flatus and having liquid stools. Potassium normal.hemoglobin decreased to 8.6, asymptomatic and therefore we will observe. Final Diagnosis ventral hernia repair here postoperative ileus. Atrial fibrillation. EDGARDO YANEZ MD Apr 06, 2016 11:22 am
[2016-04-06 12:00] VITALS: BP 120/70
--- NOTE | 2016-04-06 13:18 | Progress Note-Hospitalist ---
Progress Note HPI/CC on Admission Mr. Hopson had been doing relatively well up until apparently the middle of the night when he went back into atrial fibrillation with rapid ventricular response. As far as I can tell his heart rate appeared to be in the 140s. He could tell that something was off but was minimally symptomatic denying chest pain. He was transferred back to the unit and placed on a Cardizem drip and upon my evaluation this morning left or 9 o'clock he was back in sinus rhythm voicing no complaints. He continues to deny abdominal pain is having some small volume loose stools but reports minimal flatus. He is starting to feel hungry which is new. Progress Notes/Assess & Plan Date Seen 04/06/16 Diagonsis/Assessment & Plan Patient feels much better and is able to ambulate well already today x 2 Abdomen is more soft and passing more gas No vomiting No atrial fibrillation noted today Overall feels much better Abdominal xray now c/w clinical scenario given the impression of distal SBO AFVSS, Pleasant, O x 3, NAD, much improved sitting in chair RRR, distant breath sounds no rales noted Distended abdomen but much improved and soft and bowel sounds are noted No edema Laboratory Tests 04/06/16 05:06 Assessment: s/p recurrent new onset AF with hypotension requiring 2 transfers ICU for Cardizem drip Acute and severe ileus s/p NGT placement Acute volume overload ARF on DOROTEO of baseline 1.5 creat Acute urinary retention requiring alvarado cath placement Hematuria due to cath trauma Hernias s/p repair surgically per Dr Diaz POD # 9 Previous smoker stopped 3 months ago h/o renal lithiasis Yeast Esophagitis likely started Diflucan empirically Plan: Continue aggressive ambulation and incentive spirometer since things appeared to be much improved today Monitor labs Replace potassium Overall improving will monitor closely ROGER ROPER DO Apr 06, 2016 13:18
[2016-04-06 16:00] VITALS: BP 109/75
[2016-04-06] MEDS: ALFUZOSIN HCL 10 MG TAB (UROXATRAL) PO SCH (16:43)
[2016-04-06 20:44] VITALS: BP 115/70
[2016-04-06 23:31] VITALS: BP 108/64
[2016-04-07 04:00] VITALS: BP 109/69
[2016-04-07 08:00] VITALS: BP 117/77
[2016-04-07] MEDS: APIXABAN 5 MG (ELIQUIS) TABLET PO SCH ×2 (09:16→20:23)
[2016-04-07] MEDS: meTOprolol TARTRATE 50 MG (LOPRESSOR) TAB PO SCH ×2 (09:16→20:23)
[2016-04-07] MEDS: lisINopril 20 MG (ZESTRIL) TAB PO SCH (09:16)
[2016-04-07] MEDS: PHENAZOPYRIDINE 100 MG (PYRIDIUM) TABLET PO SCH ×3 (09:20→17:38)
[2016-04-07] MEDS: KCL 8 MEQ (MICRO K) TABLET PO SCH ×3 (09:20→17:38)
--- NOTE | 2016-04-07 09:20 | Pulmonary Progress Note ---
Subjective Subjective/Events-last exam No complications noted Exam Exam Vital Signs Date Time Temp Pulse Resp B/P Pulse Ox O2 Delivery O2 Flow Rate FiO2 04/07/16 04:00 97.8 75 18 109/69 93 Room Air 04/06/16 23:31 98.8 74 18 108/64 94 Room Air 04/06/16 20:44 99.1 86 18 115/70 95 Room Air 04/06/16 20:32 94 Room Air 04/06/16 20:00 Room Air 04/06/16 16:00 99.1 87 18 109/75 97 Room Air 04/06/16 15:29 97 Room Air 04/06/16 12:00 97.8 72 18 120/70 96 Room Air I & O 04/07/16 07:00 Intake Total 1440 ml Output Total 300 ml Balance 1140 ml General Appearance: No Apparent Distress HEENT: Normal ENT Inspection Other (patient is complaining of sore throat due to NG tube) Neck: Supple Respiratory: Chest Non Tender Lungs Clear Normal Breath Sounds No Accessory Muscle Use No Respiratory Distress Cardiovascular: Regular Rate, Rhythm No Edema No Gallop No JVD No Murmur Normal Peripheral Pulses Capillary Refill: Less Than 3 Seconds Gastrointestinal: soft distended (about same as yesterday) tenderness other ( large ecchymosis over lower portion of abdomen incision ) Extremity: Normal Range of Motion No Calf Tenderness Pedal Edema 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: Alert Oriented x3 No Motor/Sensory Deficits Skin: Normal Color Warm/Dry Lymphatic: No Adenopathy Results Lab Laboratory Tests 04/06/16 05:06 Assessment/Plan Assessment/Plan Hernia s/p repair S/P new onset AF with s/p RVR -cardio follwoing Ileus - improving -surgery following NG acute on chronic renal failure Baseline Cr 1.5 -monitor hx of tobacco use stopped 3 mo ago Clinical Quality Measures DVT/VTE Risk/Contraindication: Risk Factor Score Per Nursin RFS Level Per Nursing on Admit: 1=Low/No VTE PPX JANICE LUGO DO Apr 07, 2016 09:20
[2016-04-07] MEDS: PANTOPRAZOLE 40 MG (PROTONIX) TAB PO SCH (09:23)
[2016-04-07] MEDS: DILTIAZEM 180 MG (CARDIZEM CD) CAP PO SCH (09:23)
[2016-04-07] MEDS: RT-ALBUTEROL SULF 2.5 MG/3 ML PRE-MIX VIAL INH SCH ×3 (09:55→21:21)
--- NOTE | 2016-04-07 11:49 | Progress Note-Hospitalist ---
Standard Progress Note Progress Notes/Assess & Plan Date Seen 04/07/16 Diagnosis 1.new onset atrial fibrillation with rapid ventricular response. 2.abdominal pain probably multifactorial. 3.hypertension by history Assess & Plan/Chief Complaint The patient continues to progress slowly. This is postop day number 10. He reports that he has had several small liquid stools. Dr. Diaz has advanced his diet to soft. He is also encouraged him to walk a great deal in the hallway today with the possibility of discharge tomorrow. Physical exam: Lungs are clear to auscultation. CV rhythm is slightly irregular. Rate is controlled. Abdomen appears slightly distended. He jumped at light finger touch to the left upper abdomen. Impression: Status day number 10 postop incarcerated incisional hernias. 2.recurrent atrial fibrillation with rapid ventricular response, intermittent Labs Laboratory Tests 04/06/16 05:06 Diagnosis/Problems Diagnosis/Problems (1) Atrial fibrillation with rapid ventricular response Status: Acute JASPAL CORDERO MD Apr 07, 2016 11:49
--- NOTE | 2016-04-07 11:50 | Progress Note ---
Subjective Subjective/Events-last exam Pt seen and examined, states he walks 3 laps 3 times a day. He is having BM's; 6 liquid yesterday. Denies fever or chills. Still has moderate abdominal pain. He is hungry, no nasuea or vomiting. Review of Systems General: No Chills, No Night Sweats, Malaise HEENT: No Head Aches, No Visual Changes Pulmonary: No Dyspnea, No Cough Cardiovascular: : PalpitationsNo: Chest Pain Gastrointestinal: : Abdominal Pain: DiarrheaNo: Nausea, Vomiting Genitourinary: No Dysuria, No Frequency Objective Exam Vital Signs Date Time Temp Pulse Resp B/P Pulse Ox O2 Delivery O2 Flow Rate FiO2 04/07/16 08:00 98.5 86 18 117/77 94 Room Air 04/07/16 04:00 97.8 75 18 109/69 93 Room Air 04/06/16 23:31 98.8 74 18 108/64 94 Room Air 04/06/16 20:44 99.1 86 18 115/70 95 Room Air 04/06/16 20:32 94 Room Air 04/06/16 20:00 Room Air 04/06/16 16:00 99.1 87 18 109/75 97 Room Air 04/06/16 15:29 97 Room Air 04/06/16 12:00 97.8 72 18 120/70 96 Room Air I & O 04/07/16 07:00 Intake Total 1440 ml Output Total 300 ml Balance 1140 ml Capillary Refill : Less Than 3 SecondsLess Than 3 Seconds General Appearance: No Apparent Distress HEENT: Normal ENT Inspection Other (patient is complaining of sore throat due to NG tube) Neck: Supple Respiratory: Chest Non Tender Lungs Clear Normal Breath Sounds No Accessory Muscle Use No Respiratory Distress Cardiovascular: Regular Rate, Rhythm No Edema No Gallop No JVD No Murmur Normal Peripheral Pulses Gastrointestinal: soft distended (appears better than when I saw him on thursday ) tenderness other (large ecchymosis over lower portion of abdomen incision - improving and fadin) Extremity: Normal Range of Motion No Calf Tenderness Pedal Edema 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: Alert Oriented x3 No Motor/Sensory Deficits Skin: Normal Color Warm/Dry Lymphatic: No Adenopathy Results Lab Microbiology 03/28/16 Blood Culture - Final, Complete No growth 03/28/16 Gram Stain - Final, Complete 03/28/16 Sputum Culture - Final, Complete Usual/normal linda isolated. 03/28/16 Urine Culture - Final, Complete NO GROWTH Assessment/Plan Assessment/Plan Assessment/Plan POD #10 S/P Open with Lap assist ventral herniarraphy with mesh placement. Probable postoperative Ileus - small bowel follow-through showed contrast in colon, but very slow. Pt is having liquid BM's but abdomen is not going down. He states he is walking more; but I again told him he has to walk more. I told him he needs to walk more than he is sitting down and no laying down. He must use IS. I again reiterated he cannot go home until his bowels are moving better because he is at risk for nausea/vomiting/aspiration if the ileus gets worse again. Will increase diet to soft and Rx Dulcolax suppository. Serous fluid from midline is slowing down, nothing palpated underneath; he has large mesh in place. Hypokalemia - resolved Anemia Hg 8.6; asymptomatic and will just watch. Probable just chronic blood loss from oozing and blood draws. Afib -seems controlled, Cardiology to manage Renal Insufficiency - improved to normal Gastritis-Esophagitis seen on EGD Diagnosis/Problems Diagnosis/Problems (1) Atrial fibrillation with rapid ventricular response Status: Acute Clinical Quality Measures DVT/VTE Risk/Contraindication: Risk Factor Score Per Nursin RFS Level Per Nursing on Admit: 1=Low/No VTE PPX JULIANA PHAM DO Apr 07, 2016 11:50
[2016-04-07 11:58] VITALS: BP 116/72
[2016-04-07] MEDS: BISACODYL 10 MG SUPP (DULCOLAX) PR SCH (12:45)
--- NOTE | 2016-04-07 13:42 | Cardiology Progress Note ---
Cardiology SOAP Progress Note Subjective: feels much better Objective: I&O/Vital Signs Vital Sign - Last 12Hours 04/07/16 04/07/16 04/07/16 11:58 13:57 16:00 Temp 98.5 98.5 Pulse 85 83 Resp 22 20 B/P 116/72 119/79 Pulse Ox 96 91 95 O2 Delivery Room Air Room Air Room Air Intake and Output 04/07/16 00:00 Intake Total 1340 ml Output Total 200 ml Balance 1140 ml Weight (Pounds): 232 Weight (Ounces): 1.0 Weight (Calculated Kilograms): 105.755270 Constitutional: appears stated age well-developed well-nourished Respiratory: chest expansion is symmetric chest is bilaterally symmetric lungs clear to percussion lungs clear to auscultation Cardiovascular: regular rate-rhythm S1 and S2 systolic murmur Gastrointestional: No tender, No soft, No round, No distended, No pulsatile mass, No organomegaly, No guarding, No rebound, No tenderness, No hernia, No mass, No audible bowel sounds, No abnormal bowel sounds, No abdominal bruits, No spleenomegaly, No other Extremities: non-tender normal inspection no lower extremity edema bilateral 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: alert oriented x 3 power is 5/5 both on sides Skin: normal color warm/dry Results/Procedures: Labs Microbiology 03/28/16 Blood Culture - Final, Complete No growth 03/28/16 Gram Stain - Final, Complete 03/28/16 Sputum Culture - Final, Complete Usual/normal linda isolated. 03/28/16 Urine Culture - Final, Complete NO GROWTH A/P: Assessment/Dx: atrial fibrillation, hypertension Plan: atrial fibrillation: Cardizem, Lopressor, Eliquis. Hypertension: Continue current medical therapy. I gave my business card and can follow him for afib after discharge. Thank you for your consultation. Please call me if you have any questions. Violette Prabhakar MD, FACP, FACC, FSCAI, FHRS, CCDS Interventional Cardiology Cardiac Electrophysiology Vascular Medicine and Endovascular Interventions Diagnosis/Problems Diagnosis/Problems (1) Atrial fibrillation with rapid ventricular response Status: Acute Brigid PRABHAKAR MD Apr 07, 2016 1:41 pm
[2016-04-07 16:00] VITALS: BP 119/79
[2016-04-07] MEDS ORDERED: BISACODYL 10 MG SUPP (DULCOLAX) PR PRN (16:00)
[2016-04-07] MEDS: ALFUZOSIN HCL 10 MG TAB (UROXATRAL) PO SCH (17:38)
[2016-04-07 20:00] VITALS: BP 127/81
[2016-04-08] VITALS: BP 109/74
[2016-04-08] MEDS: fentaNYL INJECTION 100 MCG/2 ML AMP IVP PRN ×2 (02:07→10:05)
[2016-04-08 04:00] VITALS: BP 115/70
[2016-04-08] MEDS: KCL 8 MEQ (MICRO K) TABLET PO SCH ×3 (06:24→17:00)
[2016-04-08] MEDS: PANTOPRAZOLE 40 MG (PROTONIX) TAB PO SCH (06:24)
[2016-04-08 08:00] VITALS: BP 117/79
[2016-04-08] MEDS: RT-ALBUTEROL SULF 2.5 MG/3 ML PRE-MIX VIAL INH SCH ×2 (08:04→13:23)
[2016-04-08] MEDS: DILTIAZEM 180 MG (CARDIZEM CD) CAP PO SCH (08:53)
[2016-04-08] MEDS: BISACODYL 10 MG SUPP (DULCOLAX) PR SCH (08:54)
[2016-04-08] MEDS: PHENAZOPYRIDINE 100 MG (PYRIDIUM) TABLET PO SCH ×2 (08:54→12:30)
[2016-04-08] MEDS: APIXABAN 5 MG (ELIQUIS) TABLET PO SCH (08:54)
[2016-04-08] MEDS: lisINopril 20 MG (ZESTRIL) TAB PO SCH (08:54)
[2016-04-08] MEDS: meTOprolol TARTRATE 50 MG (LOPRESSOR) TAB PO SCH (08:54)
--- NOTE | 2016-04-08 10:01 | Progress Note ---
Subjective Subjective/Events-last exam Pt seen and examined. He states he has a lot more flatus today, + BM's. Denies N/V. He has already walked twice. Pain is minimal in abdomen, does increase with walking. Review of Systems General: No Chills, No Night Sweats HEENT: No Head Aches, No Visual Changes Pulmonary: No Dyspnea, No Cough Cardiovascular: No: Chest Pain, Palpitations Gastrointestinal: : Abdominal PainNo: Nausea, Vomiting Objective Exam Vital Signs Date Time Temp Pulse Resp B/P Pulse Ox O2 Delivery O2 Flow Rate FiO2 04/08/16 08:04 92 Room Air 04/08/16 08:00 97.5 80 18 117/79 92 Room Air 04/08/16 04:00 97.7 75 18 115/70 95 Room Air 04/08/16 00:00 98.2 76 18 109/74 93 Room Air 04/07/16 21:21 95 Room Air 04/07/16 20:25 Room Air 04/07/16 20:00 98.6 88 20 127/81 98 Room Air 04/07/16 16:00 98.5 83 20 119/79 95 Room Air 04/07/16 13:57 91 Room Air 04/07/16 11:58 98.5 85 22 116/72 96 Room Air I & O 04/08/16 07:00 Intake Total 1400 ml Output Total 700 ml Balance 700 ml Capillary Refill : Less Than 3 SecondsLess Than 3 Seconds General Appearance: No Apparent Distress HEENT: Normal ENT Inspection Other Neck: Supple Respiratory: Chest Non Tender Lungs Clear Normal Breath Sounds No Accessory Muscle Use No Respiratory Distress Cardiovascular: Regular Rate, Rhythm No Edema No Gallop No JVD No Murmur Normal Peripheral Pulses Gastrointestinal: soft distended (appears smaller than yesterday) tenderness ( with deep palpation) Extremity: Normal Range of Motion No Calf Tenderness Pedal Edema (+1 not pitting) 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: Alert Oriented x3 No Motor/Sensory Deficits Skin: Normal Color Warm/Dry Lymphatic: No Adenopathy Results Lab Microbiology 03/28/16 Blood Culture - Final, Complete No growth 03/28/16 Gram Stain - Final, Complete 03/28/16 Sputum Culture - Final, Complete Usual/normal linda isolated. 03/28/16 Urine Culture - Final, Complete NO GROWTH Assessment/Plan Assessment/Plan Assessment/Plan POD #11 S/P Open with Lap assist ventral herniarraphy with mesh placement. It appears as if postoperative Ileus is finally improving. States the soft diet really didn't taste that good, so he didn't eat much. He is doing more walking and should keep this up. He must use IS. Will increase diet to regular and add Ensure high protein. Serous fluid from midline is slowing down, nothing palpated underneath; he has large mesh in place. Pt can probably go home if he tolerates regular diet. Hypokalemia - resolved Anemia Hg 8.6; asymptomatic and will just watch. Probable just chronic blood loss from oozing and blood draws. Afib -seems controlled, Cardiology to manage Renal Insufficiency - improved to normal Gastritis-Esophagitis seen on EGD Diagnosis/Problems Diagnosis/Problems (1) Atrial fibrillation with rapid ventricular response Status: Acute Clinical Quality Measures DVT/VTE Risk/Contraindication: Risk Factor Score Per Nursin RFS Level Per Nursing on Admit: 1=Low/No VTE PPX JULIANA PHAM DO Apr 08, 2016 10:01
[2016-04-08 12:00] VITALS: BP 116/77
[2016-04-08 15:54] VITALS: BP 109/75
[2016-04-08] MEDS ORDERED: APIX5TAB PO (16:09)
[2016-04-08] MEDS ORDERED: ALFU10TA11 PO (16:09)
--- NOTE | 2016-04-08 16:13 | Discharge Inst-Surgical ---
Discharge Inst-Surgical Depart Medication/Instructions New, Converted or Re-Newed RX: Transmitted to Pharmacy Patient Instructions Follow up Appt: Make appointment for 1 week. Call [phone] Instructions: No lifting greater than 10 pounds. No strenuous activity. May shower in 24 hours, no tub bath or soaking. Use incentive spirometer at home as directed. No Smoking Skin/Wound Care: May remove bandages. You need to leave the white strips over incision on they will fall off on their own. Symptoms to Report: Appetite Changes, Extremity Discoloration, Numbness/Tingling, Swelling Increased , Bleeding Excessive, Eyesight Changes, Pain Increased, Urine Color Change, Constipation(Persistent), Fever over 101 degree F, Pain/Pressure in chest, Urinating Difficulty, Cough Up/Vomit Blood, Heart Beat Irreg/Pounding, Pain/ Pressure in jaw, Vaginal Bleeding Increase, Cramps in feet or legs, Lightheadedness, Pain/Pressure in shoulder, Diarrhea(Persistent), Memory Changes Suddenly, Questions/Concerns, Weight gain consecutive days, Dizziness/ Fainting, Nausea/Vomiting, Shortness of Breath, Weight gain over 2 pounds If questions or concerns contact your physician Or seek help at emergency department. Consults/Follow Up Goal/Follow Up Appt.: Walk at least 10 times daily Patient Instructions: If belly gets bigger or you have vomiting call right away. Activity Activity as Tolerated: Yes Driving Instructions: You May Drive Diet Diet After 24 Hours: Resume Home Diet Comment: Increase protein in diet. If Any Problems/Questions/Issu: Contact Your Physician, Go to Emergency Room Skin/Wound Care Infection Signs and Symptoms: Increased Redness, Foul Odor of Wound, Temperature Above 101 F Bathing Instructions: JULIANA Nino DO Apr 08, 2016 16:13
[2016-04-08 17:13] VITALS: BP 109/75
--- NOTE | 2016-04-24 14:05 | Discharge Summary ---
Diagnosis/Chief Complaint Date of Admission Mar 24, 2016 at 07:29 Date of Discharge Apr 08, 2016 at 17:15 Discharge Date: Admission Diagnosis Admission Diagnosis Afib with RVR Discharge Diagnosis Afib with RVR Inc/ventral hernia, incarcerated and recurrent Esophagitis Prolonged Post-operative Ileus Hypokalemia Chronic Renal Insufficiency Anemia Reason Hospital Visit Pt is a 60 yo male, surgery asked to consult regarding abdominal pain. Pt states he has had persistent pain for the past 3 weeks, but it was severe on Thursday night; woke him from sleep and he went to ER immediately. Pain at that time was 10 out of 10. He does not associate the pain with any certain food; does admit to heartburn "with spicy foods". But this is not same pain. He also had pain back in December and was treated for a suspected Diverticulitis, but states he couldn't take ABX because he "threw them up". He has had increased burping and even nausea and vomiting before this most recent severe episode. He states he has had no problems going to the bathroom; "BM's have been normal". Denied hematochezia, melena or diarrhea. States he had colonscopy (can't remember when) and was told he had " a polyp". He has urinary problems; "lots of stones and sometimes it is hard for me to pee". He was actually scheduled to see me as an outpt for incarcerated ventral hernias seen on CT; fat only no bowel. He had abdominal xray which did not show any dilated loops of small bowel and neither did CT. He is hungry now. He was initially admitted for Afib with RVR. Discharge Summary Procedures: Lap ventral herniarraphy with mesh placement, open assist EGD Discharge Physical Examination Allergies: Coded Allergies: lidocaine (Unverified Allergy, Mild, BREAKS OUT IN WELTS, 03/20/16) orange juice (Verified Allergy, Unknown, 04/09/13) General Appearance: Alert, Oriented X3, Cooperative HEENT: Atraumatic, PERRLA, EOMI Respiratory: Clear to Auscultation Cardiovascular: Other (irregularly, irregular) Abdominal: Normal Bowel Sounds, Soft, No Hepatosplenomegaly, Other (mild distention) Extremities: Other (mild lower extremity edema) Skin: No Breakdown Psych/Mental Status: Mental Status NL Hospital Course Pt presented with Afib w/RVR. Cariology consulted. Had continued abdominal pain and difficulty swallowing. Was placed in ICU to monitor his cardiology status. Elected to repair hernia and do EGD. Was on floor and went back into ICU because Afib came back uncontrolled. He then had prolonged ileus, had to have NGT placed, removed after 2 days. Was in ICU on cardizem drip. Renal function improved back to normal. Had low potassium which was replaced. Pt was unable to tolerate diet and was not having any BM or flatus. Slowly the bowel function returned and he was subsequently sent home. To follow up with Cardiology and Surgery as an outpatient. Discharge Condition at discharge Stable and improved Instructions to patient/family Please see electonic discharge instructions given to patient. Discharge Medications Reviewed and agree with Discharge Medication list on patient's Discharge Instruction sheet Clinical Quality Measures DVT/VTE Risk/Contraindication: VTE Present on Admission: No Risk Factor Score Per Nursin RFS Level Per Nursing on Admit: 1=Low/No VTE PPX JULIANA PHAM DO Apr 24, 2016 14:05
== END 2016-04-08 17:15 | disposition home or self-care (01) | DRG 354 ==
LOC: EDUNIT# 04:33 → ER 04:36 → ICU 07:29 → 4TH 03-25 15:24 → ICU 03-28 02:01 → 4TH 04-02 09:40 → ICU 04-04 01:00 → 4TH 04-04 18:45
PROVIDERS: ADMIT Internal Medicine; ATTEND Internal Medicine Interventional Cardiology
PROC: 0DB48ZX Excision of Esophagogastric Junction, Via Natural or Artificial Opening Endoscopic, Diagnostic (ICD-10-PCS; 2016-03-26)
PROC: 0DB38ZX Excision of Lower Esophagus, Via Natural or Artificial Opening Endoscopic, Diagnostic (ICD-10-PCS; 2016-03-26)
PROC: 0WUF0JZ Supplement Abdominal Wall with Synthetic Substitute, Open Approach (ICD-10-PCS; principal; 2016-03-26 12:00)
PROC: 0DB78ZX Excision of Stomach, Pylorus, Via Natural or Artificial Opening Endoscopic, Diagnostic (ICD-10-PCS; 2016-03-26 12:00)
DX: K43.6 Other and unspecified ventral hernia with obstruction, without gangrene (principal); K56.7 Ileus, unspecified; J98.11 Atelectasis; N17.9 Acute kidney failure, unspecified; B37.81 Candidal esophagitis; I48.0 Paroxysmal atrial fibrillation; N99.89 Other postprocedural complications and disorders of genitourinary system; S37.30XA Unspecified injury of urethra, initial encounter; R31.9 Hematuria, unspecified; E87.3 Alkalosis; K57.90 Diverticulosis of intestine, part unspecified, without perforation or abscess without bleeding; I12.9 Hypertensive chronic kidney disease with stage 1 through stage 4 chronic kidney disease, or unspecified chronic kidney disease; N18.9 Chronic kidney disease, unspecified; R33.9 Retention of urine, unspecified; K20.9 Esophagitis, unspecified; F41.9 Anxiety disorder, unspecified; N40.1 Benign prostatic hyperplasia with lower urinary tract symptoms; K21.9 Gastro-esophageal reflux disease without esophagitis; R60.0 Localized edema; K59.00 Constipation, unspecified; Z87.891 Personal history of nicotine dependence; Z86.73 Personal history of transient ischemic attack (TIA), and cerebral infarction without residual deficits; E86.9 Volume depletion, unspecified; K29.70 Gastritis, unspecified, without bleeding; E87.70 Fluid overload, unspecified; E83.42 Hypomagnesemia; E87.6 Hypokalemia; D50.0 Iron deficiency anemia secondary to blood loss (chronic)
CPT/HCPCS: 36415; 71010; 71275; 74000; 74020; 74022; 74177; 74250; 78452; 80048; 80053; 80202; 81000; 82150; 82271; 83605; 83690; 83735; 83880; 84100; 84443; 84484; 85007; 85014; 85018; 85025; 85027; 85610; 85730; 87040; 87070; 87081; 87088; 87205; 88302; 88305; 93005; 93017; 93041; 93306; 94640; 94664; 94760; 94761; 96361; 96365; 96372; 96375

== ENCOUNTER 2016-09-11 08:15 | Emergency (ER) | payer OTHER ==
[~2016-09-11] VITALS: Ht 180.3 cm; Wt 99.8 kg
[~2016-09-11 08:15] MED LIST changes: +ALFU10TA11 PO; +APIX5TAB PO; +GLUC1CAP14 PO; +HYDR-3820 PO
--- NOTE | 2016-09-11 09:03 | Diagnostic Imaging Report ---
INDICATION: Left shoulder injury AP, oblique, and lateral views of the left shoulder are obtained. No fracture or acute bony abnormality is seen. Glenohumeral joint and AC joint appear unremarkable. IMPRESSION: Negative left shoulder. Dictated by: Dictated on workstation # [id number]
--- NOTE | 2016-09-11 09:38 | ED Upper Extremity ---
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 He felt that an immediate sharp stabbing pain in his left shoulder. His previously suffered a rotator cuff injury in his right shoulder about 15 years ago when she had surgically repaired. He reports at this time he has not had any improvement in pain and his employer sent him here. Cosleep Pain/Injury Location: left shoulder Method of Injury: twisted Allergies and Home Medications Allergies Coded Allergies: lidocaine (Unverified Allergy, Mild, BREAKS OUT IN WELTS, 03/20/16) orange juice (Verified Allergy, Unknown, 04/09/13) Home Medications Alfuzosin HCl 10 Mg Tab.er.24h, 10 MG PO DAILY@1800, #30 Prescribed by: JULIANA PHAM on 04/08/16 1609 Amlodipine Besylate 5 Mg Tablet, 5 MG PO DAILY, (Reported) LAST FILLED 03/03/16 #15 Apixaban 5 Mg Tablet, 5 MG PO BID, #60 Prescribed by: JULIANA PHAM on 04/08/16 1609 Aspirin 81 Mg Tablet.dr, 81 MG PO DAILY, (Reported) Chlorthalidone 25 Mg Tablet, 12.5 MG PO DAILY, (Reported) TAKES 1/2 OF A (25 MG) TABLET Gluc HCl/Csa/Terrence Hy/Hyalur AC 1 Each Capsule, 1 CAP PO DAILY, (Reported) Hydrocodone/Acetaminophen 1 Each Tablet, 1 TAB PO Q8H PRN for SEVERE PAIN, ( Reported) Lisinopril 20 Mg Tablet, 20 MG PO DAILY, (Reported) Tramadol HCl 50 Mg Tablet, 50-100 MG PO Q6H PRN for MODERATE PAIN, (Reported) TAKES 1-2 OF A (50 MG) TABLET Constitutional: see HPI EENTM: no symptoms reported Respiratory: no symptoms reported Cardiovascular: no symptoms reported Gastrointestinal: no symptoms reported Genitourinary: no symptoms reported Musculoskeletal: see HPI Skin: no symptoms reported Psychiatric/Neurological: No Symptoms Reported Past Sobncrc-Nckpnv-Atgvpo Hx Patient Social History Alcohol Use: Occasionally Uses Recreational Drug Use: No Smoking Status: Never a Smoker Type Used: Smokeless Tobacco Recent Foreign Travel: No Contact w/Someone Who Travel: No Recent Infectious Disease Expo: No Recent Hopitalizations: No Immunizations Up To Date Tetanus Booster (TDap): Less than 5yrs PED Vaccines UTD: No Seasonal Allergies Seasonal Allergies: No Surgeries HX Surgeries: Yes Surgeries: Abdominal, Appendectomy, Orthopedic, Renal Respiratory Hx Respiratory Disorders: No Cardiovascular Hx Cardiac Disorders: Yes Cardiac Disorders: High Cholesterol, Hypertension Neurological Hx Neurological Disorders: Yes Neurological Disorders: Dementia, TIA Reproductive System Hx Reproductive Disorders: No Sexually Transmitted Disease: No HIV/AIDS: No Genitourinary Hx Genitourinary Disorders: Yes Genitourinary Disorders: Benign Prostatic Hyperpl, Kidney Stones Gastrointestinal Hx Gastrointestinal Disorders: Yes Gastrointestinal Disorders: Abdominal Hernia, Gastroesophageal Reflux, Diverticulosis Musculoskeletal Hx Musculoskeletal Disorders: Yes Musculoskeletal Disorders: Degenerate Disk Disease, Arthritis, Back Injury, Chronic Back Pain Endocrine Hx Endocrine Disorders: No HEENT HX ENT Disorders: Yes (WEARS GLASSES) Loss of Vision: Denies Hearing Impairment: Denies Cancer Hx Cancer: No Psychosocial Hx Psychiatric Problems: No Integumentary HX Skin/Integumentary Disorder: No Blood Transfusions Hx Blood Disorders: No Adverse Reaction to a Blood Tr: No Family Medical History Significant Family History: Diabetes Family Medial History: Alzheimer's disease paternal grandmother Diabetes mellitus 19 MOTHER Gastroenteritis Hypertension G8 SISTER Neoplasm maternal grandmother (pancreatic cancer) Physical Exam Vital Signs Vital Sign - Last 12Hours 09/11/16 08:19 Temp 98.1 Pulse 89 Resp 18 B/P (MAP) 165/110 Pulse Ox 98 O2 Delivery Room Air Capillary Refill : Less Than 3 Seconds General Appearance: moderate distress Neck: full range of motion Cardiovascular: normal peripheral pulses, regular rate, rhythm, no edema, no gallop, no JVD, no murmur Respiratory: chest non-tender, lungs clear, normal breath sounds, no respiratory distress, no accessory muscle use 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: mother tester II-XII nml as tested, no motor/sensory deficits, alert, normal mood/affect, oriented x 3 Skin: normal color, warm/dry Lymphatic: no adenopathy Comments There is pain to palpation over the deltoid and acromioclavicular complex. There is pain to passive range of motion. The patient is able to sustain the arm in abduction at 90 albeit with grimace. Similarly passive range of motion elicits pain Progress/Results/Core Measures Results/Orders My Orders Orders - JASPAL CORDERO MD Shoulder, Left, 3 Views (09/11/16 08:33) Vital Signs/I&O Vital Sign - Last 12Hours 09/11/16 08:19 Temp 98.1 Pulse 89 Resp 18 B/P (MAP) 165/110 Pulse Ox 98 O2 Delivery Room Air Blood Pressure Mean: 128 Departure Communication Progress Notes Discussed with Dr. Mensah's office. His employer will need to okay a consultation Impression Impression: Primary Impression: shoulder injury likely rotator cuff Disposition: HOME, SELF-CARE Condition: Stable/Unchanged Departure-Patient Inst. Decision time for Depature: 09:44 Referrals: KAI WU MD (PCP/Family) Primary Care Physician Add. Discharge Instructions: All discharge instructions reviewed with patient and/or family. Voiced understanding. I have spoken to Dr. Mensah's office and they have your name and birthdate. Your employer must give them an okay to schedule an appointment Use Lortab at bedtime for pain relief Scripts Hydrocodone/Acetaminophen (Lortab 10-325 mg Tablet) 1 Each Tablet 1 EACH PO at bedtime, #10 TAB Prov: JASPAL CORDERO MD 09/11/16 JASPAL CORDERO MD Sep 11, 2016 09:38
[2016-09-11] MEDS ORDERED: HYDR-3731 PO (09:46)
[2016-09-11 10:00] VITALS: BP 160/100
== END 2016-09-11 09:58 | disposition home or self-care (01) ==
LOC: EDUNIT# 08:15 → ER 08:17
DX: S49.92XA Unspecified injury of left shoulder and upper arm, initial encounter (principal); X50.0XXA Overexertion from strenuous movement or load, initial encounter; Y93.9 Activity, unspecified; Y99.0 Civilian activity done for income or pay; F17.220 Nicotine dependence, chewing tobacco, uncomplicated; I10 Essential (primary) hypertension; Z86.73 Personal history of transient ischemic attack (TIA), and cerebral infarction without residual deficits; Z79.82 Long term (current) use of aspirin
CPT/HCPCS: 73030; 99282

== ENCOUNTER → 2016-09-20 | Outpatient (CLI) | payer OTHER ==
[~2016-09-20] MED LIST changes: +HYDR-3731 PO
--- NOTE | 2016-09-20 14:55 | Diagnostic Imaging Report ---
PROCEDURE: MRI left upper extremity without contrast. TECHNIQUE: Multiplanar, multisequence non contrast-enhanced MRI of the left upper extremity was accomplished. INDICATION: Shoulder pain COMPARISON: There are no previous MRI examinations available for comparison. The left shoulder exam of 09/11/16 failed to show any sign of an acute abnormality. On the T2 fat-saturated coronal series of this exam, there are a few small areas of altered signal within the substance of the rotator cuff. These findings are more likely due to tendinosis than to a partial tear. The bursal aspect of the rotator cuff near midline is slightly irregular and this portion of the cuff may be frayed. The supraspinous muscle however is not retracted or bunched. There is hypertrophy of the acromioclavicular joint and this does result in mild narrowing of the outlet for the supraspinous muscle. There is also some increased signal within the joint. On the T2 series, this may reflect synovitis. The biceps tendon and the subscapularis tendon are intact. The labrum is somewhat thinned posteriorly but there is no evidence for a labral tear. There is no sign of a joint effusion. There is no abnormal signal arising from the osseous structures to suggest bone edema or a fracture. IMPRESSION: 1. The small areas of altered signal within the rotator cuff are more likely due to tendinosis than to a partial tear. There is also slight fraying of the bursal aspect of the rotator cuff but for the most part, the rotator cuff appears intact. The supraspinous muscle is not retracted or bunched. 2. There is hypertrophy of the acromioclavicular joint and this does result in mild narrowing of the outlet for the supraspinatus muscle. 3. There is no acute labral injury. 4. There is no abnormal signal arising from the osseous structures to suggest bone edema or a fracture. Dictated by: Dictated on workstation # [id number]
== END ==
LOC: RAD 10:31
PROVIDERS: ATTEND Orthopaedic Surgery
DX: R93.7 Abnormal findings on diagnostic imaging of other parts of musculoskeletal system (principal); M25.512 Pain in left shoulder
CPT/HCPCS: 73221

== ENCOUNTER 2016-09-29 12:24 | Outpatient (CLI) | payer OTHER ==
[~2016-09-29] VITALS: Ht 180.3 cm; Wt 104.1 kg
[2016-09-29] MEDS ORDERED: APIX5TAB PO (12:40)
[2016-09-29] MEDS ORDERED: AMLO5TAB2 PO (12:40)
[2016-09-29 12:54] VITALS: BP 156/112
== END 2016-09-29 15:05 | disposition home or self-care (01) ==
LOC: PREOP 12:24
PROVIDERS: ATTEND Orthopaedic Surgery
DX: Z01.818 Encounter for other preprocedural examination (principal); Z11.2 Encounter for screening for other bacterial diseases; S46.012A Strain of muscle(s) and tendon(s) of the rotator cuff of left shoulder, initial encounter; S43.432A Superior glenoid labrum lesion of left shoulder, initial encounter; X58.XXXA Exposure to other specified factors, initial encounter
CPT/HCPCS: 87081

== ENCOUNTER 2016-10-01 08:16 | Day surgery (SDC) | payer OTHER ==
--- NOTE | 2016-09-29 20:43 | HISTORY AND PHYSICAL ---
DATE OF SERVICE: 10/01/2016 This will be for outpatient surgery on 10/01/2016 for left shoulder arthroscopy. HISTORY OF PRESENT ILLNESS: The patient is a 60-year-old right-hand dominant gentleman who injured his left shoulder on 09/05 when he was using a piece of Rebar to break up some solidified fertilizer. He felt a tearing sensation. Since that point he has had unrelenting pain. He denies neck pain and denies paresthesias. He reports no antecedent pain. He reports pain with shoulder movement. He reports a burning sensation in his shoulder. He underwent an MRI, which revealed posterior labral pathology with rotator cuff strain. Due to failure to improve with conservative measures and the interference with his activities of daily living, the patient is elected to proceed with surgical intervention. REVIEW OF SYSTEMS: No chest pain, no shortness of breath, no dysuria. PAST MEDICAL HISTORY: Hypertension, hypothyroidism, osteoarthritis. PAST SURGICAL HISTORY: Right rotator cuff repair 1998, lumbar surgery, abdominal herniorrhaphy, right knee arthroscopy. [employer] FAMILY HISTORY: Significant for diabetes. PRIMARY CARE PROVIDER: Dr. Bhatti. MEDICATIONS: 1. Lisinopril. 2. Caduet. ALLERGIES: ORANGE JUICE AND LIDOCAINE. SOCIAL HISTORY: The patient denies tobacco use. He drinks alcohol socially. PHYSICAL EXAMINATION: GENERAL: The patient is well developed, well nourished, no acute distress. HEENT: Normocephalic, atraumatic. Pupils are equal, round, reactive to light. Oropharynx is clear. NECK: Supple. No lymphadenopathy. LUNGS: Clear to auscultation bilaterally. HEART: Regular rate and rhythm. ABDOMEN: Soft, nontender, nondistended. EXTREMITIES: The left shoulder demonstrates no atrophy. He has intact sensation through his left upper extremity with negative Spurling maneuver. Active forward elevation 160 degrees but passive is 170, external rotation 70 degrees, internal rotation to his beltline. He has positive Neer's and positive Kwan' sign with a markedly positive Davis's maneuver pain with apprehension. He has crepitus with glenohumeral rotation. IMPRESSION: Left shoulder superior labrum anterior and posterior tear with rotator cuff strain. PLAN: Left shoulder arthroscopy, biceps tenodesis, possible rotator cuff repair. The risks, benefits, options, ramifications and recovery were discussed at length with the patient. He understands and wishes to proceed.[employer]ofForm Job ID: [id number] DocumentID: [id number] Dictated Date: 09/29/2016 08:13:35 Pipe Smoking Machine Offbearer Date: 09/29/2016 09:06:01 Dictated By: COURT PADILLA MD
[~2016-10-01] VITALS: Ht 180.3 cm; Wt 104.1 kg
[2016-10-01 08:15] VITALS: BP 125/92
[2016-10-01] MEDS ORDERED: ceFAZolin 1,000 MG (ANCEF) VIAL ONE (08:21)
[2016-10-01] MEDS ORDERED: NS (IVPB) 50 ML ONE (08:22)
--- OUTSIDE RECORDS SUMMARY | 2016-10-01 08:32 | XMS REPORT | Continuity of Care Document ---
Author Author [facility] Organization [facility] Address Unknown Phone Unavailable Allergies Active Description Code Type Severity Reaction Onset Reported/Identified Relationship to Patient Clinical Status Yes [place] Juice [id number] Drug Allergy Unknown N/A 04/09/2013 Yes lidocaine [id number] Drug Allergy Mild BREAKS OUT IN W 03/20/2016 Medications Problems Date Dx Coded Attending Type Code Diagnosis Diagnosed By 04/10/2013 MOHAN KIMBALL MD R Ot 305.1 TOBACCO USE DISORDER 04/10/2013 MOHAN KIMBALL MD R Ot 401.9 HYPERTENSION NOS 04/10/2013 MOHAN KIMBALL MD R Ot 530.81 ESOPHAGEAL REFLUX 04/10/2013 MOHAN KIMBALL MD R Ot 600.00 HYPERTROPHY (BENIGN) OF PROSTATE W/O URI 04/10/2013 MOHAN KIMBALL MD R Ot 782.0 SKIN SENSATION DISTURB 04/10/2013 MOHAN KIMBALL MD R Ot 786.05 SHORTNESS OF BREATH 04/10/2013 MOHAN KIMBALL MD R Ot 786.59 CHEST PAIN NEC 04/10/2013 MOHAN KIMBALL MD R Ot V58.66 LONG-TERM (CURRENT) USE OF ASPIRIN 09/21/2013 MOHAN KIMBALL MD R Ot 272.4 HYPERLIPIDEMIA NEC/NOS 09/21/2013 MOHAN KIMBALL MD R Ot 276.50 VOLUME DEPLETION, UNSPECIFIED 09/21/2013 MOHAN KIMBALL MD R Ot 305.1 TOBACCO USE DISORDER 09/21/2013 MOHAN KIMBALL MD R Ot 401.9 HYPERTENSION NOS 09/21/2013 MOHAN KIMBALL MD R Ot 458.9 HYPOTENSION NOS 09/21/2013 MOHAN KIMBALL MD R Ot 558.9 NONINF GASTROENTERIT NEC 09/21/2013 MOHAN KIMBALL MD R Ot 599.0 URIN TRACT INFECTION NOS 09/21/2013 MOHAN KIMBALL MD R Ot V58.69 OTH MED,LT,CURRENT USE 09/12/2014 TENNILLE JOYA, JEF Hubbard Ot 592.1 CALCULUS OF URETER 11/13/2014 TENNILLE JOYA, JEF Hubbard Ot 592.1 11/13/2014 JEF NULL MD Ot V67.09 11/27/2014 TENNILLE JOYA, JEF Hubbard Ot 592.1 11/27/2014 TENNILLE JOYA, JEF Hubbard Ot V67.09 10/24/2015 JEF NULL MD, Ot 592.1 CALCULUS OF URETER 10/24/2015 JEF NULL MD, Ot V72.84 EXAM PRE-OPERATIVE NOS 10/24/2015 TENNILLE JOYA, JEF Hubbard Ot 592.1 CALCULUS OF URETER 10/24/2015 JEF NULL MD, Ot V67.09 SURGERY FOLLOW-UP, OTHER SURGERY 10/24/2015 JEF NULL MD Ot 592.1 CALCULUS OF URETER 10/24/2015 JEF NULL MD Ot V72.84 EXAM PRE-OPERATIVE NOS 10/24/2015 TENNILLE JOYA, JEF Hubbard Ot 592.1 CALCULUS OF URETER 10/24/2015 JEF NULL MD Ot V67.09 SURGERY FOLLOW-UP, OTHER SURGERY 10/26/2015 REHANA JOYA, MOHAN R Ot E86.9 VOLUME DEPLETION, UNSPECIFIED 10/26/2015 MOHAN KIMBALL MD Ot N17.9 ACUTE KIDNEY FAILURE, UNSPECIFIED 10/26/2015 MOHAN KIMBALL MD Ot T67.5XXA HEAT EXHAUSTION, UNSPECIFIED, INITIAL EN 10/26/2015 MOHAN KIMBALL MD R Ot X30.XXXA EXPOSURE TO EXCESSIVE NATURAL HEAT, INIT 11/05/2015 JEF NULL MD Ot 592.1 CALCULUS OF URETER 11/05/2015 JEF NULL MD Ot V72.84 EXAM PRE-OPERATIVE NOS 11/05/2015 JEF NULL MD Ot 592.1 CALCULUS OF URETER 11/05/2015 JEF NULL MD Ot V67.09 SURGERY FOLLOW-UP, OTHER SURGERY 12/27/2015 MOHAN KIMBALL MD R Ot I10 ESSENTIAL (PRIMARY) HYPERTENSION 12/27/2015 MOHAN KIMBALL MD R Ot K21.9 GASTRO-ESOPHAGEAL REFLUX DISEASE WITHOUT 12/27/2015 MOHAN KIMBALL MD Ot K42.9 UMBILICAL HERNIA WITHOUT OBSTRUCTION OR 12/27/2015 MOHAN KIMBALL MD R Ot K76.89 OTHER SPECIFIED DISEASES OF LIVER 12/27/2015 MOHAN KIMBALL MD R Ot N17.9 ACUTE KIDNEY FAILURE, UNSPECIFIED 12/27/2015 MOHAN KIMBALL MD R Ot N28.1 CYST OF KIDNEY, ACQUIRED 12/27/2015 MOHAN KIMBALL MD R Ot Z79.82 SHELTER (CURRENT) USE OF ASPIRIN 12/27/2015 MOHAN KIMBALL MD R Ot Z79.899 OTHER [employer] (CURRENT) DRUG THERAPY 12/27/2015 MOHAN KIMBALL MD Ot I10 ESSENTIAL (PRIMARY) HYPERTENSION 12/27/2015 MOHAN KIMBALL MD R Ot K21.9 GASTRO-ESOPHAGEAL REFLUX DISEASE WITHOUT 12/27/2015 MOHAN KIMBALL MD R Ot K42.9 UMBILICAL HERNIA WITHOUT OBSTRUCTION OR 12/27/2015 MOHAN KIMBALL MD R Ot K76.89 OTHER SPECIFIED DISEASES OF LIVER 12/27/2015 MOHAN KIMBALL MD R Ot N17.9 ACUTE KIDNEY FAILURE, UNSPECIFIED 12/27/2015 MOHAN KIMBALL MD R Ot N28.1 CYST OF KIDNEY, ACQUIRED 12/27/2015 MOHAN KIMBALL MD R Ot Z79.82 CEMENT [employer] (CURRENT) USE OF ASPIRIN 12/27/2015 MOHAN KIMBALL MD R Ot Z79.899 OTHER SHELTER (CURRENT) DRUG THERAPY 03/20/2016 GUY RYAN DO, Ot K42.9 UMBILICAL HERNIA WITHOUT OBSTRUCTION OR 03/20/2016 GUY RYAN DO, Ot K43.9 VENTRAL HERNIA WITHOUT OBSTRUCTION OR GA 03/20/2016 GUY RYAN DO, Ot K57.30 DVRTCLOS OF LG INT W/O PERFORATION OR AB 03/20/2016 GUY RYAN DO, Ot R10.84 GENERALIZED ABDOMINAL PAIN 03/20/2016 GUY RYAN DO, Ot R10.9 UNSPECIFIED ABDOMINAL PAIN 03/20/2016 GUY RYAN DO, Ot Z79.82 SHELTER (CURRENT) USE OF ASPIRIN 03/20/2016 GUY RYAN DO Ot Z79.899 OTHER [employer]EMENT [employer] (CURRENT) DRUG THERAPY 03/21/2016 GUY RYAN DO Ot K42.9 UMBILICAL HERNIA WITHOUT OBSTRUCTION OR 03/21/2016 GUY RYAN DO, Ot K43.9 VENTRAL HERNIA WITHOUT OBSTRUCTION OR GA 03/21/2016 GUY RYAN DO Ot K57.30 DVRTCLOS OF LG INT W/O PERFORATION OR AB 03/21/2016 GUY RYAN DO Ot R10.84 GENERALIZED ABDOMINAL PAIN 03/21/2016 GUY RYAN DO Ot R10.9 UNSPECIFIED ABDOMINAL PAIN 03/21/2016 GUY RYAN DO Ot Z79.82 SHELTER (CURRENT) USE OF ASPIRIN 03/21/2016 GUY RYAN DO, Ot Z79.899 OTHER SHELTER (CURRENT) DRUG THERAPY 03/28/2016 Brigid VENTURA MD Ot F41.9 ANXIETY DISORDER, UNSPECIFIED 03/28/2016 Brigid VENTURA MD Ot I12.9 HYPERTENSIVE CHRONIC KIDNEY DISEASE W ST 03/28/2016 Brigid VENTURA MD Ot I48.0 PAROXYSMAL ATRIAL FIBRILLATION 03/28/2016 Brigid VENTURA MD Ot K20.9 ESOPHAGITIS, UNSPECIFIED 03/28/2016 Brigid VENTURA MD, Ot K21.9 GASTRO-ESOPHAGEAL REFLUX DISEASE WITHOUT 03/28/2016 Brigid VENTURA MD Ot K43.6 OTHER AND UNSP VENTRAL HERNIA WITH OBSTR 03/28/2016 Brigid VENTURA MD Ot K57.90 DVRTCLOS OF INTEST, PART UNSP, W/O PERF 03/28/2016 Brigid VENTURA MD Ot K59.00 CONSTIPATION, UNSPECIFIED 03/28/2016 Brigid VENTURA MD Ot N18.9 CHRONIC KIDNEY DISEASE, UNSPECIFIED 03/28/2016 Brigid VENTURA MD Ot N28.9 DISORDER OF KIDNEY AND URETER, UNSPECIFI 03/28/2016 Brigid VENTURA MD Ot N40.1 BENIGN PROSTATIC HYPERPLASIA WITH LOWER 03/28/2016 Brigid VENTURA MD Ot R33.9 RETENTION OF URINE, UNSPECIFIED 03/28/2016 Brigid VENTURA MD Ot R60.0 LOCALIZED EDEMA 03/28/2016 Brigid VENTURA MD, Ot Z86.73 PRSNL HX OF TIA (TIA), AND CEREB INFRC W 03/28/2016 Brigid VENTURA MD, Ot Z87.891 PERSONAL HISTORY OF NICOTINE DEPENDENCE 03/28/2016 Brigid VENTURA MD, Ot F41.9 ANXIETY DISORDER, UNSPECIFIED 03/28/2016 Brigid VENTURA MD, Ot I12.9 HYPERTENSIVE CHRONIC KIDNEY DISEASE W ST 03/28/2016 Brigid VENTURA MD, Ot I48.0 PAROXYSMAL ATRIAL FIBRILLATION 03/28/2016 Brigid VENTURA MD, Ot K20.9 ESOPHAGITIS, UNSPECIFIED 03/28/2016 Brigid VENTURA MD, Ot K21.9 GASTRO-ESOPHAGEAL REFLUX DISEASE WITHOUT 03/28/2016 Brigid VENTURA MD Ot K43.6 OTHER AND UNSP VENTRAL HERNIA WITH OBSTR 03/28/2016 Brigid VENTURA MD Ot K57.90 DVRTCLOS OF INTEST, PART UNSP, W/O PERF 03/28/2016 Brigid VENTURA MD Ot K59.00 CONSTIPATION, UNSPECIFIED 03/28/2016 Brigid VENTURA MD Ot N18.9 CHRONIC KIDNEY DISEASE, UNSPECIFIED 03/28/2016 Brigid VENTURA MD Ot N28.9 DISORDER OF KIDNEY AND URETER, UNSPECIFI 03/28/2016 Brigid VENTURA MD Ot N40.1 BENIGN PROSTATIC HYPERPLASIA WITH LOWER 03/28/2016 Brigid VENTURA MD Ot R33.9 RETENTION OF URINE, UNSPECIFIED 03/28/2016 Brigid VENTURA MD Ot R60.0 LOCALIZED EDEMA 03/28/2016 Brigid VENTURA MD, Ot Z86.73 PRSNL HX OF TIA (TIA), AND CEREB INFRC W 03/28/2016 Brigid VENTURA MD Ot Z87.891 PERSONAL HISTORY OF NICOTINE DEPENDENCE 03/28/2016 KHALID MD, M CIARAN Ot F41.9 ANXIETY DISORDER, UNSPECIFIED 03/28/2016 Brigid VENTURA MD Ot I12.9 HYPERTENSIVE CHRONIC KIDNEY DISEASE W ST 03/28/2016 Brigid VENTURA MD Ot I48.0 PAROXYSMAL ATRIAL FIBRILLATION 03/28/2016 Brigid VENTURA MD Ot K20.9 ESOPHAGITIS, UNSPECIFIED 03/28/2016 Brigid VENTURA MD Ot K21.9 GASTRO-ESOPHAGEAL REFLUX DISEASE WITHOUT 03/28/2016 Brigid VENTURA MD Ot K43.6 OTHER AND UNSP VENTRAL HERNIA WITH OBSTR 03/28/2016 Brigid VENTURA MD Ot K57.90 DVRTCLOS OF INTEST, PART UNSP, W/O PERF 03/28/2016 Brigid VENTURA MD Ot K59.00 CONSTIPATION, UNSPECIFIED 03/28/2016 Brigid VENTURA MD Ot N18.9 CHRONIC KIDNEY DISEASE, UNSPECIFIED 03/28/2016 Brigid VENTURA MD Ot N28.9 DISORDER OF KIDNEY AND URETER, UNSPECIFI 03/28/2016 Brigid VENTURA MD Ot N40.1 BENIGN PROSTATIC HYPERPLASIA WITH LOWER 03/28/2016 Brigid VENTURA MD Ot R33.9 RETENTION OF URINE, UNSPECIFIED 03/28/2016 Brigid VENTURA MD Ot R60.0 LOCALIZED EDEMA 03/28/2016 Brigid VENTURA MD Ot Z86.73 PRSNL HX OF TIA (TIA), AND CEREB INFRC W 03/28/2016 Brigid VENTURA MD Ot Z87.891 PERSONAL HISTORY OF NICOTINE DEPENDENCE 03/29/2016 Brigid VENTURA MD Ot F41.9 ANXIETY DISORDER, UNSPECIFIED 03/29/2016 Brigid VENTURA MD Ot I12.9 HYPERTENSIVE CHRONIC KIDNEY DISEASE W ST 03/29/2016 Brigid VENTURA MD Ot I48.0 PAROXYSMAL ATRIAL FIBRILLATION 03/29/2016 Brigid VENTURA MD Ot K20.9 ESOPHAGITIS, UNSPECIFIED 03/29/2016 Brigid VETNURA MD Ot K21.9 GASTRO-ESOPHAGEAL REFLUX DISEASE WITHOUT 03/29/2016 Brigid VENTURA MD Ot K43.6 OTHER AND UNSP VENTRAL HERNIA WITH OBSTR 03/29/2016 Brigid VENTURA MD, Ot K57.90 DVRTCLOS OF INTEST, PART UNSP, W/O PERF 03/29/2016 Brigid VENTURA MD Ot K59.00 CONSTIPATION, UNSPECIFIED 03/29/2016 Brigid VENTURA MD Ot N18.9 CHRONIC KIDNEY DISEASE, UNSPECIFIED 03/29/2016 Brigid VENTURA MD, Ot N28.9 DISORDER OF KIDNEY AND URETER, UNSPECIFI 03/29/2016 Brigid VENTURA MD, Ot N40.1 BENIGN PROSTATIC HYPERPLASIA WITH LOWER 03/29/2016 Brigid VENTURA MD, Ot R33.9 RETENTION OF URINE, UNSPECIFIED 03/29/2016 Brigid VENTURA MD Ot R60.0 LOCALIZED EDEMA 03/29/2016 Brigid VENTURA MD Ot Z86.73 PRSNL HX OF TIA (TIA), AND CEREB INFRC W 03/29/2016 Brigid VENTURA MD, Ot Z87.891 PERSONAL HISTORY OF NICOTINE DEPENDENCE 03/30/2016 Brigid VENTURA MD, Ot F41.9 ANXIETY DISORDER, UNSPECIFIED 03/30/2016 Brigid VENTURA MD, Ot I12.9 HYPERTENSIVE CHRONIC KIDNEY DISEASE W ST 03/30/2016 Brigid VENTURA MD Ot I48.0 PAROXYSMAL ATRIAL FIBRILLATION 03/30/2016 Brigid VENTURA MD Ot K20.9 ESOPHAGITIS, UNSPECIFIED 03/30/2016 Brigid VENTURA MD, Ot K21.9 GASTRO-ESOPHAGEAL REFLUX DISEASE WITHOUT 03/30/2016 Brigid VENTURA MD Ot K43.6 OTHER AND UNSP VENTRAL HERNIA WITH OBSTR 03/30/2016 Brigid VENTURA MD Ot K57.90 DVRTCLOS OF INTEST, PART UNSP, W/O PERF 03/30/2016 Brigid VENTURA MD Ot K59.00 CONSTIPATION, UNSPECIFIED 03/30/2016 Brigid VENTURA MD Ot N18.9 CHRONIC KIDNEY DISEASE, UNSPECIFIED 03/30/2016 Brigid VENTURA MD Ot N28.9 DISORDER OF KIDNEY AND URETER, UNSPECIFI 03/30/2016 Brigid VENTURA MD, Ot N40.1 BENIGN PROSTATIC HYPERPLASIA WITH LOWER 03/30/2016 Brigid VENTURA MD Ot R33.9 RETENTION OF URINE, UNSPECIFIED 03/30/2016 Brigid VENTURA MD Ot R60.0 LOCALIZED EDEMA 03/30/2016 Brigid VENTURA MD, Ot Z86.73 PRSNL HX OF TIA (TIA), AND CEREB INFRC W 03/30/2016 Brigid VENTURA MD, Ot Z87.891 PERSONAL HISTORY OF NICOTINE DEPENDENCE 03/31/2016 Brigid VENTURA MD, Ot F41.9 ANXIETY DISORDER, UNSPECIFIED 03/31/2016 Brigid VENTURA MD Ot I12.9 HYPERTENSIVE CHRONIC KIDNEY DISEASE W ST 03/31/2016 Brigid VENTURA MD Ot I48.0 PAROXYSMAL ATRIAL FIBRILLATION 03/31/2016 Brigid VENTURA MD Ot K20.9 ESOPHAGITIS, UNSPECIFIED 03/31/2016 Brigid VENTURA MD Ot K21.9 GASTRO-ESOPHAGEAL REFLUX DISEASE WITHOUT 03/31/2016 Brigid VENTURA MD Ot K43.6 OTHER AND UNSP VENTRAL HERNIA WITH OBSTR 03/31/2016 Brigid VENTURA MD Ot K57.90 DVRTCLOS OF INTEST, PART UNSP, W/O PERF 03/31/2016 Brigid VENTURA MD Ot K59.00 CONSTIPATION, UNSPECIFIED 03/31/2016 Brigid VENTURA MD Ot N18.9 CHRONIC KIDNEY DISEASE, UNSPECIFIED 03/31/2016 Brigid VENTURA MD Ot N28.9 DISORDER OF KIDNEY AND URETER, UNSPECIFI 03/31/2016 Brigid VENTURA MD Ot N40.1 BENIGN PROSTATIC HYPERPLASIA WITH LOWER 03/31/2016 Brigid VENTURA MD Ot R33.9 RETENTION OF URINE, UNSPECIFIED 03/31/2016 Brigid VENTURA MD Ot R60.0 LOCALIZED EDEMA 03/31/2016 Brigid VENTURA MD, Ot Z86.73 PRSNL HX OF TIA (TIA), AND CEREB INFRC W 03/31/2016 Brigid VENTURA MD, Ot Z87.891 PERSONAL HISTORY OF NICOTINE DEPENDENCE 04/01/2016 Brigid VENTURA MD Ot F41.9 ANXIETY DISORDER, UNSPECIFIED 04/01/2016 Brigid VENTURA MD Ot I12.9 HYPERTENSIVE CHRONIC KIDNEY DISEASE W ST 04/01/2016 Brigid VENTURA MD Ot I48.0 PAROXYSMAL ATRIAL FIBRILLATION 04/01/2016 Brigid VENTURA MD, Ot K20.9 ESOPHAGITIS, UNSPECIFIED 04/01/2016 Brigid VENTURA MD, Ot K21.9 GASTRO-ESOPHAGEAL REFLUX DISEASE WITHOUT 04/01/2016 Brigid VENTURA MD Ot K43.6 OTHER AND UNSP VENTRAL HERNIA WITH OBSTR 04/01/2016 Brigid VENTURA MD Ot K57.90 DVRTCLOS OF INTEST, PART UNSP, W/O PERF 04/01/2016 Brigid VENTURA MD Ot K59.00 CONSTIPATION, UNSPECIFIED 04/01/2016 Brigid VENTURA MD Ot N18.9 CHRONIC KIDNEY DISEASE, UNSPECIFIED 04/01/2016 Brigid VENTURA MD Ot N28.9 DISORDER OF KIDNEY AND URETER, UNSPECIFI 04/01/2016 Brigid VENTURA MD Ot N40.1 BENIGN PROSTATIC HYPERPLASIA WITH LOWER 04/01/2016 Brigid VENTURA MD Ot R33.9 RETENTION OF URINE, UNSPECIFIED 04/01/2016 Brigid VENTURA MD Ot R60.0 LOCALIZED EDEMA 04/01/2016 Brigid VENTURA MD Ot Z86.73 PRSNL HX OF TIA (TIA), AND CEREB INFRC W 04/01/2016 Brigid VENTURA MD Ot Z87.891 PERSONAL HISTORY OF NICOTINE DEPENDENCE 04/02/2016 KHALID MD, M CIARAN Ot F41.9 ANXIETY DISORDER, UNSPECIFIED 04/02/2016 Brigid VENTURA MD Ot I12.9 HYPERTENSIVE CHRONIC KIDNEY DISEASE W ST 04/02/2016 Brigid VENTURA MD Ot I48.0 PAROXYSMAL ATRIAL FIBRILLATION 04/02/2016 Brigid VENTURA MD, Ot K20.9 ESOPHAGITIS, UNSPECIFIED 04/02/2016 Brigid VENTURA MD Ot K21.9 GASTRO-ESOPHAGEAL REFLUX DISEASE WITHOUT 04/02/2016 Brigid VENTURA MD Ot K43.6 OTHER AND UNSP VENTRAL HERNIA WITH OBSTR 04/02/2016 Brigid VENTURA MD Ot K57.90 DVRTCLOS OF INTEST, PART UNSP, W/O PERF 04/02/2016 Brigid VENTURA MD Ot K59.00 CONSTIPATION, UNSPECIFIED 04/02/2016 Brigid VENTURA MD Ot N18.9 CHRONIC KIDNEY DISEASE, UNSPECIFIED 04/02/2016 Brigid VENTURA MD Ot N28.9 DISORDER OF KIDNEY AND URETER, UNSPECIFI 04/02/2016 Brigid VENTURA MD Ot N40.1 BENIGN PROSTATIC HYPERPLASIA WITH LOWER 04/02/2016 Brigid VENTURA MD Ot R33.9 RETENTION OF URINE, UNSPECIFIED 04/02/2016 Brigid VENTURA MD Ot R60.0 LOCALIZED EDEMA 04/02/2016 Brigid VENTURA MD Ot Z86.73 PRSNL HX OF TIA (TIA), AND CEREB INFRC W 04/02/2016 Brigid VENTURA MD Ot Z87.891 PERSONAL HISTORY OF NICOTINE DEPENDENCE 04/02/2016 Brigid VENTURA MD Ot F41.9 ANXIETY DISORDER, UNSPECIFIED 04/02/2016 Brigid VENTURA MD Ot I12.9 HYPERTENSIVE CHRONIC KIDNEY DISEASE W ST 04/02/2016 Brigid VENTURA MD Ot I48.0 PAROXYSMAL ATRIAL FIBRILLATION 04/02/2016 Brigid VENTURA MD Ot K20.9 ESOPHAGITIS, UNSPECIFIED 04/02/2016 Brigid VENTURA MD Ot K21.9 GASTRO-ESOPHAGEAL REFLUX DISEASE WITHOUT 04/02/2016 Brigid VENTURA MD, Ot K43.6 OTHER AND UNSP VENTRAL HERNIA WITH OBSTR 04/02/2016 Brigid VENTURA MD Ot K57.90 DVRTCLOS OF INTEST, PART UNSP, W/O PERF 04/02/2016 Brigid VENTURA MD Ot K59.00 CONSTIPATION, UNSPECIFIED 04/02/2016 Brigid VENTURA MD Ot N18.9 CHRONIC KIDNEY DISEASE, UNSPECIFIED 04/02/2016 Brigid VENTURA MD Ot N28.9 DISORDER OF KIDNEY AND URETER, UNSPECIFI 04/02/2016 Brigid VENTURA MD, Ot N40.1 BENIGN PROSTATIC HYPERPLASIA WITH LOWER 04/02/2016 Brigid VENTURA MD Ot R33.9 RETENTION OF URINE, UNSPECIFIED 04/02/2016 Brigid VENTURA MD Ot R60.0 LOCALIZED EDEMA 04/02/2016 Brigid VENTURA MD Ot Z86.73 PRSNL HX OF TIA (TIA), AND CEREB INFRC W 04/02/2016 Brigid VENTURA MD Ot Z87.891 PERSONAL HISTORY OF NICOTINE DEPENDENCE 04/04/2016 Brigid VENTURA MD Ot F41.9 ANXIETY DISORDER, UNSPECIFIED 04/04/2016 Brigid VENTURA MD Ot I12.9 HYPERTENSIVE CHRONIC KIDNEY DISEASE W ST 04/04/2016 Brigid VENTURA MD Ot I48.0 PAROXYSMAL ATRIAL FIBRILLATION 04/04/2016 Brigid VENTURA MD Ot K20.9 ESOPHAGITIS, UNSPECIFIED 04/04/2016 Brigid VENTURA MD Ot K21.9 GASTRO-ESOPHAGEAL REFLUX DISEASE WITHOUT 04/04/2016 Brigid VENTURA MD Ot K43.6 OTHER AND UNSP VENTRAL HERNIA WITH OBSTR 04/04/2016 Brigid VENTURA MD Ot K57.90 DVRTCLOS OF INTEST, PART UNSP, W/O PERF 04/04/2016 Brigid VENTURA MD Ot K59.00 CONSTIPATION, UNSPECIFIED 04/04/2016 Brigid VENTURA MD Ot N18.9 CHRONIC KIDNEY DISEASE, UNSPECIFIED 04/04/2016 Brigid VENTURA MD Ot N28.9 DISORDER OF KIDNEY AND URETER, UNSPECIFI 04/04/2016 Brigid VENTURA MD Ot N40.1 BENIGN PROSTATIC HYPERPLASIA WITH LOWER 04/04/2016 Brigid VENTURA MD Ot R33.9 RETENTION OF URINE, UNSPECIFIED 04/04/2016 Brigid VENTURA MD Ot R60.0 LOCALIZED EDEMA 04/04/2016 Brigid VENTURA MD Ot Z86.73 PRSNL HX OF TIA (TIA), AND CEREB INFRC W 04/04/2016 Brigid VENTURA MD, Ot Z87.891 PERSONAL HISTORY OF NICOTINE DEPENDENCE 04/04/2016 Brigid VENTURA MD Ot F41.9 ANXIETY DISORDER, UNSPECIFIED 04/04/2016 Brigid VENTURA MD Ot I12.9 HYPERTENSIVE CHRONIC KIDNEY DISEASE W ST 04/04/2016 Brigid VENTURA MD Ot I48.0 PAROXYSMAL ATRIAL FIBRILLATION 04/04/2016 Brigid VENTURA MD Ot K20.9 ESOPHAGITIS, UNSPECIFIED 04/04/2016 Brigid VENTURA MD Ot K21.9 GASTRO-ESOPHAGEAL REFLUX DISEASE WITHOUT 04/04/2016 Brigid VENTURA MD Ot K43.6 OTHER AND UNSP VENTRAL HERNIA WITH OBSTR 04/04/2016 Brigid VENTURA MD Ot K57.90 DVRTCLOS OF INTEST, PART UNSP, W/O PERF 04/04/2016 Brigid VENTURA MD Ot K59.00 CONSTIPATION, UNSPECIFIED 04/04/2016 Brigid VENTURA MD Ot N18.9 CHRONIC KIDNEY DISEASE, UNSPECIFIED 04/04/2016 Brigid VENTURA MD Ot N28.9 DISORDER OF KIDNEY AND URETER, UNSPECIFI 04/04/2016 Brigid VENTURA MD Ot N40.1 BENIGN PROSTATIC HYPERPLASIA WITH LOWER 04/04/2016 Brigid VENTURA MD Ot R33.9 RETENTION OF URINE, UNSPECIFIED 04/04/2016 Brigid VENTURA MD Ot R60.0 LOCALIZED EDEMA 04/04/2016 Brigid VENTURA MD, Ot Z86.73 PRSNL HX OF TIA (TIA), AND CEREB INFRC W 04/04/2016 Brigid VENTURA MD, Ot Z87.891 PERSONAL HISTORY OF NICOTINE DEPENDENCE 04/04/2016 Brigid VENTURA MD, Ot F41.9 ANXIETY DISORDER, UNSPECIFIED 04/04/2016 Brigid VENTURA MD Ot I12.9 HYPERTENSIVE CHRONIC KIDNEY DISEASE W ST 04/04/2016 Brigid VENTURA MD Ot I48.0 PAROXYSMAL ATRIAL FIBRILLATION 04/04/2016 Brigid VENTURA MD, Ot K20.9 ESOPHAGITIS, UNSPECIFIED 04/04/2016 Brigid VENTURA MD Ot K21.9 GASTRO-ESOPHAGEAL REFLUX DISEASE WITHOUT 04/04/2016 Brigid VENTURA MD Ot K43.6 OTHER AND UNSP VENTRAL HERNIA WITH OBSTR 04/04/2016 Brigid VENTURA MD Ot K57.90 DVRTCLOS OF INTEST, PART UNSP, W/O PERF 04/04/2016 Brigid VENTURA MD Ot K59.00 CONSTIPATION, UNSPECIFIED 04/04/2016 Brigid VENTURA MD Ot N18.9 CHRONIC KIDNEY DISEASE, UNSPECIFIED 04/04/2016 Brigid VENTURA MD Ot N28.9 DISORDER OF KIDNEY AND URETER, UNSPECIFI 04/04/2016 Brigid VENTURA MD Ot N40.1 BENIGN PROSTATIC HYPERPLASIA WITH LOWER 04/04/2016 Brigid VENTURA MD Ot R33.9 RETENTION OF URINE, UNSPECIFIED 04/04/2016 Brigid VENTURA MD Ot R60.0 LOCALIZED EDEMA 04/04/2016 Brigid VENTURA MD Ot Z86.73 PRSNL HX OF TIA (TIA), AND CEREB INFRC W 04/04/2016 Brigid VENTURA MD Ot Z87.891 PERSONAL HISTORY OF NICOTINE DEPENDENCE 04/05/2016 Brigid VENTURA MD Ot F41.9 ANXIETY DISORDER, UNSPECIFIED 04/05/2016 Brigid VENTURA MD Ot I12.9 HYPERTENSIVE CHRONIC KIDNEY DISEASE W ST 04/05/2016 Brigid VENTURA MD Ot I48.0 PAROXYSMAL ATRIAL FIBRILLATION 04/05/2016 Brigid VENTURA MD Ot K20.9 ESOPHAGITIS, UNSPECIFIED 04/05/2016 Brigid VENTURA MD Ot K21.9 GASTRO-ESOPHAGEAL REFLUX DISEASE WITHOUT 04/05/2016 Brigid VENTURA MD Ot K43.6 OTHER AND UNSP VENTRAL HERNIA WITH OBSTR 04/05/2016 Brigid VENTURA MD Ot K57.90 DVRTCLOS OF INTEST, PART UNSP, W/O PERF 04/05/2016 Brigid VENTURA MD Ot K59.00 CONSTIPATION, UNSPECIFIED 04/05/2016 Brigid VENTURA MD Ot N18.9 CHRONIC KIDNEY DISEASE, UNSPECIFIED 04/05/2016 Brigid VENTURA MD Ot N28.9 DISORDER OF KIDNEY AND URETER, UNSPECIFI 04/05/2016 Brigid VENTURA MD Ot N40.1 BENIGN PROSTATIC HYPERPLASIA WITH LOWER 04/05/2016 Brigid VENTURA MD Ot R33.9 RETENTION OF URINE, UNSPECIFIED 04/05/2016 Brigid VENTURA MD Ot R60.0 LOCALIZED EDEMA 04/05/2016 Brigid VENTURA MD Ot Z86.73 PRSNL HX OF TIA (TIA), AND CEREB INFRC W 04/05/2016 Brigid VENTURA MD Ot Z87.891 PERSONAL HISTORY OF NICOTINE DEPENDENCE 04/05/2016 Brigid VENTURA MD Ot F41.9 ANXIETY DISORDER, UNSPECIFIED 04/05/2016 Brigid VENTURA MD, Ot I12.9 HYPERTENSIVE CHRONIC KIDNEY DISEASE W ST 04/05/2016 Brigid VENTURA MD Ot I48.0 PAROXYSMAL ATRIAL FIBRILLATION 04/05/2016 Brigid VENTURA MD Ot K20.9 ESOPHAGITIS, UNSPECIFIED 04/05/2016 Brigid VENTURA MD Ot K21.9 GASTRO-ESOPHAGEAL REFLUX DISEASE WITHOUT 04/05/2016 Brigid VENTURA MD Ot K43.6 OTHER AND UNSP VENTRAL HERNIA WITH OBSTR 04/05/2016 Brigid VENTURA MD Ot K57.90 DVRTCLOS OF INTEST, PART UNSP, W/O PERF 04/05/2016 Brigid VENTURA MD Ot K59.00 CONSTIPATION, UNSPECIFIED 04/05/2016 Brigid VENTURA MD Ot N18.9 CHRONIC KIDNEY DISEASE, UNSPECIFIED 04/05/2016 Brigid VENTURA MD Ot N28.9 DISORDER OF KIDNEY AND URETER, UNSPECIFI 04/05/2016 Brigid VENTURA MD, Ot N40.1 BENIGN PROSTATIC HYPERPLASIA WITH LOWER 04/05/2016 Brigid VENTURA MD Ot R33.9 RETENTION OF URINE, UNSPECIFIED 04/05/2016 Brigid VENTURA MD Ot R60.0 LOCALIZED EDEMA 04/05/2016 Brigid VENTURA MD Ot Z86.73 PRSNL HX OF TIA (TIA), AND CEREB INFRC W 04/05/2016 Brigid VENTURA MD Ot Z87.891 PERSONAL HISTORY OF NICOTINE DEPENDENCE 04/05/2016 Brigid VENTURA MD Ot F41.9 ANXIETY DISORDER, UNSPECIFIED 04/05/2016 Brigid VENTURA MD Ot I12.9 HYPERTENSIVE CHRONIC KIDNEY DISEASE W ST 04/05/2016 Brigid VENTURA MD Ot I48.0 PAROXYSMAL ATRIAL FIBRILLATION 04/05/2016 Brigid VENTURA MD, Ot K20.9 ESOPHAGITIS, UNSPECIFIED 04/05/2016 Brigid VENTURA MD Ot K21.9 GASTRO-ESOPHAGEAL REFLUX DISEASE WITHOUT 04/05/2016 Brigid VENTURA MD Ot K43.6 OTHER AND UNSP VENTRAL HERNIA WITH OBSTR 04/05/2016 Brigid VENTURA MD Ot K57.90 DVRTCLOS OF INTEST, PART UNSP, W/O PERF 04/05/2016 Brigid VENTURA MD Ot K59.00 CONSTIPATION, UNSPECIFIED 04/05/2016 Brigid VENTURA MD Ot N18.9 CHRONIC KIDNEY DISEASE, UNSPECIFIED 04/05/2016 Brigid VENTURA MD Ot N28.9 DISORDER OF KIDNEY AND URETER, UNSPECIFI 04/05/2016 Brigid VENTURA MD Ot N40.1 BENIGN PROSTATIC HYPERPLASIA WITH LOWER 04/05/2016 Brigid VENTURA MD Ot R33.9 RETENTION OF URINE, UNSPECIFIED 04/05/2016 Brigid VENTURA MD Ot R60.0 LOCALIZED EDEMA 04/05/2016 Brigid VENTURA MD Ot Z86.73 PRSNL HX OF TIA (TIA), AND CEREB INFRC W 04/05/2016 Brigid VENTURA MD, Ot Z87.891 PERSONAL HISTORY OF NICOTINE DEPENDENCE 04/06/2016 Brigid VENTURA MD, Ot F41.9 ANXIETY DISORDER, UNSPECIFIED 04/06/2016 Brigid VENTURA MD, Ot I12.9 HYPERTENSIVE CHRONIC KIDNEY DISEASE W ST 04/06/2016 Brigid VENTURA MD Ot I48.0 PAROXYSMAL ATRIAL FIBRILLATION 04/06/2016 Brigid VENTURA MD Ot K20.9 ESOPHAGITIS, UNSPECIFIED 04/06/2016 Brigid VENTURA MD, Ot K21.9 GASTRO-ESOPHAGEAL REFLUX DISEASE WITHOUT 04/06/2016 Brigid VENTURA MD Ot K43.6 OTHER AND UNSP VENTRAL HERNIA WITH OBSTR 04/06/2016 Brigid VENTURA MD Ot K57.90 DVRTCLOS OF INTEST, PART UNSP, W/O PERF 04/06/2016 Brigid VENTURA MD Ot K59.00 CONSTIPATION, UNSPECIFIED 04/06/2016 Brigid VENTURA MD Ot N18.9 CHRONIC KIDNEY DISEASE, UNSPECIFIED 04/06/2016 Brigid VENTURA MD Ot N28.9 DISORDER OF KIDNEY AND URETER, UNSPECIFI 04/06/2016 Brigid VENTURA MD Ot N40.1 BENIGN PROSTATIC HYPERPLASIA WITH LOWER 04/06/2016 Brigid VENTURA MD Ot R33.9 RETENTION OF URINE, UNSPECIFIED 04/06/2016 Brigid VENTURA MD, Ot R60.0 LOCALIZED EDEMA 04/06/2016 Brigid VENTURA MD, Ot Z86.73 PRSNL HX OF TIA (TIA), AND CEREB INFRC W 04/06/2016 Brigid VENTURA MD, Ot Z87.891 PERSONAL HISTORY OF NICOTINE DEPENDENCE 04/07/2016 Brigid VENTURA MD, Ot F41.9 ANXIETY DISORDER, UNSPECIFIED 04/07/2016 Brigid VENTURA MD, Ot I12.9 HYPERTENSIVE CHRONIC KIDNEY DISEASE W ST 04/07/2016 Brigid VENTURA MD, Ot I48.0 PAROXYSMAL ATRIAL FIBRILLATION 04/07/2016 Brigid VENTURA MD, Ot K20.9 ESOPHAGITIS, UNSPECIFIED 04/07/2016 Brigid VENTURA MD, Ot K21.9 GASTRO-ESOPHAGEAL REFLUX DISEASE WITHOUT 04/07/2016 Brigid VENTURA MD Ot K43.6 OTHER AND UNSP VENTRAL HERNIA WITH OBSTR 04/07/2016 Brigid VENTURA MD, Ot K57.90 DVRTCLOS OF INTEST, PART UNSP, W/O PERF 04/07/2016 Brigid VENTURA MD, Ot K59.00 CONSTIPATION, UNSPECIFIED 04/07/2016 Brigid VENTURA MD, Ot N18.9 CHRONIC KIDNEY DISEASE, UNSPECIFIED 04/07/2016 Brigid VENTURA MD Ot N28.9 DISORDER OF KIDNEY AND URETER, UNSPECIFI 04/07/2016 Brigid VENTURA MD Ot N40.1 BENIGN PROSTATIC HYPERPLASIA WITH LOWER 04/07/2016 Brigid VENTURA MD Ot R33.9 RETENTION OF URINE, UNSPECIFIED 04/07/2016 Brigid VENTURA MD, Ot R60.0 LOCALIZED EDEMA 04/07/2016 Brigid VENTURA MD, Ot Z86.73 PRSNL HX OF TIA (TIA), AND CEREB INFRC W 04/07/2016 Brigid VENTURA MD, Ot Z87.891 PERSONAL HISTORY OF NICOTINE DEPENDENCE 04/08/2016 Brigid VENTURA MD, Ot F41.9 ANXIETY DISORDER, UNSPECIFIED 04/08/2016 Brigid VENTURA MD, Ot I12.9 HYPERTENSIVE CHRONIC KIDNEY DISEASE W ST 04/08/2016 Brigid VENTURA MD, Ot I48.0 PAROXYSMAL ATRIAL FIBRILLATION 04/08/2016 Brigid VENTURA MD Ot K20.9 ESOPHAGITIS, UNSPECIFIED 04/08/2016 Brigid VENTURA MD, Ot K21.9 GASTRO-ESOPHAGEAL REFLUX DISEASE WITHOUT 04/08/2016 Brigid VENTURA MD, Ot K43.6 OTHER AND UNSP VENTRAL HERNIA WITH OBSTR 04/08/2016 Brigid VENTURA MD, Ot K57.90 DVRTCLOS OF INTEST, PART UNSP, W/O PERF 04/08/2016 Brigid VENTURA MD Ot K59.00 CONSTIPATION, UNSPECIFIED 04/08/2016 Brigid VENTURA MD Ot N18.9 CHRONIC KIDNEY DISEASE, UNSPECIFIED 04/08/2016 Brigid VENTURA MD Ot N28.9 DISORDER OF KIDNEY AND URETER, UNSPECIFI 04/08/2016 Brigid VENTURA MD, Ot N40.1 BENIGN PROSTATIC HYPERPLASIA WITH LOWER 04/08/2016 Brigid VENTURA MD, Ot R33.9 RETENTION OF URINE, UNSPECIFIED 04/08/2016 Brigid VENTURA MD Ot R60.0 LOCALIZED EDEMA 04/08/2016 Brigid VENTURA MD Ot Z86.73 PRSNL HX OF TIA (TIA), AND CEREB INFRC W 04/08/2016 Brigid VENTURA MD Ot Z87.891 PERSONAL HISTORY OF NICOTINE DEPENDENCE 04/08/2016 Brigid VENTURA MD Ot B37.81 CANDIDAL ESOPHAGITIS 04/08/2016 Brigid VENTURA MD, Ot D50.0 IRON DEFICIENCY ANEMIA SECONDARY TO BLOO 04/08/2016 Brigid VENTURA MD Ot E83.42 HYPOMAGNESEMIA 04/08/2016 Brigid VENTURA MD, Ot E86.9 VOLUME DEPLETION, UNSPECIFIED 04/08/2016 Brigid VENTURA MD Ot E87.3 ALKALOSIS 04/08/2016 Brigid VENTURA MD Ot E87.6 HYPOKALEMIA 04/08/2016 Brigid VENTURA MD Ot E87.70 FLUID OVERLOAD, UNSPECIFIED 04/08/2016 Brigid VENTURA MD Ot F41.9 ANXIETY DISORDER, UNSPECIFIED 04/08/2016 Brigid VENTURA MD Ot I12.9 HYPERTENSIVE CHRONIC KIDNEY DISEASE W ST 04/08/2016 Brigid VENTURA MD Ot I48.0 PAROXYSMAL ATRIAL FIBRILLATION 04/08/2016 Brigid VENTURA MD Ot J98.11 ATELECTASIS 04/08/2016 Brigid VENTURA MD Ot K20.9 ESOPHAGITIS, UNSPECIFIED 04/08/2016 Brigid VENTURA MD Ot K21.9 GASTRO-ESOPHAGEAL REFLUX DISEASE WITHOUT 04/08/2016 Brigid VENTURA MD Ot K29.70 GASTRITIS, UNSPECIFIED, WITHOUT BLEEDING 04/08/2016 Brigid VENTURA MD Ot K43.6 OTHER AND UNSP VENTRAL HERNIA WITH OBSTR 04/08/2016 Brigid VENTURA MD Ot K56.7 ILEUS, UNSPECIFIED 04/08/2016 Brigid VENTURA MD Ot K57.90 DVRTCLOS OF INTEST, PART UNSP, W/O PERF 04/08/2016 Brigid VENTURA MD Ot K59.00 CONSTIPATION, UNSPECIFIED 04/08/2016 Brigid VENTURA MD Ot N17.9 ACUTE KIDNEY FAILURE, UNSPECIFIED 04/08/2016 Brigid VENTURA MD Ot N18.9 CHRONIC KIDNEY DISEASE, UNSPECIFIED 04/08/2016 Brigid VENTURA MD Ot N28.9 DISORDER OF KIDNEY AND URETER, UNSPECIFI 04/08/2016 Brigid VENTURA MD Ot N40.1 BENIGN PROSTATIC HYPERPLASIA WITH LOWER 04/08/2016 Brigid VENTURA MD Ot N99.89 OTH POSTPROCEDURAL COMPLICATIONS AND DIS 04/08/2016 Brigid VENTURA MDWAN Ot R31.9 HEMATURIA, UNSPECIFIED 04/08/2016 AUDREY JOYA, Brigid WAGONER Ot R33.9 RETENTION OF URINE, UNSPECIFIED 04/08/2016 Brigid VENTURA MD Ot R60.0 LOCALIZED EDEMA 04/08/2016 Brigid VENTURA MD Ot S37.30XA UNSPECIFIED INJURY OF URETHRA, INITIAL E 04/08/2016 Brigid VENTURA MD Ot Z86.73 PRSNL HX OF TIA (TIA), AND CEREB INFRC W 04/08/2016 Brigid VENTURA MD Ot Z87.891 PERSONAL HISTORY OF NICOTINE DEPENDENCE 09/11/2016 JEF NULL MD Ot 592.1 CALCULUS OF URETER 09/11/2016 JEF NULL MD Ot V72.84 EXAM PRE-OPERATIVE NOS 09/11/2016 JEF NULL MD Ot 592.1 CALCULUS OF URETER 09/11/2016 JEF NULL MD Ot V67.09 SURGERY FOLLOW-UP, OTHER SURGERY 09/11/2016 JASPAL CORDERO MD, Ot F17.220 NICOTINE DEPENDENCE, CHEWING TOBACCO, UN 09/11/2016 JASPAL CORDERO MD Ot I10 ESSENTIAL (PRIMARY) HYPERTENSION 09/11/2016 JASPAL CORDERO MD Ot S49.92XA UNSP INJURY OF LEFT SHOULDER AND UPPER A 09/11/2016 JASPAL CORDERO MD Ot X50.0XXA OVEREXERTION FROM STRENUOUS MOVEMENT OR 09/11/2016 JASPAL CORDERO MD Ot Y93.9 ACTIVITY, UNSPECIFIED 09/11/2016 JASPAL CORDERO MD Ot Y99.0 CIVILIAN ACTIVITY DONE FOR INCOME OR PAY 09/11/2016 JASPAL CORDERO MD Ot Z79.82 SHELTER (CURRENT) USE OF ASPIRIN 09/11/2016 JASPAL CORDERO MD Ot Z86.73 PRSNL HX OF TIA (TIA), AND CEREB INFRC W 09/13/2016 JASPAL CORDERO MD Ot F17.220 NICOTINE DEPENDENCE, CHEWING TOBACCO, UN 09/13/2016 JASPAL CORDERO MD Ot I10 ESSENTIAL (PRIMARY) HYPERTENSION 09/13/2016 JASPAL CORDERO MD Ot S49.92XA UNSP INJURY OF LEFT SHOULDER AND UPPER A 09/13/2016 JASPAL CORDERO MD Ot X50.0XXA OVEREXERTION FROM STRENUOUS MOVEMENT OR 09/13/2016 JASPAL CORDERO MD Ot Y93.9 ACTIVITY, UNSPECIFIED 09/13/2016 JASPAL CORDERO MD Ot Y99.0 CIVILIAN ACTIVITY DONE FOR INCOME OR PAY 09/13/2016 JASPAL CORDERO MD Ot Z79.82 CEMENT RAILROAD CAR [employer] (CURRENT) USE OF ASPIRIN 09/13/2016 JASPAL CORDERO MD Ot Z86.73 PRSNL HX OF TIA (TIA), AND CEREB INFRC W 09/16/2016 JEF NULL MD Ot 592.1 CALCULUS OF URETER 09/16/2016 JEF NULL MD Ot V72.84 EXAM PRE-OPERATIVE NOS 09/16/2016 JEF NULL MD Ot 592.1 CALCULUS OF URETER 09/16/2016 JEF NULL MD Ot V67.09 SURGERY FOLLOW-UP, OTHER SURGERY 09/17/2016 JASPAL CORDERO MD Ot F17.220 NICOTINE DEPENDENCE, CHEWING TOBACCO, UN 09/17/2016 JASPAL CORDERO MD Ot I10 ESSENTIAL (PRIMARY) HYPERTENSION 09/17/2016 JASPAL CORDERO MD Ot S49.92XA UNSP INJURY OF LEFT SHOULDER AND UPPER A 09/17/2016 JASPAL CORDERO MD Ot X50.0XXA OVEREXERTION FROM STRENUOUS MOVEMENT OR 09/17/2016 JASPAL CORDERO MD Ot Y93.9 ACTIVITY, UNSPECIFIED 09/17/2016 JASPAL CORDERO MD Ot Y99.0 CIVILIAN ACTIVITY DONE FOR INCOME OR PAY 09/17/2016 JASPAL CORDERO MD Ot Z79.82 SHELTER (CURRENT) USE OF ASPIRIN 09/17/2016 JASPAL CORDERO MD Ot Z86.73 PRSNL HX OF TIA (TIA), AND CEREB INFRC W 09/20/2016 JEF NULL MD Ot 592.1 CALCULUS OF URETER 09/20/2016 JEF NULL MD Ot V72.84 EXAM PRE-OPERATIVE NOS 09/20/2016 JEF NULL MD A Ot 592.1 CALCULUS OF URETER 09/20/2016 JEF NULL MD, Ot V67.09 SURGERY FOLLOW-UP, OTHER SURGERY 09/20/2016 JEF NULL MD, Ot 592.1 CALCULUS OF URETER 09/20/2016 JEF NULL MD, Ot V72.84 EXAM PRE-OPERATIVE NOS 09/20/2016 JEF NULL MD, Ot 592.1 CALCULUS OF URETER 09/20/2016 JEF NULL MD, Ot V67.09 SURGERY FOLLOW-UP, OTHER SURGERY 09/24/2016 COURT PADILLA MD Ot M25.512 PAIN IN LEFT SHOULDER 09/24/2016 COURT PADILLA MD Ot R93.7 ABNORMAL FINDINGS ON DIAGNOSTIC IMAGING 09/24/2016 COURT PADILLA MD Ot M25.512 PAIN IN LEFT SHOULDER 09/24/2016 COURT PADILLA MD Ot R93.7 ABNORMAL FINDINGS ON DIAGNOSTIC IMAGING 09/24/2016 COURT PADILLA MD Ot M25.512 PAIN IN LEFT SHOULDER 09/24/2016 COURT PADILLA MD Ot R93.7 ABNORMAL FINDINGS ON DIAGNOSTIC IMAGING 09/25/2016 COURT PADILLA MD Ot M25.512 PAIN IN LEFT SHOULDER 09/25/2016 COURT PADILLA MD Ot R93.7 ABNORMAL FINDINGS ON DIAGNOSTIC IMAGING 09/25/2016 JEF NULL MD, Ot 592.1 CALCULUS OF URETER 09/25/2016 JEF NULL MD, Ot V72.84 EXAM PRE-OPERATIVE NOS 09/25/2016 JEF NULL MD, Ot 592.1 CALCULUS OF URETER 09/25/2016 JEF NULL MD, Ot V67.09 SURGERY FOLLOW-UP, OTHER SURGERY 09/25/2016 COURT PADILLA MD Ot M25.512 PAIN IN LEFT SHOULDER 09/25/2016 COURT PADILLA MD Ot R93.7 ABNORMAL FINDINGS ON DIAGNOSTIC IMAGING Procedures Code Description Performed By Performed On [id number] EXCISION OF LOWER ESOPHAGUS, ENDO, DIAGN 03/26/2016 [id number] EXCISION OF ESOPHAGOGASTRIC JUNCTION, EN 03/26/2016 [id number] EXCISION OF STOMACH, PYLORUS, ENDO, DIAG 03/26/2016 [id number] SUPPLEMENT ABDOMINAL WALL WITH SYNTH SUB 03/26/2016 Results Test Result Range Complete blood count (CBC) with automated white blood cell (WBC) differential - 12/26/15 14:24 Blood leukocytes automated count (number/volume) 9.5 10*3/ uL 4.3-11.0 Blood erythrocytes automated count (number/volume) 4.90 10*6 /uL 4.35-5.85 Venous blood hemoglobin measurement (mass/volume) 15.3 g/dL 13.3-17.7 Blood hematocrit (volume fraction) 44 % 40-54 Automated erythrocyte mean corpuscular volume 90 [foz_us] 80-99 Automated erythrocyte mean corpuscular hemoglobin (mass per erythrocyte) 31 pg 25-34 Automated erythrocyte mean corpuscular hemoglobin concentration measurement ( mass/volume) 35 g/dL 32-36 Automated erythrocyte distribution width ratio 13.2 % 10.0-14.5 Automated blood platelet count (count/volume) 238 10*3/uL 130-400 Automated blood platelet mean volume measurement 11.2 [foz_ us] 7.4-10.4 Automated blood neutrophils/100 leukocytes 74 % 42-75 Automated blood lymphocytes/100 leukocytes 17 % 12-44 Blood monocytes/100 leukocytes 8 % 0-12 Automated blood eosinophils/100 leukocytes 1 % 0-10 Automated blood basophils/100 leukocytes 0 % 0-10 Blood neutrophils automated count (number/volume) 7.0 10*3 1.8-7.8 Blood lymphocytes automated count (number/volume) 1.7 10*3 1.0-4.0 Blood monocytes automated count (number/volume) 0.7 10*3 0.0-1.0 Automated eosinophil count 0.1 10*3/uL 0.0-0.3 Automated blood basophil count (count/volume) 0.0 10*3/uL 0.0-0.1 Comprehensive metabolic panel - 12/26/15 14:24 Serum or plasma sodium measurement (moles/volume) 140 mmol/ L 135-145 Serum or plasma potassium measurement (moles/volume) 4.4 mmol/L 3.6-5.0 Serum or plasma chloride measurement (moles/volume) 112 mmol /L 98-107 Carbon dioxide 20 mmol/L 21-32 Serum or plasma anion gap determination (moles/volume) 8 mmol/L 5-14 Serum or plasma urea nitrogen measurement (mass/volume) 37 mg/dL 7-18 Serum or plasma creatinine measurement (mass/volume) 2.24 mg /dL 0.60-1.30 Serum or plasma urea nitrogen/creatinine mass ratio 17 NRG Serum or plasma creatinine measurement with calculation of estimated glomerular filtration rate 30 NRG Serum or plasma glucose measurement (mass/volume) 85 mg/dL 70-105 Serum or plasma calcium measurement (mass/volume) 9.3 mg/dL 8.5-10.1 Serum or plasma total bilirubin measurement (mass/volume) 0.5 mg/dL 0.1-1.0 Serum or plasma alkaline phosphatase measurement (enzymatic activity/volume) 83 U/L 40-136 Serum or plasma aspartate aminotransferase measurement (enzymatic activity/ volume) 15 U/L 5-34 Serum or plasma alanine aminotransferase measurement (enzymatic activity/volume ) 16 U/L 0-55 Serum or plasma protein measurement (mass/volume) 6.7 g/dL 6.4-8.2 Serum or plasma albumin measurement (mass/volume) 4.1 g/dL 3.2-4.5 Magnesium - 12/26/15 14:24 Magnesium 2.3 mg/dL 1.8-2.4 Bacterial urine culture - 12/26/15 14:24 Bacterial urine culture NG NRG Complete blood count (CBC) with automated white blood cell (WBC) differential - 12/27/15 05:20 Blood leukocytes automated count (number/volume) 7.6 10*3/ uL 4.3-11.0 Blood erythrocytes automated count (number/volume) 4.04 10*6 /uL 4.35-5.85 Venous blood hemoglobin measurement (mass/volume) 12.4 g/dL 13.3-17.7 Blood hematocrit (volume fraction) 38 % 40-54 Automated erythrocyte mean corpuscular volume 93 [foz_us] 80-99 Automated erythrocyte mean corpuscular hemoglobin (mass per erythrocyte) 31 pg 25-34 Automated erythrocyte mean corpuscular hemoglobin concentration measurement ( mass/volume) 33 g/dL 32-36 Automated erythrocyte distribution width ratio 13.2 % 10.0-14.5 Automated blood platelet count (count/volume) 200 10*3/uL 130-400 Automated blood platelet mean volume measurement 11.2 [foz_ us] 7.4-10.4 Automated blood neutrophils/100 leukocytes 58 % 42-75 Automated blood lymphocytes/100 leukocytes 30 % 12-44 Blood monocytes/100 leukocytes 9 % 0-12 Automated blood eosinophils/100 leukocytes 3 % 0-10 Automated blood basophils/100 leukocytes 0 % 0-10 Blood neutrophils automated count (number/volume) 4.4 10*3 1.8-7.8 Blood lymphocytes automated count (number/volume) 2.3 10*3 1.0-4.0 Blood monocytes automated count (number/volume) 0.6 10*3 0.0-1.0 Automated eosinophil count 0.2 10*3/uL 0.0-0.3 Automated blood basophil count (count/volume) 0.0 10*3/uL 0.0-0.1 Comprehensive metabolic panel - 12/27/15 05:20 Serum or plasma sodium measurement (moles/volume) 140 mmol/ L 135-145 Serum or plasma potassium measurement (moles/volume) 4.3 mmol/L 3.6-5.0 Serum or plasma chloride measurement (moles/volume) 114 mmol /L 98-107 Carbon dioxide 18 mmol/L 21-32 Serum or plasma anion gap determination (moles/volume) 8 mmol/L 5-14 Serum or plasma urea nitrogen measurement (mass/volume) 36 mg/dL 7-18 Serum or plasma creatinine measurement (mass/volume) 1.89 mg /dL 0.60-1.30 Serum or plasma urea nitrogen/creatinine mass ratio 19 NRG Serum or plasma creatinine measurement with calculation of estimated glomerular filtration rate 37 NRG Serum or plasma glucose measurement (mass/volume) 82 mg/dL 70-105 Serum or plasma calcium measurement (mass/volume) 8.0 mg/dL 8.5-10.1 Serum or plasma total bilirubin measurement (mass/volume) 0.5 mg/dL 0.1-1.0 Serum or plasma alkaline phosphatase measurement (enzymatic activity/volume) 61 U/L 40-136 Serum or plasma aspartate aminotransferase measurement (enzymatic activity/ volume) 10 U/L 5-34 Serum or plasma alanine aminotransferase measurement (enzymatic activity/volume ) 15 U/L 0-55 Serum or plasma protein measurement (mass/volume) 5.2 g/dL 6.4-8.2 Serum or plasma albumin measurement (mass/volume) 3.3 g/dL 3.2-4.5 Whole blood basic metabolic panel - 12/27/15 14:56 Serum or plasma sodium measurement (moles/volume) 139 mmol/ L 135-145 Serum or plasma potassium measurement (moles/volume) 4.3 mmol/L 3.6-5.0 Serum or plasma chloride measurement (moles/volume) 116 mmol /L 98-107 Carbon dioxide 17 mmol/L 21-32 Serum or plasma anion gap determination (moles/volume) 6 mmol/L 5-14 Serum or plasma urea nitrogen measurement (mass/volume) 32 mg/dL 7-18 Serum or plasma creatinine measurement (mass/volume) 1.55 mg /dL 0.60-1.30 Serum or plasma urea nitrogen/creatinine mass ratio 21 NRG Serum or plasma creatinine measurement with calculation of estimated glomerular filtration rate 46 NRG Serum or plasma glucose measurement (mass/volume) 97 mg/dL 70-105 Serum or plasma calcium measurement (mass/volume) 8.0 mg/dL 8.5-10.1 Complete blood count (CBC) with automated white blood cell (WBC) differential - 03/20/16 09:47 Blood leukocytes automated count (number/volume) 15.2 10*3/ uL 4.3-11.0 Blood erythrocytes automated count (number/volume) 4.96 10*6 /uL 4.35-5.85 Venous blood hemoglobin measurement (mass/volume) 15.3 g/dL 13.3-17.7 Blood hematocrit (volume fraction) 46 % 40-54 Automated erythrocyte mean corpuscular volume 92 [foz_us] 80-99 Automated erythrocyte mean corpuscular hemoglobin (mass per erythrocyte) 31 pg 25-34 Automated erythrocyte mean corpuscular hemoglobin concentration measurement ( mass/volume) 33 g/dL 32-36 Automated erythrocyte distribution width ratio 14.1 % 10.0-14.5 Automated blood platelet count (count/volume) 254 10*3/uL 130-400 Automated blood platelet mean volume measurement 11.1 [foz_ us] 7.4-10.4 Automated blood neutrophils/100 leukocytes 77 % 42-75 Automated blood lymphocytes/100 leukocytes 14 % 12-44 Blood monocytes/100 leukocytes 9 % 0-12 Automated blood eosinophils/100 leukocytes 1 % 0-10 Automated blood basophils/100 leukocytes 0 % 0-10 Blood neutrophils automated count (number/volume) 11.7 10*3 1.8-7.8 Blood lymphocytes automated count (number/volume) 2.1 10*3 1.0-4.0 Blood monocytes automated count (number/volume) 1.4 10*3 0.0-1.0 Automated eosinophil count 0.1 10*3/uL 0.0-0.3 Automated blood basophil count (count/volume) 0.0 10*3/uL 0.0-0.1 Comprehensive metabolic panel - 03/20/16 09:47 Serum or plasma sodium measurement (moles/volume) 139 mmol/ L 135-145 Serum or plasma potassium measurement (moles/volume) 4.6 mmol/L 3.6-5.0 Serum or plasma chloride measurement (moles/volume) 108 mmol /L 98-107 Carbon dioxide 24 mmol/L 21-32 Serum or plasma anion gap determination (moles/volume) 7 mmol/L 5-14 Serum or plasma urea nitrogen measurement (mass/volume) 17 mg/dL 7-18 Serum or plasma creatinine measurement (mass/volume) 1.36 mg /dL 0.60-1.30 Serum or plasma urea nitrogen/creatinine mass ratio 13 NRG Serum or plasma creatinine measurement with calculation of estimated glomerular filtration rate 54 NRG Serum or plasma glucose measurement (mass/volume) 99 mg/dL 70-105 Serum or plasma calcium measurement (mass/volume) 9.9 mg/dL 8.5-10.1 Serum or plasma total bilirubin measurement (mass/volume) 0.7 mg/dL 0.1-1.0 Serum or plasma alkaline phosphatase measurement (enzymatic activity/volume) 103 U/L 40-136 Serum or plasma aspartate aminotransferase measurement (enzymatic activity/ volume) 18 U/L 5-34 Serum or plasma alanine aminotransferase measurement (enzymatic activity/volume ) 19 U/L 0-55 Serum or plasma protein measurement (mass/volume) 7.3 g/dL 6.4-8.2 Serum or plasma albumin measurement (mass/volume) 4.5 g/dL 3.2-4.5 Lipase - 03/20/16 09:47 Lipase 24 U/L 8-78 Blood manual differential performed detection - 03/20/16 09:47 Blood monocytes/100 leukocytes 3 % NRG Manual blood segmented neutrophils/100 leukocytes 87 % NRG Manual blood lymphocytes/100 leukocytes 10 % NRG Blood erythrocyte morphology finding identification NORMAL NRG Complete blood count (CBC) with automated white blood cell (WBC) differential - 03/24/16 04:50 Blood leukocytes automated count (number/volume) 10.7 10*3/ uL 4.3-11.0 Blood erythrocytes automated count (number/volume) 5.08 10*6 /uL 4.35-5.85 Venous blood hemoglobin measurement (mass/volume) 15.6 g/dL 13.3-17.7 Blood hematocrit (volume fraction) 46 % 40-54 Automated erythrocyte mean corpuscular volume 91 [foz_us] 80-99 Automated erythrocyte mean corpuscular hemoglobin (mass per erythrocyte) 31 pg 25-34 Automated erythrocyte mean corpuscular hemoglobin concentration measurement ( mass/volume) 34 g/dL 32-36 Automated erythrocyte distribution width ratio 13.9 % 10.0-14.5 Automated blood platelet count (count/volume) 289 10*3/uL 130-400 Automated blood platelet mean volume measurement 10.8 [foz_ us] 7.4-10.4 Automated blood neutrophils/100 leukocytes 69 % 42-75 Automated blood lymphocytes/100 leukocytes 18 % 12-44 Blood monocytes/100 leukocytes 11 % 0-12 Automated blood eosinophils/100 leukocytes 1 % 0-10 Automated blood basophils/100 leukocytes 1 % 0-10 Blood neutrophils automated count (number/volume) 7.4 10*3 1.8-7.8 Blood lymphocytes automated count (number/volume) 1.9 10*3 1.0-4.0 Blood monocytes automated count (number/volume) 1.2 10*3 0.0-1.0 Automated eosinophil count 0.1 10*3/uL 0.0-0.3 Automated blood basophil count (count/volume) 0.1 10*3/uL 0.0-0.1 PT panel in platelet poor plasma by coagulation assay - 03/24/16 04:50 Prothrombin time (PT) in platelet poor plasma by coagulation assay 12.4 s 12.2-14.7 INR in platelet poor plasma or blood by coagulation assay 1.0 0.8-1.4 Activated partial thromboplastin time (aPTT) in platelet poor plasma bycoagulation assay - 03/24/16 04:50 Activated partial thromboplastin time (aPTT) in platelet poor plasma bycoagulation assay 37 s 24-35 Comprehensive metabolic panel - 03/24/16 04:50 Serum or plasma sodium measurement (moles/volume) 140 mmol/ L 135-145 Serum or plasma potassium measurement (moles/volume) 4.1 mmol/L 3.6-5.0 Serum or plasma chloride measurement (moles/volume) 109 mmol /L 98-107 Carbon dioxide 21 mmol/L 21-32 Serum or plasma anion gap determination (moles/volume) 10 mmol/L 5-14 Serum or plasma urea nitrogen measurement (mass/volume) 24 mg/dL 7-18 Serum or plasma creatinine measurement (mass/volume) 1.48 mg /dL 0.60-1.30 Serum or plasma urea nitrogen/creatinine mass ratio 16 NRG Serum or plasma creatinine measurement with calculation of estimated glomerular filtration rate 49 NRG Serum or plasma glucose measurement (mass/volume) 107 mg/dL 70-105 Serum or plasma calcium measurement (mass/volume) 9.8 mg/dL 8.5-10.1 Serum or plasma total bilirubin measurement (mass/volume) 0.5 mg/dL 0.1-1.0 Serum or plasma alkaline phosphatase measurement (enzymatic activity/volume) 87 U/L 40-136 Serum or plasma aspartate aminotransferase measurement (enzymatic activity/ volume) 15 U/L 5-34 Serum or plasma alanine aminotransferase measurement (enzymatic activity/volume ) 15 U/L 0-55 Serum or plasma protein measurement (mass/volume) 6.9 g/dL 6.4-8.2 Serum or plasma albumin measurement (mass/volume) 4.2 g/dL 3.2-4.5 Serum or plasma amylase measurement (enzymatic activity/volume) - 03/24/16 04: 50 Serum or plasma amylase measurement (enzymatic activity/volume) 53 U/L 25-125 Lipase - 03/24/16 04:50 Lipase 23 U/L 8-78 Magnesium - 03/24/16 04:50 Magnesium 2.3 mg/dL 1.8-2.4 Serum or plasma lithium measurement (moles/volume) - 03/24/16 04:50 BNP level 116.9 pg/mL <100.0 Serum or plasma troponin i.cardiac measurement (mass/volume) - 03/24/16 04:50 Serum or plasma troponin i.cardiac measurement (mass/volume) < ng/mL <0.30 Serum or plasma thyrotropin measurement by detection limit <=0.05 miu/l (units/ volume) - 03/24/16 04:50 Serum or plasma thyrotropin measurement by detection limit <=0.05 miu/l (units/ volume) 1.88 u[iU]/mL 0.35-4.94 Complete urinalysis with reflex to culture - 03/24/16 04:54 Urine color determination YELLOW NRG Urine clarity determination CLEAR NRG Urine pH measurement by test strip 6 5- 9 Specific gravity of urine by test strip 1.020 1.016-1.022 Urine protein assay by test strip, semi-quantitative NEGATIVE NEGATIVE Urine glucose detection by automated test strip NEGATIVE NEGATIVE Erythrocytes detection in urine sediment by light microscopy 1+ NEGATIVE Urine ketones detection by automated test strip NEGATIVE NEGATIVE Urine nitrite detection by test strip NEGATIVE NEGATIVE Urine total bilirubin detection by test strip NEGATIVE NEGATIVE Urine urobilinogen measurement by automated test strip (mass/volume) NORMAL NORMAL Urine leukocyte esterase detection by dipstick NEGATIVE NEGATIVE Automated urine sediment erythrocyte count by microscopy (number/high power field) NONE NRG Automated urine sediment leukocyte count by microscopy (number/high power field ) NONE NRG Bacteria detection in urine sediment by light microscopy NEGATIVE NRG Squamous epithelial cells detection in urine sediment by light microscopy RARE NRG Crystals detection in urine sediment by light microscopy NONE NRG Casts detection in urine sediment by light microscopy NONE NRG Mucus detection in urine sediment by light microscopy SMALL NRG Complete urinalysis with reflex to culture NO NRG Complete blood count (CBC) with automated white blood cell (WBC) differential - 03/25/16 04:05 Blood leukocytes automated count (number/volume) 8.8 10*3/ uL 4.3-11.0 Blood erythrocytes automated count (number/volume) 4.29 10*6 /uL 4.35-5.85 Venous blood hemoglobin measurement (mass/volume) 13.2 g/dL 13.3-17.7 Blood hematocrit (volume fraction) 40 % 40-54 Automated erythrocyte mean corpuscular volume 93 [foz_us] 80-99 Automated erythrocyte mean corpuscular hemoglobin (mass per erythrocyte) 31 pg 25-34 Automated erythrocyte mean corpuscular hemoglobin concentration measurement ( mass/volume) 33 g/dL 32-36 Automated erythrocyte distribution width ratio 13.8 % 10.0-14.5 Automated blood platelet count (count/volume) 260 10*3/uL 130-400 Automated blood platelet mean volume measurement 10.6 [foz_ us] 7.4-10.4 Automated blood neutrophils/100 leukocytes 70 % 42-75 Automated blood lymphocytes/100 leukocytes 18 % 12-44 Blood monocytes/100 leukocytes 10 % 0-12 Automated blood eosinophils/100 leukocytes 2 % 0-10 Automated blood basophils/100 leukocytes 0 % 0-10 Blood neutrophils automated count (number/volume) 6.2 10*3 1.8-7.8 Blood lymphocytes automated count (number/volume) 1.6 10*3 1.0-4.0 Blood monocytes automated count (number/volume) 0.9 10*3 0.0-1.0 Automated eosinophil count 0.1 10*3/uL 0.0-0.3 Automated blood basophil count (count/volume) 0.0 10*3/uL 0.0-0.1 Whole blood basic metabolic panel - 03/25/16 04:05 Serum or plasma sodium measurement (moles/volume) 135 mmol/ L 135-145 Serum or plasma potassium measurement (moles/volume) 4.2 mmol/L 3.6-5.0 Serum or plasma chloride measurement (moles/volume) 105 mmol /L 98-107 Carbon dioxide 24 mmol/L 21-32 Serum or plasma anion gap determination (moles/volume) 6 mmol/L 5-14 Serum or plasma urea nitrogen measurement (mass/volume) 21 mg/dL 7-18 Serum or plasma creatinine measurement (mass/volume) 1.39 mg /dL 0.60-1.30 Serum or plasma urea nitrogen/creatinine mass ratio 15 NRG Serum or plasma creatinine measurement with calculation of estimated glomerular filtration rate 52 NRG Serum or plasma glucose measurement (mass/volume) 109 mg/dL 70-105 Serum or plasma calcium measurement (mass/volume) 8.5 mg/dL 8.5-10.1 Serum or plasma phosphate measurement (mass/volume) - 03/25/16 04:05 Serum or plasma phosphate measurement (mass/volume) 3.5 mg/ dL 2.3-4.7 Magnesium - 03/25/16 04:05 Magnesium 2.2 mg/dL 1.8-2.4 Complete blood count (CBC) with automated white blood cell (WBC) differential - 03/26/16 06:25 Blood leukocytes automated count (number/volume) 8.7 10*3/ uL 4.3-11.0 Blood erythrocytes automated count (number/volume) 4.54 10*6 /uL 4.35-5.85 Venous blood hemoglobin measurement (mass/volume) 13.6 g/dL 13.3-17.7 Blood hematocrit (volume fraction) 42 % 40-54 Automated erythrocyte mean corpuscular volume 93 [foz_us] 80-99 Automated erythrocyte mean corpuscular hemoglobin (mass per erythrocyte) 30 pg 25-34 Automated erythrocyte mean corpuscular hemoglobin concentration measurement ( mass/volume) 32 g/dL 32-36 Automated erythrocyte distribution width ratio 13.7 % 10.0-14.5 Automated blood platelet count (count/volume) 265 10*3/uL 130-400 Automated blood platelet mean volume measurement 10.6 [foz_ us] 7.4-10.4 Automated blood neutrophils/100 leukocytes 57 % 42-75 Automated blood lymphocytes/100 leukocytes 30 % 12-44 Blood monocytes/100 leukocytes 11 % 0-12 Automated blood eosinophils/100 leukocytes 2 % 0-10 Automated blood basophils/100 leukocytes 0 % 0-10 Blood neutrophils automated count (number/volume) 5.0 10*3 1.8-7.8 Blood lymphocytes automated count (number/volume) 2.6 10*3 1.0-4.0 Blood monocytes automated count (number/volume) 0.9 10*3 0.0-1.0 Automated eosinophil count 0.2 10*3/uL 0.0-0.3 Automated blood basophil count (count/volume) 0.0 10*3/uL 0.0-0.1 Whole blood basic metabolic panel - 03/26/16 06:25 Serum or plasma sodium measurement (moles/volume) 140 mmol/ L 135-145 Serum or plasma potassium measurement (moles/volume) 4.1 mmol/L 3.6-5.0 Serum or plasma chloride measurement (moles/volume) 106 mmol /L 98-107 Carbon dioxide 28 mmol/L 21-32 Serum or plasma anion gap determination (moles/volume) 6 mmol/L 5-14 Serum or plasma urea nitrogen measurement (mass/volume) 15 mg/dL 7-18 Serum or plasma creatinine measurement (mass/volume) 1.38 mg /dL 0.60-1.30 Serum or plasma urea nitrogen/creatinine mass ratio 11 NRG Serum or plasma creatinine measurement with calculation of estimated glomerular filtration rate 53 NRG Serum or plasma glucose measurement (mass/volume) 91 mg/dL 70-105 Serum or plasma calcium measurement (mass/volume) 8.9 mg/dL 8.5-10.1 Serum or plasma phosphate measurement (mass/volume) - 03/26/16 06:25 Serum or plasma phosphate measurement (mass/volume) 2.6 mg/ dL 2.3-4.7 Magnesium - 03/26/16 06:25 Magnesium 2.3 mg/dL 1.8-2.4 Methicillin resistant Staphylococcus aureus (MRSA) screening culture - 08:50 Methicillin resistant Staphylococcus aureus (MRSA) screening culture NEG NRG Complete blood count (CBC) with automated white blood cell (WBC) differential - 03/27/16 04:57 Blood leukocytes automated count (number/volume) 11.5 10*3/ uL 4.3-11.0 Blood erythrocytes automated count (number/volume) 4.05 10*6 /uL 4.35-5.85 Venous blood hemoglobin measurement (mass/volume) 12.5 g/dL 13.3-17.7 Blood hematocrit (volume fraction) 38 % 40-54 Automated erythrocyte mean corpuscular volume 94 [foz_us] 80-99 Automated erythrocyte mean corpuscular hemoglobin (mass per erythrocyte) 31 pg 25-34 Automated erythrocyte mean corpuscular hemoglobin concentration measurement ( mass/volume) 33 g/dL 32-36 Automated erythrocyte distribution width ratio 13.6 % 10.0-14.5 Automated blood platelet count (count/volume) 231 10*3/uL 130-400 Automated blood platelet mean volume measurement 10.4 [foz_ us] 7.4-10.4 Automated blood neutrophils/100 leukocytes 76 % 42-75 Automated blood lymphocytes/100 leukocytes 13 % 12-44 Blood monocytes/100 leukocytes 10 % 0-12 Automated blood eosinophils/100 leukocytes 1 % 0-10 Automated blood basophils/100 leukocytes 0 % 0-10 Blood neutrophils automated count (number/volume) 8.8 10*3 1.8-7.8 Blood lymphocytes automated count (number/volume) 1.5 10*3 1.0-4.0 Blood monocytes automated count (number/volume) 1.2 10*3 0.0-1.0 Automated eosinophil count 0.1 10*3/uL 0.0-0.3 Automated blood basophil count (count/volume) 0.0 10*3/uL 0.0-0.1 Whole blood basic metabolic panel - 03/27/16 04:57 Serum or plasma sodium measurement (moles/volume) 138 mmol/ L 135-145 Serum or plasma potassium measurement (moles/volume) 4.3 mmol/L 3.6-5.0 Serum or plasma chloride measurement (moles/volume) 106 mmol /L 98-107 Carbon dioxide 26 mmol/L 21-32 Serum or plasma anion gap determination (moles/volume) 6 mmol/L 5-14 Serum or plasma urea nitrogen measurement (mass/volume) 18 mg/dL 7-18 Serum or plasma creatinine measurement (mass/volume) 1.49 mg /dL 0.60-1.30 Serum or plasma urea nitrogen/creatinine mass ratio 12 NRG Serum or plasma creatinine measurement with calculation of estimated glomerular filtration rate 48 NRG Serum or plasma glucose measurement (mass/volume) 89 mg/dL 70-105 Serum or plasma calcium measurement (mass/volume) 8.5 mg/dL 8.5-10.1 Serum or plasma phosphate measurement (mass/volume) - 03/27/16 04:57 Serum or plasma phosphate measurement (mass/volume) 2.4 mg/ dL 2.3-4.7 Magnesium - 03/27/16 04:57 Magnesium 2.2 mg/dL 1.8-2.4 Serum or plasma lithium measurement (moles/volume) - 03/27/16 04:57 BNP level 323.1 pg/mL <100.0 Complete urinalysis with reflex to culture - 03/27/16 08:55 Urine color determination YELLOW NRG Urine clarity determination CLEAR NRG Urine pH measurement by test strip 5 5- 9 Specific gravity of urine by test strip 1.010 1.016-1.022 Urine protein assay by test strip, semi-quantitative 1+ NEGATIVE Urine glucose detection by automated test strip NEGATIVE NEGATIVE Erythrocytes detection in urine sediment by light microscopy 4+ NEGATIVE Urine ketones detection by automated test strip NEGATIVE NEGATIVE Urine nitrite detection by test strip NEGATIVE NEGATIVE Urine total bilirubin detection by test strip NEGATIVE NEGATIVE Urine urobilinogen measurement by automated test strip (mass/volume) NORMAL NORMAL Urine leukocyte esterase detection by dipstick 1+ NEGATIVE Automated urine sediment erythrocyte count by microscopy (number/high power field) [HPF] NRG Automated urine sediment leukocyte count by microscopy (number/high power field ) [HPF] NRG Bacteria detection in urine sediment by light microscopy NEGATIVE NRG Squamous epithelial cells detection in urine sediment by light microscopy NONE NRG Crystals detection in urine sediment by light microscopy NONE NRG Casts detection in urine sediment by light microscopy NONE NRG Mucus detection in urine sediment by light microscopy NEGATIVE NRG Complete urinalysis with reflex to culture NO NRG Complete blood count (CBC) with automated white blood cell (WBC) differential - 03/28/16 00:51 Blood leukocytes automated count (number/volume) 18.9 10*3/ uL 4.3-11.0 Blood erythrocytes automated count (number/volume) 4.33 10*6 /uL 4.35-5.85 Venous blood hemoglobin measurement (mass/volume) 13.4 g/dL 13.3-17.7 Blood hematocrit (volume fraction) 40 % 40-54 Automated erythrocyte mean corpuscular volume 91 [foz_us] 80-99 Automated erythrocyte mean corpuscular hemoglobin (mass per erythrocyte) 31 pg 25-34 Automated erythrocyte mean corpuscular hemoglobin concentration measurement ( mass/volume) 34 g/dL 32-36 Automated erythrocyte distribution width ratio 13.6 % 10.0-14.5 Automated blood platelet count (count/volume) 285 10*3/uL 130-400 Automated blood platelet mean volume measurement 10.5 [foz_ us] 7.4-10.4 Automated blood neutrophils/100 leukocytes 85 % 42-75 Automated blood lymphocytes/100 leukocytes 6 % 12-44 Blood monocytes/100 leukocytes 9 % 0-12 Automated blood eosinophils/100 leukocytes 0 % 0-10 Automated blood basophils/100 leukocytes 0 % 0-10 Blood neutrophils automated count (number/volume) 16.1 10*3 1.8-7.8 Blood lymphocytes automated count (number/volume) 1.1 10*3 1.0-4.0 Blood monocytes automated count (number/volume) 1.7 10*3 0.0-1.0 Automated eosinophil count 0.0 10*3/uL 0.0-0.3 Automated blood basophil count (count/volume) 0.0 10*3/uL 0.0-0.1 Comprehensive metabolic panel - 03/28/16 00:51 Serum or plasma sodium measurement (moles/volume) 134 mmol/ L 135-145 Serum or plasma potassium measurement (moles/volume) 4.2 mmol/L 3.6-5.0 Serum or plasma chloride measurement (moles/volume) 97 mmol/ L 98-107 Carbon dioxide 24 mmol/L 21-32 Serum or plasma anion gap determination (moles/volume) 13 mmol/L 5-14 Serum or plasma urea nitrogen measurement (mass/volume) 24 mg/dL 7-18 Serum or plasma creatinine measurement (mass/volume) 2.59 mg /dL 0.60-1.30 Serum or plasma urea nitrogen/creatinine mass ratio 9 NRG Serum or plasma creatinine measurement with calculation of estimated glomerular filtration rate 26 NRG Serum or plasma glucose measurement (mass/volume) 178 mg/dL 70-105 Serum or plasma calcium measurement (mass/volume) 9.4 mg/dL 8.5-10.1 Serum or plasma total bilirubin measurement (mass/volume) 1.2 mg/dL 0.1-1.0 Serum or plasma alkaline phosphatase measurement (enzymatic activity/volume) 75 U/L 40-136 Serum or plasma aspartate aminotransferase measurement (enzymatic activity/ volume) 22 U/L 5-34 Serum or plasma alanine aminotransferase measurement (enzymatic activity/volume ) 13 U/L 0-55 Serum or plasma protein measurement (mass/volume) 7.0 g/dL 6.4-8.2 Serum or plasma albumin measurement (mass/volume) 4.1 g/dL 3.2-4.5 Blood manual differential performed detection - 03/28/16 00:51 Blood monocytes/100 leukocytes 8 % NRG Manual blood segmented neutrophils/100 leukocytes 83 % NRG Blood band neutrophils/100 leukocytes 1 % NRG Manual blood lymphocytes/100 leukocytes 5 % NRG Manual eosinophils/100 leukocytes in nose 0 % NRG Manual blood basophils/100 leukocytes 0 % NRG Blood lymphocytes variant/100 leukocytes 3 % NRG Blood anisocytosis detection by light microscopy SLIGHT NRG Blood toxic granules detection by light microscopy 1+ NRG Occult blood panel - gastric fluid - 03/28/16 07:00 Gastric fluid gastrointestinal hemoglobin detection POSITIVE NEGATIVE Blood lactic acid measurement (moles/volume) - 03/28/16 07:37 Blood lactic acid measurement (moles/volume) 1.5 mmol/L 0.5-2.0 Bacterial blood culture - 03/28/16 07:37 Bacterial blood culture NG NRG Bacterial blood culture - 03/28/16 07:42 Bacterial blood culture NG NRG Bacterial blood culture - 03/28/16 07:45 Bacterial blood culture NG NRG Complete urinalysis with reflex to culture - 03/28/16 19:40 Urine color determination NATHALIE NRG Urine clarity determination VERY CLOUDY NRG Urine pH measurement by test strip 6.5 5 -9 Specific gravity of urine by test strip 1.015 1.016-1.022 Urine protein assay by test strip, semi-quantitative 3+ NEGATIVE Urine glucose detection by automated test strip NEGATIVE NEGATIVE Erythrocytes detection in urine sediment by light microscopy 5+ NEGATIVE Urine ketones detection by automated test strip 1+ NEGATIVE Urine nitrite detection by test strip POSITIVE NEGATIVE Urine total bilirubin detection by test strip 2+ NEGATIVE Urine urobilinogen measurement by automated test strip (mass/volume) 8 mg/dL NORMAL Urine leukocyte esterase detection by dipstick 2+ NEGATIVE Automated urine sediment erythrocyte count by microscopy (number/high power field) TNTC NRG Automated urine sediment leukocyte count by microscopy (number/high power field ) [HPF] NRG Bacteria detection in urine sediment by light microscopy TRACE NRG Crystals detection in urine sediment by light microscopy PRESENT NRG Casts detection in urine sediment by light microscopy NONE NRG Mucus detection in urine sediment by light microscopy NEGATIVE NRG Complete urinalysis with reflex to culture YES NRG Amorphous sediment detection in urine sediment by light microscopy MOD WANDA URATES NRG Bacterial urine culture - 03/28/16 19:40 Bacterial urine culture NG NRG Sputum Gram stain - 03/28/16 19:40 Bacterial sputum culture - 03/28/16 19:40 Bacterial sputum culture NORMAL NRG Complete blood count (CBC) with automated white blood cell (WBC) differential - 03/29/16 06:50 Blood leukocytes automated count (number/volume) 13.2 10*3/ uL 4.3-11.0 Blood erythrocytes automated count (number/volume) 3.50 10*6 /uL 4.35-5.85 Venous blood hemoglobin measurement (mass/volume) 10.8 g/dL 13.3-17.7 Blood hematocrit (volume fraction) 33 % 40-54 Automated erythrocyte mean corpuscular volume 95 [foz_us] 80-99 Automated erythrocyte mean corpuscular hemoglobin (mass per erythrocyte) 31 pg 25-34 Automated erythrocyte mean corpuscular hemoglobin concentration measurement ( mass/volume) 32 g/dL 32-36 Automated erythrocyte distribution width ratio 13.8 % 10.0-14.5 Automated blood platelet count (count/volume) 203 10*3/uL 130-400 Automated blood platelet mean volume measurement 11.1 [foz_ us] 7.4-10.4 Automated blood neutrophils/100 leukocytes 84 % 42-75 Automated blood lymphocytes/100 leukocytes 7 % 12-44 Blood monocytes/100 leukocytes 8 % 0-12 Automated blood eosinophils/100 leukocytes 1 % 0-10 Automated blood basophils/100 leukocytes 0 % 0-10 Blood neutrophils automated count (number/volume) 11.1 10*3 1.8-7.8 Blood lymphocytes automated count (number/volume) 0.9 10*3 1.0-4.0 Blood monocytes automated count (number/volume) 1.1 10*3 0.0-1.0 Automated eosinophil count 0.1 10*3/uL 0.0-0.3 Automated blood basophil count (count/volume) 0.0 10*3/uL 0.0-0.1 Whole blood basic metabolic panel - 03/29/16 06:50 Serum or plasma sodium measurement (moles/volume) 137 mmol/ L 135-145 Serum or plasma potassium measurement (moles/volume) 3.8 mmol/L 3.6-5.0 Serum or plasma chloride measurement (moles/volume) 101 mmol /L 98-107 Carbon dioxide 24 mmol/L 21-32 Serum or plasma anion gap determination (moles/volume) 12 mmol/L 5-14 Serum or plasma urea nitrogen measurement (mass/volume) 28 mg/dL 7-18 Serum or plasma creatinine measurement (mass/volume) 1.48 mg /dL 0.60-1.30 Serum or plasma urea nitrogen/creatinine mass ratio 19 NRG Serum or plasma creatinine measurement with calculation of estimated glomerular filtration rate 49 NRG Serum or plasma glucose measurement (mass/volume) 106 mg/dL 70-105 Serum or plasma calcium measurement (mass/volume) 8.0 mg/dL 8.5-10.1 Serum or plasma phosphate measurement (mass/volume) - 03/29/16 06:50 Serum or plasma phosphate measurement (mass/volume) 2.3 mg/ dL 2.3-4.7 Magnesium - 03/29/16 06:50 Magnesium 2.8 mg/dL 1.8-2.4 Vancomycin trough - 03/29/16 06:50 Vancomycin trough 7.4 ug/mL 10.0-20.0 Whole blood hemoglobin and hematocrit panel - 03/29/16 17:45 Venous blood hemoglobin measurement (mass/volume) 10.0 g/dL 13.3-17.7 Blood hematocrit (volume fraction) 31 % 40-54 Complete blood count (CBC) with automated white blood cell (WBC) differential - 03/30/16 03:26 Blood leukocytes automated count (number/volume) 10.3 10*3/ uL 4.3-11.0 Blood erythrocytes automated count (number/volume) 3.23 10*6 /uL 4.35-5.85 Venous blood hemoglobin measurement (mass/volume) 9.8 g/dL 13.3-17.7 Blood hematocrit (volume fraction) 31 % 40-54 Automated erythrocyte mean corpuscular volume 96 [foz_us] 80-99 Automated erythrocyte mean corpuscular hemoglobin (mass per erythrocyte) 30 pg 25-34 Automated erythrocyte mean corpuscular hemoglobin concentration measurement ( mass/volume) 32 g/dL 32-36 Automated erythrocyte distribution width ratio 13.8 % 10.0-14.5 Automated blood platelet count (count/volume) 225 10*3/uL 130-400 Automated blood platelet mean volume measurement 11.3 [foz_ us] 7.4-10.4 Automated blood neutrophils/100 leukocytes 80 % 42-75 Automated blood lymphocytes/100 leukocytes 11 % 12-44 Blood monocytes/100 leukocytes 8 % 0-12 Automated blood eosinophils/100 leukocytes 1 % 0-10 Automated blood basophils/100 leukocytes 0 % 0-10 Blood neutrophils automated count (number/volume) 8.2 10*3 1.8-7.8 Blood lymphocytes automated count (number/volume) 1.1 10*3 1.0-4.0 Blood monocytes automated count (number/volume) 0.8 10*3 0.0-1.0 Automated eosinophil count 0.1 10*3/uL 0.0-0.3 Automated blood basophil count (count/volume) 0.0 10*3/uL 0.0-0.1 Whole blood basic metabolic panel - 03/30/16 03:26 Serum or plasma sodium measurement (moles/volume) 140 mmol/ L 135-145 Serum or plasma potassium measurement (moles/volume) 4.1 mmol/L 3.6-5.0 Serum or plasma chloride measurement (moles/volume) 108 mmol /L 98-107 Carbon dioxide 24 mmol/L 21-32 Serum or plasma anion gap determination (moles/volume) 8 mmol/L 5-14 Serum or plasma urea nitrogen measurement (mass/volume) 22 mg/dL 7-18 Serum or plasma creatinine measurement (mass/volume) 1.18 mg /dL 0.60-1.30 Serum or plasma urea nitrogen/creatinine mass ratio 19 NRG Serum or plasma creatinine measurement with calculation of estimated glomerular filtration rate > NRG Serum or plasma glucose measurement (mass/volume) 97 mg/dL 70-105 Serum or plasma calcium measurement (mass/volume) 8.2 mg/dL 8.5-10.1 Serum or plasma phosphate measurement (mass/volume) - 03/30/16 03:26 Serum or plasma phosphate measurement (mass/volume) 1.5 mg/ dL 2.3-4.7 Magnesium - 03/30/16 03:26 Magnesium 2.5 mg/dL 1.8-2.4 Comprehensive metabolic panel - 03/30/16 03:26 Serum or plasma sodium measurement (moles/volume) 140 mmol/ L 135-145 Serum or plasma potassium measurement (moles/volume) 4.1 mmol/L 3.6-5.0 Serum or plasma chloride measurement (moles/volume) 108 mmol /L 98-107 Carbon dioxide 24 mmol/L 21-32 Serum or plasma anion gap determination (moles/volume) 8 mmol/L 5-14 Serum or plasma urea nitrogen measurement (mass/volume) 22 mg/dL 7-18 Serum or plasma creatinine measurement (mass/volume) 1.17 mg /dL 0.60-1.30 Serum or plasma urea nitrogen/creatinine mass ratio 19 NRG Serum or plasma creatinine measurement with calculation of estimated glomerular filtration rate > NRG Serum or plasma glucose measurement (mass/volume) 97 mg/dL 70-105 Serum or plasma calcium measurement (mass/volume) 8.0 mg/dL 8.5-10.1 Serum or plasma total bilirubin measurement (mass/volume) 0.7 mg/dL 0.1-1.0 Serum or plasma alkaline phosphatase measurement (enzymatic activity/volume) 57 U/L 40-136 Serum or plasma aspartate aminotransferase measurement (enzymatic activity/ volume) 16 U/L 5-34 Serum or plasma alanine aminotransferase measurement (enzymatic activity/volume ) 12 U/L 0-55 Serum or plasma protein measurement (mass/volume) 5.5 g/dL 6.4-8.2 Serum or plasma albumin measurement (mass/volume) 3.1 g/dL 3.2-4.5 Serum or plasma lithium measurement (moles/volume) - 03/30/16 03:26 BNP level 340.2 pg/mL <100.0 Complete blood count (CBC) with automated white blood cell (WBC) differential - 03/31/16 04:10 Blood leukocytes automated count (number/volume) 9.9 10*3/ uL 4.3-11.0 Blood erythrocytes automated count (number/volume) 3.15 10*6 /uL 4.35-5.85 Venous blood hemoglobin measurement (mass/volume) 9.5 g/dL 13.3-17.7 Blood hematocrit (volume fraction) 30 % 40-54 Automated erythrocyte mean corpuscular volume 96 [foz_us] 80-99 Automated erythrocyte mean corpuscular hemoglobin (mass per erythrocyte) 30 pg 25-34 Automated erythrocyte mean corpuscular hemoglobin concentration measurement ( mass/volume) 32 g/dL 32-36 Automated erythrocyte distribution width ratio 13.7 % 10.0-14.5 Automated blood platelet count (count/volume) 239 10*3/uL 130-400 Automated blood platelet mean volume measurement 10.7 [foz_ us] 7.4-10.4 Automated blood neutrophils/100 leukocytes 76 % 42-75 Automated blood lymphocytes/100 leukocytes 13 % 12-44 Blood monocytes/100 leukocytes 10 % 0-12 Automated blood eosinophils/100 leukocytes 1 % 0-10 Automated blood basophils/100 leukocytes 0 % 0-10 Blood neutrophils automated count (number/volume) 7.6 10*3 1.8-7.8 Blood lymphocytes automated count (number/volume) 1.3 10*3 1.0-4.0 Blood monocytes automated count (number/volume) 1.0 10*3 0.0-1.0 Automated eosinophil count 0.1 10*3/uL 0.0-0.3 Automated blood basophil count (count/volume) 0.0 10*3/uL 0.0-0.1 Whole blood basic metabolic panel - 03/31/16 04:10 Serum or plasma sodium measurement (moles/volume) 140 mmol/ L 135-145 Serum or plasma potassium measurement (moles/volume) 3.6 mmol/L 3.6-5.0 Serum or plasma chloride measurement (moles/volume) 111 mmol /L 98-107 Carbon dioxide 19 mmol/L 21-32 Serum or plasma anion gap determination (moles/volume) 10 mmol/L 5-14 Serum or plasma urea nitrogen measurement (mass/volume) 18 mg/dL 7-18 Serum or plasma creatinine measurement (mass/volume) 1.01 mg /dL 0.60-1.30 Serum or plasma urea nitrogen/creatinine mass ratio 18 NRG Serum or plasma creatinine measurement with calculation of estimated glomerular filtration rate > NRG Serum or plasma glucose measurement (mass/volume) 93 mg/dL 70-105 Serum or plasma calcium measurement (mass/volume) 7.9 mg/dL 8.5-10.1 Serum or plasma phosphate measurement (mass/volume) - 03/31/16 04:10 Serum or plasma phosphate measurement (mass/volume) 1.8 mg/ dL 2.3-4.7 Magnesium - 03/31/16 04:10 Magnesium 2.1 mg/dL 1.8-2.4 Vancomycin trough - 03/31/16 07:11 Vancomycin trough 8.7 ug/mL 10.0-20.0 Complete blood count (CBC) with automated white blood cell (WBC) differential - 04/01/16 03:55 Blood leukocytes automated count (number/volume) 9.8 10*3/ uL 4.3-11.0 Blood erythrocytes automated count (number/volume) 3.16 10*6 /uL 4.35-5.85 Venous blood hemoglobin measurement (mass/volume) 9.6 g/dL 13.3-17.7 Blood hematocrit (volume fraction) 30 % 40-54 Automated erythrocyte mean corpuscular volume 96 [foz_us] 80-99 Automated erythrocyte mean corpuscular hemoglobin (mass per erythrocyte) 30 pg 25-34 Automated erythrocyte mean corpuscular hemoglobin concentration measurement ( mass/volume) 32 g/dL 32-36 Automated erythrocyte distribution width ratio 13.7 % 10.0-14.5 Automated blood platelet count (count/volume) 233 10*3/uL 130-400 Automated blood platelet mean volume measurement 10.9 [foz_ us] 7.4-10.4 Automated blood neutrophils/100 leukocytes 79 % 42-75 Automated blood lymphocytes/100 leukocytes 10 % 12-44 Blood monocytes/100 leukocytes 9 % 0-12 Automated blood eosinophils/100 leukocytes 2 % 0-10 Automated blood basophils/100 leukocytes 0 % 0-10 Blood neutrophils automated count (number/volume) 7.7 10*3 1.8-7.8 Blood lymphocytes automated count (number/volume) 1.0 10*3 1.0-4.0 Blood monocytes automated count (number/volume) 0.9 10*3 0.0-1.0 Automated eosinophil count 0.2 10*3/uL 0.0-0.3 Automated blood basophil count (count/volume) 0.0 10*3/uL 0.0-0.1 Whole blood basic metabolic panel - 04/01/16 03:55 Serum or plasma sodium measurement (moles/volume) 142 mmol/ L 135-145 Serum or plasma potassium measurement (moles/volume) 3.5 mmol/L 3.6-5.0 Serum or plasma chloride measurement (moles/volume) 113 mmol /L 98-107 Carbon dioxide 17 mmol/L 21-32 Serum or plasma anion gap determination (moles/volume) 12 mmol/L 5-14 Serum or plasma urea nitrogen measurement (mass/volume) 15 mg/dL 7-18 Serum or plasma creatinine measurement (mass/volume) 0.92 mg /dL 0.60-1.30 Serum or plasma urea nitrogen/creatinine mass ratio 16 NRG Serum or plasma creatinine measurement with calculation of estimated glomerular filtration rate > NRG Serum or plasma glucose measurement (mass/volume) 79 mg/dL 70-105 Serum or plasma calcium measurement (mass/volume) 8.0 mg/dL 8.5-10.1 Serum or plasma phosphate measurement (mass/volume) - 04/01/16 03:55 Serum or plasma phosphate measurement (mass/volume) 2.1 mg/ dL 2.3-4.7 Magnesium - 04/01/16 03:55 Magnesium 2.0 mg/dL 1.8-2.4 Whole blood basic metabolic panel - 04/02/16 04:15 Serum or plasma sodium measurement (moles/volume) 145 mmol/ L 135-145 Serum or plasma potassium measurement (moles/volume) 3.4 mmol/L 3.6-5.0 Serum or plasma chloride measurement (moles/volume) 115 mmol /L 98-107 Carbon dioxide 17 mmol/L 21-32 Serum or plasma anion gap determination (moles/volume) 13 mmol/L 5-14 Serum or plasma urea nitrogen measurement (mass/volume) 14 mg/dL 7-18 Serum or plasma creatinine measurement (mass/volume) 0.94 mg /dL 0.60-1.30 Serum or plasma urea nitrogen/creatinine mass ratio 15 NRG Serum or plasma creatinine measurement with calculation of estimated glomerular filtration rate > NRG Serum or plasma glucose measurement (mass/volume) 95 mg/dL 70-105 Serum or plasma calcium measurement (mass/volume) 8.3 mg/dL 8.5-10.1 Serum or plasma phosphate measurement (mass/volume) - 04/02/16 04:15 Serum or plasma phosphate measurement (mass/volume) 2.8 mg/ dL 2.3-4.7 Magnesium - 04/02/16 04:15 Magnesium 1.9 mg/dL 1.8-2.4 Complete blood count (CBC) with automated white blood cell (WBC) differential - 04/02/16 04:15 Blood leukocytes automated count (number/volume) 10.5 10*3/ uL 4.3-11.0 Blood erythrocytes automated count (number/volume) 3.24 10*6 /uL 4.35-5.85 Venous blood hemoglobin measurement (mass/volume) 9.9 g/dL 13.3-17.7 Blood hematocrit (volume fraction) 31 % 40-54 Automated erythrocyte mean corpuscular volume 96 [foz_us] 80-99 Automated erythrocyte mean corpuscular hemoglobin (mass per erythrocyte) 31 pg 25-34 Automated erythrocyte mean corpuscular hemoglobin concentration measurement ( mass/volume) 32 g/dL 32-36 Automated erythrocyte distribution width ratio 13.9 % 10.0-14.5 Automated blood platelet count (count/volume) 309 10*3/uL 130-400 Automated blood platelet mean volume measurement 10.7 [foz_ us] 7.4-10.4 Automated blood neutrophils/100 leukocytes 80 % 42-75 Automated blood lymphocytes/100 leukocytes 9 % 12-44 Blood monocytes/100 leukocytes 10 % 0-12 Automated blood eosinophils/100 leukocytes 1 % 0-10 Automated blood basophils/100 leukocytes 0 % 0-10 Blood neutrophils automated count (number/volume) 8.5 10*3 1.8-7.8 Blood lymphocytes automated count (number/volume) 0.7 10*3 1.0-4.0 Blood monocytes automated count (number/volume) 1.0 10*3 0.0-1.0 Automated eosinophil count 0.2 10*3/uL 0.0-0.3 Automated blood basophil count (count/volume) 0.0 10*3/uL 0.0-0.1 Complete blood count (CBC) with automated white blood cell (WBC) differential - 04/03/16 05:25 Blood leukocytes automated count (number/volume) 8.7 10*3/ uL 4.3-11.0 Blood erythrocytes automated count (number/volume) 2.96 10*6 /uL 4.35-5.85 Venous blood hemoglobin measurement (mass/volume) 9.0 g/dL 13.3-17.7 Blood hematocrit (volume fraction) 29 % 40-54 Automated erythrocyte mean corpuscular volume 96 [foz_us] 80-99 Automated erythrocyte mean corpuscular hemoglobin (mass per erythrocyte) 30 pg 25-34 Automated erythrocyte mean corpuscular hemoglobin concentration measurement ( mass/volume) 32 g/dL 32-36 Automated erythrocyte distribution width ratio 13.8 % 10.0-14.5 Automated blood platelet count (count/volume) 340 10*3/uL 130-400 Automated blood platelet mean volume measurement 10.0 [foz_ us] 7.4-10.4 Automated blood neutrophils/100 leukocytes 75 % 42-75 Automated blood lymphocytes/100 leukocytes 12 % 12-44 Blood monocytes/100 leukocytes 10 % 0-12 Automated blood eosinophils/100 leukocytes 3 % 0-10 Automated blood basophils/100 leukocytes 0 % 0-10 Blood neutrophils automated count (number/volume) 6.5 10*3 1.8-7.8 Blood lymphocytes automated count (number/volume) 1.0 10*3 1.0-4.0 Blood monocytes automated count (number/volume) 0.8 10*3 0.0-1.0 Automated eosinophil count 0.3 10*3/uL 0.0-0.3 Automated blood basophil count (count/volume) 0.0 10*3/uL 0.0-0.1 Whole blood basic metabolic panel - 04/03/16 05:25 Serum or plasma sodium measurement (moles/volume) 143 mmol/ L 135-145 Serum or plasma potassium measurement (moles/volume) 3.1 mmol/L 3.6-5.0 Serum or plasma chloride measurement (moles/volume) 117 mmol /L 98-107 Carbon dioxide 18 mmol/L 21-32 Serum or plasma anion gap determination (moles/volume) 8 mmol/L 5-14 Serum or plasma urea nitrogen measurement (mass/volume) 13 mg/dL 7-18 Serum or plasma creatinine measurement (mass/volume) 0.91 mg /dL 0.60-1.30 Serum or plasma urea nitrogen/creatinine mass ratio 14 NRG Serum or plasma creatinine measurement with calculation of estimated glomerular filtration rate > NRG Serum or plasma glucose measurement (mass/volume) 104 mg/dL 70-105 Serum or plasma calcium measurement (mass/volume) 8.3 mg/dL 8.5-10.1 Whole blood basic metabolic panel - 04/04/16 06:10 Serum or plasma sodium measurement (moles/volume) 143 mmol/ L 135-145 Serum or plasma potassium measurement (moles/volume) 3.4 mmol/L 3.6-5.0 Serum or plasma chloride measurement (moles/volume) 120 mmol /L 98-107 Carbon dioxide 17 mmol/L 21-32 Serum or plasma anion gap determination (moles/volume) 6 mmol/L 5-14 Serum or plasma urea nitrogen measurement (mass/volume) 9 mg /dL 7-18 Serum or plasma creatinine measurement (mass/volume) 0.83 mg /dL 0.60-1.30 Serum or plasma urea nitrogen/creatinine mass ratio 11 NRG Serum or plasma creatinine measurement with calculation of estimated glomerular filtration rate > NRG Serum or plasma glucose measurement (mass/volume) 101 mg/dL 70-105 Serum or plasma calcium measurement (mass/volume) 7.8 mg/dL 8.5-10.1 Whole blood basic metabolic panel - 04/05/16 07:33 Serum or plasma sodium measurement (moles/volume) 143 mmol/ L 135-145 Serum or plasma potassium measurement (moles/volume) 3.4 mmol/L 3.6-5.0 Serum or plasma chloride measurement (moles/volume) 116 mmol /L 98-107 Carbon dioxide 18 mmol/L 21-32 Serum or plasma anion gap determination (moles/volume) 9 mmol/L 5-14 Serum or plasma urea nitrogen measurement (mass/volume) 9 mg /dL 7-18 Serum or plasma creatinine measurement (mass/volume) 0.86 mg /dL 0.60-1.30 Serum or plasma urea nitrogen/creatinine mass ratio 10 NRG Serum or plasma creatinine measurement with calculation of estimated glomerular filtration rate > NRG Serum or plasma glucose measurement (mass/volume) 96 mg/dL 70-105 Serum or plasma calcium measurement (mass/volume) 8.1 mg/dL 8.5-10.1 Complete blood count (CBC) with automated white blood cell (WBC) differential - 04/06/16 05:06 Blood leukocytes automated count (number/volume) 5.5 10*3/ uL 4.3-11.0 Blood erythrocytes automated count (number/volume) 2.85 10*6 /uL 4.35-5.85 Venous blood hemoglobin measurement (mass/volume) 8.6 g/dL 13.3-17.7 Blood hematocrit (volume fraction) 27 % 40-54 Automated erythrocyte mean corpuscular volume 95 [foz_us] 80-99 Automated erythrocyte mean corpuscular hemoglobin (mass per erythrocyte) 30 pg 25-34 Automated erythrocyte mean corpuscular hemoglobin concentration measurement ( mass/volume) 32 g/dL 32-36 Automated erythrocyte distribution width ratio 13.7 % 10.0-14.5 Automated blood platelet count (count/volume) 381 10*3/uL 130-400 Automated blood platelet mean volume measurement 10.1 [foz_ us] 7.4-10.4 Automated blood neutrophils/100 leukocytes 66 % 42-75 Automated blood lymphocytes/100 leukocytes 20 % 12-44 Blood monocytes/100 leukocytes 11 % 0-12 Automated blood eosinophils/100 leukocytes 3 % 0-10 Automated blood basophils/100 leukocytes 0 % 0-10 Blood neutrophils automated count (number/volume) 3.6 10*3 1.8-7.8 Blood lymphocytes automated count (number/volume) 1.1 10*3 1.0-4.0 Blood monocytes automated count (number/volume) 0.6 10*3 0.0-1.0 Automated eosinophil count 0.2 10*3/uL 0.0-0.3 Automated blood basophil count (count/volume) 0.0 10*3/uL 0.0-0.1 Comprehensive metabolic panel - 04/06/16 05:06 Serum or plasma sodium measurement (moles/volume) 143 mmol/ L 135-145 Serum or plasma potassium measurement (moles/volume) 3.7 mmol/L 3.6-5.0 Serum or plasma chloride measurement (moles/volume) 116 mmol /L 98-107 Carbon dioxide 18 mmol/L 21-32 Serum or plasma anion gap determination (moles/volume) 9 mmol/L 5-14 Serum or plasma urea nitrogen measurement (mass/volume) 9 mg /dL 7-18 Serum or plasma creatinine measurement (mass/volume) 0.88 mg /dL 0.60-1.30 Serum or plasma urea nitrogen/creatinine mass ratio 10 NRG Serum or plasma creatinine measurement with calculation of estimated glomerular filtration rate > NRG Serum or plasma glucose measurement (mass/volume) 95 mg/dL 70-105 Serum or plasma calcium measurement (mass/volume) 7.8 mg/dL 8.5-10.1 Serum or plasma total bilirubin measurement (mass/volume) 0.8 mg/dL 0.1-1.0 Serum or plasma alkaline phosphatase measurement (enzymatic activity/volume) 40 U/L 40-136 Serum or plasma aspartate aminotransferase measurement (enzymatic activity/ volume) 17 U/L 5-34 Serum or plasma alanine aminotransferase measurement (enzymatic activity/volume ) 17 U/L 0-55 Serum or plasma protein measurement (mass/volume) 4.5 g/dL 6.4-8.2 Serum or plasma albumin measurement (mass/volume) 2.5 g/dL 3.2-4.5 Encounters ACCT No. Visit Date/Time Discharge Status Pt. Type Provider Facility Loc./Unit Complaint [id number] 09/11/2016 08:17:00 2016 09:58:00 DIS Emergency JASPAL CORDERO MD [facility] ER L SHOULDER PAIN [id number] 03/24/2016 07:29:00 2016 17:15:00 DIS Inpatient AUDREY JOYA, Brigid WAGONER [facility] 4TH NEW ONSET INTERMITTENT A-FIB; ABDOMINAL PAIN; HTN [id number] 03/20/2016 09:23:00 2015 13:57:00 DIS Emergency GUY RYAN DO [facility] ER STOMACH PAIN, N/V, SOA [id number] 12/26/2015 17:33:00 2015 17:00:00 DIS Inpatient MOHAN KIMBALL MD [facility] 4TH UTI,ACUTE RENAL FAILURE [id number] 10/24/2015 14:18:00 2015 08:55:00 DIS Inpatient MOHAN KIMBALL MD [facility] 4TH ARF HEAT EXHAUSTION [id number] 09/26/2014 13:18:00 2014 23:59:59 CLS Outpatient JEF NULL MD [facility] RAD RENAL STONES [id number] 09/12/2014 08:21:00 2014 16:30:00 DIS [facility]RE[facility] [id number] 09/11/2014 14:54:00 2014 23:59:59 CLS Outpatient JEF NULL MD [facility] PREOP LEFT URETERAL STONE [id number] 09/20/2013 11:47:00 2013 11:41:00 DIS Inpatient MOHAN KIMBALL MD [facility] 4TH ACUTE RENAL FAILURE UTI [id number] 04/09/2013 19:19:00 2013 11:50:00 DIS Inpatient MOHAN KIMBALL MD [facility] CSD CHEST PAIN [id number] 09/20/2016 10:31:[address] PADILLA MD [facility] RAD SPRAIN OF LEFT ROTATOR CUFF CAPSULE
[2016-10-01] MEDS ORDERED: LACTATED RINGERS 1,000 ML IV PRN (08:43)
[2016-10-01] MEDS ORDERED: FAMOTIDINE 20MG/2ML IV (PEPCID) IV ONE (08:45)
[2016-10-01] MEDS ORDERED: ceFAZolin 1 GM/NS 50 ML IVPB IV ONE ×2 (08:45)
[2016-10-01] MEDS ORDERED: FAMOTIDINE 20MG/2ML IV (PEPCID) ONE (08:55)
[2016-10-01] MEDS: LACTATED RINGERS 1,000 ML IV PRN ×2 (08:57→10:26)
--- NOTE | 2016-10-01 09:06 | Progress Note-Pre Operative ---
Pre-Operative Progress Note H&P Reviewed The H&P was reviewed, patient examined and no changes noted. Date Seen by Provider: Oct 01, 2016 Time Seen by Provider: 09:06 Date H&P Reviewed: Oct 01, 2016 Time H&P Reviewed: 09:06 Pre-Operative Diagnosis: left shoulder SLAP tear COURT PADILLA MD Oct 01, 2016 09:06
--- NOTE | 2016-10-01 09:07 | Progress Note-Post Operative ---
Post-Operative Progess Note Surgeon (s)/Health And Wellness Coordinator (s) Surgeon COURT PADILLA MD Health And Wellness Coordinator: Roger Gee Pre-Operative Diagnosis left shoulder SLAP tear Post-Operative Diagnosis left shoulder SLAP tear, labral tear and chondromalacia of the glenoid Procedure & Operative Findings Date of Procedure 10/01/16 Procedure Performed/Findings left shoulder arthroscopic labral debridement, glenoid chondroplasty and biceps tenodesis After risks and benefits of the procedure were discussed and questions were answered, an informed consent was signed and placed on the chart and the patient was transported to the operating room After adequate levels of general endotracheal anesthesia were obtained a timeout was called confirming the operative site. An examination under anesthesia revealed forward elevation of 170 degrees, external rotation of 85 degrees and internal rotation of 70 degrees. The left upper extremity was then prepped and draped in the usual sterile fashion. The shoulder joint was injected with 20 cc of fluid and a standard posterior portal was placed. An anterior portal was created in the interval between the biceps, subscapularis and glenoid. A diagnostic was performed revealing a Type 2 SLAP tear, a tear in the posterior labrum at the 2 o'clock position and a grade 2 chondral flap in a 5X5 area in the central glenoid. No rotator cuff pathology was noted. The glenoid chondral flap was debrided back to a stable edge. The posterior labral flap tear was debrided back to a stable edge. The biceps anchor was released and the stump was debrided with a shaver. The joint was irrigated copiously and the portal sites were closed with 4.0 nylon. An incision was made just distal to the pectoralis major insertion on the upper medial arm. The soft tissues were carefully dissected exposing the long head of the biceps. This was pulled out of the wound and whip stitched for 3 cm from the musculotendinos junction proximally. The suture ends were then passed through the button. A unicortical hole was then drilled in the groove just distal to the pectoralis. The button was then passed into the canal and flipped. The tendon was well approximated to the cortex. This was then tied and oversewn to itself. Excess biceps tendon was resected. The wound was copiously irrigated and closed with 2.0 Vicryl in the subcutaneous layer and 4.0 Nylon on the skin. A soft dressing and sling were applied and the patient was transported to the recovery awake and in stable condition Anesthesia Type GETA Estimated Blood Loss Estimated blood loss (mL): minimal Specimens/Packing Specimens Removed none Packing: none COURT PADILLA MD Oct 01, 2016 09:07
[2016-10-01] MEDS ORDERED: fentaNYL INJECTION 100 MCG/2 ML AMP ONE ×2 (09:13→09:19)
[2016-10-01] MEDS ORDERED: fentaNYL INJECTION 100 MCG/2 ML AMP IV PRN (09:15)
[2016-10-01] MEDS ORDERED: oxyCODONE/APAP 5/325MG (PERCOCET 5) TABLET PO PRN (09:15)
[2016-10-01] MEDS ORDERED: proPOfol 200 MG/20 ML (DIPRIVAN) VIAL IV ONE (09:19)
[2016-10-01] MEDS ORDERED: DEXAMETHASONE PF 10 MG/ML (DECADRON) VIAL ONE (09:19)
[2016-10-01] MEDS ORDERED: ONDANSETRON 4 MG/2 ML (SDV) Z0FRAN ONE (09:19)
[2016-10-01] MEDS ORDERED: MIDAZOLAM 2 MG/2 ML (VERSED) VIAL ONE (09:19)
[2016-10-01] MEDS ORDERED: SEVOFLURANE (ULTANE) 15 ML INHAL SOLN ONE ×3 (09:19→10:59)
[2016-10-01] MEDS ORDERED: morphine PF (DURAMORPH) 10 MG/10 ML AMP ONE (09:24)
[2016-10-01] MEDS ORDERED: BUPIVACAINE 0.25% 30 ML (SENSORCAINE) VIAL ONE (09:25)
[2016-10-01] MEDS ORDERED: fentaNYL INJECTION 250 MCG/5 ML AMP ONE (10:08)
[2016-10-01] MEDS ORDERED: LACTATED RINGERS 2,000 ML IV ONE (10:22)
[2016-10-01] MEDS ORDERED: GLYCOPYRROLATE 0.2 MG/ML (ROBINUL) 2 ML VIAL ONE (10:44)
[2016-10-01] MEDS ORDERED: NEOSTIGMINE (BLOXIVERZ ) 1 MG/1ML 10 ML VIAL ONE (10:44)
[2016-10-01] MEDS ORDERED: ONDANSETRON 4 MG/2 ML (SDV) Z0FRAN IVP PRN (11:15)
[2016-10-01] MEDS: morphine INJ 10 MG/ML 1ML (SYR OR VIAL) IVP PRN ×2 (11:15→11:20)
[2016-10-01] MEDS: HYDROmorphone (DILAUDID) 2 MG/ML VIAL IVP PRN ×4 (11:40→12:10)
[2016-10-01 12:45] VITALS: BP 118/77
[2016-10-01 13:15] VITALS: BP 122/88
[2016-10-01] MEDS ORDERED: OXYC-471 PO (13:37)
[2016-10-01 14:00] VITALS: BP 117/86
[2016-10-01 15:00] VITALS: BP 117/86
== END 2016-10-01 15:00 | disposition home or self-care (01) ==
LOC: SDC 08:16
PROVIDERS: ATTEND Orthopaedic Surgery
DX: S43.432A Superior glenoid labrum lesion of left shoulder, initial encounter (principal); S46.012A Strain of muscle(s) and tendon(s) of the rotator cuff of left shoulder, initial encounter; M94.212 Chondromalacia, left shoulder; I10 Essential (primary) hypertension; E03.9 Hypothyroidism, unspecified; M19.90 Unspecified osteoarthritis, unspecified site; Z79.899 Other long term (current) drug therapy; X50.9XXA Other and unspecified overexertion or strenuous movements or postures, initial encounter; Y99.8 Other external cause status

== ENCOUNTER 2017-05-08 11:47 | Outpatient (RCR) | payer OTHER ==
[~2017-05-08 11:47] MED LIST changes: +OXYC-471 PO
== END 2017-08-06 | disposition home or self-care (01) ==
LOC: CARD 11:47
PROVIDERS: ATTEND Internal Medicine Interventional Cardiology
DX: I48.91 Unspecified atrial fibrillation (principal); R42 Dizziness and giddiness; I10 Essential (primary) hypertension; E34.0 Carcinoid syndrome; E66.9 Obesity, unspecified; I07.1 Rheumatic tricuspid insufficiency; R06.02 Shortness of breath
CPT/HCPCS: 93225; 93226

== ENCOUNTER → 2017-06-10 | Outpatient (CLI) | payer OTHER ==
[~2017-06-10] MED LIST changes: +IOHEXOL 350 MG/ML 100 ML (OMNIPAQUE 350) VIAL IV ONE; +NS 250 ML (IVPB) BAG IV ONE
[2017-06-10 11:54] LABS: HEMOGLOBIN 15.7 G/DL (13.3-17.7); MEAN PLATELET VOLUME 10.5 FL (7.4-10.4); RED BLOOD COUNT 5.08 10^6/uL (4.35-5.85); WHITE BLOOD COUNT 8.2 10^3/uL (4.3-11.0)
[2017-06-10 12:19] LABS: ALBUMIN 4.3 GM/DL (3.2-4.5); BILIRUBIN,TOTAL 0.4 MG/DL (0.1-1.0); CALCIUM 10.3 MG/DL (8.5-10.1); CREATININE SERUM 1.58 MG/DL (0.60-1.30); POTASSIUM 4.5 MMOL/L (3.6-5.0); TOTAL PROTEIN 7.1 GM/DL (6.4-8.2)
--- NOTE | 2017-06-10 13:24 | Diagnostic Imaging Report ---
PROCEDURE: CT abdomen and pelvis with contrast. TECHNIQUE: Multiple contiguous axial images were obtained through the abdomen and pelvis after administration of intravenous contrast. INDICATION: Right upper quadrant pain. Comparison is made with prior CT from 03/24/2016. Lung bases are clear. There is a bilobed low-density mass within the liver, stable when compared with prior exam and most consistent with a cyst. No new liver mass is identified. The gallbladder is unremarkable. The pancreas is unremarkable. Duodenal diverticulum near the junction of the second and third portion is similar to prior exam. The spleen is unremarkable. No adrenal mass is identified. The low density mass involving the left kidney measures 6.1 cm compared with 5.7 cm on prior study. The aorta is normal caliber. The small and large bowel loops are normal caliber. There appears to have been postsurgical changes to the midline anterior abdominal wall with hernia repair. There is some diastases of the rectus abdominis musculature with some bulging of the midline and abdominal wall, however, the majority of the previously seen defects have apparently been repaired. There is no ascites. There is mild sigmoid diverticulosis but no evidence of acute diverticulitis. The bladder is decompressed. Prostate gland is enlarged but appears stable. IMPRESSION: 1. Postsurgical changes of the ventral hernia repair. 2. Uncomplicated diverticulosis. 3. Mild increase in size of left renal cyst. 4. Stable liver cyst. 5. No acute feature in the abdomen or pelvis is identified. Dictated by: Dictated on workstation # [id number]
== END ==
LOC: RAD 11:37
PROVIDERS: ATTEND Nurse Practitioner Family
DX: K57.10 Diverticulosis of small intestine without perforation or abscess without bleeding (principal); N28.1 Cyst of kidney, acquired; K76.89 Other specified diseases of liver; Z98.890 Other specified postprocedural states
CPT/HCPCS: 36415; 74177; 80053; 85027

== ENCOUNTER 2017-09-26 09:30 | Inpatient (IN) | payer BC, OTHER ==
[~2017-09-26] VITALS: Ht 180.3 cm; Wt 107.0 kg
[2017-09-26] VITALS (8 sets, daily range): BP systolic 119–150; BP diastolic 81–110
[~2017-09-26 09:30] MED LIST changes: -IOHEXOL 350 MG/ML 100 ML (OMNIPAQUE 350) VIAL IV ONE; -NS 250 ML (IVPB) BAG IV ONE
[2017-09-26] MEDS ORDERED: NS (IVPB) 100 ML ONE (09:43)
[2017-09-26 09:45] LABS: BASOPHILS % (AUTO) 0 % (0-10); EOSINOPHILS # (AUTO) 0.1 10^3/uL (0.0-0.3); EOSINOPHILS % (AUTO) 1 % (0-10); HEMATOCRIT 46 % (40-54); HEMOGLOBIN 15.8 G/DL (13.3-17.7); LYMPHOCYTES # (AUTO) 1.3 X 10^3 (1.0-4.0); LYMPHOCYTES % (AUTO) 16 % (12-44); MEAN CORPUSCULAR HEMOGLOBIN 31 PG (25-34); MEAN CORPUSCULAR HGB CONC 34 G/DL (32-36); MEAN CORPUSCULAR VOLUME 89 FL (80-99); MEAN PLATELET VOLUME 10.9 FL (7.4-10.4); MONOCYTES # (AUTO) 0.5 X 10^3 (0.0-1.0); MONOCYTES % (AUTO) 6 % (0-12); NEUTROPHILS # (AUTO) 6.2 X 10^3 (1.8-7.8); NEUTROPHILS % (AUTO) 78 % (42-75); PLATELET COUNT 243 10^3/uL (130-400); RED BLOOD COUNT 5.16 10^6/uL (4.35-5.85); RED CELL DISTRIBUTION WIDTH 14.2 % (10.0-14.5)
[2017-09-26] MEDS ORDERED: DILTIAZEM 25 MG/5 ML INJ (CARDIZEM) VIAL IVP ONE (09:45)
[2017-09-26] MEDS ORDERED: ASPIRIN 81 MG CHEW (CHILDREN'S ASA) PO ONE (09:45)
[2017-09-26] MEDS: DILTIAZEM INJECTION 125 MG in D5W 100 ML IVPB 100 ML IV SCH ×3 (09:55→10:53)
[2017-09-26 09:57] LABS: INR 1.3 (0.8-1.4); PROTHROMBIN TIME PATIENT 16.4 SEC (12.2-14.7)
[2017-09-26 10:03] LABS: ALANINE AMINOTRANSFERASE 12 U/L (0-55); ALBUMIN 4.1 GM/DL (3.2-4.5); ALKALINE PHOSPHATASE 94 U/L (40-136); BILIRUBIN,TOTAL 0.8 MG/DL (0.1-1.0); BUN/CREATININE RATIO 12; CALCIUM 9.4 MG/DL (8.5-10.1); CARBON DIOXIDE 16 MMOL/L (21-32); CHLORIDE 114 MMOL/L (98-107); CREATININE SERUM 1.32 MG/DL (0.60-1.30); GFR ESTIMATED 55; GLUCOSE 171 MG/DL (70-105); MAGNESIUM 2.3 MG/DL (1.8-2.4); POTASSIUM 3.8 MMOL/L (3.6-5.0); SODIUM 143 MMOL/L (135-145); TOTAL PROTEIN 6.2 GM/DL (6.4-8.2)
--- NOTE | 2017-09-26 10:07 | Diagnostic Imaging Report ---
INDICATION: Chest pain, short of air for one day. FINDINGS: Upright portable chest shows normal heart size and vascularity. There is some airspace disease seen in the right lung base medially which is a change from the prior study from 04/02/2016. This may represent pneumonia. The left lung is clear. There is no effusion or pneumothorax. IMPRESSION: Probable right lower lobe pneumonia. Dictated by: Dictated on workstation # [id number]
[2017-09-26 10:24] LABS: MYOGLOBIN SERUM 39.6 NG/ML (10.0-92.0)
--- NOTE | 2017-09-26 11:11 | ED Cardiac General ---
History of Present Illness General Chief Complaint: Chest Pain Stated Complaint: CHEST PAIN/SOB Source: patient, old records Exam Limitations: no limitations History of Present Illness Date Seen by Provider: Sep 26, 2017 Time Seen by Provider: 09:30 Initial Comments This patient presents to the emergency room with dyspnea, chest discomfort, and rapid heart rate since last night. He also reports a cough for the past few days. He is afebrile. On the monitor he is noted to be in atrial fibrillation or flutter with a heart rate as high as the 150s. Patient does have a history of atrial fibrillation and is anticoagulated on Eliquis. He also takes long- acting Cardizem 120 mg daily. He has already taken his medications this morning. Dr. Prabhakar is his primary print line tailer. Dr. Bhatti is his primary care provider. Allergies and Home Medications Allergies Coded Allergies: lidocaine (Unverified Allergy, Mild, BREAKS OUT IN WELTS, 09/29/16) orange juice (Verified Allergy, Unknown, 09/29/16) Home Medications Apixaban 5 Mg Tablet, 5 MG PO BID, (Reported) Diltiazem HCl 120 Mg Cap.er.24h, 120 MG PO DAILY, (Reported) Lisinopril 20 Mg Tablet, 20 MG PO DAILY, (Reported) Patient Home Medication List Home Medication List Reviewed: Yes Review of Systems Constitutional: no symptoms reported EENTM: No Symptoms Reported Respiratory: See HPI Cardiovascular: See HPI Gastrointestinal: No Symptoms Reported Genitourinary: No Symptoms Reported Musculoskeletal: no symptoms reported Skin: no symptoms reported Psychiatric/Neurological: No Symptoms Reported Endocrine: No Symptoms Reported Hematologic/Lymphatic: No Symptoms Reported Past [id number]-[id number] Hx Past Med/Social Hx: Reviewed and Corrections made Patient Social History Alcohol Use: Occasionally Uses Number of Drinks Today: AA Alcohol Beverage of Choice: Beer Recreational Drug Use: No Smoking Status: Current Everyday Smoker Type Used: Smokeless Tobacco Former Smoker, Quit: August 24, 2015 Recent Hopitalizations: No Physical Abuse: No Sexual Abuse: No Mistreated: No Fear: No Immunizations Up To Date Tetanus Booster (TDap): Less than 5yrs PED Vaccines UTD: No Seasonal Allergies Seasonal Allergies: Yes (MILD) Past Medical History Surgeries: Yes (KIDNEY STONE-REMOVAL, HERNIA, BACK L4, R ROTATOR CUFF, ) Appendectomy Respiratory: No Currently Using CPAP: No Cardiac: Yes Atrial Fibrillation, Hypertension Neurological: Yes (POSS TIA) TIA Reproductive Disorders: No Sexually Transmitted Disease: No HIV/AIDS: No Genitourinary: Yes Benign Prostatic Hyperpl, Kidney Stones Gastrointestinal: Yes Abdominal Hernia, Gastroesophageal Reflux, Diverticulosis Musculoskeletal: Yes Degenerate Disk Disease, Arthritis, Back Injury, Chronic Back Pain Endocrine: No HEENT: No Loss of Vision: Bilateral Hearing Impairment: Denies Cancer: No Psychosocial: No Nursing Suicide Risk Score: 0 Integumentary: No Blood Disorders: No Adverse Reaction/Blood Tranf: No (N/A) Family Medical History Alzheimer's disease paternal grandmother Diabetes mellitus 19 MOTHER Gastroenteritis Hypertension G8 SISTER Neoplasm maternal grandmother (pancreatic cancer) Diabetes Physical Exam Vital Signs Vital Signs - First Documented 09/26/17 09:30 Temp 97.8 Pulse 154 Resp 20 B/P (MAP) 140/102 (115) Capillary Refill : Less Than 3 Seconds General Appearance: No Apparent Distress, WD/WN HEENT: PERRL/EOMI, Normal ENT Inspection Neck: Normal Inspection Respiratory: No Accessory Muscle Use, No Respiratory Distress, Crackles (left lung base), Decreased Breath Sounds (diminished in the right lung base) Cardiovascular: No Murmur, Irregularly Irregular, Tachycardia Gastrointestinal: Normal Bowel Sounds, Non Tender, Soft Extremity: Non Tender, Pedal Edema (mild) 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: Alert, Oriented x3, No Motor/Sensory Deficits, Normal Mood/Affect Skin: Normal Color, Warm/Dry Focused Exam Lactate Level 09/26/17 11:24: Lactic Acid Level 1.44 Lactic Acid Level Laboratory Tests Test 09/26/17 11:24 Lactic Acid Level 1.44 MMOL/L (0.50-2.00) Progress/Results/Core Measures Results/Orders Lab Results Laboratory Tests Test 09/26/17 09:39 09/26/17 11:24 Range/Units White Blood Count 8.0 4.3-11.0 10^3/uL Red Blood Count 5.16 4.35-5.85 10^6/uL Hemoglobin 15.8 13.3-17.7 G/DL Hematocrit 46 40-54 % Mean Corpuscular Volume 89 80-99 FL Mean Corpuscular Hemoglobin 31 25-34 PG Mean Corpuscular Hemoglobin Concent 34 32-36 G/DL Red Cell Distribution Width 14.2 10.0-14.5 % Platelet Count 243 130-400 10^3/uL Mean Platelet Volume 10.9 H 7.4-10.4 FL Neutrophils (%) (Auto) 78 H 42-75 % Lymphocytes (%) (Auto) 16 12-44 % Monocytes (%) (Auto) 6 0-12 % Eosinophils (%) (Auto) 1 0-10 % Basophils (%) (Auto) 0 0-10 % Neutrophils # (Auto) 6.2 1.8-7.8 X 10^3 Lymphocytes # (Auto) 1.3 1.0-4.0 X 10^3 Monocytes # (Auto) 0.5 0.0-1.0 X 10^3 Eosinophils # (Auto) 0.1 0.0-0.3 10^3/uL Basophils # (Auto) 0.0 0.0-0.1 10^3/uL Prothrombin Time 16.4 H 12.2-14.7 SEC INR Comment 1.3 0.8-1.4 Activated Partial Thromboplast Time 37 H 24-35 SEC Sodium Level 143 135-145 MMOL/L Potassium Level 3.8 3.6-5.0 MMOL/L Chloride Level 114 H 98-107 MMOL/L Carbon Dioxide Level 16 L 21-32 MMOL/L Anion Gap 13 5-14 MMOL/L Blood Urea Nitrogen 16 7-18 MG/DL Creatinine 1.32 H 0.60-1.30 MG/DL Estimat Glomerular Filtration Rate 55 BUN/Creatinine Ratio 12 Glucose Level 171 H 70-105 MG/DL Calcium Level 9.4 8.5-10.1 MG/DL Magnesium Level 2.3 1.8-2.4 MG/DL Total Bilirubin 0.8 0.1-1.0 MG/DL Aspartate Amino Transf (AST/SGOT) 10 5-34 U/L Alanine Aminotransferase (ALT/SGPT) 12 0-55 U/L Alkaline Phosphatase 94 40-136 U/L Myoglobin 39.6 10.0-92.0 NG/ML Troponin I < 0.30 <0.30 NG/ML Total Protein 6.2 L 6.4-8.2 GM/DL Albumin 4.1 3.2-4.5 GM/DL TSH [place] Testing 1.18 0.35-4.94 UIU/ML Lactic Acid Level 1.44 0.50-2.00 MMOL/L My Orders Orders - BRUEGGEMANN,ROGELIO T MD Cbc With Automated Diff (09/26/17 09:34) Magnesium (09/26/17 09:34) Chest 1 View, Ap/Pa Only (09/26/17 09:34) Ekg Tracing (09/26/17 09:34) Cardiac Profile 1 (09/26/17 09:34) Comprehensive Metabolic Panel (09/26/17 09:34) Myoglobin Serum (09/26/17 09:34) Protime With Inr (09/26/17 09:34) Partial Thromboplastin Time (09/26/17 09:34) O2 (09/26/17 09:34) Monitor-Rhythm Ecg Trace Only (09/26/17 09:34) Lipid Panel (09/27/17 06:00) Saline Lock/Iv-Start (09/26/17 09:34) Thyroid Analyzer (09/26/17 09:34) Diltiazem Injection (Cardizem Injection) (09/26/17 09:45) D5w 100 Ml Ivpb (De... W/Diltiazem Injec (09/26/17 09:45) Aspirin Chewable Tablet (Baby Aspirin Ch (09/26/17 09:45) Ns (Ivpb) (Sodium Chloride 0.9% Ivpb Bag (09/26/17 09:43) Blood Culture (09/26/17 11:00) Lactic Acid Analyzer (09/26/17 11:00) Ceftriaxone Injection (Rocephin Injectio (09/26/17 11:15) Diltiazem Cd 24 Hr Capsule (Cardizem Cd (09/26/17 11:30) Medications Given in ED Current Medications Medications Dose Ordered Sig/Elisha Route Start Time Stop Time Status Last Admin Dose Admin Ceftriaxone Sodium 1000 mg/ Sodium Chloride 50 ml @ 100 mls/hr ONCE ONCE IV 09/26/17 11:15 09/26/17 11:44 DC 09/26/17 12:04 100 MLS/HR Diltiazem HCl 240 mg ONCE ONCE PO 09/26/17 11:30 09/26/17 11:31 DC 09/26/17 11:37 240 MG Vital Signs/I&O 09/26/17 09/26/17 09/26/17 09:30 09:30 09:30 Temp 97.8 Pulse 154 Resp 20 B/P (MAP) 140/102 (115) Pulse Ox 97 97 O2 Delivery Nasal Cannula Nasal Cannula Nasal Cannula O2 Flow Rate 3.00 2.0 3.00 Progress Progress Note : Time: 11:37 Progress Note Patient was seen and examined promptly after arrival. He was found to have atrial flutter with rapid ventricular response. Cardizem drip was initiated. Labs were assessed. Heart rate did improve and ranged from the upper 80s to 110s on the Cardizem drip. Chest x-ray showed a possible infiltrate in the right lower lung. Patient did have symptoms of cough in recent days that would correlate. Patient was seen and assessed by Dr. Caldera in the ER. We discussed the case and she recommended a CT of the chest to evaluate the infiltrate further as he had a prior history of pulmonary nodule. Admission was recommended to monitor rhythm, hydrate, and further assess the chest. After discussion of plan, patient is hesitant to have the CT performed largely due to cost. This was communicated to Dr. Caldera who will discuss further before the CT is ordered. Case was reviewed with Dr. Duhram who suggested giving an additional Cardizem CD 240 mg orally and discontinuing the Cardizem drip. The oral dose has been ordered and the drip will be turned off 15-30 minutes after the oral dose has been taken. Dr. Caldera requested antibiotic therapy for possible right lower lobe pneumonia. Rocephin was ordered to be given in the ER after blood cultures were drawn. Initial ECG Impression Date: Sep 26, 2017 Initial ECG Impression Time: 09:34 Initial ECG Rate: 152 Initial ECG Rhythm: A Fib/Flutter Comment Atrial flutter with RVR. No acute ST elevation or depression. Diagnostic Imaging Diagonstic Imaging: Xray Plain Films/CT/US/NM/MRI: chest Comments Single view chest x-ray viewed by me and report reviewed. See report below: NAME: GUY [facility]ELENDEZ [facility] REC#: [id number] PT STATUS: REG ER : 1955 PHYSICIAN: ROGELIO SUN MD ADMIT DATE: 09/26/17/ER Signed Date of Exam: 09/26/17 CHEST 1 VIEW, AP/PA ONLY INDICATION: Chest pain, short of air for one day. FINDINGS: Upright portable chest shows normal heart size and vascularity. There is some airspace disease seen in the right lung base medially which is a change from the prior study from 04/02/2016. This may represent pneumonia. The left lung is clear. There is no effusion or pneumothorax. IMPRESSION: Probable right lower lobe pneumonia. Dictated by: Dictated on workstation # [id number] Dict: 09/26/17 1004 Trans: 09/26/17 1009 Interpreted by: MICHAEL PATEL MD Electronically signed by: MICHAEL PATEL MD 09/26/17 1009 Departure Communication (Admissions) Time/Spoke to Admitting Phy: 11:00 Dr. Caldera Time/Spoke to Consulting Phy: 11:25 Herminio Impression Primary Impression: Atrial flutter with rapid ventricular response Additional Impression: Pulmonary infiltrate in right lung on chest x-ray Disposition: ADMITTED INPATIENT Condition: Improved Admissions Decision to Admit Reason: Admit from ER (General) Decision to Admit/Date: Sep 26, 2017 Time/Decision to Admit Time: 11:00 Departure-Patient Inst. Referrals: KAI BHATTI MD (PCP/Family) Primary Care Physician ROGELIO SUN MD Sep 26, 2017 11:11
[2017-09-26] MEDS ORDERED: cefTRIAXone INJECTION 1,000 MG in NS (IVPB) 50 ML IV ONE (11:15)
[2017-09-26] MEDS ORDERED: DILTIAZEM 240 MG (CARDIZEM CD) CAP PO ONE (11:30)
[2017-09-26] MEDS ORDERED: AZITHROMYCIN 500 MG/NS 250 ML IVPB IV ONE ×2 (12:45)
[2017-09-26] MEDS ORDERED: DILT-27 PO (12:47)
--- NOTE | 2017-09-26 13:02 | Consultation-Cardiology ---
HPI-Cardiology Cardiology Consultation: Date of Consultation 09/26/17 Time Seen by Provider: 13:05 Date of Admission 09/26/17 Attending Physician Alyse Caldera MD Admitting Physician Susan Bhatti MD Consulting Physician GWENDOLYN BELL MD, MA, FACP, FACC, FSCAI, CCDS HPI: Chief Complaint: CC: Shortness of breath HPI: 61 yo man with 2-3 days of increasing shortness of breath, but no cp or palp or syncope or leg swelling. Has had cough productive of small quantities of whitish sputum for two days. Had a feeling of malaise and being cold yesterday Review of Systems-Cardiology Review of Systems Constitutional: malaise; No weight loss, No weight gain Eyes: No vision change Ears/Nose/Throat: No ear discharge, No nasal drainage, No recent hearing loss, No ulcerations Respiratory: As described under HPI Cardiovascular: As described under HPI Gastrointestinal: No constipation, No diarrhea, No nausea, No vomiting Genitourinary: No dysuria, No hematuria, No urine frequency changes Musculoskeletal: No back pain, No joint pain Skin: No rash, No ulcerations Psychiatric/Neurological: No focal weakness, No syncope Hematologic: No bleeding abnormalities ULK-[id number]-Mbeqly Hx Patient Social History Alcohol Use: Occasionally Uses Recreational Drug Use: No Smoking Status: Never a Smoker Type Used: Smokeless Tobacco Recent Foreign Travel: No Recent Infectious Disease Expo: No Physical Abuse Screen: No Sexual Abuse: No Immunizations Up To Date Tetanus Booster (TDap): Less than 5yrs Past Medical History PMH As described under Assessment. Family Medical History Family Medical History: No known family h/o CAD. Family History: Alzheimer's disease paternal grandmother Diabetes mellitus 19 MOTHER Gastroenteritis Hypertension G8 SISTER Neoplasm maternal grandmother (pancreatic cancer) Allergies and Home Medications Allergies Coded Allergies: lidocaine (Unverified Allergy, Mild, BREAKS OUT IN WELTS, 09/29/16) orange juice (Verified Allergy, Unknown, 09/29/16) Home Medications Apixaban 5 Mg Tablet, 5 MG PO BID, (Reported) Diltiazem HCl 120 Mg Cap.er.24h, 120 MG PO DAILY, (Reported) Lisinopril 20 Mg Tablet, 20 MG PO DAILY, (Reported) Oxycodone HCl/Acetaminophen 1 Each Tablet, 1-2 TAB PO Q4H Prescribed by: BEENA TERRAZAS on 10/01/16 1337 Patient Home Medication List Home Medication List Reviewed: Yes Physical Exam-Cardiology Physical Exam Vital Signs/I&O 09/26/17 09/26/17 09/26/17 09/26/17 09:30 09:30 09:30 12:13 Temp 97.8 98.2 Pulse 154 106 Resp 20 20 B/P (MAP) 140/102 (115) 129/97 (108) Pulse Ox 97 97 94 O2 Delivery Nasal Cannula Nasal Cannula Nasal Cannula Room Air O2 Flow Rate 3.00 2.0 3.00 09/26/17 12:28 Pulse 84 Capillary Refill : Less Than 3 Seconds Constitutional: AAO x 3, well-developed, well-nourished HEENT: EOMI, hearing is well preserved; No xanthelasmas are seen Neck: carotid pulses are 2 + bilaterally, with good upstrokes Respiratory: No accessory muscle use; lungs clear to percussion, other (good bilat air entry) Cardiovascular: regular rate-rhythm, S1 and S2, systolic murmur (faint JAEL at card base) Gastrointestinal: No tender; soft; No guarding, No rebound; audible bowel sounds Extremities: No clubbing, No cyanosis, No significant edema 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: grossly intact, power is 5/5 both on sides Skin: No rash on exposed areas, No ulcerations on exposed areas Data Review Labs Laboratory Tests 09/26/17 09:39: White Blood Count 8.0, Red Blood Count 5.16, Hemoglobin 15.8, Hematocrit 46, Mean Corpuscular Volume 89, Mean Corpuscular Hemoglobin 31, Mean Corpuscular Hemoglobin Concent 34, Red Cell Distribution Width 14.2, Platelet Count 243, Mean Platelet Volume 10.9H, Neutrophils (%) (Auto) 78H, Lymphocytes (%) (Auto) 16, Monocytes (%) (Auto) 6, Eosinophils (%) (Auto) 1, Basophils (%) (Auto) 0, Neutrophils # (Auto) 6.2, Lymphocytes # (Auto) 1.3, Monocytes # (Auto) 0.5, Eosinophils # (Auto) 0.1, Basophils # (Auto) 0.0, Prothrombin Time 16.4H, INR Comment 1.3, Activated Partial Thromboplast Time 37H, Sodium Level 143, Potassium Level 3.8, Chloride Level 114H, Carbon Dioxide Level 16L, Anion Gap 13 , Blood Urea Nitrogen 16, Creatinine 1.32H, Estimat Glomerular Filtration Rate 55, BUN/Creatinine Ratio 12, Glucose Level 171H, Calcium Level 9.4, Magnesium Level 2.3, Total Bilirubin 0.8, Aspartate Amino Transf (AST/SGOT) 10, Alanine Aminotransferase (ALT/SGPT) 12, Alkaline Phosphatase 94, Myoglobin 39.6, Troponin I < 0.30, Total Protein 6.2L, Albumin 4.1, TSH [place] Testing 1.18 09/26/17 11:24: Lactic Acid Level 1.44 Laboratory Tests 09/26/17 09:39 A/P-Cardiology Assessment/Admission Diagnosis Suspected RLL pneumonia PAF with RVR. PAF first diagnosed in 2015, followed and treated by Dr Aki Chacon renal insufficiency and metabolic acidosis, probably related to volume depletion Echo of 03/24/16: LVEF 60-65%, mild MR and TR, mild peres dysfunction of LV, PASP 35 mmHg MPI of 03/24/16: no ischemia or infarction, LVEF 77% Discussion and Recomendations * Increase long-acting dilt * Continue apixaban * Hydrate * Monitor labs * Med Svce managing pneumonia GWENDOLYN BELL MD FACP [facility] CCDS Sep 26, 2017 13:02
[2017-09-26] MEDS: NS IV 1000 ML 1,000 ML IV SCH ×3 (13:48→22:34)
[2017-09-26] MEDS ORDERED: BISACODYL 5 MG (DULCOLAX) TABLET PO PRN (14:45)
[2017-09-26] MEDS ORDERED: ACETAMINOPHEN 325 MG TABLET PO PRN (14:45)
[2017-09-26] MEDS ORDERED: DIGOXIN 0.25 MG/ML (LANOXIN) 2 ML AMP IV ONE (16:30)
--- NOTE | 2017-09-26 16:50 | History & Physical-Hospitalist ---
History of Present Illness HPI/Chief Complaint 61 yo wm with 2-3 day hx of increased SOA and heart racing. Pt has hx of PAF in past. denies fever chills or other symptoms other than fatigue. CXR shows RLL infiltrate-.HR up to 160- Source: patient, family Exam Limitations: no limitations Date Seen 09/26/17 Time Seen by Provider: 11:00 Attending Physician Alyse Miller MD PCP Susan Bhatti MD Referring Physician Date of Admission Sep 26, 2017 at 11:32 Home Medications & Allergies Home Medications Reviewed patient Home Medication Reconciliation performed by pharmacy medication reconciliations prior authorization technician and/or nursing. Patients Allergies have been reviewed. Allergies Allergies Coded Allergies lidocaine (Unverified Allergy, Mild, BREAKS OUT IN WELTS, 09/29/16) orange juice (Verified Allergy, Unknown, 09/29/16) Past Yjprlbf-[id number]-Xsrtbj Hx Past Med/Social Hx: Reviewed Nursing Past Med/Soc Hx Patient Social History Marrital Status: Employed/Student: retired Alcohol Use: Occasionally Uses Number of Drinks Today: 0 Alcohol Beverage of Choice: Beer Recreational Drug Use: No Smoking Status: Never a Smoker Former Smoker, Quit: August 24, 2015 Type Used: Smokeless Tobacco Physical Abuse Screen: No Sexual Abuse: No Recent Foreign Travel: No Contact w/other who traveled: No Recent Hopitalizations: No Recent Infectious Disease Expo: No Immunizations Up To Date Tetanus Booster (TDap): Less than 5yrs Pediatric: No Seasonal Allergies Seasonal Allergies: Yes (MILD) Past Medical History Surgeries: Abdominal (hernia), Appendectomy, Orthopedic (back) Currently Using CPAP: No Cardiac: Atrial Fibrillation, Hypertension Neurological: TIA Reproductive: No Sexually Transmitted Disease: No HIV/AIDS: No Genitourinary: Benign Prostatic Hyperpl, Kidney Stones Gastrointestinal: Abdominal Hernia, Gastroesophageal Reflux, Diverticulosis Musculoskeletal: Degenerate Disk Disease, Arthritis, Back Injury, Chronic Back Pain Loss of Vision: Bilateral Hearing Impairment: Denies History of Blood Disorders: No Adverse Reaction to Blood [place]: No (N/A) Family History Alzheimer's disease paternal grandmother Diabetes mellitus 19 MOTHER Gastroenteritis Hypertension G8 SISTER Neoplasm maternal grandmother (pancreatic cancer) Diabetes Review of Systems Constitutional: malaise EENTM: no symptoms reported Respiratory: short of breath Cardiovascular: palpitations Genitourinary: no symptoms reported Musculoskeletal: no symptoms reported Skin: no symptoms reported Physical Exam Physical Exam Vital Signs Vital Signs - First Documented 09/26/17 09:30 Temp 97.8 Pulse 154 Resp 20 B/P (MAP) 140/102 (115) Capillary Refill : Less Than 3 Seconds General Appearance: No Apparent Distress, WD/WN Eyes: Bilateral Eye Normal Inspection HEENT: Normal ENT Inspection Neck: Normal Inspection, Non Tender, Supple Respiratory: Lungs Clear, Crackles Cardiovascular: Irregularly Irregular, Tachycardia Gastrointestinal: Normal Bowel Sounds, No Organomegaly, No Pulsatile Mass, Non Tender, Soft Rectal: Deferred Back: Normal Inspection Skin: Normal Color, Warm/Dry Results Results/Procedures Labs Laboratory Tests 09/26/17 09:39 09/27/17 03:20 Patient resulted labs reviewed. Imaging: Reviewed Imaging Films, Reviewed Imaging Report Assessment/Plan Admission Diagnosis 1. A. fib with RVR 2. Right lower lobe pneumonia with a history of a slightly abnormal CT chest from 2016 3. Shortness of breath secondary to number 1 and number 2 4. History of tobaccoism remote 5. metabolic acidosis, hyperchloremic- uncertain etiology Admission Status: Observation Clinical Quality Measures DVT/VTE Risk/Contraindication: Risk Factor Score Per Nursin RFS Level Per Nursing on Admit: 3=High ALYSE MILLER MD Sep 26, 2017 16:50
[2017-09-26] MEDS ORDERED: oxyCODONE/APAP 7.5-325 MG (PERCOCET 7.5) TABLET ONE (20:16)
[2017-09-26] MEDS: DILTIAZEM 120 MG (CARDIZEM CD) CAP PO SCH (20:18)
[2017-09-26] MEDS: APIXABAN 5 MG (ELIQUIS) TABLET PO SCH (20:18)
[2017-09-26] MEDS: oxyCODONE/APAP 7.5-325 MG (PERCOCET 7.5) TABLET PO PRN (20:19)
[2017-09-27 04:00] VITALS: BP 132/96
[2017-09-27 04:04] LABS: BASOPHILS % (AUTO) 0 % (0-10); EOSINOPHILS # (AUTO) 0.1 10^3/uL (0.0-0.3); EOSINOPHILS % (AUTO) 1 % (0-10); HEMATOCRIT 41 % (40-54); LYMPHOCYTES # (AUTO) 1.9 X 10^3 (1.0-4.0); LYMPHOCYTES % (AUTO) 22 % (12-44); MEAN CORPUSCULAR HEMOGLOBIN 31 PG (25-34); MEAN CORPUSCULAR HGB CONC 35 G/DL (32-36); MEAN CORPUSCULAR VOLUME 91 FL (80-99); MEAN PLATELET VOLUME 11.4 FL (7.4-10.4); MONOCYTES # (AUTO) 0.9 X 10^3 (0.0-1.0); MONOCYTES % (AUTO) 10 % (0-12); NEUTROPHILS # (AUTO) 5.8 X 10^3 (1.8-7.8); NEUTROPHILS % (AUTO) 67 % (42-75); PLATELET COUNT 207 10^3/uL (130-400); RED BLOOD COUNT 4.47 10^6/uL (4.35-5.85); WHITE BLOOD COUNT 8.8 10^3/uL (4.3-11.0)
[2017-09-27 04:22] LABS: BUN/CREATININE RATIO 14; CALCIUM 8.6 MG/DL (8.5-10.1); CARBON DIOXIDE 14 MMOL/L (21-32); CHLORIDE 115 MMOL/L (98-107); CREATININE SERUM 1.02 MG/DL (0.60-1.30); GFR ESTIMATED > 60; GLUCOSE 89 MG/DL (70-105); POTASSIUM 4.3 MMOL/L (3.6-5.0); SODIUM 140 MMOL/L (135-145)
[2017-09-27 04:26] LABS: CHOLESTEROL 134 MG/DL (< 200); HDL CHOLESTEROL 26 MG/DL (40-60); TRIGLYCERIDES 73 MG/DL (<150); VLDL CHOLESTEROL 15 MG/DL (5-40)
[2017-09-27] MEDS: NS IV 1000 ML 1,000 ML IV SCH (05:16)
[2017-09-27 08:00] VITALS: BP 158/87
[2017-09-27] MEDS: APIXABAN 5 MG (ELIQUIS) TABLET PO SCH (08:30)
[2017-09-27] MEDS ORDERED: AZITHROMYCIN 250 MG TAB (ZITHROMAX) PO SCH (09:00)
[2017-09-27] MEDS ORDERED: DILTIAZEM 240 MG (CARDIZEM CD) CAP PO SCH (09:00)
[2017-09-27] MEDS ORDERED: lisINopril 20 MG (PRINIVIL) TABLET PO SCH (09:00)
[2017-09-27] MEDS ORDERED: cefTRIAXone 1 GM/NS 50 ML IVPB IV SCH ×2 (09:00)
[2017-09-27] MEDS ORDERED: ONDANSETRON 4 MG/2 ML (SDV) Z0FRAN ONE (09:44)
[2017-09-27] MEDS ORDERED: IOHEXOL 350 MG/ML 150 ML (OMNIPAQUE 350) VIAL IV ONE (09:45)
[2017-09-27] MEDS ORDERED: NS 100 ML (IVPB) BAG IV ONE (09:45)
[2017-09-27] MEDS ORDERED: ONDANSETRON 4 MG/2 ML (SDV) Z0FRAN IVP ONE (10:00)
[2017-09-27] MEDS ORDERED: POLYETHYLENE GLYCOL 17 GM (MIRALAX) PACK PO NR (10:44)
[2017-09-27] MEDS: oxyCODONE/APAP 7.5-325 MG (PERCOCET 7.5) TABLET PO PRN (10:46)
[2017-09-27] MEDS: DILTIAZEM 120 MG (CARDIZEM CD) CAP PO SCH (12:29)
--- NOTE | 2017-09-27 12:33 | Diagnostic Imaging Report ---
PROCEDURE: CT chest, abdomen, and pelvis with contrast. TECHNIQUE: Multiple contiguous axial images were obtained through the chest, abdomen, and pelvis after the administration of intravenous contrast. INDICATION: Pneumonia, pulmonary nodules. COMPARISON: CT 03/24/2016 FINDINGS: CT chest: There is mild cardiac enlargement with trace pericardial effusion. There is no lymphadenopathy. Central airways are normal. Course and caliber of the aorta unremarkable. No obvious pulmonary embolism is identified. Patchy bilateral infiltrates seen throughout both lungs. Bilateral pleural effusions are present right greater than left. Tiny subcentimeter nodules are again seen and are stable. Osseous structures are age-appropriate. IMPRESSION: 1. New bilateral pulmonary infiltrates with bilateral pleural effusions likely pneumonia. 2. Trace pericardial effusion. 3. Stable subcentimeter pulmonary nodules. CT abdomen and pelvis: There is a stable benign liver cyst. Otherwise, the liver, gallbladder, spleen, pancreas and adrenal glands are stable. There is a benign left renal cyst. There is a stable benign duodenal diverticulum. Vascular structures are normal. There is diastasis rectus of the anterior abdominal wall. There is no overt hernia. The course and caliber of the large and small bowel unremarkable. There are few diverticula of the sigmoid colon without diverticulitis. Distal ureters and urinary bladder are normal. There is some some mild prostate enlargement. Osseous structures are age-appropriate. There is a chronic avulsion injury of the left ischium. Postoperative changes seen involving the lumbar spine. IMPRESSION: 1. No acute abnormalities within the abdomen or pelvis 2. Benign left renal cysts, benign left hepatic cyst. 3. Duodenal diverticulum. 4. Prostate enlargement without hydronephrosis. 5. 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 Dictated by: Dictated on workstation # [id number]
[2017-09-27] MEDS ORDERED: AZIT250T12 PO (12:41)
[2017-09-27] MEDS ORDERED: DILT120C63 PO (12:41)
[2017-09-27] MEDS ORDERED: POLY17PO6 PO (12:41)
--- NOTE | 2017-09-27 12:49 | Discharge Summary-Hospitalist ---
Diagnosis/Chief Complaint Date of Admission Sep 26, 2017 at 11:32 am Date of Discharge September 27, 2017 Discharge Date: Sep 27, 2017 Discharge Time: 13:00 Admission Diagnosis 1. A. fib with RVR 2. Right lower lobe pneumonia with a history of a slightly abnormal CT chest from 2016 3. Shortness of breath secondary to number 1 and number 2 4. History of tobaccoism remote Discharge Diagnosis Community-acquired pneumonia A fib with RVR Abdominal discomfort and bloating possibly secondary to dysfunctional gallbladder Small bilateral pleural effusions possibly secondary to A. fib with RVR Discharge Summary Procedures/Consulations CT chest/ abdomen/ pelvis Dr. Flowers Discharge Physical Exam Allergies: Coded Allergies: lidocaine (Unverified Allergy, Mild, BREAKS OUT IN WELTS, 09/29/16) orange juice (Verified Allergy, Unknown, 09/29/16) Vitals & I&Os Vital Signs Date Time Temp Pulse Resp B/P (MAP) Pulse Ox O2 Delivery O2 Flow Rate FiO2 09/27/17 08:30 92 Room Air 09/27/17 08:00 98.4 85 15 158/87 (110) 09/26/17 09:30 3.00 General Appearance: Alert, Oriented X3, Cooperative HEENT: Atraumatic Respiratory: Clear to Auscultation Cardiovascular: Gallops, Other (Irregular) Abdominal: Soft, Other (Slightly distended) Extremities: No Edema Skin: No Rashes Neuro: Normal Gait, Normal Speech, Strength at 5/5 X4 Ext Psych/Mental Status: Mental Status NL Hospital Course Patient was admitted with atrial fibrillation with rapid ventricular response. He was given additional doses of diltiazem with christian of his A. fib to a rate in the 70s and 80s. In addition it was noted that he had a right lower lobe infiltrate and CT chest confirmed bilateral lower lobe infiltrates consistent with community-acquired pneumonia. The patient has been afebrile and is anxious to go home. O2 sats of been in the 90s. He is ambulating without any discomfort. He did continue plain of dyspepsia abdominal bloating and so a CT abdomen pelvis was also obtained which also showed possible gallbladder sludging but no other abnormalities. Final report is pending at the time of this dictation. The patient is instructed to follow-up with Dr. Bhatti and is being discharged on Zithromax 250 mg a day. In addition he is to be taking an additional 120 mg of diltiazem daily. Labs (last 24 hrs) Laboratory Tests 09/27/17 03:20: White Blood Count 8.8, Red Blood Count 4.47, Hemoglobin 14.0, Hematocrit 41, Mean Corpuscular Volume 91, Mean Corpuscular Hemoglobin 31, Mean Corpuscular Hemoglobin Concent 35, Red Cell Distribution Width 14.0, Platelet Count 207, Mean Platelet Volume 11.4H, Neutrophils (%) (Auto) 67, Lymphocytes (%) (Auto) 22 , Monocytes (%) (Auto) 10, Eosinophils (%) (Auto) 1, Basophils (%) (Auto) 0, Neutrophils # (Auto) 5.8, Lymphocytes # (Auto) 1.9, Monocytes # (Auto) 0.9, Eosinophils # (Auto) 0.1, Basophils # (Auto) 0.0, Sodium Level 140, Potassium Level 4.3, Chloride Level 115H, Carbon Dioxide Level 14L, Anion Gap 11, Blood Urea Nitrogen 14, Creatinine 1.02, Estimat Glomerular Filtration Rate > 60, BUN/ Creatinine Ratio 14, Glucose Level 89, Calcium Level 8.6, Triglycerides Level 73 , Cholesterol Level 134, LDL Cholesterol Direct 98, VLDL Cholesterol 15, HDL Cholesterol 26L Patient resulted labs reviewed. Imaging: Reviewed Imaging Films, Reviewed Imaging Report Discussion & Recommendations Discharge Planning: >30 minutes discharge planning Discharge Home Medications: Active Scripts Active Diltiazem 24Hr Cd (Diltiazem HCl) 120 Mg Cap.er.24h 120 Mg PO DAILY 30 Days Miralax (Polyethylene Glycol 3350) 17 Gm Powd.pack 17 Gm PO DAILY 30 Days Azithromycin 250 Mg Tablet 250 Mg PO DAILY 4 Days Reported Diltiazem 24Hr ER (Diltiazem HCl) 120 Mg Cap.er.24h 120 Mg PO DAILY Eliquis (Apixaban) 5 Mg Tablet 5 Mg PO BID Lisinopril 20 Mg Tablet 20 Mg PO DAILY Condition at discharge Stable Instructions to patient/family Please see electronic discharge instructions given to patient. CT chest abdomen pelvis results were discussed with the patient and his before discharge Clinical Quality Measures Admission Status Admission Status: Observation AMI/AHF: Initial ECG Impression: Atrial Fibrillation w/RVR DVT/VTE Risk/Contraindication: Risk Factor Score Per Nursin RFS Level Per Nursing on Admit: 3=High Contraindications-Mechi: Other *list below* Other: Patient on blood thinner Pneumonia: Pseudomonal Risk: No known risk Copy Copies To 1: KAI BHATTI MD Copies To 2: Brigid VENTURA MD, KATHLEEN M MD Sep 27, 2017 12:49 pm
[2017-09-27] MEDS ORDERED: DILT240C86 PO (12:56)
--- NOTE | 2017-09-27 13:14 | Progress Note-Cardiology ---
Cardiology SOAP Progress Note Subjective: Feels a lot better. Wishes to go home. Does not wish to be in the hosp any longer Denies cp or palp or syncope or shortness of breath Objective: I&O/Vital Signs 09/27/17 09/27/17 09/27/17 09/27/17 04:00 04:00 07:00 08:00 Temp 97.3 98.4 Pulse 85 107 85 Resp 16 15 B/P (MAP) 132/96 (108) 158/87 (110) Pulse Ox 94 94 92 O2 Delivery Room Air Room Air Room Air 09/27/17 08:30 Pulse Ox 92 O2 Delivery Room Air 09/27/17 00:00 Intake Total 1520 ml Output Total 550 ml Balance 970 ml Weight (Pounds): 236 Weight (Ounces): 0.0 Weight (Calculated Kilograms): 107.665865 Constitutional: AAO x 3, well-developed, well-nourished Respiratory: No accessory muscle use; lungs clear to percussion, other (good bilat air entry) Cardiovascular: regular rate-rhythm, S1 and S2, systolic murmur (faint JAEL at card base) Gastrointestional: No tender; soft; No guarding, No rebound; audible bowel sounds Extremities: No clubbing, No cyanosis, No significant edema 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: grossly intact, power is 5/5 both on sides Skin: No rash on exposed areas, No ulcerations on exposed areas Results/Procedures: Labs Laboratory Tests 09/27/17 03:20: White Blood Count 8.8, Red Blood Count 4.47, Hemoglobin 14.0, Hematocrit 41, Mean Corpuscular Volume 91, Mean Corpuscular Hemoglobin 31, Mean Corpuscular Hemoglobin Concent 35, Red Cell Distribution Width 14.0, Platelet Count 207, Mean Platelet Volume 11.4H, Neutrophils (%) (Auto) 67, Lymphocytes (%) (Auto) 22 , Monocytes (%) (Auto) 10, Eosinophils (%) (Auto) 1, Basophils (%) (Auto) 0, Neutrophils # (Auto) 5.8, Lymphocytes # (Auto) 1.9, Monocytes # (Auto) 0.9, Eosinophils # (Auto) 0.1, Basophils # (Auto) 0.0, Sodium Level 140, Potassium Level 4.3, Chloride Level 115H, Carbon Dioxide Level 14L, Anion Gap 11, Blood Urea Nitrogen 14, Creatinine 1.02, Estimat Glomerular Filtration Rate > 60, BUN/ Creatinine Ratio 14, Glucose Level 89, Calcium Level 8.6, Triglycerides Level 73 , Cholesterol Level 134, LDL Cholesterol Direct 98, VLDL Cholesterol 15, HDL Cholesterol 26L A/P: Assessment: Suspected RLL pneumonia, managed by Dr Aki ARROYO with RVR. PAF first diagnosed in 2015, followed and treated by Dr Prabhakar. Long-acting diltiazem increased to 360 mg po daily during this admission Ac renal insufficiency and metabolic acidosis, probably related to volume depletion Echo of 03/24/16: LVEF 60-65%, mild MR and TR, mild peres dysfunction of LV, PASP 35 mmHg MPI of 03/24/16: no ischemia or infarction, LVEF 77% Plan: * Ok to d/c from card standpoint * Advised to f/u with Dr Prabhakar KRYSTAL * Diltiazem increased * Apixaban continued * Med Svce managing pneumonia Clinical Quality Measures Pneumonia: Pseudomonal Risk: No known risk GWENDOLYN BELL MD FACP FAC CCDS Sep 27, 2017 13:14
== END 2017-09-27 13:12 | disposition home or self-care (01) | DRG 308 ==
LOC: EDUNIT# 09:30 → ER 09:31 → ICU 11:32
PROVIDERS: ADMIT Internal Medicine; ATTEND Internal Medicine
DX: I48.0 Paroxysmal atrial fibrillation (principal); J18.9 Pneumonia, unspecified organism; J90 Pleural effusion, not elsewhere classified; K82.8 Other specified diseases of gallbladder; I10 Essential (primary) hypertension; E87.2 Acidosis; E87.8 Other disorders of electrolyte and fluid balance, not elsewhere classified; N40.0 Benign prostatic hyperplasia without lower urinary tract symptoms; K21.9 Gastro-esophageal reflux disease without esophagitis; N28.9 Disorder of kidney and ureter, unspecified; Z86.73 Personal history of transient ischemic attack (TIA), and cerebral infarction without residual deficits; Z87.442 Personal history of urinary calculi; Z87.891 Personal history of nicotine dependence
CPT/HCPCS: 36415; 71045; 71260; 74177; 80048; 80053; 80061; 83036; 83605; 83735; 83874; 84443; 84484; 85025; 85610; 85730; 87040; 93005; 93041

== ENCOUNTER 2019-03-31 10:11 | Emergency (ER) | payer BC, OTHER ==
[~2019-03-31] VITALS: Ht 177.8 cm; Wt 98.6 kg
[~2019-03-31 10:11] MED LIST changes: +AMLO5TAB9 PO; +AZIT250T12 PO; +DILT-27 PO; +DILT120C94 PO; +DILT240C86 PO; +POLY17PO6 PO
[2019-03-31 11:37] LABS: BASOPHILS % (AUTO) 0 % (0-10); EOSINOPHILS # (AUTO) 0.1 10^3/uL (0.0-0.3); EOSINOPHILS % (AUTO) 1 % (0-10); HEMATOCRIT 48 % (40-54); HEMOGLOBIN 16.2 G/DL (13.3-17.7); LYMPHOCYTES # (AUTO) 1.7 X 10^3 (1.0-4.0); LYMPHOCYTES % (AUTO) 21 % (12-44); MEAN CORPUSCULAR HEMOGLOBIN 31 PG (25-34); MEAN CORPUSCULAR HGB CONC 34 G/DL (32-36); MEAN CORPUSCULAR VOLUME 91 FL (80-99); MEAN PLATELET VOLUME 10.8 FL (7.4-10.4); MONOCYTES # (AUTO) 0.9 X 10^3 (0.0-1.0); MONOCYTES % (AUTO) 12 % (0-12); NEUTROPHILS # (AUTO) 5.2 X 10^3 (1.8-7.8); NEUTROPHILS % (AUTO) 65 % (42-75); PLATELET COUNT 230 10^3/uL (130-400); RED CELL DISTRIBUTION WIDTH 13.8 % (10.0-14.5); WHITE BLOOD COUNT 7.9 10^3/uL (4.3-11.0)
--- NOTE | 2019-03-31 11:37 | ED Abdominal Pain ---
General Chief Complaint: Abdominal/GI Problems Stated Complaint: ABD PAIN Nursing Triage Note: Pt amb to room #9 with c/o medial abd discomfort intermittently for "a couple months." Pt reports intermittent nausea, vomiting, and decreased appetite for approx x3 days. Pt states, "theres a knot the size of a golf ball and it keeps growing." soft, distended abd noted. Denies fever or chills. Reports hx hernia requiring surgical intervention. Sepsis Screen: No Definite Risk Source of Information: Patient Exam Limitations: No Limitations History of Present Illness Date Seen by Provider: Mar 31, 2019 Time Seen by Provider: 11:35 Initial Comments To ER with midline abdominal discomfort and "knot" associated with intermittent nausea and vomiting and decreased appetite for 3 days. The knot has been there for about 3 months. History of appendectomy and hernia repair Timing/Duration: Getting Worse, Intermittent Severity/Quality: Moderate Location: Generalized Abdomen Radiation: No Radiation Activities at Onset: None Associated Symptoms: Nausea/Vomiting Allergies and Home Medications Allergies Coded Allergies: lidocaine (Unverified Allergy, Mild, BREAKS OUT IN WELTS, 09/29/16) iodine (Verified Allergy, Unknown, Vomiting, 03/31/19) orange juice (Verified Allergy, Unknown, 09/29/16) Home Medications Apixaban 5 Mg Tablet, 5 MG PO BID, (Reported) Azithromycin 250 Mg Tablet, 250 MG PO DAILY Prescribed by: ANGELA MILLER on 09/27/17 1241 Diltiazem HCl 120 Mg Cap.er.24h, 120 MG PO DAILY, (Reported) Diltiazem HCl 240 Mg Cap.er.24h, 240 MG PO DAILY Prescribed by: RENETTA ESPINOZA on 09/27/17 1256 Hydrocodone/Acetaminophen 1 Each Tablet, 1 TAB PO Q6H Prescribed by: CAROLINA RODRÍGUEZ on 03/31/19 1248 Lisinopril 20 Mg Tablet, 20 MG PO DAILY, (Reported) Ondansetron 8 Mg Tab.rapdis, 8 MG PO Q6H PRN for NAUSEA/VOMITING Prescribed by: CAROLINA RODRÍGUEZ on 03/31/19 1248 Polyethylene Glycol 3350 17 Gm Powd.pack, 17 GM PO DAILY Prescribed by: ANGELA MILLER on 09/27/17 1241 Patient Home Medication List Home Medication List Reviewed: Yes Review of Systems Review of Systems Constitutional: see HPI EENTM: No Symptoms Reported Respiratory: No Symptoms Reported Cardiovascular: No Symptoms Reported Gastrointestinal: No Symptoms Reported Genitourinary: No Symptoms Reported Musculoskeletal: no symptoms reported Skin: no symptoms reported Psychiatric/Neurological: No Symptoms Reported Endocrine: No Symptoms Reported Hematologic/Lymphatic: No Symptoms Reported Past Mlhhlhy-Bfoqdb-Jrbztg Hx Patient Social History Alcohol Use: Past History Number of Drinks Today: 0 Alcohol Beverage of Choice: Beer Recreational Drug Use: No Smoking Status: Former Smoker Type Used: Smokeless Tobacco Former Smoker, Quit: August 24, 2015 2nd Hand Smoke Exposure: No Recent Foreign Travel: No Contact w/Someone Who Travel: No Recent Infectious Disease Expo: No Recent Hopitalizations: No Immunizations Up To Date Tetanus Booster (TDap): Less than 5yrs PED Vaccines UTD: No Seasonal Allergies Seasonal Allergies: Yes (MILD) Past Medical History Surgeries: Yes (KIDNEY STONE-REMOVAL, HERNIA, BACK L4, R ROTATOR CUFF, ) Abdominal, Appendectomy, Orthopedic Respiratory: No Currently Using CPAP: No Cardiac: Yes Atrial Fibrillation, Hypertension Neurological: Yes (POSS TIA) TIA Reproductive Disorders: No Sexually Transmitted Disease: No HIV/AIDS: No Genitourinary: Yes Benign Prostatic Hyperpl, Kidney Stones Gastrointestinal: Yes Abdominal Hernia, Gastroesophageal Reflux, Diverticulosis Musculoskeletal: Yes Degenerate Disk Disease, Arthritis, Back Injury, Chronic Back Pain Endocrine: No HEENT: No Loss of Vision: Bilateral Hearing Impairment: Denies Cancer: No Psychosocial: No Integumentary: No Blood Disorders: No Adverse Reaction/Blood Tranf: No (N/A) Family Medical History Alzheimer's disease paternal grandmother Diabetes mellitus 19 MOTHER Gastroenteritis Hypertension G8 SISTER Neoplasm maternal grandmother (pancreatic cancer) Diabetes Physical Exam Vital Signs Vital Signs - First Documented 03/31/19 11:09 Temp 36.5 Pulse 75 Resp 17 B/P (MAP) 115/96 (102) Pulse Ox 96 O2 Delivery Room Air Capillary Refill : Less Than 3 Seconds Height/Weight/BMI Height: 5'11.00" Weight: 236lbs. 0.0oz. 107.888719at; 31.00 BMI Method:Stated General Appearance: WD/WN, no apparent distress HEENT: PERRL/EOMI, normal ENT inspection Respiratory: no respiratory distress, no accessory muscle use Cardiovascular: regular rate, rhythm, no murmur Gastrointestinal: normal bowel sounds, soft, tenderness Extremities: normal range of motion, non-tender 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: alert, normal mood/affect, oriented x 3 Skin: normal color, warm/dry Progress/Results/Core Measures Results/Orders Lab Results Laboratory Tests Test 03/31/19 11:19 03/31/19 11:45 Range/Units White Blood Count 7.9 4.3-11.0 10^3/uL Red Blood Count 5.28 4.35-5.85 10^6/uL Hemoglobin 16.2 13.3-17.7 G/DL Hematocrit 48 40-54 % Mean Corpuscular Volume 91 80-99 FL Mean Corpuscular Hemoglobin 31 25-34 PG Mean Corpuscular Hemoglobin Concent 34 32-36 G/DL Red Cell Distribution Width 13.8 10.0-14.5 % Platelet Count 230 130-400 10^3/uL Mean Platelet Volume 10.8 H 7.4-10.4 FL Neutrophils (%) (Auto) 65 42-75 % Lymphocytes (%) (Auto) 21 12-44 % Monocytes (%) (Auto) 12 0-12 % Eosinophils (%) (Auto) 1 0-10 % Basophils (%) (Auto) 0 0-10 % Neutrophils # (Auto) 5.2 1.8-7.8 X 10^3 Lymphocytes # (Auto) 1.7 1.0-4.0 X 10^3 Monocytes # (Auto) 0.9 0.0-1.0 X 10^3 Eosinophils # (Auto) 0.1 0.0-0.3 10^3/uL Basophils # (Auto) 0.0 0.0-0.1 10^3/uL Sodium Level 142 135-145 MMOL/L Potassium Level 4.4 3.6-5.0 MMOL/L Chloride Level 112 H 98-107 MMOL/L Carbon Dioxide Level 21 21-32 MMOL/L Anion Gap 9 5-14 MMOL/L Blood Urea Nitrogen 20 H 7-18 MG/DL Creatinine 1.68 H 0.60-1.30 MG/DL Estimat Glomerular Filtration Rate 42 BUN/Creatinine Ratio 12 Glucose Level 97 70-105 MG/DL Calcium Level 9.7 8.5-10.1 MG/DL Corrected Calcium 9.5 8.5-10.1 MG/DL Total Bilirubin 0.6 0.1-1.0 MG/DL Aspartate Amino Transf (AST/SGOT) 16 5-34 U/L Alanine Aminotransferase (ALT/SGPT) 18 0-55 U/L Alkaline Phosphatase 93 40-136 U/L Total Protein 7.1 6.4-8.2 GM/DL Albumin 4.3 3.2-4.5 GM/DL Lipase 32 8-78 U/L Urine Color YELLOW Urine Clarity CLEAR Urine pH 6.0 5-9 Urine Specific [place] >=1.030 1.016-1.022 Urine Protein NEGATIVE NEGATIVE Urine Glucose (UA) NEGATIVE NEGATIVE Urine Ketones NEGATIVE NEGATIVE Urine Nitrite NEGATIVE NEGATIVE Urine Bilirubin NEGATIVE NEGATIVE Urine Urobilinogen 0.2 < = 1.0 MG/DL Urine Leukocyte Esterase NEGATIVE NEGATIVE Urine RBC (Auto) NEGATIVE NEGATIVE Urine RBC NONE /HPF Urine WBC NONE /HPF Urine Crystals NONE /LPF Urine Bacteria TRACE /HPF Urine Casts NONE /LPF Urine Mucus MODERATE H /LPF Urine Culture Indicated NO My Orders Orders - CAROLINA RODRÍGUEZ [employer]PPORT[employer]ITY OFFICER Cbc With Automated Diff (03/31/19 11:30) Comprehensive Metabolic Panel (03/31/19 11:30) Lipase (03/31/19 11:30) Ua Culture If Indicated (03/31/19 11:30) Ed Iv/Invasive Line Start (03/31/19 11:30) Fentanyl Injection (Sublimaze Injection (03/31/19 11:45) Ct Abdomen/Pelvis Wo (03/31/19 12:05) Ns Iv 1000 Ml (Sodium Chloride 0.9%) (03/31/19 12:15) Fentanyl Injection (Sublimaze Injection (03/31/19 12:45) Medications Given in ED Current Medications Medications Dose Ordered Sig/Elisha Route Start Time Stop Time Status Last Admin Dose Admin Fentanyl Citrate 50 mcg ONCE ONCE IVP 03/31/19 11:45 03/31/19 11:46 DC 03/31/19 11:44 50 MCG Fentanyl Citrate 50 mcg ONCE ONCE IVP 03/31/19 12:45 03/31/19 12:46 DC 03/31/19 12:49 50 MCG Vital Signs/I&O 03/31/19 11:09 Temp 36.5 Pulse 75 Resp 17 B/P (MAP) 115/96 (102) Pulse Ox 96 O2 Delivery Room Air Blood Pressure Mean: 102 Diagnostic Imaging Diagonstic Imaging: CT Plain Films/CT/US/NM/MRI: other Comments NAME: GUY MELENDEZ JR [facility] REC#: [id number] PT STATUS: REG ER : 1955 PHYSICIAN: CAROLINA RODRÍGUEZ APRN ADMIT DATE: 03/31/19/ER Signed Date of Exam:03/31/19 CT ABDOMEN/PELVIS WO PROCEDURE: CT abdomen and pelvis without contrast. TECHNIQUE: Multiple contiguous axial images were obtained through the abdomen and pelvis without the use of intravenous contrast. Auto Exposure Controls were utilized during the CT exam to meet ALARA standards for radiation dose reduction. INDICATION: Lower abdominal discomfort for a couple months. Nausea and vomiting. COMPARISON: 09/27/2017. FINDINGS: The heart is unremarkable. The included lung bases are clear. Stable bilobed cyst in the left hepatic lobe. Additional too small to characterize lesions are noted in the liver. The gallbladder is unremarkable. 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 The left adrenal gland is unremarkable. Cortical cyst is again seen in the mid left kidney. No evidence of acute hydronephrosis. No renal calculi. The spleen and pancreas have an unremarkable noncontrast CT appearance. There is no pathologically enlarged mesenteric or retroperitoneal adenopathy. The bowel loops are nondilated. A duodenal diverticulum is again seen off the 3rd portion the duodenum. There is interval increase in size in a ventral hernia which contains a few loops of small bowel. No evidence of strangulation or bowel obstruction. Postsurgical changes are noted in the cecum. A few scattered diverticuli are present without evidence of acute diverticulitis.. There is no free fluid or free air. Posterior fusion changes are noted at L4-L5. No acute osseous abnormalities. The urinary bladder is decompressed. There is no free air, loculated collection, or adenopathy in the pelvis. IMPRESSION: 1. Interval increase in size in a ventral hernia containing a few loops of small bowel. No evidence of string lesion or bowel obstruction. 2. Stable chronic findings as described. Dictated by: Dictated on workstation # [id number] Dict: 03/31/19 1255 Trans: 03/31/19 1259 [facility] [id number] Interpreted by: GUS HAWK DO Electronically signed by: GUS HAWK DO 03/31/19 1259 Departure Impression Primary Impression: Ventral hernia Qualified Codes: K43.9 - Ventral hernia without obstruction or gangrene Disposition: HOME, SELF-CARE Condition: Improved Departure-Patient Inst. Decision time for Depature: 12:46 Referrals: KAI WU MD (PCP/Family) Primary Care Physician JULIANA PHAM BRETT D DO KIDO, TAKAAKI MD Patient Instructions: Abdominal Wall Hernias Add. Discharge Instructions: 1. Return to ER for any concerns 2. FOllow up with one of the surgeons listed. Call tomorrow or thursday for an appointment time. All discharge instructions reviewed with patient and/or family. Voiced understanding. Scripts Ondansetron (Ondansetron Odt) 8 Mg Tab.rapdis 8 MG PO Q6H PRN for NAUSEA/VOMITING, #10 TAB Prov: CAROLINA RODRÍGUEZ APRN 03/31/19 Hydrocodone/Acetaminophen ([place] 5-325 Tablet) 1 Each Tablet 1 TAB PO Q6H for Pain MDD 10 TABS for 7 Days, #14 TAB Prov: CAROLINA RODRÍGUEZ APRN 03/31/19 CAROLINA RODRÍGUEZ APRN Mar 31, 2019 11:37
[2019-03-31] MEDS ORDERED: fentaNYL INJECTION 100 MCG/2 ML AMP IVP ONE ×2 (11:45→12:45)
[2019-03-31 11:56] LABS: BILIRUBIN,URINE NEGATIVE (NEGATIVE); CLARITY,URINE CLEAR; COLOR,URINE YELLOW; GLUCOSE, URINE (UA) NEGATIVE (NEGATIVE); KETONES,URINE NEGATIVE (NEGATIVE); LEUKOCYTE ESTERASE ,URINE NEGATIVE (NEGATIVE); NITRITE,URINE NEGATIVE (NEGATIVE); PROTEIN,URINE NEGATIVE (NEGATIVE)
[2019-03-31 12:01] LABS: ALBUMIN 4.3 GM/DL (3.2-4.5); BILIRUBIN,TOTAL 0.6 MG/DL (0.1-1.0); CALCIUM 9.7 MG/DL (8.5-10.1); CREATININE SERUM 1.68 MG/DL (0.60-1.30); POTASSIUM 4.4 MMOL/L (3.6-5.0); TOTAL PROTEIN 7.1 GM/DL (6.4-8.2)
[2019-03-31 12:03] LABS: BACTERIA,URINE TRACE /HPF
[2019-03-31] MEDS ORDERED: NS IV 1000 ML 1,000 ML IV SCH (12:15)
[2019-03-31] MEDS ORDERED: HYDR-4226 PO (12:48)
[2019-03-31] MEDS ORDERED: ONDA8TAB13 PO (12:48)
--- NOTE | 2019-03-31 13:01 | Diagnostic Imaging Report ---
PROCEDURE: CT abdomen and pelvis without contrast. TECHNIQUE: Multiple contiguous axial images were obtained through the abdomen and pelvis without the use of intravenous contrast. Auto Exposure Controls were utilized during the CT exam to meet ALARA standards for radiation dose reduction. INDICATION: Lower abdominal discomfort for a couple months. Nausea and vomiting. COMPARISON: 09/27/2017. FINDINGS: The heart is unremarkable. The included lung bases are clear. Stable bilobed cyst in the left hepatic lobe. Additional too small to characterize lesions are noted in the liver. The gallbladder is unremarkable. 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 The left adrenal gland is unremarkable. Cortical cyst is again seen in the mid left kidney. No evidence of acute hydronephrosis. No renal calculi. The spleen and pancreas have an unremarkable noncontrast CT appearance. There is no pathologically enlarged mesenteric or retroperitoneal adenopathy. The bowel loops are nondilated. A duodenal diverticulum is again seen off the 3rd portion the duodenum. There is interval increase in size in a ventral hernia which contains a few loops of small bowel. No evidence of strangulation or bowel obstruction. Postsurgical changes are noted in the cecum. A few scattered diverticuli are present without evidence of acute diverticulitis.. There is no free fluid or free air. Posterior fusion changes are noted at L4-L5. No acute osseous abnormalities. The urinary bladder is decompressed. There is no free air, loculated collection, or adenopathy in the pelvis. IMPRESSION: 1. Interval increase in size in a ventral hernia containing a few loops of small bowel. No evidence of string lesion or bowel obstruction. 2. Stable chronic findings as described. Dictated by: Dictated on workstation # [id number]
[2019-03-31 13:18] VITALS: BP 109/87
== END 2019-03-31 13:18 | disposition home or self-care (01) ==
LOC: EDUNIT# 10:11 → ER 10:12
DX: K43.9 Ventral hernia without obstruction or gangrene (principal); I10 Essential (primary) hypertension; I48.91 Unspecified atrial fibrillation; K21.9 Gastro-esophageal reflux disease without esophagitis; Z86.73 Personal history of transient ischemic attack (TIA), and cerebral infarction without residual deficits; Z87.442 Personal history of urinary calculi; Z88.8 Allergy status to other drugs, medicaments and biological substances; Z79.01 Long term (current) use of anticoagulants; Z90.49 Acquired absence of other specified parts of digestive tract; Z87.891 Personal history of nicotine dependence; Z82.49 Family history of ischemic heart disease and other diseases of the circulatory system
CPT/HCPCS: 36415; 74176; 80053; 81000; 83690; 85025; 96374; 96376

== ENCOUNTER 2022-08-26 16:12 | Emergency (ER) | payer SELFPAY ==
[~2022-08-26] VITALS: Ht 177.8 cm; Wt 89.3 kg
[~2022-08-26 16:12] MED LIST changes: +ACHYD1T PO; -ALFU10TA11 PO; +ALFU10TA12 PO; +AMLO-250 PO; -AMLO5TAB9 PO; +ASPI-1238 PO; -ASPI-983 PO; +DILT120C88 PO; -DILT120C94 PO; +FAMO1TAB21 PO; -HYDR-3820 PO; +HYDR-4226 PO; -LISI-552 PO; +LISI20TA26 PO; +ONDA8TAB13 PO; -OXYC-471 PO; +OXYC1TAB11 PO; +SUCR1TAB36 PO; -SULF1TAB35 PO; -TRAM50TA2 PO; +TRM50T PO
[2022-08-26] MEDS ORDERED: hydrOXYzine (VISTARIL/ATARAX) 25 MG capsule/tablet PO STA (16:26)
--- NOTE | 2022-08-26 16:32 | ED General ---
General Chief Complaint: Chest Pain Stated Complaint: DIZZY|CONFUSED|SCARED|SAD|BLOOD PRESSURE LOW|CP Nursing Triage Note: Patient ambulatory to room 6 w complaints of being anxious and having left sided chest pain. Patient reports all his symptoms started Thursday. He felt like he was getting better but it came back and it's worse. I got upset today because I went out to the freezer and got a pizza to put into the oven and I started bawling over it. I'm usually not scared of anything but snakes but all of a sudden i'm scared of everything. Pt denies ever having this feeling before. hx of afib. "Im a shame" Source of Information: Patient Exam Limitations: No Limitations History of Present Illness Date Seen by Provider: August 26, 2022 Time Seen by Provider: 16:21 Initial Comments 66-year-old male presents emergency department today for chest pain, shortness of breath and emotional lability. Symptoms started on Thursday. He felt like he was getting better Thursday afternoon but it has progressively worsened the next couple of days. Denies any fevers or chills. Chest pain is mid central, epigastric burning sensation without radiation. No aggravating or alleviating factors. He states he is breathing quickly and struggling to catch his breath. He has no history of anxiety and a remote history of depression. He states he is scared of everything in his life right now when typically he is only scared of snakes. He has been crying for no reason, for instance he went to put a pizza into the oven and started crying because it did not fit. He denies any recent medication changes. He has not been on any steroid medications. He does not use caffeine in excess. He does not have any thyroid disorder. All other systems reviewed and negative except documented per HPI. Voice recognition software was used to help create this chart Allergies and Home Medications Allergies Coded Allergies: lidocaine (Unverified Allergy, Mild, BREAKS OUT IN WELTS, 09/29/16) iodine (Verified Allergy, Unknown, Vomiting, 03/31/19) orange juice (Verified Allergy, Unknown, 09/29/16) Patient Home Medication List Home Medication List Reviewed: Yes Apixaban (Eliquis) 5 Mg Tablet, 5 MG PO BID, (Reported) Entered as Reported by: CHANDA DUKE on 09/29/16 1240 Azithromycin (Azithromycin) 250 Mg Tablet, 250 MG PO DAILY Prescribed by: ANGELA MILLER on 09/27/17 1241 Diltiazem HCl (Diltiazem 24Hr ER) 120 Mg Cap.er.24h, 120 MG PO DAILY, (Reported) Entered as Reported by: RENETTA ESPINOZA on 09/26/17 1247 Diltiazem HCl (Cardizem Cd) 240 Mg Cap.er.24h, 240 MG PO DAILY Prescribed by: RENETTA ESPINOZA on 09/27/17 1256 Famotidine/Ca Carb/Mag Hydrox (Pepcid Complete Tablet Chew) 1 Each Tab.chew, 1 EACH PO DAILY Prescribed by: JULIANA PHAM on 04/07/19 0956 Hydrocodone/Acetaminophen (Hydrocodone/Acetaminophen 5 MG/325 MG TAB) 1 Each Tablet, 1 TAB PO Q6H Prescribed by: CAROLINA RODRÍGUEZ on 03/31/19 1248 Lisinopril (Lisinopril) 20 Mg Tablet, 20 MG PO DAILY, (Reported) Entered as Reported by: CURT MATA on 10/24/15 1556 Ondansetron (Ondansetron Odt) 8 Mg Tab.rapdis, 8 MG PO Q6H PRN for NAUSEA/VOMITING Prescribed by: CAROLINA RODRÍGUEZ on 03/31/19 1248 Polyethylene Glycol 3350 (Miralax) 17 Gm Powd.pack, 17 GM PO DAILY Prescribed by: ANGELA MILLER on 09/27/17 1241 Sucralfate (Carafate) 1 Gm Tablet, 1 GM PO ACHS Prescribed by: JULIANA PHAM on 04/07/19 0956 Review of Systems Review of Systems Constitutional: see HPI Past [id number] Hx Patient Social History Tobacco Use?: Yes Tobacco type used: Cigars Substance use?: No Alcohol Use?: Yes Alcohol type: Beer Alcohol Frequency: Once in a while Immunizations Up To Date Tetanus Booster (TDap): Less than 5yrs PED Vaccines UTD: No Seasonal Allergies Seasonal Allergies: Yes (MILD) Past Medical History Surgeries: Yes (KIDNEY STONE-REMOVAL, HERNIA, BACK L4, R ROTATOR CUFF, ) Abdominal, Appendectomy, Orthopedic Respiratory: No Currently Using CPAP: No Cardiac: Yes Atrial Fibrillation, Hypertension Neurological: Yes (POSS TIA) TIA Reproductive Disorders: No Sexually Transmitted Disease: No HIV/AIDS: No Genitourinary: Yes Benign Prostatic Hyperpl, Kidney Stones Gastrointestinal: Yes Abdominal Hernia, Gastroesophageal Reflux, Diverticulosis Musculoskeletal: Yes Degenerate Disk Disease, Arthritis, Back Injury, Chronic Back Pain Endocrine: No HEENT: No Loss of Vision: Bilateral Hearing Impairment: Denies Cancer: No Psychosocial: No Integumentary: No Blood Disorders: No Adverse Reaction/Blood Tranf: No (N/A) Family Medical History Alzheimer's disease paternal grandmother Diabetes mellitus 19 MOTHER Gastroenteritis Hypertension G8 SISTER Neoplasm maternal grandmother (pancreatic cancer) Diabetes Physical Exam Vital Signs Vital Signs - First Documented 08/26/22 16:19 Temp 36.6 Pulse 79 Resp 22 B/P (MAP) 143/85 (104) Pulse Ox 99 O2 Delivery Room Air Capillary Refill : Less Than 3 Seconds Height, Weight, BMI Height: 5'11.00" Weight: 236lbs. 0.0oz. 107.626175oj; 28.00 BMI Method:Stated General Appearance: WD/WN, Anxious Eyes: Bilateral Eye Normal Inspection, Bilateral Eye PERRL, Bilateral Eye EOMI HEENT: Normal ENT Inspection, Pharynx Normal Neck: Full Range of Motion, Normal Inspection, Non Tender, Supple Respiratory: Chest Non Tender, Lungs Clear, Normal Breath Sounds, No Accessory Muscle Use, No Respiratory Distress Cardiovascular: No Murmur, Normal Peripheral Pulses, Other (Atrial flutter, rate controlled) Gastrointestinal: Normal Bowel Sounds, No Organomegaly, No Pulsatile Mass, Non Tender, Soft Extremity: Normal Capillary Refill, Normal Inspection, Normal Range of Motion, Non Tender, No Calf Tenderness 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: Alert, Oriented x3, No Motor/Sensory Deficits, scow hand II- XII Norm as Tested Skin: Normal Color, Warm/Dry Lymphatic: No Adenopathy Progress/Results/Core Measures Suspected Sepsis SIRS Temperature: Pulse: 79 Respiratory Rate: 22 Laboratory Tests 08/26/22 16:28: White Blood Count 8.7 Blood Pressure 143 /85 Mean: 104 Laboratory Tests 08/26/22 16:28: Creatinine 1.42H, Platelet Count 253, Total Bilirubin 0.4 Results/Orders Lab Results Laboratory Tests Test 08/26/22 16:28 08/26/22 16:51 Range/Units White Blood Count 8.7 4.3-11.0 10^3/uL Red Blood Count 4.77 4.30-5.52 10^6/uL Hemoglobin 15.1 13.3-17.7 g/dL Hematocrit 45 40-54 % Mean Corpuscular Volume 95 80-99 fL Mean Corpuscular Hemoglobin 32 25-34 pg Mean Corpuscular Hemoglobin Concent 33 32-36 g/dL Red Cell Distribution Width 14.1 10.0-14.5 % Platelet Count 253 130-400 10^3/uL Mean Platelet Volume 10.8 9.0-12.2 fL Immature Granulocyte % (Auto) 1 % Neutrophils (%) (Auto) 63 42-75 % Lymphocytes (%) (Auto) 24 12-44 % Monocytes (%) (Auto) 9 0-12 % Eosinophils (%) (Auto) 3 0-10 % Basophils (%) (Auto) 1 0-10 % Neutrophils # (Auto) 5.5 1.8-7.8 10^3/uL Lymphocytes # (Auto) 2.1 1.0-4.0 10^3/uL Monocytes # (Auto) 0.8 0.0-1.0 10^3/uL Eosinophils # (Auto) 0.2 0.0-0.3 10^3/uL Basophils # (Auto) 0.1 0.0-0.1 10^3/uL Immature Granulocyte # (Auto) 0.1 0.0-0.1 10^3/uL Neutrophils % (Manual) 70 % Lymphocytes % (Manual) 24 % Monocytes % (Manual) 5 % Eosinophils % (Manual) 1 % Sodium Level 143 135-145 MMOL/L Potassium Level 4.1 3.6-5.0 MMOL/L Chloride Level 113 H 98-107 MMOL/L Carbon Dioxide Level 19 L 21-32 MMOL/L Anion Gap 11 5-14 MMOL/L Blood Urea Nitrogen 19 H 7-18 MG/DL Creatinine 1.42 H 0.60-1.30 MG/DL Estimat Glomerular Filtration Rate 55 BUN/Creatinine Ratio 13 Glucose Level 104 70-105 MG/DL Calcium Level 9.6 8.5-10.1 MG/DL Corrected Calcium 9.7 8.5-10.1 MG/DL Total Bilirubin 0.4 0.1-1.0 MG/DL Aspartate Amino Transf (AST/SGOT) 32 5-34 U/L Alanine Aminotransferase (ALT/SGPT) 41 0-55 U/L Alkaline Phosphatase 97 40-136 U/L Troponin I < 0.028 <0.028 NG/ML Total Protein 6.8 6.4-8.2 GM/DL Albumin 3.9 3.2-4.5 GM/DL Thyroid Stimulating Hormone (TSH) 0.95 0.35-4.94 UIU/ML Salicylates Level < 5.0 L 5.0-20.0 MG/DL Acetaminophen Level < 10 L 10-30 UG/ML Serum Alcohol < 10 <10 MG/DL Urine Color YELLOW Urine Clarity CLEAR Urine pH 6.0 5-9 Urine Specific [place] 1.020 1.016-1.022 Urine Protein NEGATIVE NEGATIVE Urine Glucose (UA) NEGATIVE NEGATIVE Urine Ketones NEGATIVE NEGATIVE Urine Nitrite NEGATIVE NEGATIVE Urine Bilirubin NEGATIVE NEGATIVE Urine Urobilinogen 1.0 < = 1.0 MG/DL Urine Leukocyte Esterase NEGATIVE NEGATIVE Urine RBC (Auto) NEGATIVE NEGATIVE Urine RBC NONE /HPF Urine WBC RARE /HPF Urine Squamous Epithelial Cells NONE /HPF Urine Crystals PRESENT H /LPF Urine Amorphous Sediment FEW WANDA URATES H /LPF Urine Bacteria TRACE /HPF Urine Casts NONE /LPF Urine Mucus NEGATIVE /LPF Urine Culture Indicated NO Urine Opiates Screen NEGATIVE NEGATIVE Urine Oxycodone Screen NEGATIVE NEGATIVE Urine Methadone Screen NEGATIVE NEGATIVE Urine Propoxyphene Screen NEGATIVE NEGATIVE Urine Barbiturates Screen NEGATIVE NEGATIVE Ur Tricyclic Antidepressants Screen NEGATIVE NEGATIVE Urine Phencyclidine Screen NEGATIVE NEGATIVE Urine Amphetamines Screen NEGATIVE NEGATIVE Urine Methamphetamines Screen NEGATIVE NEGATIVE Urine Benzodiazepines Screen NEGATIVE NEGATIVE Urine Cocaine Screen NEGATIVE NEGATIVE Urine Cannabinoids Screen NEGATIVE NEGATIVE My Orders Orders - NICOLELAKISHA DO Troponin I Sascha (08/26/22 16:26) Chest 1 View, Ap/Pa Only (08/26/22 16:26) Cbc And Manual Diff (08/26/22 16:26) Comprehensive Metabolic Panel (08/26/22 16:26) Thyroid Stimulating Hormone (08/26/22 16:26) Ua Culture If Indicated (08/26/22 16:26) Alcohol (08/26/22 16:26) Drug Screen Stat (Urine) (08/26/22 16:26) Acetaminophen (08/26/22 16:26) Salicylate (08/26/22 16:26) Ed Iv/Invasive Line Start (08/26/22 16:26) Monitor-Rhythm Ecg Trace Only (08/26/22 16:26) Hydroxyzine Cap/Tab (Vistaril) (08/26/22 16:26) Vital Signs/I&O 08/26/22 16:19 Temp 36.6 Pulse 79 Resp 22 B/P (MAP) 143/85 (104) Pulse Ox 99 O2 Delivery Room Air Capillary Refill : Less Than 3 Seconds Blood Pressure Mean: 104 ECG Comment Atrial flutter at 80 bpm. Normal intervals outside of [place] interval. Left axis deviation. No ST or T wave abnormalities. No ectopy. Departure Communication (Admissions) The patient is hemodynamically stable. He has had symptoms since Thursday with chest pain. His EKG is nonischemic and his troponin is negative. No indication for second set of troponins since his symptoms have been constant since that time. There is no evidence of ACS at this time. His symptoms seem most consistent with anxiety at this time. His chest x-ray is clear with no pneumonia, pneumothorax, cardiomegaly. I did encourage him to stay for a mental health screening. He is not suicidal or homicidal. He declines stating that it is going to take another hour then he does not want to stay. I did advise that he is welcome to come back at any time should he change his mind. He states understanding. He adamantly denies suicidal or homicidal thoughts or feelings. He will be discharged in stable condition with close primary care follow-up. I will give him some as needed hydroxyzine as it did seem to help him when I gave him a p.o. hydroxyzine here. Impression Primary Impression: Chest pain Qualified Codes: R07.9 - Chest pain, unspecified Additional Impression: Sadness Disposition: 01 HOME, SELF-CARE Condition: Stable Departure-Patient Inst. Referrals: NO,LOCAL PHYSICIAN (PCP/Family) Primary Care Physician Patient Instructions: Chest Pain That Is Not Caused by the Heart (DC), Screening for Depression Add. Discharge Instructions: You have declined staying for mental health evaluation. I have given you a medication called hydroxyzine that you may use as needed for anxiety. It is the same medicine that I gave you here that seem to help you some. Increase your fluids at home, rest. Avoid caffeine. Return to the emergency department if you change your mind about mental health screening. Return immediately to the emergency department if you develop any thoughts of harming yourself or anyone else. Follow-up with your primary doctor for any nonemergent needs. All discharge instructions reviewed with patient and/or family. Voiced understanding. Scripts Hydroxyzine HCl (Hydroxyzine HCl) 50 Mg Tablet 50 MG PO TID for Anxiety for 10 Days, #30 TAB Prov: LAKISHA RIVERA DO 08/26/22 LAKISHA RIVERA DO August 26, 2022 16:32
[2022-08-26 16:35] LABS: BASOPHILS # (AUTO) 0.1 10^3/uL (0.0-0.1); BASOPHILS % (AUTO) 1 % (0-10); EOSINOPHILS # (AUTO) 0.2 10^3/uL (0.0-0.3); EOSINOPHILS % (AUTO) 3 % (0-10); HEMATOCRIT 45 % (40-54); HEMOGLOBIN 15.1 g/dL (13.3-17.7); LYMPHOCYTES # (AUTO) 2.1 10^3/uL (1.0-4.0); LYMPHOCYTES % (AUTO) 24 % (12-44); MEAN CORPUSCULAR HEMOGLOBIN 32 pg (25-34); MEAN CORPUSCULAR HGB CONC 33 g/dL (32-36); MEAN CORPUSCULAR VOLUME 95 fL (80-99); MEAN PLATELET VOLUME 10.8 fL (9.0-12.2); MONOCYTES # (AUTO) 0.8 10^3/uL (0.0-1.0); MONOCYTES % (AUTO) 9 % (0-12); NEUTROPHILS # (AUTO) 5.5 10^3/uL (1.8-7.8); NEUTROPHILS % (AUTO) 63 % (42-75); PLATELET COUNT 253 10^3/uL (130-400); WHITE BLOOD COUNT 8.7 10^3/uL (4.3-11.0)
--- NOTE | 2022-08-26 16:40 | Diagnostic Imaging Report ---
EXAMINATION: Chest 1 view HISTORY: Shortness of breath and chest pain. COMPARISON: 09/26/2017. FINDINGS: The lungs are clear without edema or pneumonia. No pleural effusion or pneumothorax. Heart size is normal. IMPRESSION: 1. Clear lungs. Dictated by: Dictated on workstation # [id number]
[2022-08-26 16:52] LABS: CHLORIDE 113 MMOL/L (98-107); EOSINOPHILS % (MANUAL) 1 %; LYMPHOCYTES % (MANUAL) 24 %; MONOCYTES % (MANUAL) 5 %; NEUTROPHILS % (MANUAL) 70 %; POTASSIUM 4.1 MMOL/L (3.6-5.0)
[2022-08-26 16:53] LABS: ALBUMIN 3.9 GM/DL (3.2-4.5); SODIUM 143 MMOL/L (135-145)
[2022-08-26 16:54] LABS: CALCIUM 9.6 MG/DL (8.5-10.1)
[2022-08-26 16:55] LABS: GLUCOSE 104 MG/DL (70-105); TOTAL PROTEIN 6.8 GM/DL (6.4-8.2)
[2022-08-26 16:56] LABS: CARBON DIOXIDE 19 MMOL/L (21-32)
[2022-08-26 16:57] LABS: BILIRUBIN,URINE NEGATIVE (NEGATIVE); CLARITY,URINE CLEAR; COLOR,URINE YELLOW; GLUCOSE, URINE (UA) NEGATIVE (NEGATIVE); KETONES,URINE NEGATIVE (NEGATIVE); LEUKOCYTE ESTERASE ,URINE NEGATIVE (NEGATIVE); NITRITE,URINE NEGATIVE (NEGATIVE); PROTEIN,URINE NEGATIVE (NEGATIVE)
[2022-08-26 16:57] LABS: BILIRUBIN,TOTAL 0.4 MG/DL (0.1-1.0)
[2022-08-26 16:59] LABS: ALKALINE PHOSPHATASE 97 U/L (40-136); CREATININE SERUM 1.42 MG/DL (0.60-1.30); GFR ESTIMATED 55
[2022-08-26 17:00] LABS: BUN/CREATININE RATIO 13
[2022-08-26 17:01] LABS: ACETAMINOPHEN < 10 UG/ML (10-30)
[2022-08-26 17:02] LABS: ALANINE AMINOTRANSFERASE 41 U/L (0-55); SALICYLATE < 5.0 MG/DL (5.0-20.0)
[2022-08-26 17:08] LABS: AMPHETAMINE SCREEN, URINE NEGATIVE (NEGATIVE); BARBITURATE SCREEN URINE NEGATIVE (NEGATIVE); BENZODIAZEPINES SCREEN URINE NEGATIVE (NEGATIVE); CANNABINOID SCREEN, URINE NEGATIVE (NEGATIVE); COCAINE SCREEN URINE NEGATIVE (NEGATIVE); METHADONE STAT NEGATIVE (NEGATIVE); OPIATE SCREEN URINE NEGATIVE (NEGATIVE); OXYCODONE STAT NEGATIVE (NEGATIVE); TRICYCLIC ANTIDEPRESSANTS SCRE NEGATIVE (NEGATIVE)
[2022-08-26 17:09] LABS: PROPOXYPHENE STAT NEGATIVE (NEGATIVE)
[2022-08-26 17:20] LABS: AMORPHOUS SEDIMENT,UR FEW AMOR URATES /LPF; BACTERIA,URINE TRACE /HPF; WBC,URINE RARE /HPF
[2022-08-26] MEDS ORDERED: HYDR50TA76 PO (17:35)
[2022-08-26 17:45] VITALS: BP 114/83
== END 2022-08-26 17:45 | disposition home or self-care (01) ==
LOC: EDUNIT# 16:12 → ER 16:14
DX: R07.89 Other chest pain (principal); R45.86 Emotional lability; R06.02 Shortness of breath; F17.210 Nicotine dependence, cigarettes, uncomplicated; Z28.310 Unvaccinated for COVID-19
CPT/HCPCS: 71045; 80053; 80306; 81000; 84443; 84484; 85007; 85027; 93041; 99284; G0480 ×3; 36415; 80320; 80329; 93005